=== PATIENT | female | born 1980 | race Caucasian/White ===

== ENCOUNTER → 2016-11-30 | Outpatient (CLI) | payer BC, OTHER ==
--- NOTE | 2016-11-30 14:49 | CT ---
EXAMINATION TYPE: CT brain wo/w con DATE OF EXAM: 11/30/2016 2:36 PM COMPARISON: NONE HISTORY: Lump at base of skull, upper posterior neck CT DLP: 2077mGycm CONTRAST: CT scan of the head is performed without and with IV Contrast, patient injected with 100 mL of Omnipa que 300. Unenhanced followed by contrast enhanced CT of the brain is submitted for evaluation. The ventricles are midline. There is no evidence for intracranial hemorrhage or extra-axial collection. No mass e ffects are identified. Visualized bony calvarium is intact. Contrast is administered and no enhanci ng lesions are detected. No pathologic enhancement is identified. Small Lipoma associated with consi derable. If symptoms persist consider MRI. IMPRESSION: No intracranial abnormalities appreciated.
--- NOTE | 2016-11-30 14:51 | CT ---
EXAMINATION TYPE: CT soft tissue neck w con DATE OF EXAM: 11/30/2016 2:35 PM COMPARISON: NONE HISTORY: Lt neck pain and swelling and posterior upper neck mass CT DLP: 500.2 mGycm CONTRAST: CT scan of the neck is performed with IV Contrast, patient injected with 100 mL of Omnipaque 300. Contrast enhanced CT of the neck was performed from the skull base through the lung apices. Marker is placed at the site of clinical concern posterior left neck. At the site of clinical concern there is lipomatous prominence which may reflect lipoma. No solid mass is seen. AIRWAY: The supraglottic, glottic, and subglottic portions of the airway appear patent and free of mass. SALIVARY GLANDS: The submandibular and parotid glands are free of mass or inflammatory process. THYROID GLAND: No nodules or masses seen. LYMPH NODES: No adenopathy seen greater than 1cm. LUNG APICES: No nodule or mass is seen. OTHER: Vascular structures are patent. No significant degenerative change of the cervical spine. N o abscess seen. Small polyp or mucous retention cyst right maxillary sinus. IMPRESSION: No solid mass at the site of clinical concern. Lipomatous prominence which may reflect lipoma.
== END | disposition home or self-care (01) ==
LOC: RADCTMAIN 13:12
PROVIDERS: ATTEND Nurse Practitioner Adult Health
DX: R22.1 Localized swelling, mass and lump, neck (principal)
CPT/HCPCS: 70491; 70470; Q9967

== ENCOUNTER → 2017-06-16 | Outpatient (CLI) | payer OTHER ==
--- NOTE | 2017-06-16 15:58 | US ---
EXAMINATION TYPE: US transvaginal DATE OF EXAM: 06/16/2017 COMPARISON: NONE CLINICAL HISTORY: N83.209 Ovarian cyst. Pelvic pain TECHNIQUE: Transvaginal (TV) Date of LMP: 05/20/17 EXAM MEASUREMENTS: Uterus: 8.1 x 4.5 x 5.4 cm Endometrial Stripe: 0.6 cm Right Ovary: 5.3 x 2.5 x 3.9 cm Left Ovary: 3.4 x 2.2 x 3.4 cm 1. Uterus: Anteverted Multiple Nabothian cysts 2. Endometrium: appears wnl 3. Right Ovary: cystic area = 3.6 x 2.9 x 3.5cm 4. Left Ovary: multiple follicles 5. Bilateral Adnexa: small amount of free fluid right adnexa adjacent to right ovary 6. Posterior cul-de-sac: small amount of free fluid IMPRESSION: 1. Right ovarian cyst. Follow-up exam following the next normal menstrual period or 6 weeks is recomm ended.
--- NOTE | 2017-06-16 16:10 | US ---
EXAMINATION TYPE: US mass soft tissue chest/back DATE OF EXAM: 06/16/2017 COMPARISON: NONE CLINICAL HISTORY: L98.9 Disorder of skin. Lump mid lower back for years, increasing in size Hypoechoic area within mid lower back at palpable = 3.5 x 1.5 x 3.0cm . Differential diagnosis could include a lipoma. This does not is low density is typically identified f or hematoma or abscess. Other etiologies including liposarcoma should be considered. Additional esthela p can be performed with contrast MRI. IMPRESSION: 1. Possible lipoma at the palpable abnormality mid to lower back. This has internal echoes and is sli ghtly more hypoechoic than the subcutaneous tissue. Consider additional workup with MRI with contrast .
== END | disposition home or self-care (01) ==
LOC: RADUSWWP 14:14
PROVIDERS: ATTEND Family Medicine
DX: N83.201 Unspecified ovarian cyst, right side (principal); R93.8 Abnormal findings on diagnostic imaging of other specified body structures; L98.9 Disorder of the skin and subcutaneous tissue, unspecified
CPT/HCPCS: 76830

== ENCOUNTER 2017-09-24 12:38 | Emergency (ER) | payer OTHER ==
[2017-09-24] MEDS ORDERED: RX INFO: IV CONTRAST WAS GIVEN 1 EACH MISC MISCELLANE PRN (13:30)
--- NOTE | 2017-09-24 13:40 | ED ---
SOB HPI - General Chief Complaint: Shortness of Breath Stated Complaint: SOB-Post Op 4 days Time Seen by Provider: 09/24/17 13:20 Source: patient, family Mode of arrival: wheelchair Limitations: no limitations - History of Present Illness Initial Comments: Patient presents with shortness of breath since she woke up this morning. Symptoms are mild, only with exertion. Denies palpitations, chest pain, pain with breathing. Patient had recent lumbar disc herniation surgery 4 days ago, ambulatory surgery at outside hospital. Patient denies being on any blood thinners. Patient states she has a history of superficial thrombophlebitis from a varicose vein, however no history DVT or PE. Patient denies history of CHF. States she is on spironolactone for polycystic ovarian syndrome. Patient does know her right leg feels swollen in the right upper thigh region. Denies skin color changes, rashes, lesions. Patient denies recent illness, fevers, chills, nausea, vomiting, urinary symptoms, changes in bowel. Patient denies urinary retention. Patient denies history of lung disease or heart disease. MD Complaint: shortness of breath - Related Data Home Medications Medication Instructions Recorded Confirmed ALPRAZolam 1 mg PO TID PRN 03/20/14 09/24/17 Spironolactone 100 mg PO BID 03/20/14 09/24/17 Promethazine [Phenergan] 25 mg PO TID PRN 05/20/15 09/24/17 Topiramate [Topamax] 100 mg PO BID 05/20/15 09/24/17 Baclofen [Lioresal] 10 mg PO QID 09/24/17 09/24/17 DULoxetine HCL [Cymbalta] 60 mg PO DAILY 09/24/17 09/24/17 Gabapentin [Neurontin] 100 mg PO TID 09/24/17 09/24/17 HYDROcodone/APAP 5-325MG [[place] 1 tab PO Q4HR PRN 09/24/17 09/24/17 5-325] Methocarbamol [Robaxin] 750 mg PO Q6H PRN 09/24/17 09/24/17 Sucralfate [Carafate] 1 gm PO QID PRN 09/24/17 09/24/17 traMADol HCL [Ultram] 50 mg PO Q6HR PRN 09/24/17 09/24/17 Allergies Allergy/AdvReac Type Severity Reaction Status Date / Time potassium clavulanate Allergy Rash/Hives Verified 09/24/17 14:29 [From Augmentin] codeine AdvReac Nausea & Verified 09/24/17 14:29 Vomiting morphine AdvReac Nausea & Verified 09/24/17 14:29 Vomiting Review of Systems ROS Statement: Those systems with pertinent positive or pertinent negative responses have been documented in the HPI. ROS Other: All systems not noted in ROS Statement are negative. Constitutional: Denies: fever, chills, weakness Eyes: Denies: vision change ENT: Denies: congestion Respiratory: Reports: dyspnea. Denies: cough, wheezes, hemoptysis, stridor Cardiovascular: Reports: dyspnea on exertion, edema. Denies: chest pain, palpitations, orthopnea, syncope Endocrine: Denies: fatigue Gastrointestinal: Denies: abdominal pain, nausea, vomiting, diarrhea, constipation Genitourinary: Denies: urgency, dysuria, frequency, hematuria Musculoskeletal: Denies: joint swelling, arthralgia, myalgia Skin: Denies: rash, lesions, change in color Neurological: Denies: headache, weakness, numbness, confusion Past Medical History Past Medical History: Blood Disorder, GERD/Reflux, Thyroid Disorder Additional Past Medical History / Comment(s): polycystic ovaries mthfr clotting factor disorder, kidney stones, superficial blood clot x1,migraines, thyroid nodules-dr. davalos,varicose veins, past hx. hypertension History of Any Multi-Drug Resistant Organisms: MRSA Date of last positivie culture/infection: 2010 MDRO Source:: abdomen Past Surgical History: Appendectomy, Back Surgery, Bariatric Surgery, Breast Surgery, Cholecystectomy Additional Past Surgical History / Comment(s): gastric sleeve, vein stripping x4 pascale legs, laparoscopy, D & C x 5, lt breast biopsy Past Anesthesia/Blood Transfusion Reactions: Motion Sickness Past Psychological History: ADD/ADHD, Anxiety Smoking Status: Former smoker Past Alcohol Use History: Rare Past Drug Use History: None Reported - Past Family History Father Family Medical History: Hyperlipidemia, Hypertension Additional Family Medical History / Comment(s): low sodium Mother Family Medical History: Cancer, Fibromyalgia Additional Family Medical History / Comment(s): thyroid ca, Sister(s) Family Medical History: Pulmonary Embolus General Exam - General Exam Comments Initial Comments: Sitting up in bed. No acute distress. Conversing normally. Calm, pleasant. Well appearing. Limitations: no limitations General appearance: alert, in no apparent distress Head exam: Present: atraumatic, normocephalic Eye exam: Present: normal appearance, PERRL, EOMI. Absent: scleral icterus, conjunctival injection ENT exam: Present: mucous membranes moist Neck exam: Present: normal inspection Respiratory exam: Present: normal lung sounds bilaterally. Absent: respiratory distress, wheezes, rales, rhonchi, stridor, accessory muscle use, decreased breath sounds, prolonged expiratory Cardiovascular Exam: Present: regular rate, normal rhythm GI/Abdominal exam: Present: soft. Absent: distended, tenderness, guarding, rebound Extremities exam: Present: full ROM, normal capillary refill, other (No edema of the right upper dye appreciated. Small cordlike structure medial distal right thigh, no overlying rashes or skin changes appreciated.). Absent: tenderness, pedal edema, joint swelling, calf tenderness Neurological exam: Present: alert, oriented X3 Psychiatric exam: Present: normal affect, normal mood Skin exam: Present: warm, dry, intact, normal color. Absent: rash, cyanosis, diaphoretic, erythema, pallor Course Vital Signs 09/24/17 09/24/17 09/24/17 12:39 12:57 13:40 Temperature 98.4 F Pulse Rate 94 86 Respiratory 17 18 18 Rate Blood Pressure 130/78 132/62 O2 Sat by Pulse 100 96 Oximetry 09/24/17 16:02 Temperature Pulse Rate 72 Respiratory 18 Rate Blood Pressure 116/65 O2 Sat by Pulse 96 Oximetry Medical Decision Making - Medical Decision Making Risk-benefit CT PE given complaints of leg swelling, recent surgery, discussed the patient and , they agree to CT PE. EKG normal sinus rhythm, heart rate 88, no ST or T-wave changes appreciated. Troponin negative test negative CT PE negative No Significant lab abnormalities 16:49 Spoke with [employer], states computer issue getting result to cross over in system, states Doppler ultrasound was negative Patient & updated with all results. Discussed warm compresses to her thigh. Follow primary care physician for reevaluation. Return to ER for new or worsening symptoms. Patient understands and agrees. Patient feels comfortable going home at this time. At this time I do not feel patient's has signs or symptoms of more significant morbidity or mortality risk requiring further evaluation or hospital admission. Feel patient is safe for discharge home and follow primary care physician. Discussed possible superficial thrombophlebitis of the thigh, discussed warm compresses, discuss NSAID therapy with spinal surgeon. - Lab Data Result diagrams: 09/24/17 13:11 09/24/17 13:11 Lab Results 09/24/17 09/24/17 09/24/17 Range/Units 13:11 13:11 13:11 WBC 8.4 (3.8-10.6) k/uL RBC 3.90 (3.80-5.40) m/uL Hgb 12.7 (11.4-16.0) gm/dL Hct 38.3 (34.0-46.0) % MCV 98.1 (80.0-100.0) fL MCH 32.6 (25.0-35.0) pg MCHC 33.3 (31.0-37.0) g/dL RDW 12.6 (11.5-15.5) % Plt Count 366 (150-450) k/uL Neutrophils % 70 % Lymphocytes % 22 % Monocytes % 4 % Eosinophils % 3 % Basophils % 0 % Neutrophils # 5.9 (1.3-7.7) k/uL Lymphocytes # 1.8 (1.0-4.8) k/uL Monocytes # 0.3 (0-1.0) k/uL Eosinophils # 0.2 (0-0.7) k/uL Basophils # 0.0 (0-0.2) k/uL PT 9.3 (9.0-12.0) sec INR 0.9 (<1.2) APTT 25.2 (22.0-30.0) sec Sodium (137-145) mmol/L Potassium (3.5-5.1) mmol/L Chloride (98-107) mmol/L Carbon Dioxide (22-30) mmol/L Anion Gap mmol/L BUN (7-17) mg/dL Creatinine (0.52-1.04) mg/dL Est GFR (MDRD) Af Amer (>60 ml/min/1.73 sqM) Est GFR (MDRD) Non-Af (>60 ml/min/1.73 sqM) Glucose (74-99) mg/dL Calcium (8.4-10.2) mg/dL Troponin I <0.012 (0.000-0.034) ng/mL NT-Pro-B Natriuret Pep pg/mL Urine Color Urine Appearance (Clear) Urine pH (5.0-8.0) Ur Specific Hardy (1.001-1.035) Urine Protein (Negative) Urine Glucose (UA) (Negative) Urine Ketones (Negative) Urine Blood (Negative) Urine Nitrite (Negative) Urine Bilirubin (Negative) Urine Urobilinogen (<2.0) mg/dL Ur Leukocyte Esterase (Negative) Urine RBC (0-5) /hpf Ur Squamous Epith Cells (0-4) /hpf Urine Bacteria (None) /hpf Urine HCG, Qual (Not Detectd) 09/24/17 09/24/17 09/24/17 Range/Units 13:11 13:11 13:11 WBC (3.8-10.6) k/uL RBC (3.80-5.40) m/uL Hgb (11.4-16.0) gm/dL Hct (34.0-46.0) % MCV (80.0-100.0) fL MCH (25.0-35.0) pg MCHC (31.0-37.0) g/dL RDW (11.5-15.5) % Plt Count (150-450) k/uL Neutrophils % % Lymphocytes % % Monocytes % % Eosinophils % % Basophils % % Neutrophils # (1.3-7.7) k/uL Lymphocytes # (1.0-4.8) k/uL Monocytes # (0-1.0) k/uL Eosinophils # (0-0.7) k/uL Basophils # (0-0.2) k/uL PT (9.0-12.0) sec INR (<1.2) APTT (22.0-30.0) sec Sodium 139 (137-145) mmol/L Potassium 3.9 (3.5-5.1) mmol/L Chloride 104 (98-107) mmol/L Carbon Dioxide 25 (22-30) mmol/L Anion Gap 10 mmol/L BUN 8 (7-17) mg/dL Creatinine 0.82 (0.52-1.04) mg/dL Est GFR (MDRD) Af Amer >60 (>60 ml/min/1.73 sqM) Est GFR (MDRD) Non-Af >60 (>60 ml/min/1.73 sqM) Glucose 122 H (74-99) mg/dL Calcium 8.9 (8.4-10.2) mg/dL Troponin I (0.000-0.034) ng/mL NT-Pro-B Natriuret Pep 30 pg/mL Urine Color Light Yellow Urine Appearance Clear (Clear) Urine pH 7.0 (5.0-8.0) Ur Specific Hardy 1.006 (1.001-1.035) Urine Protein Negative (Negative) Urine Glucose (UA) Negative (Negative) Urine Ketones Negative (Negative) Urine Blood Trace H (Negative) Urine Nitrite Negative (Negative) Urine Bilirubin Negative (Negative) Urine Urobilinogen <2.0 (<2.0) mg/dL Ur Leukocyte Esterase Negative (Negative) Urine RBC 1 (0-5) /hpf Ur Squamous Epith Cells 1 (0-4) /hpf Urine Bacteria Rare H (None) /hpf Urine HCG, Qual (Not Detectd) 09/24/17 Range/Units 13:11 WBC (3.8-10.6) k/uL RBC (3.80-5.40) m/uL Hgb (11.4-16.0) gm/dL Hct (34.0-46.0) % MCV (80.0-100.0) fL MCH (25.0-35.0) pg MCHC (31.0-37.0) g/dL RDW (11.5-15.5) % Plt Count (150-450) k/uL Neutrophils % % Lymphocytes % % Monocytes % % Eosinophils % % Basophils % % Neutrophils # (1.3-7.7) k/uL Lymphocytes # (1.0-4.8) k/uL Monocytes # (0-1.0) k/uL Eosinophils # (0-0.7) k/uL Basophils # (0-0.2) k/uL PT (9.0-12.0) sec INR (<1.2) APTT (22.0-30.0) sec Sodium (137-145) mmol/L Potassium (3.5-5.1) mmol/L Chloride (98-107) mmol/L Carbon Dioxide (22-30) mmol/L Anion Gap mmol/L BUN (7-17) mg/dL Creatinine (0.52-1.04) mg/dL Est GFR (MDRD) Af Amer (>60 ml/min/1.73 sqM) Est GFR (MDRD) Non-Af (>60 ml/min/1.73 sqM) Glucose (74-99) mg/dL Calcium (8.4-10.2) mg/dL Troponin I (0.000-0.034) ng/mL NT-Pro-B Natriuret Pep pg/mL Urine Color Urine Appearance (Clear) Urine pH (5.0-8.0) Ur Specific Hardy (1.001-1.035) Urine Protein (Negative) Urine Glucose (UA) (Negative) Urine Ketones (Negative) Urine Blood (Negative) Urine Nitrite (Negative) Urine Bilirubin (Negative) Urine Urobilinogen (<2.0) mg/dL Ur Leukocyte Esterase (Negative) Urine RBC (0-5) /hpf Ur Squamous Epith Cells (0-4) /hpf Urine Bacteria (None) /hpf Urine HCG, Qual Not Detected (Not Detectd) Disposition Clinical Impression: SOB (shortness of breath), Superficial thrombophlebitis Disposition: HOME SELF-CARE Condition: Good Instructions: Dyspnea (ED) Additional Instructions: Warm hot compresses to the right thigh. Discussed NSAID therapy with your spinal surgeon. Follow primary care physician one to 2 days. Return to ER if new or worsening symptoms. Referrals: Pawan Lyle MD [Primary Care Provider] - 1-2 days
[2017-09-24 13:58] LABS: Basophils % (A) 0 %; Eosinophils # (A) 0.2 k/uL (0-0.7); Eosinophils % (A) 3 %; HCT 38.3 % (34.0-46.0); HGB 12.7 gm/dL (11.4-16.0); Lymphocytes # (A) 1.8 k/uL (1.0-4.8); Lymphocytes % (A) 22 %; MCH 32.6 pg (25.0-35.0); MCHC 33.3 g/dL (31.0-37.0); MCV 98.1 fL (80.0-100.0); Mean Platelet Volume 6.7; Monocytes # (A) 0.3 k/uL (0-1.0); Monocytes % (A) 4 %; Neutrophils # (A) 5.9 k/uL (1.3-7.7); Neutrophils % (A) 70 %; Platelet Count 366 k/uL (150-450); RDW 12.6 % (11.5-15.5); WBC 8.4 k/uL (3.8-10.6)
[2017-09-24 13:59] LABS: Appearance,Urine Clear (Clear); Bacteria,Urine Rare /hpf; Bilirubin,Urine Negative (Negative); Blood,Urine Trace (Negative); Color,Urine Light Yellow; Glucose,Urine (UA) Negative (Negative); Ketones,Urine Negative (Negative); Leukocyte Esterase,Urine Negative (Negative); Nitrite,Urine Negative (Negative); Protein,Urine Negative (Negative); RBC,Urine 1 /hpf (0-5); Specific Gravity,Urine 1.006 (1.001-1.035); Squamous Epithelial Cell,Urine 1 /hpf (0-4); Urobilinogen,Urine <2.0 mg/dL (<2.0)
[2017-09-24] MEDS ORDERED: HYDROcodone/APAP 10-325MG 1 EACH TAB PO ONE ×2 (14:03→16:44)
[2017-09-24 14:06] LABS: INR 0.9 (<1.2); Partial Thromboplastin Time 25.2 sec (22.0-30.0); Prothrombin Time 9.3 sec (9.0-12.0)
[2017-09-24 14:09] LABS: Anion Gap 10 mmol/L; Blood Urea Nitrogen 8 mg/dL (7-17); Calcium 8.9 mg/dL (8.4-10.2); Carbon Dioxide 25 mmol/L (22-30); Chloride 104 mmol/L (98-107); Glucose 122 mg/dL (74-99); Potassium 3.9 mmol/L (3.5-5.1); Sodium 139 mmol/L (137-145)
--- NOTE | 2017-09-24 14:57 | CT ---
EXAMINATION TYPE: CT angio chest DATE OF EXAM: 09/24/2017 2:36 PM COMPARISON: NONE HISTORY: Shortness of breath, recent surgery-laminectomy CT DLP: 892.2 mGycm Automated exposure control for dose reduction was used. CONTRAST: CTA scan of the thorax is performed with IV Contrast, patient injected with 100 mL of Omnipaque 350, pulmonary embolism protocol. There are 3-D post processed images.. FINDINGS: The lungs are clear of consolidation. There is no evidence of a pulmonary mass. There is minimal grou ndglass interstitial density at the posterior lung bases. There is no pleural effusion. There is no mediastinal adenopathy. Thoracic aorta appears normal. There is no sign of aneurysm or di ssection. I see no filling defects in the pulmonary arteries. There are no hilar masses. There is no pericardial effusion. Heart size is fairly normal. I see no bony destructive process. There is spurri ng in the mid and lower thoracic spine. IMPRESSION: MINIMAL INTERSTITIAL DENSITY AT THE LUNG BASES. MILD SPONDYLOTIC CHANGES IN THE THORACIC SPINE. NO EVIDENCE OF PULMONARY EMBOLISM. BARIATRIC SURGERY NOTED ON THE STOMACH.
[2017-09-24] MEDS ORDERED: ONDANSETRON 4 MG/2 ML VIAL IVP STA (15:56)
[2017-09-24 16:54] VITALS: BP 108/55; PULSE 69; RESP 16; TEMP 98.8
--- NOTE | 2017-09-26 08:28 | US ---
EXAMINATION TYPE: US venous doppler duplex LE BI DATE OF EXAM: 09/24/2017 3:19 PM COMPARISON: NONE CLINICAL HISTORY: 37-year-old female swelling. SIDE PERFORMED: Bilateral TECHNIQUE: The lower extremity deep venous system is examined utilizing real time linear array sonog collette with graded compression, doppler sonography and color-flow sonography. FINDINGS: VESSELS IMAGED: External Iliac Vein (EIV) Common Femoral Vein Deep Femoral Vein Greater Saphenous Vein * Femoral Vein Popliteal Vein Small Saphenous Vein * Proximal Calf Veins (* superficial vessels) Right Leg: Negative for DVT Left Leg: Negative for DVT IMPRESSION: No evidence for DVT within the bilateral lower extremities imaged from the groin to the upper calves.
== END 2017-09-24 17:10 | disposition home or self-care (01) ==
LOC: EC 12:38
DX: R06.02 Shortness of breath (principal); I80.01 Phlebitis and thrombophlebitis of superficial vessels of right lower extremity; E28.2 Polycystic ovarian syndrome; I10 Essential (primary) hypertension; F90.9 Attention-deficit hyperactivity disorder, unspecified type; F41.9 Anxiety disorder, unspecified; Z98.84 Bariatric surgery status; Z86.14 Personal history of Methicillin resistant Staphylococcus aureus infection; Z79.899 Other long term (current) drug therapy; Z88.5 Allergy status to narcotic agent; Z88.8 Allergy status to other drugs, medicaments and biological substances
CPT/HCPCS: 36415; 93005; 83880; 80048; 84484; 85025; 85610; 85730; 81001; 81025; 93970; 71275; 99285; 96374; Q9967; J2405

== ENCOUNTER → 2018-03-01 | Outpatient (CLI) | payer OTHER ==
--- NOTE | 2018-03-01 15:50 | US ---
EXAMINATION TYPE: US transvaginal DATE OF EXAM: 03/01/2018 COMPARISON: CLINICAL HISTORY: N83.209 OVARIAN CYST. hx of right ovarian cysts TECHNIQUE: Transvaginal (TV). Date of LMP: 01/28/2018, G0 EXAM MEASUREMENTS: Uterus: 7.1 x 4.7 x 4.3 cm Endometrial Stripe: 0.5 cm Right Ovary: 4.0 x 2.6 x 2.7 cm Left Ovary: 4.3 x 3.2 x 3.0 cm 1. Uterus: Anteverted Heterogenous 2. Endometrium: wnl 3. Right Ovary: multiple follicles seen. Largest cystic appearing lesion - 2.6 x 1.9 x 2.0 cm 4. Left Ovary: multiple follicles seen 5. Bilateral Adnexa: Small amount of fluid seen adjacent to left ovary 6. Posterior cul-de-sac: no free fluid Cervix- Nabothian cysts IMPRESSION: 1. Multiple ovarian follicles. Functional right ovarian cyst.
== END | disposition home or self-care (01) ==
LOC: RADUSWWP 14:58
PROVIDERS: ATTEND Family Medicine
DX: N83.201 Unspecified ovarian cyst, right side (principal)
CPT/HCPCS: 76830

== ENCOUNTER → 2018-03-14 | Outpatient (CLI) | payer OTHER ==
--- NOTE | 2018-03-14 12:20 | US ---
EXAMINATION TYPE: US venous doppler duplex LE LT DATE OF EXAM: 03/14/2018 12:00 PM COMPARISON: 09/24/2017 CLINICAL HISTORY: 38 year-old female R60.0 Edema of Lower Extremity. History of vein stripping bilate rally SIDE PERFORMED: Left TECHNIQUE: The lower extremity deep venous system is examined utilizing real time linear array sonog collette with graded compression, doppler sonography and color-flow sonography. FINDINGS: VESSELS IMAGED: External Iliac Vein (EIV) Common Femoral Vein Deep Femoral Vein Greater Saphenous Vein * Femoral Vein Popliteal Vein Small Saphenous Vein * Proximal Calf Veins (* superficial vessels) Left Leg: Negative for DVT Preliminary results called to Dr Hernandez at time of exam IMPRESSION: No evidence for DVT within the left lower extremity imaged from the groin to the upper calf.
== END | disposition home or self-care (01) ==
LOC: RADUSWWP 11:26
PROVIDERS: ATTEND Family Medicine
DX: R60.0 Localized edema (principal)

== ENCOUNTER → 2018-03-21 | Outpatient (CLI) | payer OTHER ==
--- NOTE | 2018-03-26 12:14 | MM ---
Reason for exam: screening (asymptomatic). Last mammogram was performed 3 years and 11 months ago. History: Patient is nulliparous. Family history of premenopausal breast cancer in paternal grandmother at age 46. Excisional biopsy of the left breast, May 2012. Took progesterone for 3 years beginning at age 26. Physical Findings: A clinical breast exam by your physician is recommended on an annual basis and results should be correlated with mammographic findings. MG 3D Screening Mammo W/Cad Bilateral CC and MLO view(s) were taken. Prior study comparison: April 09, 2014, left breast MG work up mamm w CAD LT. April 02, 2014, bilateral MG screening mammo w CAD. The breast tissue is heterogeneously dense. This may lower the sensitivity of mammography. There is no discrete abnormality. No significant changes when compared with prior studies. ASSESSMENT: Negative, BI-RAD 1 RECOMMENDATION: Routine screening mammogram of both breasts in 1 year.
== END | disposition home or self-care (01) ==
LOC: RADMAMWWP 08:08
PROVIDERS: ATTEND Family Medicine
DX: Z12.31 Encounter for screening mammogram for malignant neoplasm of breast (principal)
CPT/HCPCS: 77063; 77067

== ENCOUNTER → 2018-07-10 | Outpatient (CLI) | payer OTHER ==
--- NOTE | 2018-07-10 15:55 | US ---
EXAMINATION TYPE: US venous doppler duplex LE RT DATE OF EXAM: 07/10/2018 2:33 PM COMPARISON: NONE CLINICAL HISTORY: R22.40 LOCALIZED SWELLING MASS AND LUMP. Redness right upper thigh SIDE PERFORMED: right TECHNIQUE: The lower extremity deep venous system is examined utilizing real time linear array sonog collette with graded compression, doppler sonography and color-flow sonography. VESSELS IMAGED: External Iliac Vein (EIV) Common Femoral Vein Deep Femoral Vein Greater Saphenous Vein * Femoral Vein Popliteal Vein Small Saphenous Vein * Proximal Calf Veins (* superficial vessels) There is normal flow, compressibility, vascular waveforms. Superficial vein shows abnormal luminal ec ho in the upper thigh. Right Leg: No evidence of DVT. Superficial thrombus right upper thigh within area of concern IMPRESSION: No evident deep venous arthrosis at or above the right knee. Superficial venous thrombosi s.
== END ==
LOC: RADUSWWP 14:10
PROVIDERS: ATTEND Family Medicine
DX: R22.40 Localized swelling, mass and lump, unspecified lower limb (principal); M79.604 Pain in right leg

== ENCOUNTER 2018-09-22 17:53 | Inpatient (IN) | payer OTHER ==
[2018-09-22] MEDS ORDERED: ONDANSETRON 4 MG/2 ML VIAL IVP STA (18:10)
[2018-09-22] MEDS ORDERED: SODIUM CHLORIDE 0.9% 1,000 ML IV STA ×2 (18:10)
[2018-09-22] MEDS ORDERED: MORPHINE SULFATE 4 MG/ML SYRINGE IV STA (18:10)
--- NOTE | 2018-09-22 18:14 | ED ---
Abdominal Pain HPI - General Chief Complaint: Abdominal Pain Stated Complaint: abdominal pain Time Seen by Provider: 09/22/18 18:03 Source: patient, family, RN notes reviewed, old records reviewed Mode of arrival: ambulatory Limitations: no limitations - History of Present Illness Initial Comments: Patient 38-year-old female presents emergency department today with onset of epigastric abdominal pain radiating up her left side of her shoulder and back. Patient states that she took multiple antacid medications to search for relief. She reports she feels nauseated. She denies any associated shortness of breath. Surgical history includes gastric sleeve and cholecystectomy. She reports she's had normal stools. She states that she's had no previous cardiac history. Patient reports symptoms are worse if she lays down. - Related Data Home Medications Medication Instructions Recorded Confirmed ALPRAZolam 1 mg PO TID PRN 03/20/14 09/24/17 Spironolactone 100 mg PO BID 03/20/14 09/24/17 Promethazine [Phenergan] 25 mg PO TID PRN 05/20/15 09/24/17 Topiramate [Topamax] 100 mg PO BID 05/20/15 09/24/17 Baclofen [Lioresal] 10 mg PO QID 09/24/17 09/24/17 DULoxetine HCL [Cymbalta] 60 mg PO DAILY 09/24/17 09/24/17 Gabapentin [Neurontin] 100 mg PO TID 09/24/17 09/24/17 HYDROcodone/APAP 5-325MG [Hope 1 tab PO Q4HR PRN 09/24/17 09/24/17 5-325] Methocarbamol [Robaxin] 750 mg PO Q6H PRN 09/24/17 09/24/17 Sucralfate [Carafate] 1 gm PO QID PRN 09/24/17 09/24/17 traMADol HCL [Ultram] 50 mg PO Q6HR PRN 09/24/17 09/24/17 Allergies Allergy/AdvReac Type Severity Reaction Status Date / Time potassium clavulanate Allergy Rash/Hives Verified 09/22/18 17:57 [From Augmentin] morphine AdvReac Nausea & Verified 09/22/18 17:57 Vomiting Review of Systems ROS Statement: Those systems with pertinent positive or pertinent negative responses have been documented in the HPI. ROS Other: All systems not noted in ROS Statement are negative. Past Medical History Past Medical History: Blood Disorder, GERD/Reflux, Thyroid Disorder Additional Past Medical History / Comment(s): polycystic ovaries mthfr clotting factor disorder, kidney stones, superficial blood clot x1,migraines, thyroid nodules-dr. davalos,varicose veins, past hx. hypertension History of Any Multi-Drug Resistant Organisms: MRSA Date of last positivie culture/infection: 2010 MDRO Source:: abdomen Past Surgical History: Appendectomy, Back Surgery, Bariatric Surgery, Breast Surgery, Cholecystectomy Additional Past Surgical History / Comment(s): gastric sleeve, vein stripping x4 pascale legs, laparoscopy, D & C x 5, lt breast biopsy Past Anesthesia/Blood Transfusion Reactions: Motion Sickness Past Psychological History: ADD/ADHD, Anxiety Smoking Status: Former smoker Past Alcohol Use History: Rare Past Drug Use History: None Reported - Past Family History Father Family Medical History: Hyperlipidemia, Hypertension Additional Family Medical History / Comment(s): low sodium Mother Family Medical History: Cancer, Fibromyalgia Additional Family Medical History / Comment(s): thyroid ca, Sister(s) Family Medical History: Pulmonary Embolus General Exam - General Exam Comments Initial Comments: 38-year-old female. Alert and oriented. Patient appears in moderate discomfort. Limitations: no limitations General appearance: alert, in no apparent distress Head exam: Present: atraumatic, normocephalic, normal inspection Eye exam: Present: normal appearance, PERRL, EOMI. Absent: scleral icterus, conjunctival injection, periorbital swelling ENT exam: Present: normal exam, mucous membranes moist Neck exam: Present: normal inspection. Absent: tenderness, meningismus, lymphadenopathy Respiratory exam: Present: normal lung sounds bilaterally. Absent: respiratory distress, wheezes, rales, rhonchi, stridor Cardiovascular Exam: Present: regular rate, normal rhythm, normal heart sounds. Absent: systolic murmur, diastolic murmur, rubs, gallop, clicks GI/Abdominal exam: Present: soft, tenderness (epigastric tenderness), normal bowel sounds. Absent: distended, guarding, rebound, rigid Extremities exam: Present: normal inspection, full ROM, normal capillary refill. Absent: tenderness, pedal edema, joint swelling, calf tenderness Back exam: Present: normal inspection Neurological exam: Present: alert, oriented X3, CN II-XII intact Psychiatric exam: Present: normal affect, normal mood Course Vital Signs 09/22/18 17:57 Temperature 98 F Pulse Rate 96 Respiratory 20 Rate Blood Pressure 138/92 O2 Sat by Pulse 99 Oximetry Medical Decision Making - Medical Decision Making 38-year-old female presents today with epigastric abdominal pain leading towards her shoulders. Patient symptoms are drowning today. Not associated with eating. Surgical history includes gastric sleeve close centimeter by Dr. minna Pace. Patient EKG was reviewed to be normal. Negative cardiac enzymes at this time. She continues later epigastric abdominal pain. She is given GI cocktail multiple pain medications with severe pain. Eventually computed tomography scan was completed. There is evidence of a dilated transverse colon up in the right upper quadrant and evidence of elevated diaphragm. Patient's shoulder pain is most likely related to the colon pressing onto the diaphragm with referred pain. Patient case with Dr. Mark moss. He also examined the Patient. The patient's continued pain with placement the Patient for evaluation with her surgeon. Patient agrees to admission. - Lab Data Result diagrams: 09/22/18 18:22 09/22/18 18:22 Lab Results 09/22/18 09/22/18 09/22/18 Range/Units 18:22 18:22 18:22 WBC 10.5 (3.8-10.6) k/uL RBC 4.37 (3.80-5.40) m/uL Hgb 14.6 (11.4-16.0) gm/dL Hct 43.2 (34.0-46.0) % MCV 98.8 (80.0-100.0) fL MCH 33.4 (25.0-35.0) pg MCHC 33.8 (31.0-37.0) g/dL RDW 13.0 (11.5-15.5) % Plt Count 353 (150-450) k/uL Neutrophils % 67 % Lymphocytes % 24 % Monocytes % 4 % Eosinophils % 3 % Basophils % 0 % Neutrophils # 7.0 (1.3-7.7) k/uL Lymphocytes # 2.5 (1.0-4.8) k/uL Monocytes # 0.4 (0-1.0) k/uL Eosinophils # 0.3 (0-0.7) k/uL Basophils # 0.0 (0-0.2) k/uL PT 9.5 (9.0-12.0) sec INR 0.9 (<1.2) APTT 28.6 (22.0-30.0) sec D-Dimer (<0.60) mg/L FEU Sodium 139 (137-145) mmol/L Potassium 3.8 (3.5-5.1) mmol/L Chloride 106 (98-107) mmol/L Carbon Dioxide 24 (22-30) mmol/L Anion Gap 9 mmol/L BUN 4 L (7-17) mg/dL Creatinine 0.85 (0.52-1.04) mg/dL Est GFR (CKD-EPI)AfAm >90 (>60 ml/min/1.73 sqM) Est GFR (CKD-EPI)NonAf 87 (>60 ml/min/1.73 sqM) Glucose 137 H (74-99) mg/dL Calcium 9.5 (8.4-10.2) mg/dL Total Bilirubin 0.4 (0.2-1.3) mg/dL AST 23 (14-36) U/L ALT 48 (9-52) U/L Alkaline Phosphatase 108 (38-126) U/L Troponin I (0.000-0.034) ng/mL Total Protein 7.7 (6.3-8.2) g/dL Albumin 4.1 (3.5-5.0) g/dL Amylase 43 (30-110) U/L Lipase 80 (23-300) U/L Urine Color Urine Appearance (Clear) Urine pH (5.0-8.0) Ur Specific [place] (1.001-1.035) Urine Protein (Negative) Urine Glucose (UA) (Negative) Urine Ketones (Negative) Urine Blood (Negative) Urine Nitrite (Negative) Urine Bilirubin (Negative) Urine Urobilinogen (<2.0) mg/dL Ur Leukocyte Esterase (Negative) Urine HCG, Qual (Not Detectd) 09/22/18 09/22/18 09/22/18 Range/Units 18:22 18:22 18:22 WBC (3.8-10.6) k/uL RBC (3.80-5.40) m/uL Hgb (11.4-16.0) gm/dL Hct (34.0-46.0) % MCV (80.0-100.0) fL MCH (25.0-35.0) pg MCHC (31.0-37.0) g/dL RDW (11.5-15.5) % Plt Count (150-450) k/uL Neutrophils % % Lymphocytes % % Monocytes % % Eosinophils % % Basophils % % Neutrophils # (1.3-7.7) k/uL Lymphocytes # (1.0-4.8) k/uL Monocytes # (0-1.0) k/uL Eosinophils # (0-0.7) k/uL Basophils # (0-0.2) k/uL PT (9.0-12.0) sec INR (<1.2) APTT (22.0-30.0) sec D-Dimer 0.42 (<0.60) mg/L FEU Sodium (137-145) mmol/L Potassium (3.5-5.1) mmol/L Chloride (98-107) mmol/L Carbon Dioxide (22-30) mmol/L Anion Gap mmol/L BUN (7-17) mg/dL Creatinine (0.52-1.04) mg/dL Est GFR (CKD-EPI)AfAm (>60 ml/min/1.73 sqM) Est GFR (CKD-EPI)NonAf (>60 ml/min/1.73 sqM) Glucose (74-99) mg/dL Calcium (8.4-10.2) mg/dL Total Bilirubin (0.2-1.3) mg/dL AST (14-36) U/L ALT (9-52) U/L Alkaline Phosphatase (38-126) U/L Troponin I <0.012 (0.000-0.034) ng/mL Total Protein (6.3-8.2) g/dL Albumin (3.5-5.0) g/dL Amylase (30-110) U/L Lipase (23-300) U/L Urine Color Colorless Urine Appearance Clear (Clear) Urine pH 6.0 (5.0-8.0) Ur Specific [place] 1.000 L (1.001-1.035) Urine Protein Negative (Negative) Urine Glucose (UA) Negative (Negative) Urine Ketones Negative (Negative) Urine Blood Negative (Negative) Urine Nitrite Negative (Negative) Urine Bilirubin Negative (Negative) Urine Urobilinogen <2.0 (<2.0) mg/dL Ur Leukocyte Esterase Negative (Negative) Urine HCG, Qual (Not Detectd) 09/22/18 Range/Units 18:22 WBC (3.8-10.6) k/uL RBC (3.80-5.40) m/uL Hgb (11.4-16.0) gm/dL Hct (34.0-46.0) % MCV (80.0-100.0) fL MCH (25.0-35.0) pg MCHC (31.0-37.0) g/dL RDW (11.5-15.5) % Plt Count (150-450) k/uL Neutrophils % % Lymphocytes % % Monocytes % % Eosinophils % % Basophils % % Neutrophils # (1.3-7.7) k/uL Lymphocytes # (1.0-4.8) k/uL Monocytes # (0-1.0) k/uL Eosinophils # (0-0.7) k/uL Basophils # (0-0.2) k/uL PT (9.0-12.0) sec INR (<1.2) APTT (22.0-30.0) sec D-Dimer (<0.60) mg/L FEU Sodium (137-145) mmol/L Potassium (3.5-5.1) mmol/L Chloride (98-107) mmol/L Carbon Dioxide (22-30) mmol/L Anion Gap mmol/L BUN (7-17) mg/dL Creatinine (0.52-1.04) mg/dL Est GFR (CKD-EPI)AfAm (>60 ml/min/1.73 sqM) Est GFR (CKD-EPI)NonAf (>60 ml/min/1.73 sqM) Glucose (74-99) mg/dL Calcium (8.4-10.2) mg/dL Total Bilirubin (0.2-1.3) mg/dL AST (14-36) U/L ALT (9-52) U/L Alkaline Phosphatase (38-126) U/L Troponin I (0.000-0.034) ng/mL Total Protein (6.3-8.2) g/dL Albumin (3.5-5.0) g/dL Amylase (30-110) U/L Lipase (23-300) U/L Urine Color Urine Appearance (Clear) Urine pH (5.0-8.0) Ur Specific [place] (1.001-1.035) Urine Protein (Negative) Urine Glucose (UA) (Negative) Urine Ketones (Negative) Urine Blood (Negative) Urine Nitrite (Negative) Urine Bilirubin (Negative) Urine Urobilinogen (<2.0) mg/dL Ur Leukocyte Esterase (Negative) Urine HCG, Qual Not Detected (Not Detectd) 09/22/18 18:35 EKG shows normal sinus rhythm with normal EKG noted. Ventricular rate of 91 bpm. Pulse 170 ms. QRS duration is 114 ms. QT QTc is 372/457 ms. - Radiology Data Radiology results: report reviewed Bilateral large ovarian cysts. No evidence of renal stone or obstruction. No evidence of appendicitis per previous surgery noted. Distended traverse colon suggestive of ileus. Ovarian cysts her new compared old computed tomography scan. Disposition Clinical Impression: Epigastric abdominal pain, Ileus, History of sleeve gastrectomy Disposition: HOME SELF-CARE Condition: Good Is patient prescribed a controlled substance at d/c from ED?: No Referrals: Pawan Lyle MD [Primary Care Provider] - 1-2 days Time of Disposition: 22:31
[2018-09-22 18:44] LABS: Appearance,Urine Clear (Clear); Basophils % (A) 0 %; Bilirubin,Urine Negative (Negative); Blood,Urine Negative (Negative); Color,Urine Colorless; Eosinophils # (A) 0.3 k/uL (0-0.7); Eosinophils % (A) 3 %; Glucose,Urine (UA) Negative (Negative); HCT 43.2 % (34.0-46.0); HGB 14.6 gm/dL (11.4-16.0); Ketones,Urine Negative (Negative); Leukocyte Esterase,Urine Negative (Negative); Lymphocytes # (A) 2.5 k/uL (1.0-4.8); Lymphocytes % (A) 24 %; MCH 33.4 pg (25.0-35.0); MCHC 33.8 g/dL (31.0-37.0); MCV 98.8 fL (80.0-100.0); Mean Platelet Volume 6.6; Monocytes # (A) 0.4 k/uL (0-1.0); Monocytes % (A) 4 %; Neutrophils % (A) 67 %; Nitrite,Urine Negative (Negative); Platelet Count 353 k/uL (150-450); Protein,Urine Negative (Negative); RBC 4.37 m/uL (3.80-5.40); Urobilinogen,Urine <2.0 mg/dL (<2.0); WBC 10.5 k/uL (3.8-10.6)
[2018-09-22 18:55] LABS: ALT 48 U/L (9-52); AST 23 U/L (14-36); Albumin 4.1 g/dL (3.5-5.0); Alkaline Phosphatase 108 U/L (38-126); Amylase 43 U/L (30-110); Anion Gap 9 mmol/L; Blood Urea Nitrogen 4 mg/dL (7-17); Calcium 9.5 mg/dL (8.4-10.2); Carbon Dioxide 24 mmol/L (22-30); Chloride 106 mmol/L (98-107); Glucose 137 mg/dL (74-99); Lipase 80 U/L (23-300); Potassium 3.8 mmol/L (3.5-5.1); Sodium 139 mmol/L (137-145); Total Bilirubin 0.4 mg/dL (0.2-1.3); Total Protein 7.7 g/dL (6.3-8.2)
[2018-09-22 18:59] LABS: INR 0.9 (<1.2); Partial Thromboplastin Time 28.6 sec (22.0-30.0); Prothrombin Time 9.5 sec (9.0-12.0)
--- NOTE | 2018-09-22 19:26 | XR ---
EXAMINATION TYPE: XR chest 2V DATE OF EXAM: 09/22/2018 COMPARISON: 03/20/2014 HISTORY: Upper abdominal pain TECHNIQUE: Frontal and lateral views of the chest are obtained. FINDINGS: Heart and mediastinum are normal. Lungs are clear of infiltrate. There is no pleural effus ion. There is slight elevated right diaphragm. Bony thorax is intact. There is interposition of the h epatic flexure of the colon. IMPRESSION: No active cardiopulmonary disease. There is slight elevated right diaphragm that is a ch tristan compared to old exam.
--- NOTE | 2018-09-22 19:27 | XR ---
Abdomen single view. History abdominal pain. Comparison none. Technique 2 views upright. FINDINGS: Bowel gas pattern is normal. There is no sign of intestinal obstruction or pneumoperitoneum. Fecal pa ttern is normal. There is a gas-filled distended loop of large bowel in the right upper quadrant. The re are clips on the gastric curvature. There are clips from cholecystectomy. There are no pathologic calcifications over the kidneys. IMPRESSION: Nonacute abdomen. Previous surgery.
[2018-09-22] MEDS ORDERED: PANTOPRAZOLE 40 MG/10 ML VIAL IVP STA (19:48)
[2018-09-22] MEDS ORDERED: MAG HYDROX/AL HYDROX/SIMETH 30 ML, HYOSCYAMINE ELIXIR 10 ML, CIMETIDINE HCL 300 MG, LID... PO STA ×4 (19:48)
[2018-09-22] MEDS ORDERED: LORazepam 2 MG/ML INJ IV STA (20:36)
[2018-09-22] MEDS ORDERED: IOPAMIDOL-300 CONTRAST 30 ML VIAL (ORAL USE) PO PRN (20:38)
[2018-09-22] MEDS ORDERED: HYDROmorphone 1 MG/ML 1 ML SYRINGE IVP STA (20:39)
--- NOTE | 2018-09-22 21:34 | CT ---
EXAMINATION TYPE: CT abdomen pelvis w con DATE OF EXAM: 09/22/2018 COMPARISON: 06/06/2017 HISTORY: Bariatric protocol. Bilateral upper quadrant pain radiating to left shoulder. CT DLP: 2152.2 mGycm Automated exposure control for dose reduction was used. TECHNIQUE: Helical acquisition of images was performed from the lung bases through the pelvis. CONTRAST: Performed with Oral Contrast and with IV Contrast, patient injected with 100 mL of Isovue 300. FINDINGS: Lung bases are clear. There is no pleural effusion. There is no pericardial effusion. There is gas and fluid filled distended transverse colon. Liver shows no focal defect. The bile ducts are not dilated. There are clips from cholecystectomy. Spleen appears normal. There are surgical cli ps at the stomach. There is no evidence of pancreatic mass. There is no adrenal mass. Kidneys show satisfactory contrast opacification. There is no hydronephrosi s. There is 1 cm cortical cyst lower pole right kidney. There is no retroperitoneal adenopathy. Urete rs are not dilated. Bladder distends smoothly. There are bilateral ovarian cysts that measure up to 4 .5 cm. There are a few sigmoid diverticula. There is no evidence of diverticulitis. There is no evide nce of thickened appendix. There is no mesenteric edema. There is no sign of free air. I see no bony destructive process. There is no lumbar compression fracture. Uterus is anteverted. IMPRESSION: BILATERAL LARGE OVARIAN CYSTS. NO EVIDENCE OF RENAL STONE OR OBSTRUCTION. NO EVIDENCE OF APPENDICITIS . PREVIOUS SURGERY. DISTENDED TRANSVERSE COLON SUGGESTIVE OF MILD ILEUS. THE OVARIAN CYSTS ARE NEW CO MPARED TO OLD CT SCAN.
[2018-09-22] MEDS ORDERED: NALOXONE 0.4 MG/ML 1 ML VIAL IV PRN (22:33)
[2018-09-22] MEDS ORDERED: ONDANSETRON 4 MG/2 ML VIAL IVP PRN (22:33)
[2018-09-22 23:23] VITALS: BMI 43.7
[2018-09-22] MEDS: KETOROLAC 30 MG/ML 1 ML VIAL IVP PRN (23:44)
[2018-09-22] MEDS: SODIUM CHLORIDE 0.9% 1,000 ML IV SCH (23:48)
[2018-09-23] MEDS: HYDROmorphone 1 MG/ML 1 ML SYRINGE IVP PRN ×4 (03:15→12:40)
[2018-09-23] MEDS ORDERED: ONDANSETRON 4 MG/2 ML VIAL IVP PRN (08:22)
[2018-09-23] MEDS: KETOROLAC 30 MG/ML 1 ML VIAL IVP PRN ×2 (08:33→22:12)
[2018-09-23] MEDS: PANTOPRAZOLE 40 MG/10 ML VIAL IV SCH (08:37)
--- NOTE | 2018-09-23 08:52 | P.HPIM ---
History of Present Illness H&P Date: 09/23/18 Chief Complaint: Ileus, abdominal pain 38-year-old female with PMH of anxiety and depression, gastric sleeve 5 years ago, history of gallstone pancreatitis status post cholecystectomy presents the ED for abdominal pain. She reports that the pain started around 12 PM yesterday, initially under the left breast. Patient reports that she took Tums, omeprazole and Pepcid along with promethazine to try to relieve her symptoms. She reports that her symptoms got worse. She did not have any meals a day. Her pain was associated with nausea, diaphoresis and lightheadedness. Patient reported that the pain is aggravated with deep inspiration. Patient describes the pain as sharp and bandlike in nature. Pain radiates to the bilateral shoulders and back of the neck, worse on the left side. Of note, patient reports gastroenteritis last 7 days. She describes watery diarrhea, without blood for the last 7 days along with nausea and vomiting and fever and chills. Her last bowel movement was on Monday. Patient reports that she is not passing gas at this time. Pain waxes and wanes, 4-10 out of 10 in severity. Patient denies any headaches, lower [place] edema, cough, chest pain, shortness of breath, palpitations, changes in urination. Patient reports a decreased appetite. No dizziness, numbness, weakness, tingling. In the ED, CBC and correlation panel is negative. D-dimer was negative. CMP was unremarkable except for glucose 137. Initial troponin was less than 0.012. Amylase and lipase was within normal limits. Urinalysis was negative. Chest x-ray showed slightly elevated right diaphragm. Abdominal ultrasound was negative. CT of the abdomen pelvis showed bilateral large ovarian cyst, distended transverse colon suggestive of mild ileus. Patient is admitted for workup of abdominal pain, general surgery on consult. Review of Systems All systems: negative Past Medical History Past Medical History: Blood Disorder, GERD/Reflux, Thyroid Disorder Additional Past Medical History / Comment(s): polycystic ovaries mthfr clotting factor disorder, kidney stones, superficial blood clot x1,migraines, thyroid nodules- monitoring,varicose veins, past hx. hypertension History of Any Multi-Drug Resistant Organisms: MRSA Date of last positivie culture/infection: 2010 MDRO Source:: abdomen Past Surgical History: Appendectomy, Back Surgery, Bariatric Surgery, Breast Surgery, Cholecystectomy Additional Past Surgical History / Comment(s): gastric sleeve, vein stripping x4 pascale legs, laparoscopy, D & C x 5, lt breast biopsy Past Anesthesia/Blood Transfusion Reactions: Motion Sickness, Postoperative Nausea & Vomiting (PONV) Past Psychological History: Anxiety, Depression Smoking Status: Former smoker Past Alcohol Use History: Rare Additional Past Alcohol Use History / Comment(s): started smoking 1994 4 cig a day, quit 2018 Past Drug Use History: None Reported - Past Family History Father Family Medical History: Hyperlipidemia, Hypertension Additional Family Medical History / Comment(s): low sodium Mother Family Medical History: Cancer, Fibromyalgia Additional Family Medical History / Comment(s): thyroid ca, Sister(s) Family Medical History: Pulmonary Embolus Medications and Allergies Home Medications Medication Instructions Recorded Confirmed Type Spironolactone 100 mg PO BID 03/20/14 09/22/18 History Promethazine [Phenergan] 25 mg PO TID PRN 05/20/15 09/23/18 History Topiramate [Topamax] 100 mg PO BID 05/20/15 09/22/18 History Baclofen [Lioresal] 10 mg PO BID 09/24/17 09/22/18 History DULoxetine HCL [Cymbalta] 60 mg PO HS 09/24/17 09/22/18 History Gabapentin [Neurontin] 200 mg PO TID 09/24/17 09/22/18 History Methocarbamol [Robaxin] 750 mg PO BID PRN 09/24/17 09/22/18 History ALPRAZolam [Xanax] 0.25 mg PO BID PRN 09/22/18 09/23/18 History Amitriptyline HCl [Elavil] 100 mg PO HS 09/22/18 09/22/18 History FLUoxetine HCL [PROzac] 40 mg PO HS 09/22/18 09/22/18 History Allergies Allergy/AdvReac Type Severity Reaction Status Date / Time amoxicillin [From Augmentin] Allergy Rash/Hives Verified 09/22/18 22:41 clavulanic acid Allergy Rash/Hives Verified 09/22/18 22:41 [From Augmentin] potassium clavulanate Allergy Rash/Hives Verified 09/22/18 22:41 [From Augmentin] Latex, Natural Rubber AdvReac Rash/Hives Verified 09/23/18 00:21 morphine AdvReac Nausea & Verified 09/22/18 22:41 Vomiting Physical Exam Vitals: Vital Signs Temp Pulse Pulse Resp BP BP Pulse Ox 09/23/18 00:33 124/92 09/22/18 23:10 97.9 F 87 18 153/99 96 09/22/18 22:57 98 16 146/95 97 09/22/18 17:57 98 F 96 20 138/92 99 Intake and Output 09/22/18 09/23/18 09/23/18 22:59 06:59 14:59 Other: Voiding Method Toilet # Voids 1 Weight 128.82 kg 130.4 kg General: [non toxic], [no distress], [appears at stated age] Derm: [warm], [dry] Head: [atraumatic], [normocephalic], [symmetric] Eyes: [EOMI], [no lid lag], [anicteric sclera] Mouth: [no lip lesion], [mucus membranes moist] Cardiovascular: [S1S2 reg], [no murmur], [positive DP pulse bilateral] Lungs: [CTA bilateral], [no rhonchi, no rales] , [no accessory muscle use] Abdominal: [soft], [negative Main's], [tenderness palpation of the epigastric and left upper quadrant without rebound], [no appreciable organomegaly], [obese abdomen] Ext: [no gross muscle atrophy], [no edema], [no contractures] Neuro: [ CN II-XI grossly intact], [no focal neuro deficits] Psych: [Alert], [oriented], [appropriate affect] Results CBC & Chem 7: 09/22/18 18:22 09/22/18 18:22 Labs: Abnormal Lab Results - Last 24 Hours (Table) 09/22/18 09/22/18 Range/Units 18:22 18:22 BUN 4 L (7-17) mg/dL Glucose 137 H (74-99) mg/dL Ur Specific [place] 1.000 L (1.001-1.035) Thrombosis Risk Factor Assmnt - Choose All That Apply Each Factor Represents 1 point: Medical pt on bed rest, Obesity (BMI >25), Varicose veins Thrombosis Risk Factor Assessment Total Risk Factor Score: 3 Thrombosis Risk Factor Assessment Level: Moderate Risk Assessment and Plan Assessment: Assessment and Plan 1. Abdominal pain likely ileus, possibly secondary to gastroenteritis or amitriptyline or Cymbalta 2. Anxiety and depression 3. History of migraines 4. DVT and GI prophylaxis 1. Abdominal pain is likely secondary to ileus, possibly from gastroenteritis or medication induced from amitriptyline or Cymbalta. Her chest and back pain is likely referred from the diaphragm. Troponin is less than 0.012, EKG showing normal sinus rhythm. Chest x-ray and abdominal x-rays unremarkable. CT of the abdomen pelvis confirms possible ileus in the transverse colon. Hold amitriptyline and Cymbalta. Pain management with Dilaudid 1 mg IV every 3 hours as needed for severe pain, ketorolac 30 mg IV every 6 hours as needed. Zofran 4 mg IV every 6 hours as needed for nausea or vomiting. Protonix 40 g IV daily. Nothing by mouth for now, ice chips. We'll follow general surgery and gastroenterology recommendations. 2. Continue Xanax and fluoxetine 40 mg by mouth at bedtime. Hold Cymbalta. 3. Continue Topiramate 100 mg by mouth twice a day. Hold amitriptyline. 4. SCD boots only. Protonix IV. Patient admitted for ileus. Gen. surgery and gastroenterology consult. She is pending clinical improvement.
[2018-09-23] MEDS: GABAPENTIN 100 MG CAP PO SCH ×3 (09:34→22:59)
[2018-09-23] MEDS: TOPIRAMATE 100 MG TAB PO SCH ×2 (09:34→22:59)
[2018-09-23] MEDS: SPIRONOLACTONE 25 MG TAB PO SCH ×2 (09:34→22:57)
[2018-09-23] MEDS: ALPRAZolam 0.25 MG TAB PO PRN (11:04)
--- NOTE | 2018-09-23 12:49 | P.GSCN ---
History of Present Illness Consult date: 09/23/18 History of present illness: CHIEF COMPLAINT: Abdominal pain HISTORY OF PRESENT ILLNESS: The patient is a 38-year-old female with past history of sleeve gastrectomy 6 years ago. She reports last year having severe back pain with limitations of walking. She had recent back surgery. As a result, she has regained almost all of her weight since her bariatric procedure. She reports having vein stripping done , 3 days ago. Yesterday she developed acute onset epigastric to left upper quadrant abdominal pain. She denies passage of flatus. She reports the pain is moderate to severe. Since admission, pain has not been well controlled with IV pain medications. She reports pain is sharp which radiates to her left shoulder and mid back. Chemistries and CBC has been within normal limits. She denies any previous episodes like this. Last bowel movement was 6 days ago. She reports abdominal gas bloat. PAST MEDICAL HISTORY: See list. PAST SURGICAL HISTORY: See list. MEDICATIONS: See list. ALLERGIES: See list. SOCIAL HISTORY: No illicit drug use FAMILY HISTORY: No reports of Crohn's disease or inflammatory bowel disease REVIEW OF ORGAN SYSTEMS: CONSTITUTIONAL: No fevers or chills HEENT: No troubles with vision or hearing. No reports of dysphagia. ENDOCRINE: Has thyroid disorders. No diabetes. CARDIOVASCULAR: No heart attack. No chest pain. RESPIRATORY: No shortness of breath or pneumonia. GASTROINTESTINAL: No reports of recent blood in stools. NEURO: No reports of stroke or seizure disorders. PSYCH: Has depression. No suicidal ideation HEMATOLOGIC: Has history of abnormal clotting disorder LYMPHATIC: The patient denies any lumps and bumps around the neck. GENITOURINARY: Denies any blood in urine or increased urinary frequency. Has polycystic ovarian syndrome MUSCULOSKELETAL: Has back pain, stiffness or joint arthritis. SKIN: No skin cancer or rash. PHYSICAL EXAM: VITAL SIGNS: Reviewed GENERAL: Well-developed in no acute distress. HEENT: No sclera icterus. Extraocular movements grossly intact. Moist buccal mucosa. Head is atraumatic, normocephalic. Hears conversational speech. No nasal drainage. NECK: Supple without lymphadenopathy. CHEST: Non-labored respirations and equal bilateral excursions. CARDIOVASCULAR: Regular rate with regular rhythm. Palpable 2+ radial pulses. ABDOMEN: Moderate tenderness along the epigastrium and left upper quadrant. Distended. MUSCULOSKELETAL: No clubbing, cyanosis or edema. NEUROLOGIC: No focal or lateralizing signs. Cranial nerves II through XII grossly intact. PSYCH: Appropriate affect. Alert and oriented to person, place and time. SKIN: Well perfused. Good skin turgor. LABS: Reviewed STUDIES: Reviewed ASSESSMENT: 1. Abnormal computed tomography scan 2. Acute onset abdominal pain epigastric left upper quadrant PLAN: 1. Stat acute abdominal series. 2. Torsion of the transverse colon cannot be excluded and may need emergent diagnostic laparoscopy. 3. Continue nothing by mouth status 4. DVT prophylaxis 5. Antibiotic prophylaxis 6. Repeat chemistries 7. Repeat CBC Thank you for this kind consultation. Past Medical History Past Medical History: Blood Disorder, GERD/Reflux, Thyroid Disorder Additional Past Medical History / Comment(s): polycystic ovaries mthfr clotting factor disorder, kidney stones, superficial blood clot x1,migraines, thyroid nodules- monitoring,varicose veins, past hx. hypertension History of Any Multi-Drug Resistant Organisms: MRSA Year Discovered:: 2010 MDRO Source:: abdomen Past Surgical History: Appendectomy, Back Surgery, Bariatric Surgery, Breast Surgery, Cholecystectomy Additional Past Surgical History / Comment(s): gastric sleeve, vein stripping x4 pascale legs, laparoscopy, D & C x 5, lt breast biopsy Past Anesthesia/Blood Transfusion Reactions: Motion Sickness, Postoperative Nausea & Vomiting (PONV) Past Psychological History: Anxiety, Depression Smoking Status: Former smoker Past Alcohol Use History: Rare Additional Past Alcohol Use History / Comment(s): started smoking 1994 4 cig a day, quit 2018 Past Drug Use History: None Reported - Past Family History Father Family Medical History: Hyperlipidemia, Hypertension Additional Family Medical History / Comment(s): low sodium Mother Family Medical History: Cancer, Fibromyalgia Additional Family Medical History / Comment(s): thyroid ca, Sister(s) Family Medical History: Pulmonary Embolus Medications and Allergies Home Medications Medication Instructions Recorded Confirmed Type Spironolactone 100 mg PO BID 03/20/14 09/22/18 History Promethazine [Phenergan] 25 mg PO TID PRN 05/20/15 09/23/18 History Topiramate [Topamax] 100 mg PO BID 05/20/15 09/22/18 History Baclofen [Lioresal] 10 mg PO BID 09/24/17 09/22/18 History DULoxetine HCL [Cymbalta] 60 mg PO HS 09/24/17 09/22/18 History Gabapentin [Neurontin] 200 mg PO TID 09/24/17 09/22/18 History Methocarbamol [Robaxin] 750 mg PO BID PRN 09/24/17 09/22/18 History ALPRAZolam [Xanax] 0.25 mg PO BID PRN 09/22/18 09/23/18 History Amitriptyline HCl [Elavil] 100 mg PO HS 09/22/18 09/22/18 History FLUoxetine HCL [PROzac] 40 mg PO HS 09/22/18 09/22/18 History Allergies Allergy/AdvReac Type Severity Reaction Status Date / Time amoxicillin [From Augmentin] Allergy Rash/Hives Verified 09/22/18 22:41 clavulanic acid Allergy Rash/Hives Verified 09/22/18 22:41 [From Augmentin] potassium clavulanate Allergy Rash/Hives Verified 09/22/18 22:41 [From Augmentin] Latex, Natural Rubber AdvReac Rash/Hives Verified 09/23/18 00:21 morphine AdvReac Nausea & Verified 09/22/18 22:41 Vomiting Surgical - Exam Vital Signs Temp Pulse Resp BP Pulse Ox 98 F 96 20 138/92 99 09/22/18 17:57 09/22/18 17:57 09/22/18 17:57 09/22/18 17:57 09/22/18 17:57 Results - Labs 09/22/18 18:22 09/22/18 18:22 Abnormal Lab Results - Last 24 Hours (Table) 09/22/18 09/22/18 Range/Units 18:22 18:22 BUN 4 L (7-17) mg/dL Glucose 137 H (74-99) mg/dL Ur Specific [place] 1.000 L (1.001-1.035) Diabetes panel 09/22/18 Range/Units 18:22 Sodium 139 (137-145) mmol/L Potassium 3.8 (3.5-5.1) mmol/L Chloride 106 (98-107) mmol/L Carbon Dioxide 24 (22-30) mmol/L BUN 4 L (7-17) mg/dL Creatinine 0.85 (0.52-1.04) mg/dL Glucose 137 H (74-99) mg/dL Calcium 9.5 (8.4-10.2) mg/dL AST 23 (14-36) U/L ALT 48 (9-52) U/L Alkaline Phosphatase 108 (38-126) U/L Total Protein 7.7 (6.3-8.2) g/dL Albumin 4.1 (3.5-5.0) g/dL Calcium panel 09/22/18 Range/Units 18:22 Calcium 9.5 (8.4-10.2) mg/dL Albumin 4.1 (3.5-5.0) g/dL Pituitary panel 09/22/18 Range/Units 18:22 Sodium 139 (137-145) mmol/L Potassium 3.8 (3.5-5.1) mmol/L Chloride 106 (98-107) mmol/L Carbon Dioxide 24 (22-30) mmol/L BUN 4 L (7-17) mg/dL Creatinine 0.85 (0.52-1.04) mg/dL Glucose 137 H (74-99) mg/dL Calcium 9.5 (8.4-10.2) mg/dL Adrenal panel 09/22/18 Range/Units 18:22 Sodium 139 (137-145) mmol/L Potassium 3.8 (3.5-5.1) mmol/L Chloride 106 (98-107) mmol/L Carbon Dioxide 24 (22-30) mmol/L BUN 4 L (7-17) mg/dL Creatinine 0.85 (0.52-1.04) mg/dL Glucose 137 H (74-99) mg/dL Calcium 9.5 (8.4-10.2) mg/dL Total Bilirubin 0.4 (0.2-1.3) mg/dL AST 23 (14-36) U/L ALT 48 (9-52) U/L Alkaline Phosphatase 108 (38-126) U/L Total Protein 7.7 (6.3-8.2) g/dL Albumin 4.1 (3.5-5.0) g/dL - Imaging CT scan - abdomen: report reviewed, image reviewed CT scan - pelvis: report reviewed, image reviewed (Abnormal distention of the mid to distal transverse colon with transition point at mid transverse colon. Studies were reviewed by me) Assessment and Plan (1) Morbid obesity with BMI of 40.0-44.9, adult Current Visit: Yes Status: Acute Code(s): E66.01 - MORBID (SEVERE) OBESITY DUE TO EXCESS CALORIES; Z68.41 - BODY MASS INDEX (BMI) 40.0-44.9, ADULT SNOMED Code(s): 205670775 (2) Torsion of colon Current Visit: Yes Status: Acute Code(s): K56.2 - VOLVULUS SNOMED Code(s) : 34781294 (3) Epigastric abdominal pain Current Visit: Yes Status: Acute Code(s): R10.13 - EPIGASTRIC PAIN SNOMED Code(s): 38653958 (4) History of sleeve gastrectomy Current Visit: Yes Status: Chronic Code(s): Z98.89 - OTHER SPECIFIED POSTPROCEDURAL STATES * DO NOT USE * SNOMED Code(s): 061683203 (5) History of coagulopathy Current Visit: No Status: Chronic Code(s): Z86.2 - PRSNL HISTORY OF [facility] Code(s): 270605953
--- NOTE | 2018-09-23 14:04 | XR ---
EXAMINATION TYPE: XR abdomen acute w cxr DATE OF EXAM: 09/23/2018 COMPARISON: NONE HISTORY: 38-year-old female follow-up bowel obstruction TECHNIQUE: Supine, upright, and left side down lateral decubitus views of the abdomen are obtained. FINDINGS: Frontal view of the chest shows low lung volumes and crowded vascular markings. The lower lungs are u nderpenetrated and not well assessed. Heart normal size. Prominent air distended colon located below the right hemidiaphragm. Air-fluid levels are present. So me scattered colonic gas is present. Cholecystectomy clips. Prominent urine and contrast distention o f the bladder. There is no evidence for pneumoperitoneum. IMPRESSION: Multiple air-fluid levels. There seems to be some increased colonic air. However, prominent air diste nded colon remains below the right hemidiaphragm. Review of the patient's 09/22/2018 CT suggests that this represents a dilated cecum. Cecal volvulus versus cecal bascule are considered. Close follow-up recommended, possibly with CT with oral contrast. Consider surgical evaluation as well.
[2018-09-23 14:14] LABS: Basophils % (A) 0 %; Eosinophils # (A) 0.2 k/uL (0-0.7); Eosinophils % (A) 2 %; HGB 12.4 gm/dL (11.4-16.0); Lymphocytes # (A) 1.4 k/uL (1.0-4.8); Lymphocytes % (A) 15 %; MCH 32.9 pg (25.0-35.0); MCHC 32.6 g/dL (31.0-37.0); MCV 100.8 fL (80.0-100.0); Mean Platelet Volume 6.5; Monocytes # (A) 0.4 k/uL (0-1.0); Monocytes % (A) 4 %; Neutrophils # (A) 7.2 k/uL (1.3-7.7); Neutrophils % (A) 77 %; Platelet Count 313 k/uL (150-450); RBC 3.77 m/uL (3.80-5.40); RDW 12.9 % (11.5-15.5); WBC 9.3 k/uL (3.8-10.6)
[2018-09-23 14:26] LABS: Anion Gap 6 mmol/L; Blood Urea Nitrogen 7 mg/dL (7-17); Calcium 8.7 mg/dL (8.4-10.2); Carbon Dioxide 24 mmol/L (22-30); Chloride 109 mmol/L (98-107); Glucose 105 mg/dL (74-99); Potassium 4.4 mmol/L (3.5-5.1); Sodium 139 mmol/L (137-145)
[2018-09-23] MEDS ORDERED: SODIUM CHLORIDE 0.9% 1,000 ML IV ONE ×3 (14:35→19:13)
[2018-09-23] MEDS ORDERED: SCOPOLAMINE 1.5MG/72HR PATCH TRANSDERM ONE (14:55)
[2018-09-23] MEDS ORDERED: ONDANSETRON 4 MG/2 ML VIAL IVP ONE (14:56)
--- NOTE | 2018-09-23 15:17 | P.HPADDEND ---
H&P Addendum H&P Addendum Date: 09/23/18 Abdominal x-rays personally reviewed with findings consistent with high risk for colonic volvulus. Will proceed with diagnostic laparoscopy with lysis of adhesions. Patient agreeable with shared decision-making on CARE PLAN
[2018-09-23] MEDS ORDERED: BUPIVACAIN-EPI 0.5%-1:200,000 30 ML VIAL SQ ONE (16:09)
[2018-09-23] MEDS ORDERED: SODIUM CHLORIDE 0.9% 50 ML with ceFAZolin 3,000 MG IV ONE ×2 (16:12)
[2018-09-23] MEDS ORDERED: LACTATED RINGERS 1,000 ML IV ONE (17:02)
[2018-09-23] MEDS ORDERED: NALOXONE 0.4 MG/ML 1 ML VIAL IV ONE ×2 (17:38→17:43)
[2018-09-23] MEDS ORDERED: NALOXONE 0.4 MG/ML 1 ML VIAL IV PRN (17:44)
--- NOTE | 2018-09-23 17:44 | P.OP ---
Date of Procedure: 09/23/18 Description of Procedure: SURGEON: CAROL COLEMAN MD MOLDING FITTER: None. PREOPERATIVE DIAGNOSES: 1. Intestinal volvulus 2. Left upper quadrant abdominal pain. 3. Epigastric abdominal pain 4. History of sleeve gastrectomy 5. Morbid obesity due to excess calories, BMI 43.7 6. Depressive disorder 7. Chronic lower back pain 8. Polycystic ovarian syndrome 9. Anxiety disorder 10. Hypertensive heart disease 11. History of thyroid nodules 12. Clotting factor disorder POSTOPERATIVE DIAGNOSES: 1. Cecal volvulus with mid-transverse colon volvulus 2. Left upper quadrant abdominal pain. 3. Epigastric abdominal pain 4. History of sleeve gastrectomy 5. Morbid obesity due to excess calories, BMI 43.7 6. Depressive disorder 7. Chronic lower back pain 8. Polycystic ovarian syndrome 9. Anxiety disorder 10. Hypertensive heart disease 11. History of thyroid nodules 12. Clotting factor disorder 13. Internal hernia from abnormal mesenteric defect of the falciform ligament 14. Hepatomegaly PROCEDURES PERFORMED: 1. Laparoscopic reduction of cecal and mid-transverse colonic volvulus with lysis of adhesion ANESTHESIA: General with 30 mL 0.25% Marcaine with epinephrine. ESTIMATED BLOOD LOSS: 10 mL. SPECIMENS REMOVED: None. COMPLICATIONS: None. OPERATIVE FINDINGS: 1. Decompressed mid transverse colon from active colonic volvulus involving abnormal mesenteric window of falciform ligament 2. Cecal bascule/cecal volvulus reduced with progression of colonic air through rest of colon as well as sigmoid colon 3. Highly redundant hepatic flexure 4. No evidence of bowel ischemia or infarction 5. Internal hernia from abnormal mesenteric defect of the falciform ligament INDICATIONS: The patient is a 38-year-old female who reports less than a 24- hour history of acute onset epigastric to left upper quadrant abdominal pain. She reported immediate abdominal distention including inability to pass flatus with moderate to severe abdominal pain. Initial diagnostic studies including CT reported an ileus however independent inspection inspection a colonic volvulus was found along the mid transverse colon. Repeat abdominal films also confirmed potential cecal bascule versus cecal volvulus. Emergent surgical intervention was described based on these findings. Patient did not want a colonic resection. Benefits and risks were described at length. Informed consent was obtained. DESCRIPTION OF PROCEDURE: In the preoperative area, the location of her abdominal pain was noted. Patient was brought to the operating room, laid in supine position. After general induction, the abdomen was prepped and draped in standard sterile fashion. Prior to incision, a timeout protocol was confirmed with surgical team regarding patient's name including procedure to be performed. Preoperative medications including antibiotics were given. Additionally, bilateral SCDs including heparin 5000 units was administered. A 5 mm laparoscopic trocar entry performed of the left upper quadrant after anesthetizing the skin with local anesthetic. Another three 5-mm trocar were placed along the left lower lateral abdominal wall and more ports were placed above and below the umbilicus under direct localization. She was placed in Trendelenburg position with the right side. Diagnostic laparoscopy demonstrated an active volvulus involving the mid transverse colon sweeping anterior to the falciform ligament into an abnormal open mesenteric window superiorly incarcerating the bowel as in a closed loop obstruction. The mid transverse and distal colon were decompressed consistent with large bowel obstruction from this abnormal defect. The transverse colon was reduced and was drawn from the abnormal mesenteric window of the falciform ligament. The bowel was completely viable and without ischemia. The falciform ligament was divided to prevent future recurrence of an internal hernia. Next, attention was brought to the cecum which was found in a bascule flipped into the right upper quadrant and compressed by the transverse colon as the cecum migrated posterior to the transverse colon. Moderate colonic distention involving the hepatic flexure was confirmed however the colonic gas had now progressed through the rest of the colon to the sigmoid colon confirming reduction of the large bowel obstruction. The small bowel was unremarkable. Hepatomegaly was confirmed. No gross small bowel dilatation was encountered. Final inspection of the abdomen demonstrated adequate hemostasis including no enterotomies. All instruments and pneumoperitoneum were evacuated from the abdominal cavity. A total of 30 mL 0.25% Marcaine with epinephrine was infiltrated in all wounds for postop analgesia. Liquid glue was applied to the skin after reapproximating the incisions with 4-0 Monocryl as described. At the end of the procedure, needle, sponge, and instrument count was verified correct by surgical forceps fabricator. The patient had tolerated the procedure well, was taken to the postanesthesia care unit in stable condition. Intraoperative abdominal films were described and discussed with the patient's family who were overall pleased with the level of care. Deferred treatment of partial colectomy described to prevent recurrence of cecal volvulus.
[2018-09-23 18:28] VITALS: RESP 16
[2018-09-23] MEDS ORDERED: FLUoxetine HCL 20 MG CAP PO SCH (21:00)
[2018-09-23] MEDS: SODIUM CHLORIDE 0.9% 1,000 ML IV SCH (23:02)
[2018-09-24] MEDS: KETOROLAC 30 MG/ML 1 ML VIAL IVP PRN ×2 (03:12→09:22)
[2018-09-24 07:26] LABS: Basophils % (A) 0 %; Eosinophils % (A) 0 %; HCT 37.9 % (34.0-46.0); HGB 12.2 gm/dL (11.4-16.0); Lymphocytes % (A) 10 %; MCHC 32.3 g/dL (31.0-37.0); MCV 102.2 fL (80.0-100.0); Macrocytosis Slight; Mean Platelet Volume 6.3; Monocytes # (A) 0.3 k/uL (0-1.0); Monocytes % (A) 3 %; Neutrophils # (A) 8.8 k/uL (1.3-7.7); Neutrophils % (A) 86 %; Platelet Count 314 k/uL (150-450); RDW 12.8 % (11.5-15.5); WBC 10.3 k/uL (3.8-10.6)
[2018-09-24 07:37] LABS: Anion Gap 5 mmol/L; Blood Urea Nitrogen 7 mg/dL (7-17); Calcium 8.5 mg/dL (8.4-10.2); Carbon Dioxide 22 mmol/L (22-30); Chloride 111 mmol/L (98-107); Glucose 97 mg/dL (74-99); Magnesium 2.1 mg/dL (1.6-2.3); Potassium 4.5 mmol/L (3.5-5.1); Sodium 138 mmol/L (137-145)
[2018-09-24] MEDS ORDERED: ENOXAPARIN 40 MG/0.4 ML SYRINGE SQ SCH (09:00)
[2018-09-24] MEDS: PANTOPRAZOLE 40 MG/10 ML VIAL IV SCH (09:22)
[2018-09-24] MEDS: SPIRONOLACTONE 25 MG TAB PO SCH (09:23)
--- NOTE | 2018-09-24 09:23 | P.PN ---
Subjective Progress Note Date: 09/24/18 Principal diagnosis: colonic volvulus patient seen and examined. No acute events overnight. Patient reports that her abdominal pain is resolved fully. No nausea or vomiting. Passing gas. Underwent colonic decompression and lysis of adhesions laparoscopically yesterday under Dr. Ventura. Requesting slowly to come out. Objective - Vital Signs Vital signs: Vital Signs Temp 97.8 F 09/24/18 08:02 Pulse 80 09/24/18 08:02 Resp 16 09/24/18 08:02 BP 126/76 09/24/18 08:02 Pulse Ox 99 09/24/18 08:02 Intake & Output 09/23/18 09/24/18 09/24/18 18:59 06:59 18:59 Intake Total 1200 2225 Output Total 1060 975 Balance 140 1250 Intake: IV 1200 925 Intake, IV Titration 1000 Amount Sodium Chloride 0.9% 1, 1000 000 ml @ 0 mls/hr IV .eegoes ONE Rx#:[id number] Oral 0 300 Output: Urine 1050 975 Estimated Blood Loss 10 Other: Voiding Method Toilet Indwelling Catheter - Exam General: [non toxic], [no distress], [appears at stated age] Derm: [warm], [dry] Head: [atraumatic], [normocephalic], [symmetric] Eyes: [EOMI], [no lid lag], [anicteric sclera] Mouth: [no lip lesion], [mucus membranes moist] Cardiovascular: [S1S2 reg], [no murmur], [positive DP pulse bilateral] Lungs: [CTA bilateral], [no rhonchi, no rales] , [no accessory muscle use] Abdominal: [soft], [negative Main's], [no tenderness to palpation, laparoscopic scars well-healing no erythema], [no appreciable organomegaly], [ obese abdomen] Ext: [no gross muscle atrophy], [no edema], [no contractures] Neuro: [no focal neuro deficits] Psych: [Alert], [oriented], [appropriate affect] - Labs CBC & Chem 7: 09/24/18 06:56 09/24/18 06:56 Labs: Abnormal Lab Results - Last 24 Hours (Table) 09/23/18 09/23/18 09/24/18 Range/Units 13:59 13:59 06:56 RBC 3.77 L 3.70 L (3.80-5.40) m/uL MCV 100.8 H 102.2 H (80.0-100.0) fL Neutrophils # 8.8 H (1.3-7.7) k/uL Chloride 109 H (98-107) mmol/L Glucose 105 H (74-99) mg/dL 09/24/18 Range/Units 06:56 RBC (3.80-5.40) m/uL MCV (80.0-100.0) fL Neutrophils # (1.3-7.7) k/uL Chloride 111 H (98-107) mmol/L Glucose (74-99) mg/dL Assessment and Plan Assessment: Assessment and Plan 1. Colonic volvulus, possibly secondary to gastroenteritis or amitriptyline or Cymbalta 2. Anxiety and depression 3. History of migraines 4. DVT and GI prophylaxis 1. Abdominal pain is likely secondary to colonic volvulus, possibly from gastroenteritis or medication induced from amitriptyline or Cymbalta. Her chest and back pain is likely referred from the diaphragm. Troponin is less than 0.012, EKG showing normal sinus rhythm. Chest x-ray and abdominal x-rays unremarkable. CT of the abdomen pelvis confirms possible ileus in the transverse colon. Hold amitriptyline and Cymbalta.general surgery consulted, recommends laparoscopic evaluation for possible volvulus. laparoscopic evaluation confirmed active volvulus involving the mid transverse colon sweeping anterior to the falciform ligament into mesenteric window incarcerating the bowel, reduced. Pain management with Dilaudid 1 mg IV every 3 hours as needed for severe pain, ketorolac 30 mg IV every 6 hours as needed. Zofran 4 mg IV every 6 hours as needed for nausea or vomiting. Protonix 40 g IV daily. Clear liquid diet and advance. We'll follow general surgery recommendations. 2. Continue Xanax and fluoxetine 40 mg by mouth at bedtime. Hold Cymbalta. 3. Continue Topiramate 100 mg by mouth twice a day. Hold amitriptyline. 4. SCD boots only. Protonix IV. Patient admitted for colonic volvulus. Underwent laparoscopic decompression and lysis of adhesions yesterday. She is pending clinical improvement. We'll follow surgical recommendations.
[2018-09-24] MEDS: ALPRAZolam 0.25 MG TAB PO PRN (09:24)
[2018-09-24] MEDS: GABAPENTIN 100 MG CAP PO SCH (09:24)
[2018-09-24] MEDS: TOPIRAMATE 100 MG TAB PO SCH (09:24)
--- NOTE | 2018-09-24 10:04 | P.PN ---
Progress Note - Text Progress Note Date: 09/24/18 GI consult cancelled by attending Dr. Lam.
--- NOTE | 2018-09-24 11:07 | P.PN ---
Subjective Progress Note Date: 09/24/18 CHIEF COMPLAINT: Abdominal pain HISTORY OF PRESENT ILLNESS: Patient seen and examined at the bedside. Patient states her pain is tolerable. She is receiving Toradol for pain. She is passing flatus. Denies bowel movement. Tolerating her liquid diet. Davis catheter was removed this morning. Patient is due to void. PHYSICAL EXAM: VITAL SIGNS: Currently stable. GENERAL: Well-developed in no acute distress. HEENT: No sclera icterus. Extraocular movements grossly intact. Moist buccal mucosa. Head is atraumatic, normocephalic. Hears conversational speech. No nasal drainage. NECK: Supple without lymphadenopathy. CHEST: Non-labored respirations and equal bilateral excursions. CARDIOVASCULAR: Regular rate with regular rhythm. Palpable 2+ radial pulses. ABDOMEN: Obese. Soft. Nondistended. Nontender. Surgical incisions clean and dry without drainage. MUSCULOSKELETAL: No clubbing, cyanosis or edema. NEUROLOGIC: No focal or lateralizing signs. Cranial nerves II through XII grossly intact. PSYCH: Appropriate affect. Alert and oriented to person, place and time. SKIN: Well perfused. Good skin turgor. ASSESSMENT: 1. Cecal volvulus with mid-transverse colon volvulus 2. Left upper quadrant abdominal pain. 3. Epigastric abdominal pain 4. History of sleeve gastrectomy 5. Morbid obesity due to excess calories, BMI 43.7 6. Depressive disorder 7. Chronic lower back pain 8. Polycystic ovarian syndrome 9. Anxiety disorder 10. Hypertensive heart disease 11. History of thyroid nodules 12. Clotting factor disorder 13. Internal hernia from abnormal mesenteric defect of the falciform ligament 14. Hepatomegaly PLAN: 1. Advance diet to full liquid 2. Increase activity 3. Pain control 4. Patient due to void. Davis removed this morning 5. Anticipate discharge home this afternoon/evening Nurse practitioner note has been reviewed by physician. Signing provider agrees with the documented findings, assessment, and plan of care. Objective - Vital Signs Vital signs: Vital Signs Temp 97.8 F 09/24/18 08:02 Pulse 80 09/24/18 08:02 Resp 16 09/24/18 08:02 BP 126/76 09/24/18 08:02 Pulse Ox 99 09/24/18 08:02 Intake & Output 09/23/18 09/24/18 09/24/18 18:59 06:59 18:59 Intake Total 1200 2225 Output Total 1060 975 935 Balance 140 1250 -935 Intake: IV 1200 925 Intake, IV Titration 1000 Amount Sodium Chloride 0.9% 1, 1000 000 ml @ 0 mls/hr IV .spigit ONE Rx#:[id number] Oral 0 300 Output: Urine 1050 975 935 Estimated Blood Loss 10 Other: Voiding Method Toilet Indwelling Catheter # Voids 1 - Labs CBC & Chem 7: 09/24/18 06:56 09/24/18 06:56 Labs: Abnormal Lab Results - Last 24 Hours (Table) 09/23/18 09/23/18 09/24/18 Range/Units 13:59 13:59 06:56 RBC 3.77 L 3.70 L (3.80-5.40) m/uL MCV 100.8 H 102.2 H (80.0-100.0) fL Neutrophils # 8.8 H (1.3-7.7) k/uL Chloride 109 H (98-107) mmol/L Glucose 105 H (74-99) mg/dL 09/24/18 Range/Units 06:56 RBC (3.80-5.40) m/uL MCV (80.0-100.0) fL Neutrophils # (1.3-7.7) k/uL Chloride 111 H (98-107) mmol/L Glucose (74-99) mg/dL Assessment and Plan (1) Ileus Current Visit: Yes Status: Acute Code(s): K56.7 - ILEUS, UNSPECIFIED SNOMED Code(s): 710620081 (2) Morbid obesity with BMI of 40.0-44.9, adult Current Visit: Yes Status: Acute Code(s): E66.01 - MORBID (SEVERE) OBESITY DUE TO EXCESS CALORIES; Z68.41 - BODY MASS INDEX (BMI) 40.0-44.9, ADULT SNOMED Code(s): 274744759 (3) Torsion of colon Current Visit: Yes Status: Acute Code(s): K56.2 - VOLVULUS SNOMED Code(s) : 69700783 (4) History of sleeve gastrectomy Current Visit: Yes Status: Chronic Code(s): Z98.89 - OTHER SPECIFIED POSTPROCEDURAL STATES * DO NOT USE * SNOMED Code(s): 039356266
[2018-09-24 12:42] VITALS: BP 133/81; PULSE 77; TEMP 98
--- NOTE | 2018-09-25 11:53 | P.DS ---
Providers Date of admission: 09/22/18 22:31 Expected date of discharge: 09/24/18 Attending physician: Javi Brown MD Consults: 09/22/18 22:33 Consult Physician Stat Consulting Provider: Georgie Ventura Consult Reason/Comments: ileus, epigastric pain Do you want consulting provider notified?: Yes Primary care physician: Pawan Lyle - Discharge Diagnosis(es) (1) Ileus Status: Acute (2) Morbid obesity with BMI of 40.0-44.9, adult Status: Acute (3) Torsion of colon Status: Acute (4) History of sleeve gastrectomy Status: Chronic Hospital Course: 38-year-old female who presented to the emergency room with a chief complaint of abdominal pain. abdominal x-rays with findings consistent with high risk for colonic volvulus. Patient underwent laparoscopic reduction of cecal and mid transverse colonic volvulus with lysis of adhesions. Patient did well postoperatively without any immediate complications. Her pain is tolerable. Tolerating PO intake without nausea or vomiting. She is passing flatus and had a bowel movement. She is stable for discharge home today. Please see EMR for further hospital course details. DISCHARGE DIAGNOSIS: 1. Cecal volvulus with mid-transverse colon volvulus 2. Left upper quadrant abdominal pain. 3. Epigastric abdominal pain 4. History of sleeve gastrectomy 5. Morbid obesity due to excess calories, BMI 43.7 6. Depressive disorder 7. Chronic lower back pain 8. Polycystic ovarian syndrome 9. Anxiety disorder 10. Hypertensive heart disease 11. History of thyroid nodules 12. Clotting factor disorder 13. Internal hernia from abnormal mesenteric defect of the falciform ligament 14. Hepatomegaly Nurse practitioner note has been reviewed by physician. Signing provider agrees with the documented findings, assessment, and plan of care. Patient Condition at Discharge: Good Plan - Discharge Summary Discharge Rx Participant: Yes New Discharge Prescriptions: New Acetaminophen Tab [Tylenol Tab] 650 mg PO Q6H #30 tablet Ibuprofen [Motrin] 600 mg PO Q6HR PRN #30 tab PRN Reason: Pain No Action Spironolactone 100 mg PO BID Topiramate [Topamax] 100 mg PO BID Promethazine [Phenergan] 25 mg PO TID PRN PRN Reason: Nausea Methocarbamol [Robaxin] 750 mg PO BID PRN PRN Reason: Mild Spasms Gabapentin [Neurontin] 200 mg PO TID DULoxetine HCL [Cymbalta] 60 mg PO HS Baclofen [Lioresal] 10 mg PO BID Amitriptyline HCl [Elavil] 100 mg PO HS FLUoxetine HCL [PROzac] 40 mg PO HS ALPRAZolam [Xanax] 0.25 mg PO BID PRN PRN Reason: Anxiety Discharge Medication List Spironolactone 100 mg PO BID 03/20/14 [History] Promethazine [Phenergan] 25 mg PO TID PRN 05/20/15 [History] Topiramate [Topamax] 100 mg PO BID 05/20/15 [History] Baclofen [Lioresal] 10 mg PO BID 09/24/17 [History] DULoxetine HCL [Cymbalta] 60 mg PO HS 09/24/17 [History] Gabapentin [Neurontin] 200 mg PO TID 09/24/17 [History] Methocarbamol [Robaxin] 750 mg PO BID PRN 09/24/17 [History] ALPRAZolam [Xanax] 0.25 mg PO BID PRN 09/22/18 [History] Amitriptyline HCl [Elavil] 100 mg PO HS 09/22/18 [History] FLUoxetine HCL [PROzac] 40 mg PO HS 09/22/18 [History] Acetaminophen Tab [Tylenol Tab] 650 mg PO Q6H #30 tablet 09/24/18 [Rx] Ibuprofen [Motrin] 600 mg PO Q6HR PRN #30 tab 09/24/18 [Rx] Follow up Appointment(s)/Referral(s): Pawan Lyle MD [Primary Care Provider] - 09/28/18 11:00 am Georgie Ventura MD [STAFF PHYSICIAN] - 10/09/18 9:40 am Activity/Diet/Wound Care/Special Instructions: You may alternative Tylenol or Motrin for pain Continue diet as tolerated. fluids are always encouraged. No lifting over 10 pounds You may shower. No soaking or tub baths hot tubs. Very light activity until you are reevaluated at your follow up appointment with your surgeon. Call physician with any questions comments concerns worsening returning symptoms, pain not controlled by medications prescribed, oozing or pus coming from incision sites, fever 101.1 or higher, not tolerating diet not tolerating fluids. Discharge Disposition: HOME SELF-CARE
== END 2018-09-24 14:25 | disposition home or self-care (01) | DRG 330 ==
LOC: EC 17:53 → 6PED 22:31
PROVIDERS: ADMIT Internal Medicine; ATTEND Internal Medicine
PROC: 0DSL4ZZ Reposition Transverse Colon, Percutaneous Endoscopic Approach (ICD-10-PCS; 2018-09-23)
PROC: 0MN Bursae and Ligaments, Release (ICD-10-PCS; 2018-09-23)
PROC: 0DSH4ZZ Reposition Cecum, Percutaneous Endoscopic Approach (ICD-10-PCS; principal; 2018-09-23 14:30)
DX: K56.2 Volvulus (principal); E72.12 Methylenetetrahydrofolate reductase deficiency; K59.39 Other megacolon; Z68.41 Body mass index [BMI] 40.0-44.9, adult; K56.7 Ileus, unspecified; E66.01 Morbid (severe) obesity due to excess calories; R16.0 Hepatomegaly, not elsewhere classified; I11.9 Hypertensive heart disease without heart failure; K46.9 Unspecified abdominal hernia without obstruction or gangrene; G89.29 Other chronic pain; M54.5 Low back pain; F32.9 Major depressive disorder, single episode, unspecified; K21.9 Gastro-esophageal reflux disease without esophagitis; E28.2 Polycystic ovarian syndrome; G43.909 Migraine, unspecified, not intractable, without status migrainosus; I83.90 Asymptomatic varicose veins of unspecified lower extremity; F90.9 Attention-deficit hyperactivity disorder, unspecified type; F41.9 Anxiety disorder, unspecified; Z79.899 Other long term (current) drug therapy; Z88.1 Allergy status to other antibiotic agents; Z98.84 Bariatric surgery status; Z86.14 Personal history of Methicillin resistant Staphylococcus aureus infection; Z90.49 Acquired absence of other specified parts of digestive tract; Z87.891 Personal history of nicotine dependence; Z87.442 Personal history of urinary calculi; Z88.5 Allergy status to narcotic agent; Z83.49 Family history of other endocrine, nutritional and metabolic diseases; Z82.49 Family history of ischemic heart disease and other diseases of the circulatory system; Z80.8 Family history of malignant neoplasm of other organs or systems; Z82.69 Family history of other diseases of the musculoskeletal system and connective tissue
CPT/HCPCS: 36415; 71046; 74018; 74022; 74177; 80048; 80053; 81003; 81025; 82150; 83690; 83735; 84484; 85025; 85379; 85610; 85730; 93005; 96361; 96374; 96375; 99285

== ENCOUNTER 2018-10-01 15:27 | Emergency (ER) | payer OTHER ==
[2018-10-01 15:39] VITALS: TEMP 97.9
[2018-10-01] MEDS ORDERED: SODIUM CHLORIDE 0.9% 1,000 ML IV ONE (16:43)
[2018-10-01] MEDS ORDERED: SODIUM CHLORIDE 0.9% 1,000 ML IV SCH (16:45)
--- NOTE | 2018-10-01 16:51 | ED ---
General Adult HPI - General Chief complaint: Abdominal Pain Stated complaint: post bowel surgery, unable to have a bowel movemen Source: patient, family, RN notes reviewed, old records reviewed Mode of arrival: ambulatory Limitations: no limitations - History of Present Illness Initial comments: Chief complaint and history of present illness a 38-year-old female here with a partner having had a bowel movement for approximately 7 days. Hypoxia 5 days ago the patient was in the emergency room had emergent surgery for a volvulus. She managed to eat one day later. She is passing gas both above and below. Decreased appetite. Complains of a band type discomfort across the upper abdomen. Nausea vomiting. Denies fever. Patient reports that since yesterday she took 5 laxatives orally as well as prune juice without any effect. - Related Data Home Medications Medication Instructions Recorded Confirmed Spironolactone 100 mg PO BID 03/20/14 10/01/18 Promethazine [Phenergan] 25 mg PO TID PRN 05/20/15 10/01/18 Topiramate [Topamax] 100 mg PO BID 05/20/15 10/01/18 Baclofen [Lioresal] 10 mg PO BID 09/24/17 10/01/18 DULoxetine HCL [Cymbalta] 60 mg PO HS 09/24/17 10/01/18 Gabapentin [Neurontin] 200 mg PO TID 09/24/17 10/01/18 Methocarbamol [Robaxin] 750 mg PO BID PRN 09/24/17 10/01/18 ALPRAZolam [Xanax] 0.25 mg PO BID PRN 09/22/18 10/01/18 Amitriptyline HCl [Elavil] 100 mg PO HS 09/22/18 10/01/18 FLUoxetine HCL [PROzac] 40 mg PO HS 09/22/18 10/01/18 Famotidine [Pepcid] 40 mg PO HS 10/01/18 10/01/18 Omeprazole 40 mg PO DAILY 10/01/18 10/01/18 Previous Rx's Medication Instructions Recorded Ibuprofen [Motrin] 600 mg PO Q6HR PRN #30 tab 09/24/18 Allergies Allergy/AdvReac Type Severity Reaction Status Date / Time amoxicillin [From Augmentin] Allergy Rash/Hives Verified 10/01/18 17:22 clavulanic acid Allergy Rash/Hives Verified 10/01/18 17:22 [From Augmentin] potassium clavulanate Allergy Rash/Hives Verified 10/01/18 17:22 [From Augmentin] Latex, Natural Rubber AdvReac Rash/Hives Verified 10/01/18 17:22 morphine AdvReac Nausea & Verified 10/01/18 17:22 Vomiting Review of Systems ROS Statement: Those systems with pertinent positive or pertinent negative responses have been documented in the HPI. Review of systems. No headache or visual acuity changes denies any chest pain or shortness of breath. Complains of discomfort in the upper abdomen that is persistent like a band around her upper abdomen. Pressure, not pain. Patient denies any dizziness no neuro deficits. All systems are reviewed. Old chart was reviewed. Past medical problems significant for MTHFR, GERD, thyroid nodule is being watched. Polycystic ovaries. Her surgeries include appendectomy, back surgery, bariatric surgery with the sleeve. Breast surgery, cholecystectomy and vein stripping. Patient's family history mother had thyroid cancer. Patient has ALLERGIES to Augmentin, latex natural rubber and morphine. Patient quit smoking 2 years ago denies alcohol use. ROS Other: All systems not noted in ROS Statement are negative. Past Medical History Past Medical History: Blood Disorder, GERD/Reflux, Thyroid Disorder Additional Past Medical History / Comment(s): polycystic ovaries mthfr clotting factor disorder, kidney stones, superficial blood clot x1,migraines, thyroid nodules-dr. davalos,varicose veins, past hx. hypertension History of Any Multi-Drug Resistant Organisms: MRSA Date of last positivie culture/infection: 2010 MDRO Source:: abdomen Past Surgical History: Appendectomy, Back Surgery, Bariatric Surgery, Breast Surgery, Cholecystectomy Additional Past Surgical History / Comment(s): gastric sleeve, vein stripping x4 pascale legs, laparoscopy, D & C x 5, lt breast biopsy Past Anesthesia/Blood Transfusion Reactions: Motion Sickness, Postoperative Nausea & Vomiting (PONV) Past Psychological History: Anxiety, Depression Smoking Status: Former smoker Past Alcohol Use History: Rare Past Drug Use History: None Reported - Past Family History Father Family Medical History: Hyperlipidemia, Hypertension Additional Family Medical History / Comment(s): low sodium Mother Family Medical History: Cancer, Fibromyalgia Additional Family Medical History / Comment(s): thyroid ca, Sister(s) Family Medical History: Pulmonary Embolus General Exam - General Exam Comments Initial Comments: General: The patient is awake and alert, here with a chief complaint of no bowel movement for 7 days. This problem started 2 days prior to her having surgery for volvulus and has continued since having had the surgery approximately 5 days ago. , and does not appear acutely ill. Vital signs shows temperature 97.9 pulse 95 respiratory rate 18 pulse ox 90% room air blood pressure 129/84 Eye: Pupils are equal, round and reactive to light, extra-ocular movements are intact ; there is normal conjunctiva bilaterally. No signs of icterus. Ears, nose, mouth and throat: There are moist mucous membranes and no oral lesions. Neck: The neck is supple, there is no tenderness. Cardiovascular: There is a regular rate and rhythm. No murmur, rub or gallop is appreciated. Respiratory: Lungs are clear to auscultation, respirations are non-labored, breath sounds are equal. No wheezes, stridor, rales, or rhonchi. Gastrointestinal: Patient states she feels bloated. No bowel movement for 7 days. As a pressure like a bandlike sensation of the upper abdomen no back pain. Hypoactive bowel sounds decreased appetite. States she is passing gas, both flatus and burping. Nausea and vomiting. Back: There is no tenderness to palpation in the midline. There is no obvious deformity. No rashes noted. Musculoskeletal: Normal ROM, no tenderness, There is no pedal edema. There is no calf tenderness or swelling. Sensation intact. Pulses equal bilaterally 2+. Neurological: No neuro deficits complained of. Skin: Skin is warm and dry and no rashes or lesions are noted. Psychiatric: Cooperative,. Limitations: no limitations Course Vital Signs 10/01/18 15:36 Temperature 97.9 F Pulse Rate 95 Respiratory 18 Rate Blood Pressure 129/84 O2 Sat by Pulse 98 Oximetry Medical Decision Making - Medical Decision Making Medical decision making; is a 38-year-old female here to complaints of no bowel movement for 4 days. She's tried 5 laxatives orally plus prune juice without affect. She is passing wind and burping. Sensation with discomfort in the upper abdomen. Previous surgeries include stomach banding. Approximate 5 days ago the patient eye surgery for volvulus. Patient reports the bowel movements. 2 days prior to volvulus. She did eat a meal several times since the surgery. Complains of nausea and vomiting. Patient's white count 12 hemoglobin 14 hematocrit of 43, urine clean no signs of infection. Potassium 4.4, BUN 8 creatinine 0.92 with a GFR 79. Glucose 99. Liver enzymes normal. X-rays were performed of the abdomen and the radiologist's impression is mild constipation. No free air. Fecal material increased compared to old exam of 5 days ago. Previous surgery. Dr. Hooker The case discussed with Dr. Pace, the patient's surgeon. Labs, x-ray and general physical examination discussed. The patient is not complaining of any significant pain. Bowel sounds. Normal this time. Still passing gas. The plans for the patient to take milk of magnesia and increase fluids. Patient is agreeable to this and will call follow-up with her general surgeon if she has any difficulties of the next day. - Lab Data Result diagrams: 10/01/18 17:15 10/01/18 17:15 Lab Results 10/01/18 10/01/18 10/01/18 Range/Units 17:15 17:15 17:15 WBC 12.0 H (3.8-10.6) k/uL RBC 4.34 (3.80-5.40) m/uL Hgb 14.6 (11.4-16.0) gm/dL Hct 43.0 (34.0-46.0) % MCV 99.0 (80.0-100.0) fL MCH 33.6 (25.0-35.0) pg MCHC 33.9 (31.0-37.0) g/dL RDW 12.8 (11.5-15.5) % Plt Count 343 (150-450) k/uL Neutrophils % 68 % Lymphocytes % 22 % Monocytes % 5 % Eosinophils % 2 % Basophils % 0 % Neutrophils # 8.2 H (1.3-7.7) k/uL Lymphocytes # 2.7 (1.0-4.8) k/uL Monocytes # 0.6 (0-1.0) k/uL Eosinophils # 0.3 (0-0.7) k/uL Basophils # 0.1 (0-0.2) k/uL Sodium 135 L (137-145) mmol/L Potassium 4.4 (3.5-5.1) mmol/L Chloride 103 (98-107) mmol/L Carbon Dioxide 23 (22-30) mmol/L Anion Gap 9 mmol/L BUN 8 (7-17) mg/dL Creatinine 0.92 (0.52-1.04) mg/dL Est GFR (CKD-EPI)AfAm >90 (>60 ml/min/1.73 sqM) Est GFR (CKD-EPI)NonAf 79 (>60 ml/min/1.73 sqM) Glucose 99 (74-99) mg/dL Plasma Lactic Acid Elio 1.0 (0.7-2.0) mmol/L Calcium 9.0 (8.4-10.2) mg/dL Total Bilirubin 0.6 (0.2-1.3) mg/dL AST 22 (14-36) U/L ALT 35 (9-52) U/L Alkaline Phosphatase 90 (38-126) U/L Total Protein 7.4 (6.3-8.2) g/dL Albumin 3.7 (3.5-5.0) g/dL Amylase 61 (30-110) U/L Lipase 119 (23-300) U/L Urine Color Urine Appearance (Clear) Urine pH (5.0-8.0) Ur Specific [place] (1.001-1.035) Urine Protein (Negative) Urine Glucose (UA) (Negative) Urine Ketones (Negative) Urine Blood (Negative) Urine Nitrite (Negative) Urine Bilirubin (Negative) Urine Urobilinogen (<2.0) mg/dL Ur Leukocyte Esterase (Negative) 10/01/18 Range/Units 17:15 WBC (3.8-10.6) k/uL RBC (3.80-5.40) m/uL Hgb (11.4-16.0) gm/dL Hct (34.0-46.0) % MCV (80.0-100.0) fL MCH (25.0-35.0) pg MCHC (31.0-37.0) g/dL RDW (11.5-15.5) % Plt Count (150-450) k/uL Neutrophils % % Lymphocytes % % Monocytes % % Eosinophils % % Basophils % % Neutrophils # (1.3-7.7) k/uL Lymphocytes # (1.0-4.8) k/uL Monocytes # (0-1.0) k/uL Eosinophils # (0-0.7) k/uL Basophils # (0-0.2) k/uL Sodium (137-145) mmol/L Potassium (3.5-5.1) mmol/L Chloride (98-107) mmol/L Carbon Dioxide (22-30) mmol/L Anion Gap mmol/L BUN (7-17) mg/dL Creatinine (0.52-1.04) mg/dL Est GFR (CKD-EPI)AfAm (>60 ml/min/1.73 sqM) Est GFR (CKD-EPI)NonAf (>60 ml/min/1.73 sqM) Glucose (74-99) mg/dL Plasma Lactic Acid Elio (0.7-2.0) mmol/L Calcium (8.4-10.2) mg/dL Total Bilirubin (0.2-1.3) mg/dL AST (14-36) U/L ALT (9-52) U/L Alkaline Phosphatase (38-126) U/L Total Protein (6.3-8.2) g/dL Albumin (3.5-5.0) g/dL Amylase (30-110) U/L Lipase (23-300) U/L Urine Color Light Yellow Urine Appearance Clear (Clear) Urine pH 6.5 (5.0-8.0) Ur Specific [place] 1.005 (1.001-1.035) Urine Protein Negative (Negative) Urine Glucose (UA) Negative (Negative) Urine Ketones Negative (Negative) Urine Blood Negative (Negative) Urine Nitrite Negative (Negative) Urine Bilirubin Negative (Negative) Urine Urobilinogen <2.0 (<2.0) mg/dL Ur Leukocyte Esterase Negative (Negative) Disposition Clinical Impression: Constipation by delayed colonic transit Disposition: HOME SELF-CARE Condition: Fair Instructions (If sedation given, give patient instructions): Constipation (ED) Additional Instructions: Increase fluids, use milk of magnesia. Call follow up with the general surgeon or return emergency room as needed Is patient prescribed a controlled substance at d/c from ED?: No Referrals: Pawan Lyle MD [Primary Care Provider] - 1-2 days Time of Disposition: 18:35
[2018-10-01 17:36] LABS: Appearance,Urine Clear (Clear); Basophils # (A) 0.1 k/uL (0-0.2); Basophils % (A) 0 %; Bilirubin,Urine Negative (Negative); Blood,Urine Negative (Negative); Color,Urine Light Yellow; Eosinophils # (A) 0.3 k/uL (0-0.7); Eosinophils % (A) 2 %; Glucose,Urine (UA) Negative (Negative); HGB 14.6 gm/dL (11.4-16.0); Ketones,Urine Negative (Negative); Leukocyte Esterase,Urine Negative (Negative); Lymphocytes # (A) 2.7 k/uL (1.0-4.8); Lymphocytes % (A) 22 %; MCH 33.6 pg (25.0-35.0); MCHC 33.9 g/dL (31.0-37.0); Mean Platelet Volume 6.5; Monocytes # (A) 0.6 k/uL (0-1.0); Monocytes % (A) 5 %; Neutrophils # (A) 8.2 k/uL (1.3-7.7); Neutrophils % (A) 68 %; Nitrite,Urine Negative (Negative); PH, Urine 6.5 (5.0-8.0); Platelet Count 343 k/uL (150-450); Protein,Urine Negative (Negative); RBC 4.34 m/uL (3.80-5.40); RDW 12.8 % (11.5-15.5); Specific Gravity,Urine 1.005 (1.001-1.035); Urobilinogen,Urine <2.0 mg/dL (<2.0)
--- NOTE | 2018-10-01 17:39 | XR ---
Abdomen 2 views. History constipation. No bowel movement for 7 days. Comparison 09/23/2018. FINDINGS: Supine and upright views were obtained. There is no sign of intestinal obstruction. There are clips f rom cholecystectomy. There are surgical clips in the left abdomen. There is some retained fecal mater ial throughout the colon. Lung bases are clear. There are no pathologic calcifications over the kidne ys. IMPRESSION: Mild constipation. No free air. Fecal material increased compared to old exam. Previous surgery.
[2018-10-01 17:59] LABS: ALT 35 U/L (9-52); AST 22 U/L (14-36); Albumin 3.7 g/dL (3.5-5.0); Alkaline Phosphatase 90 U/L (38-126); Amylase 61 U/L (30-110); Anion Gap 9 mmol/L; Blood Urea Nitrogen 8 mg/dL (7-17); Carbon Dioxide 23 mmol/L (22-30); Chloride 103 mmol/L (98-107); Glucose 99 mg/dL (74-99); Lipase 119 U/L (23-300); Potassium 4.4 mmol/L (3.5-5.1); Sodium 135 mmol/L (137-145); Total Bilirubin 0.6 mg/dL (0.2-1.3); Total Protein 7.4 g/dL (6.3-8.2)
[2018-10-01] MEDS ORDERED: ONDANSETRON 4 MG/2 ML VIAL IVP STA (18:00)
[2018-10-01] MEDS ORDERED: HYDROmorphone 1 MG/ML 1 ML SYRINGE IVP STA ×2 (18:00→18:31)
[2018-10-01] MEDS ORDERED: HYDROmorphone 0.5 MG/0.5 ML SYRINGE IVP STA (18:01)
[2018-10-01] MEDS ORDERED: MAGNESIUM HYDROXIDE 2,400 MG/10 ML CUP PO PRN (18:34)
[2018-10-01 18:54] VITALS: BP 129/87; PULSE 89; RESP 16
== END 2018-10-01 18:55 | disposition home or self-care (01) ==
LOC: EC 15:27
DX: K59.01 Slow transit constipation (principal); R11.2 Nausea with vomiting, unspecified; K21.9 Gastro-esophageal reflux disease without esophagitis; I10 Essential (primary) hypertension; F41.9 Anxiety disorder, unspecified; F32.9 Major depressive disorder, single episode, unspecified; Z87.442 Personal history of urinary calculi; Z86.14 Personal history of Methicillin resistant Staphylococcus aureus infection; Z87.891 Personal history of nicotine dependence; Z87.42 Personal history of other diseases of the female genital tract; Z90.49 Acquired absence of other specified parts of digestive tract; Z98.84 Bariatric surgery status; Z98.890 Other specified postprocedural states; Z79.899 Other long term (current) drug therapy; Z88.0 Allergy status to penicillin; Z88.5 Allergy status to narcotic agent; Z88.8 Allergy status to other drugs, medicaments and biological substances; Z91.040 Latex allergy status
CPT/HCPCS: 36415; 80053; 82150; 83605; 83690; 85025; 81003; 74019; 99284; 96374; 96375; 96376; 96361; J2405; J1170 ×2

== ENCOUNTER 2018-11-09 18:13 | Emergency (ER) | payer OTHER ==
[2018-11-09] MEDS ORDERED: SODIUM CHLORIDE 0.9% 1,000 ML IV STA (18:42)
[2018-11-09] MEDS ORDERED: ONDANSETRON 4 MG/2 ML VIAL IVP STA (18:42)
[2018-11-09] MEDS ORDERED: KETOROLAC 30 MG/ML 1 ML VIAL IVP STA (18:42)
--- NOTE | 2018-11-09 18:42 | ED ---
Abdominal Pain HPI - General Chief Complaint: Abdominal Pain Stated Complaint: Abd pain Time Seen by Provider: 11/09/18 18:34 Source: patient, RN notes reviewed, old records reviewed Mode of arrival: ambulatory Limitations: no limitations - History of Present Illness Initial Comments: This is a 38-year-old female the ER for evaluation of abdominal pain. History of abdominal pain history of volvulus with pending surgery. Positive nausea and vomiting. I for quadrant abdominal pain. She has had multiple abdominal surgeries with Dr. Pace for gastric sleeve to calling etc. No fevers. Symptoms started prior to arrival MD Complaint: abdominal pain -: hour(s), days(s) Location: RUQ Radiation: none Migration to: no migration Severity: moderate Severity scale (1-10): 6 Quality: cramping, fullness, sharp Consistency: constant Improves With: nothing Worsens With: nothing Associated Symptoms: nausea - Related Data Home Medications Medication Instructions Recorded Confirmed Spironolactone 100 mg PO BID 03/20/14 11/09/18 Promethazine [Phenergan] 25 mg PO TID PRN 05/20/15 11/09/18 Topiramate [Topamax] 100 mg PO BID 05/20/15 11/09/18 DULoxetine HCL [Cymbalta] 60 mg PO HS 09/24/17 11/09/18 Gabapentin [Neurontin] 200 mg PO TID 09/24/17 11/09/18 ALPRAZolam [Xanax] 0.25 mg PO BID PRN 09/22/18 11/09/18 Amitriptyline HCl [Elavil] 100 mg PO HS 09/22/18 11/09/18 FLUoxetine HCL [PROzac] 40 mg PO HS 09/22/18 11/09/18 Famotidine [Pepcid] 40 mg PO HS 10/01/18 11/09/18 Omeprazole 40 mg PO DAILY 10/01/18 11/09/18 Allergies Allergy/AdvReac Type Severity Reaction Status Date / Time amoxicillin [From Augmentin] Allergy Rash/Hives Verified 11/09/18 18:31 clavulanic acid Allergy Rash/Hives Verified 11/09/18 18:31 [From Augmentin] potassium clavulanate Allergy Rash/Hives Verified 11/09/18 18:31 [From Augmentin] Latex, Natural Rubber AdvReac Rash/Hives Verified 11/09/18 18:31 morphine AdvReac Nausea & Verified 11/09/18 18:31 Vomiting Review of Systems ROS Statement: Those systems with pertinent positive or pertinent negative responses have been documented in the HPI. ROS Other: All systems not noted in ROS Statement are negative. Past Medical History Past Medical History: Blood Disorder, GERD/Reflux, Thyroid Disorder Additional Past Medical History / Comment(s): polycystic ovaries mthfr clotting factor disorder, kidney stones, superficial blood clot x1,migraines, thyroid nodules-dr. davalos,varicose veins, past hx. hypertension History of Any Multi-Drug Resistant Organisms: MRSA Date of last positivie culture/infection: 2010 MDRO Source:: abdomen Past Surgical History: Appendectomy, Back Surgery, Bariatric Surgery, Breast Surgery, Cholecystectomy Additional Past Surgical History / Comment(s): gastric sleeve, vein stripping x4 pascale legs, laparoscopy, D & C x 5, lt breast biopsy Past Anesthesia/Blood Transfusion Reactions: Motion Sickness, Postoperative Nausea & Vomiting (PONV) Past Psychological History: Anxiety, Depression Smoking Status: Former smoker Past Alcohol Use History: Rare Past Drug Use History: None Reported - Past Family History Father Family Medical History: Hyperlipidemia, Hypertension Additional Family Medical History / Comment(s): low sodium Mother Family Medical History: Cancer, Fibromyalgia Additional Family Medical History / Comment(s): thyroid ca, Sister(s) Family Medical History: Pulmonary Embolus General Exam Limitations: no limitations General appearance: alert, in no apparent distress, obese Head exam: Present: atraumatic, normocephalic, normal inspection Eye exam: Present: normal appearance, PERRL, EOMI. Absent: scleral icterus, conjunctival injection, periorbital swelling ENT exam: Present: normal exam, mucous membranes moist Neck exam: Present: normal inspection. Absent: tenderness, meningismus, lymphadenopathy Respiratory exam: Present: normal lung sounds bilaterally. Absent: respiratory distress, wheezes, rales, rhonchi, stridor Cardiovascular Exam: Present: regular rate, normal rhythm, normal heart sounds. Absent: systolic murmur, diastolic murmur, rubs, gallop, clicks GI/Abdominal exam: Present: soft, normal bowel sounds. Absent: distended, tenderness, guarding, rebound, rigid Extremities exam: Present: normal inspection, full ROM, normal capillary refill. Absent: tenderness, pedal edema, joint swelling, calf tenderness Back exam: Present: normal inspection Neurological exam: Present: alert, oriented X3, CN II-XII intact Psychiatric exam: Present: normal affect, normal mood Skin exam: Present: warm, dry, intact, normal color. Absent: rash Course Vital Signs 11/09/18 11/09/18 11/09/18 18:15 19:45 21:30 Temperature 98 F Pulse Rate 89 79 77 Respiratory 20 20 20 Rate Blood Pressure 152/108 126/87 114/73 O2 Sat by Pulse 99 97 95 Oximetry 11/09/18 22:15 Temperature Pulse Rate 78 Respiratory 18 Rate Blood Pressure 102/75 O2 Sat by Pulse 95 Oximetry - Reevaluation(s) Reevaluation #1: 11/09/18 22:26 medical record is reviewed Reevaluation #2: 11/09/18 22:26 patient with improved pain, ok for DC Medical Decision Making - Medical Decision Making 38 female to the ED for abd pain, h/o similar. Pain is controlled, labs normal and CT normal, OK for DC - Lab Data Result diagrams: 11/09/18 19:39 11/09/18 19:39 Lab Results 11/09/18 11/09/18 11/09/18 Range/Units 19:39 19:39 19:39 WBC 11.5 H (3.8-10.6) k/uL RBC 3.98 (3.80-5.40) m/uL Hgb 13.0 (11.4-16.0) gm/dL Hct 37.3 (34.0-46.0) % MCV 93.6 D (80.0-100.0) fL MCH 32.6 (25.0-35.0) pg MCHC 34.8 (31.0-37.0) g/dL RDW 14.3 (11.5-15.5) % Plt Count 375 (150-450) k/uL Neutrophils % 70 % Lymphocytes % 21 % Monocytes % 5 % Eosinophils % 3 % Basophils % 0 % Neutrophils # 8.0 H (1.3-7.7) k/uL Lymphocytes # 2.4 (1.0-4.8) k/uL Monocytes # 0.5 (0-1.0) k/uL Eosinophils # 0.3 (0-0.7) k/uL Basophils # 0.0 (0-0.2) k/uL Sodium 136 L (137-145) mmol/L Potassium 3.5 (3.5-5.1) mmol/L Chloride 102 (98-107) mmol/L Carbon Dioxide 22 (22-30) mmol/L Anion Gap 12 mmol/L BUN 14 (7-17) mg/dL Creatinine 0.79 (0.52-1.04) mg/dL Est GFR (CKD-EPI)AfAm >90 (>60 ml/min/1.73 sqM) Est GFR (CKD-EPI)NonAf >90 (>60 ml/min/1.73 sqM) Glucose 98 (74-99) mg/dL Calcium 9.5 (8.4-10.2) mg/dL Total Bilirubin 0.5 (0.2-1.3) mg/dL AST 19 (14-36) U/L ALT 25 (9-52) U/L Alkaline Phosphatase 98 (38-126) U/L Troponin I <0.012 (0.000-0.034) ng/mL Total Protein 7.1 (6.3-8.2) g/dL Albumin 3.7 (3.5-5.0) g/dL Amylase 45 (30-110) U/L Lipase 83 (23-300) U/L Urine Color Urine Appearance (Clear) Urine pH (5.0-8.0) Ur Specific [place] (1.001-1.035) Urine Protein (Negative) Urine Glucose (UA) (Negative) Urine Ketones (Negative) Urine Blood (Negative) Urine Nitrite (Negative) Urine Bilirubin (Negative) Urine Urobilinogen (<2.0) mg/dL Ur Leukocyte Esterase (Negative) 11/09/18 Range/Units 19:39 WBC (3.8-10.6) k/uL RBC (3.80-5.40) m/uL Hgb (11.4-16.0) gm/dL Hct (34.0-46.0) % MCV (80.0-100.0) fL MCH (25.0-35.0) pg MCHC (31.0-37.0) g/dL RDW (11.5-15.5) % Plt Count (150-450) k/uL Neutrophils % % Lymphocytes % % Monocytes % % Eosinophils % % Basophils % % Neutrophils # (1.3-7.7) k/uL Lymphocytes # (1.0-4.8) k/uL Monocytes # (0-1.0) k/uL Eosinophils # (0-0.7) k/uL Basophils # (0-0.2) k/uL Sodium (137-145) mmol/L Potassium (3.5-5.1) mmol/L Chloride (98-107) mmol/L Carbon Dioxide (22-30) mmol/L Anion Gap mmol/L BUN (7-17) mg/dL Creatinine (0.52-1.04) mg/dL Est GFR (CKD-EPI)AfAm (>60 ml/min/1.73 sqM) Est GFR (CKD-EPI)NonAf (>60 ml/min/1.73 sqM) Glucose (74-99) mg/dL Calcium (8.4-10.2) mg/dL Total Bilirubin (0.2-1.3) mg/dL AST (14-36) U/L ALT (9-52) U/L Alkaline Phosphatase (38-126) U/L Troponin I (0.000-0.034) ng/mL Total Protein (6.3-8.2) g/dL Albumin (3.5-5.0) g/dL Amylase (30-110) U/L Lipase (23-300) U/L Urine Color Colorless Urine Appearance Clear (Clear) Urine pH 5.5 (5.0-8.0) Ur Specific [place] 1.002 (1.001-1.035) Urine Protein Negative (Negative) Urine Glucose (UA) Negative (Negative) Urine Ketones Negative (Negative) Urine Blood Negative (Negative) Urine Nitrite Negative (Negative) Urine Bilirubin Negative (Negative) Urine Urobilinogen <2.0 (<2.0) mg/dL Ur Leukocyte Esterase Negative (Negative) - Radiology Data Radiology results: report reviewed (CT abd pelvis negative for acute disaese), image reviewed Disposition Clinical Impression: Abdominal pain Disposition: HOME SELF-CARE Condition: Good Instructions (If sedation given, give patient instructions): Abdominal Pain (ED) Is patient prescribed a controlled substance at d/c from ED?: No Referrals: Pawan Lyle MD [Primary Care Provider] - 1-2 days
[2018-11-09] MEDS ORDERED: IOPAMIDOL-300 CONTRAST 30 ML VIAL (ORAL USE) PO PRN (18:43)
[2018-11-09] MEDS ORDERED: HYDROmorphone 0.5 MG/0.5 ML SYRINGE IVP STA ×2 (18:44→22:25)
[2018-11-09 19:51] LABS: Basophils % (A) 0 %; Eosinophils # (A) 0.3 k/uL (0-0.7); Eosinophils % (A) 3 %; HCT 37.3 % (34.0-46.0); Lymphocytes # (A) 2.4 k/uL (1.0-4.8); Lymphocytes % (A) 21 %; MCH 32.6 pg (25.0-35.0); MCHC 34.8 g/dL (31.0-37.0); Mean Platelet Volume 6.9; Monocytes # (A) 0.5 k/uL (0-1.0); Monocytes % (A) 5 %; Neutrophils % (A) 70 %; Platelet Count 375 k/uL (150-450); RBC 3.98 m/uL (3.80-5.40); RDW 14.3 % (11.5-15.5); WBC 11.5 k/uL (3.8-10.6)
[2018-11-09 19:53] LABS: Appearance,Urine Clear (Clear); Bilirubin,Urine Negative (Negative); Blood,Urine Negative (Negative); Color,Urine Colorless; Glucose,Urine (UA) Negative (Negative); Ketones,Urine Negative (Negative); Leukocyte Esterase,Urine Negative (Negative); Nitrite,Urine Negative (Negative); PH, Urine 5.5 (5.0-8.0); Protein,Urine Negative (Negative); Specific Gravity,Urine 1.002 (1.001-1.035); Urobilinogen,Urine <2.0 mg/dL (<2.0)
[2018-11-09 20:00] LABS: ALT 25 U/L (9-52); AST 19 U/L (14-36); Albumin 3.7 g/dL (3.5-5.0); Alkaline Phosphatase 98 U/L (38-126); Amylase 45 U/L (30-110); Anion Gap 12 mmol/L; Blood Urea Nitrogen 14 mg/dL (7-17); Calcium 9.5 mg/dL (8.4-10.2); Carbon Dioxide 22 mmol/L (22-30); Chloride 102 mmol/L (98-107); Glucose 98 mg/dL (74-99); Lipase 83 U/L (23-300); Potassium 3.5 mmol/L (3.5-5.1); Sodium 136 mmol/L (137-145); Total Bilirubin 0.5 mg/dL (0.2-1.3); Total Protein 7.1 g/dL (6.3-8.2)
[2018-11-09 20:08] LABS: MCV 93.6 fL (80.0-100.0)
--- NOTE | 2018-11-09 21:54 | CT ---
EXAMINATION TYPE: CT abdomen pelvis w con DATE OF EXAM: 11/09/2018 COMPARISON: 09/22/2018 CT HISTORY: abdominal pain, hx of bariatric sx CT DLP: 2260.9 mGycm. Automated exposure control for dose reduction was used. TECHNIQUE: Helical acquisition of images was performed from the lung bases through the pelvis. CONTRAST: Performed with Oral Contrast and with IV Contrast, patient injected with 100 mL of Isovue 3 00. FINDINGS: LUNG BASES: No significant abnormality is appreciated. LIVER/GB: No significant abnormality is appreciated. PANCREAS: No significant abnormality is seen. SPLEEN: No significant abnormality is seen. ADRENALS: No significant abnormality is seen. KIDNEYS: No significant abnormality is seen. PERITONEAL CAVITY: Negative for pneumoperitoneum or peritoneal fluid. However, in the right upper quadrant, the cecum and terminal ileum are located anterior to the liver and immediately posterior to the anterior diaphragm. EXTRAPERITONEAL ADENOPATHY: None visualized REPRODUCTIVE ORGANS: Previously noted prominent bilateral large ovarian, likely cystic masses are red emonstrated, and similar to the prior study. Would suggest nonurgent follow-up pelvic Doppler ultraso und in 2 weeks. URINARY BLADDER: No significant abnormality is seen. PELVIC ADENOPATHY: None visualized. OSSEOUS STRUCTURES: No significant abnormality is seen. BOWEL: No acute process. However, in the right upper quadrant, the cecum and terminal ileum are located anterior to the liver and immediately posterior to the anterior diaphragm. Oral contrast delayed imaging could further seamus acterize these relationships. OTHER: No acute vascular findings. IMPRESSION: 1) NO DEFINITE ACUTE PROCESS. 2) Incidental: bilateral ovarian predominantly-cystic masses, for which nonurgent pelvic ultrasound characterization advised.
[2018-11-09 23:30] VITALS: RESP 16
[2018-11-10 00:10] VITALS: BP 133/85; PULSE 76; TEMP 98
== END 2018-11-10 00:05 | disposition home or self-care (01) ==
LOC: EC 18:13
DX: R10.11 Right upper quadrant pain (principal); R11.2 Nausea with vomiting, unspecified; K21.9 Gastro-esophageal reflux disease without esophagitis; I10 Essential (primary) hypertension; G43.909 Migraine, unspecified, not intractable, without status migrainosus; F41.9 Anxiety disorder, unspecified; F32.9 Major depressive disorder, single episode, unspecified; Z86.14 Personal history of Methicillin resistant Staphylococcus aureus infection; Z87.442 Personal history of urinary calculi; Z90.49 Acquired absence of other specified parts of digestive tract; Z98.84 Bariatric surgery status; Z87.891 Personal history of nicotine dependence; Z87.19 Personal history of other diseases of the digestive system; Z79.899 Other long term (current) drug therapy; Z88.0 Allergy status to penicillin; Z91.040 Latex allergy status; Z88.5 Allergy status to narcotic agent
CPT/HCPCS: 36415; 80053; 82150; 83690; 84484; 85025; 81003; 87086; 74177; 99285; 96374; 96375 ×2; 96376; 96361 ×4; J2405; J1885; J1170; Q9967

== ENCOUNTER 2018-11-23 10:35 | Inpatient (IN) | payer OTHER ==
--- NOTE | 2018-11-22 18:18 | P.PN ---
Progress Note - Text Progress Note Date: 11/22/18 Patient contacted. She reports no problems doing her bowel prep Suprep. Benefits and risks of surgery described including possibility of open technique right hemicolectomy secondary to volvulus
--- NOTE | 2018-11-23 07:50 | P.GSHP ---
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 Now she presents for right colon resection. PAST MEDICAL HISTORY: Please see list. PAST SURGICAL HISTORY: Please see list. MEDICATIONS: Please see list. ALLERGIES: Please see list. SOCIAL HISTORY: No illicit drug use FAMILY HISTORY: No reports of Crohn disease or ulcerative colitis. REVIEW OF ORGAN SYSTEMS: CONSTITUTIONAL: Denies any fever or chills. HEENT: Denies any trouble with vision or nosebleeds. No difficulty swallowing. LYMPHATIC: The patient denies any lumps and bumps around the neck. ENDOCRINE: Denies any thyroid disorders. Has blood sugar glucose intolerance. RESPIRATORY: Denies pneumonia. Denies any troubles with breathing or dyspnea on exertion. CARDIOVASCULAR: Denies any chest pain, palpitations, or recent heart attacks. GASTROINTESTINAL: Has constipation. History of large bowel obstruction. GENITOURINARY: Has occassional urinary frequency. No blood in urine. MUSCULOSKELETAL: Has back pain, stiffness, joint arthritis. NEUROLOGIC: Denies any numbness or tingling along the distal extremities. Has headaches. PSYCHIATRIC: Has depression. No suidical ideation. HEMATOLOGIC: Denies any abnormal bleeding or bruising. PHYSICAL EXAM: VITAL SIGNS: Stable GENERAL: Well-developed pleasant in no acute distress. HEENT: No scleral icterus. Extraocular movements grossly intact. Moist buccal mucosa. Hears conversational speech. NECK: Supple without lymphadenopathy. CHEST: Unlabored respirations. Equal bilateral excursions. CARDIOVASCULAR: Regular rate and rhythm. Distal 2+ pulses. ABDOMEN: Soft, nontender, nondistended. MUSCULOSKELETAL: No clubbing, cyanosis, or edema. NERUO: Regular 2-12 grossly intact. PSYCH: Alert and oriented to person place and time. ASSESSMENT: 1. History of previous large bowel obstruction. 2. Cecal volvulus. PLAN: 1. Benefits and risks of surgical intervention particular sigmoid volvulus reviewed in detail. Robotic-assisted approach was also described. 2. She has completed an enhanced colon recovery program. 3. DVT prophylaxis. 4. Antibiotic prophylaxis. Past Medical History Past Medical History: Blood Disorder, GERD/Reflux, Thyroid Disorder Additional Past Medical History / Comment(s): polycystic ovaries mthfr clotting factor disorder, kidney stones, superficial blood clot x1,migraines, thyroid nodules-dr. davalos,varicose veins, past hx. hypertension History of Any Multi-Drug Resistant Organisms: MRSA Date of last positivie culture/infection: 2010 MDRO Source:: abdomen Past Surgical History: Appendectomy, Back Surgery, Bariatric Surgery, Breast Surgery, Cholecystectomy Additional Past Surgical History / Comment(s): SX FOR CECAL TORSION DONE 0 09/2018, gastric sleeve, vein stripping x4 pascale legs, laparoscopy, D & C x 5, lt breast biopsy Past Anesthesia/Blood Transfusion Reactions: Motion Sickness, Postoperative Nausea & Vomiting (PONV) Smoking Status: Former smoker - Past Family History Father Family Medical History: Hyperlipidemia, Hypertension Additional Family Medical History / Comment(s): low sodium Mother Family Medical History: Cancer, Fibromyalgia Additional Family Medical History / Comment(s): thyroid ca, Sister(s) Family Medical History: Pulmonary Embolus Medications and Allergies Home Medications Medication Instructions Recorded Confirmed Type Spironolactone 100 mg PO BID 03/20/14 11/14/18 History Promethazine [Phenergan] 25 mg PO TID PRN 05/20/15 11/14/18 History Topiramate [Topamax] 100 mg PO BID 05/20/15 11/14/18 History DULoxetine HCL [Cymbalta] 60 mg PO HS 09/24/17 11/14/18 History Gabapentin [Neurontin] 200 mg PO TID 09/24/17 11/14/18 History Amitriptyline HCl [Elavil] 100 mg PO HS 09/22/18 11/14/18 History FLUoxetine HCL [PROzac] 40 mg PO HS 09/22/18 11/14/18 History Famotidine [Pepcid] 40 mg PO HS 10/01/18 11/14/18 History Omeprazole 40 mg PO DAILY 10/01/18 11/14/18 History ALPRAZolam [Xanax] 0.5 mg PO BID PRN 11/14/18 11/14/18 History Allergies Allergy/AdvReac Type Severity Reaction Status Date / Time amoxicillin [From Augmentin] Allergy Rash/Hives Verified 11/14/18 10:19 clavulanic acid Allergy Rash/Hives Verified 11/14/18 10:19 [From Augmentin] potassium clavulanate Allergy Rash/Hives Verified 11/14/18 10:19 [From Augmentin] Latex, Natural Rubber AdvReac Rash/Hives Verified 11/14/18 10:19 morphine AdvReac Nausea & Verified 11/14/18 10:19 Vomiting
[~2018-11-23 10:35] MED LIST: ACETAMINOPHEN TAB 500 MG TAB PO ONE; ALVIMOPAN 12 MG CAPSULE PO ONE; Antibiotics per Pharmacy 1 EACH MISC MISCELLANE PRN; DEXAMETHASONE SOD PHOSPHATE 10 MG/ML 1 ML VIAL IV ONE; HEPARIN SODIUM,PORCINE 5,000 UNIT/ML 1 ML VIAL SQ ONE; HYDROmorphone 0.5 MG/0.5 ML SYRINGE IVP PRN; MELOXICAM 7.5 MG TAB PO ONE; MORPHINE SULFATE 4 MG/ML SYRINGE IV PRN; ONDANSETRON 4 MG/2 ML VIAL IVP ONE; ONDANSETRON 4 MG/2 ML VIAL IVP PRN; ceFAZolin 3 GM in SODIUM CHLORIDE 0.9% 100 ML IVPB ONE; metroNIDAZOLE-NS PMX 500 MG in SALINE 1 100ML.BAG IVPB ONE
[2018-11-23] MEDS ORDERED: LIDOCAINE 1% 20 ML VIAL (10MG/ML) FOR IV START INTRADERMA ONE ×2 (12:30→12:37)
[2018-11-23] MEDS: LACTATED RINGERS 1,000 ML IV SCH (12:36)
[2018-11-23 12:45] LABS: Basophils % (A) 0 %; Eosinophils # (A) 0.1 k/uL (0-0.7); Eosinophils % (A) 1 %; HCT 41.5 % (34.0-46.0); HGB 13.8 gm/dL (11.4-16.0); Lymphocytes # (A) 2.1 k/uL (1.0-4.8); Lymphocytes % (A) 17 %; MCH 31.5 pg (25.0-35.0); MCHC 33.3 g/dL (31.0-37.0); MCV 94.7 fL (80.0-100.0); Mean Platelet Volume 7.1; Monocytes # (A) 0.5 k/uL (0-1.0); Monocytes % (A) 4 %; Neutrophils # (A) 9.2 k/uL (1.3-7.7); Neutrophils % (A) 76 %; Platelet Count 445 k/uL (150-450); RBC 4.38 m/uL (3.80-5.40); RDW 13.9 % (11.5-15.5); WBC 12.2 k/uL (3.8-10.6)
[2018-11-23 12:56] LABS: ALT 39 U/L (9-52); AST 22 U/L (14-36); Albumin 4.2 g/dL (3.5-5.0); Alkaline Phosphatase 99 U/L (38-126); Anion Gap 10 mmol/L; Blood Urea Nitrogen 10 mg/dL (7-17); Calcium 9.4 mg/dL (8.4-10.2); Carbon Dioxide 22 mmol/L (22-30); Chloride 107 mmol/L (98-107); Glucose 92 mg/dL (74-99); Potassium 3.8 mmol/L (3.5-5.1); Sodium 139 mmol/L (137-145); Total Bilirubin 0.4 mg/dL (0.2-1.3); Total Protein 7.7 g/dL (6.3-8.2)
[2018-11-23] MEDS ORDERED: MIDAZOLAM (PF) 2 MG/2 ML VIAL IV ONE (13:21)
[2018-11-23] MEDS ORDERED: fentaNYL (PF) 50 MCG/ML 2 ML AMP IV ONE (13:21)
--- NOTE | 2018-11-23 13:53 | P.ONQ ---
Anesthesiology Proc Note - PNB - Peripheral Nerve Block Performed Bilateral Transversus Abdominis Single Time Out Performed: Yes Procedure Start Time: 13:21 Indication: Acute Post-Operative Pain, Analgesia, Requested by physician Sedation Type: Sedate with meaningful contact maintained Preparation: Sterile Prep Position: Supine Catheter: None Needle Types: On-Q Needle Size: 100mm (4") Needle Gauge: 21 Technique: Ultrasound Injectate: Other (see comment) (ropivacaine 0.25% 30cc each side) Blood Aspirated: No Pain Paresthesia on Injection Noted: No Resistance on Injection: Normal Events: Uneventful and Well Tolerated
[2018-11-23] MEDS ORDERED: HYDROmorphone (PF) 1 MG/ML ONE (15:46)
[2018-11-23] MEDS ORDERED: SUCCINYLCHOLINE CHLORIDE 100 MG/5 ML SYR IV ONE (15:46)
[2018-11-23] MEDS ORDERED: PROPOFOL 10 MG/ML 20 ML VIAL IV ONE (15:46)
[2018-11-23] MEDS ORDERED: ROPIVACAINE 5 MG/ML 30 ML VIAL ONE (15:46)
[2018-11-23] MEDS ORDERED: KETOROLAC 30 MG/ML 1 ML VIAL ONE (15:46)
[2018-11-23] MEDS ORDERED: fentaNYL (PF) 50 MCG/ML 2 ML AMP ONE (15:46)
[2018-11-23] MEDS ORDERED: MIDAZOLAM 2 MG/2 ML VIAL ONE (15:46)
[2018-11-23] MEDS ORDERED: ROCURONIUM BROMIDE 10 MG/ML 10 ML VIAL IV ONE ×2 (15:46)
[2018-11-23] MEDS ORDERED: LIDOCAINE 1% INJ 10MG/ML (20 ML MDV) ONE (15:46)
[2018-11-23] MEDS ORDERED: GLYCOPYRROLATE 0.2 MG/ML 2 ML VIAL ONE (15:46)
[2018-11-23] MEDS ORDERED: NEOSTIGMINE 1 MG/ML 10 ML VIAL ONE (15:46)
[2018-11-23] MEDS ORDERED: BUPIVACAIN-EPI 0.5%-1:200,000 30 ML VIAL SQ ONE (16:29)
[2018-11-23] MEDS ORDERED: LACTATED RINGERS 1,000 ML IV ONE ×2 (17:14→20:20)
[2018-11-23] MEDS ORDERED: BENZOCAINE/MENTHOL LOZENG 1 EACH LOZENGE MUCOUS MEM PRN (20:42)
[2018-11-23] MEDS ORDERED: SODIUM CHLORIDE 0.9% 1,000 ML IV ONE (20:49)
--- NOTE | 2018-11-23 20:53 | P.OP ---
Date of Procedure: 11/23/18 Description of Procedure: SURGEON: CAROL VENTURA MD Preoperative Diagnosis: 1. Cecal volvulus with large bowel obstruction 2. Left upper quadrant abdominal pain. 3. Epigastric abdominal pain 4. History of sleeve gastrectomy 5. Morbid obesity due to excess calories, BMI 43.7 6. Depressive disorder 7. Chronic lower back pain 8. Polycystic ovarian syndrome 9. Anxiety disorder 10. Hypertensive heart disease 11. History of thyroid nodules 12. Clotting factor disorder 13. Hepatomegaly Postoperative Diagnosis: 1. Cecal volvulus with large bowel obstruction 2. Left upper quadrant abdominal pain. 3. Epigastric abdominal pain 4. History of sleeve gastrectomy 5. Morbid obesity due to excess calories, BMI 43.7 6. Depressive disorder 7. Chronic lower back pain 8. Polycystic ovarian syndrome 9. Anxiety disorder 10. Hypertensive heart disease 11. History of thyroid nodules 12. Clotting factor disorder 13. Hepatomegaly Procedure(s) Performed: 1. Robot-assisted daVinci Xi laparoscopic extended right hemicolectomy 2. Application of PREVENA wound vac 13-cm at left upper quadrant incision Anesthesia: GETA, local, epidural Surgeon: Carol Ventura Estimated Blood Loss (ml): 75 Pathology: other (Right colon) Condition: stable SPECIMENS REMOVED: terminal ileum and right colon en bloc. COMPLICATIONS: None. Disposition: floor Operative Findings: 1. Moderately redundant right colon over 4 times normal with length of 2.5-3 feet 2. Active cecal volvulus with intermittent large bowel obstruction identified 3. Highly redundant right colon including hepatic flexure identified 4. No ischemic changes of the colon 5. Mesenteric defect closed using 2-0 V LOC 6. Primary side to side anastomosis of ileum to transverse colon 7. Total of 6 staple load 60 mm, 5 blue staple loads and one white staple load 8. Console time 189 minutes INDICATIONS: The patient is a 38-year-old female who presents with intermittent large bowel obstruction secondary to cecal volvulus. Surgical intervention with colon resection was described in detail. Benefits and risks, including infection, open surgery possibility for additional surgery was discussed at length. Informed consent was obtained. All questions of the patient and family were answered. DESCRIPTION: Earlier the patient had undergone a bowel prep using the enhanced colon recovery program. An epidural was placed by anesthesia. The patient was transferred to the operating room and placed in supine position. After general anesthetic, a armando catheter was placed. The abdomen was then prepped and draped in standard sterile fashion as Ioban was placed along the abdomen to minimize any contamination of skin floor. After a timeout protocol was performed, attention was then brought to the left upper quadrant whereby a 0 degree 5 mm laparoscopic trocar entry was performed. The abdominal cavity was entered and insufflated to 15 mmHg pressure, which was tolerated well. Diagnostic laparoscopy demonstrated no injury to bowel, viscera or mesentery. The liver was remarkable for hepatomegaly. Next trochars were placed obliquely from the midline to the left upper quadrant. An robotic 8-mm trocar to the left of the midline of the lower abdomen just above the pubis. A 12 mm port was placed along the left of the umbilicus and another 12-mm port along the epigastrium. Ports were placed 8 cm apart from each other including 15-20 cm away from the target anatomy of the right pelvis. The 5-mm port was exchanged for a 8 mm robotic port. The patient was then placed in Trendelenburg position, at least 10, with the right side up 8. The robotic da Fermin XI system was primed and docked from the left side of the patient. Using atraumatic graspers and vessel sealer, the robotic system was docked and primed as described. Instruments were interchanged by the assistant boys track coach including scissors, needle public transit bus driver, robotic stapler and vessel sealer. Next, attention was brought to identify the cecum. A stay suture using 0 silk was placed along the anterior serosa of the along the terminal ileum. The terminal ileum and ascending colon mesentery was mobilized using a vessel sealer whereby the colon was marked and tagged. Moderately redundant right colon was identified. Active cecal volvulus with intermittent large bowel obstruction was found with dilated hepatic flexure and cecum. Highly redundant right colon including hepatic flexure was confirmed. No ischemic changes of the colon was found. Using robot stapler 60 mm white load, the distal ileum was divided 8 centimeters proximal to the ileocecal valve. The mesentery of the ascending colon was mobilized towards the midline using a vessel sealer. Secondary to the highly redundant hepatic flexure and ascending colon, the right colon was mobilized to the mid transverse colon and prepared for resection. The colon was divided using 60 mm blue loads. The rest of the colon mesentery was mobilized using vessel sealer including using blunt dissection. The ascending colon was mobilized from proximal to distal with the meeting point of the hepatic flexure The vascular pedicle of the ileocolic artery was controlled using vessel sealer. The mid transverse colon and distal ileum was brought in a side to side antiperistaltic anastomotic fashion after placing interrupted sutures along the proposed hubert-lumen using 3-0 silk. A colotomy and enterotomy was prepared along both limbs along the antimesenteric border. Next, 60 mm blue stapler loads were fired to create the hubert-lumen. The hubert-lumen was reapproximated using 3-0 silk followed by 45 mm blue load for closure of the enterostomy. The mesenteric defect was oversewn using 2-0 V LOC 9 inch to prevent internal hernia. All needles were removed from the abdominal cavity. The robot was undocked. I re-scrubbed into the case. Via the 12 mm port of the left upper quadrant, the right colon was removed after widening the skin incision to 3-cm. All sponges were removed from the abdominal cavity. As the specimen was extremely long and filled with gas, the specimen was drained externally out of the abdomen with some contamination along the skin incision. The fascial defect was oversewn using 0 Vicryl and Benjamin Paniagua. Next all pneumoperitoneum was evacuated from the abdominal cavity. The 8-mm trocar sites were reapproximated using 4-0 Monocryl in an interrupted subcuticular fashion. Local anesthetic was infiltrated to all wounds for postop analgesia. All incisions were also cleansed with diluted hydrogen peroxide. A PREVENA surgical wound vac was placed over the left upper quadrant incision of the colon extraction site. The specimen was measured externally and confirmed moderately redundant right colon over 4 times normal with length of 2.5-3 feet. Liquid was applied to the rest of the skin incisions. The patient had tolerated the procedure well. The patient was extubated successfully. Intraoperative photos were reviewed with the patient's family who were overall pleased with the level of care. The patient was transferred to the [facility] care [facility] in stable condition.
[2018-11-23] MEDS ORDERED: ONDANSETRON 4 MG/2 ML VIAL IVP ONE (21:06)
[2018-11-23] MEDS: HYDROmorphone 1 MG/ML 1 ML SYRINGE IVP ONE ×2 (21:18→21:36)
[2018-11-23] MEDS ORDERED: NALOXONE 0.4 MG/ML 1 ML VIAL IV PRN (22:39)
[2018-11-23] MEDS: SODIUM CHLORIDE 0.9% 1,000 ML IV SCH (23:07)
[2018-11-23] MEDS: ceFAZolin 3 GM in SODIUM CHLORIDE 0.9% 100 ML IVPB SCH (23:13)
[2018-11-23] MEDS: PANTOPRAZOLE 40 MG/10 ML VIAL IV SCH (23:13)
[2018-11-23] MEDS: 0.9% NACL WITH KCL 20 MEQ/L 1,000 ML IV SCH (23:13)
[2018-11-23] MEDS: HEPARIN SODIUM,PORCINE 5,000 UNIT/ML 1 ML VIAL SQ SCH (23:14)
[2018-11-23] MEDS: FAMOTIDINE 20 MG/2 ML VIAL IV SCH (23:14)
[2018-11-23] MEDS: KETOROLAC 30 MG/ML 1 ML VIAL IVP SCH (23:15)
[2018-11-23] MEDS: METOCLOPRAMIDE 5 MG/ML 2 ML VIAL IVP SCH (23:15)
[2018-11-23] MEDS: SIMETHICONE 40 MG/0.6 ML DROPS 2,000 MG/30 ML BOTTLE PO SCH (23:17)
[2018-11-23 23:36] VITALS: BMI 49.3
[2018-11-24] MEDS: metroNIDAZOLE-NS PMX 500 MG in SALINE 1 100ML.BAG IVPB SCH ×5 (00:28→23:08)
[2018-11-24] MEDS: HYDROmorphone 1 MG/ML 1 ML SYRINGE IVP PRN ×7 (03:19→23:08)
[2018-11-24] MEDS: KETOROLAC 30 MG/ML 1 ML VIAL IVP SCH (05:20)
[2018-11-24] MEDS: METOCLOPRAMIDE 5 MG/ML 2 ML VIAL IVP SCH ×4 (05:21→23:08)
[2018-11-24] MEDS: SIMETHICONE 40 MG/0.6 ML DROPS 2,000 MG/30 ML BOTTLE PO SCH ×4 (05:22→23:15)
[2018-11-24] MEDS: 0.9% NACL WITH KCL 20 MEQ/L 1,000 ML IV SCH ×5 (05:22→19:07)
[2018-11-24] MEDS: DEXTROSE 5%-LACTATED RINGERS 1,000 ML IV SCH ×2 (06:50→06:54)
[2018-11-24] MEDS: ALVIMOPAN 12 MG CAPSULE PO SCH ×2 (07:12→20:12)
[2018-11-24] MEDS: SPIRONOLACTONE 25 MG TAB PO SCH ×2 (07:12→20:12)
[2018-11-24] MEDS: GABAPENTIN 100 MG CAP PO SCH ×3 (07:12→20:12)
[2018-11-24] MEDS: SODIUM CHLORIDE 0.9% 1,000 ML IV SCH ×2 (07:12→19:07)
[2018-11-24] MEDS: ceFAZolin 3 GM in SODIUM CHLORIDE 0.9% 100 ML IVPB SCH ×3 (07:12→23:07)
[2018-11-24] MEDS: FAMOTIDINE 20 MG/2 ML VIAL IV SCH (07:13)
[2018-11-24] MEDS: PANTOPRAZOLE 40 MG/10 ML VIAL IV SCH (07:13)
[2018-11-24] MEDS: HEPARIN SODIUM,PORCINE 5,000 UNIT/ML 1 ML VIAL SQ SCH ×2 (07:13→20:11)
[2018-11-24] MEDS ORDERED: SODIUM CHLORIDE 0.9% 2,000 ML IV ONE (07:53)
[2018-11-24] MEDS ORDERED: PANTOPRAZOLE 40 MG TABLET PO SCH (09:00)
[2018-11-24 09:26] LABS: Basophils % (A) 0 %; Eosinophils % (A) 0 %; HCT 36.4 % (34.0-46.0); HGB 11.8 gm/dL (11.4-16.0); Hypochromasia Slight; Lymphocytes # (A) 1.7 k/uL (1.0-4.8); Lymphocytes % (A) 15 %; MCH 32.2 pg (25.0-35.0); MCHC 32.4 g/dL (31.0-37.0); MCV 99.5 fL (80.0-100.0); Mean Platelet Volume 6.9; Monocytes # (A) 0.6 k/uL (0-1.0); Monocytes % (A) 5 %; Neutrophils # (A) 9.1 k/uL (1.3-7.7); Neutrophils % (A) 78 %; Platelet Count 379 k/uL (150-450); RBC 3.66 m/uL (3.80-5.40); RDW 13.3 % (11.5-15.5); WBC 11.8 k/uL (3.8-10.6)
[2018-11-24 09:39] LABS: Anion Gap 8 mmol/L; Blood Urea Nitrogen 10 mg/dL (7-17); Calcium 8.4 mg/dL (8.4-10.2); Carbon Dioxide 23 mmol/L (22-30); Chloride 109 mmol/L (98-107); Glucose 92 mg/dL (74-99); Potassium 3.6 mmol/L (3.5-5.1); Sodium 140 mmol/L (137-145)
[2018-11-24] MEDS: KETOROLAC 30 MG/ML 1 ML VIAL IVP PRN ×2 (13:53→18:59)
--- NOTE | 2018-11-24 15:32 | P.PN ---
Subjective Progress Note Date: 11/24/18 CHIEF COMPLAINT: Cecal volvulus HISTORY OF PRESENT ILLNESS: The patient is a 38-year-old female postop day 1 status post right hemicolectomy for cecal volvulus, 11/23/2018. She is tolerating diet. No further reports of right upper quadrant or right-sided abdominal pain farm history of cecal volvulus. She only complains of incisional pain. No flatus. Separately, patient presented with pre-existing leukocytosis which she states was from sinusitis and did not disclose the surgical team prior to surgery. ROS: No reports of nausea and vomiting. No bowel movements. No fevers or chills. No new chest pain. No productive sputum PHYSICAL EXAM: VITAL SIGNS: Reviewed CONSTITUTIONAL: Well developed and in no acute distress. EYES: Conjuctivae without sclera icterus. Extraocular movements grossly intact. HEAD, EARS, NOSE, THROAT: Moist buccal mucosa. Head is atraumatic, normocephalic. Hears conversational speech. No nasal drainage. NECK: Supple. No thyroidomegaly. RESPIRATORY: Non-labored respirations and equal bilateral excursions. CARDIOVASCULAR: Palpable 2+ radial pulses. Regular rate. Regular rhythm. ABDOMEN: Incisions clean dry and intact. Soft. No peritonitis. Minimal tenderness left upper quadrant. PREVENA wound vac present left upper quadrant and without drainage. MUSCULOSKELETAL: No gross deformity of the lower extremities noted. No clubbing. No cyanosis. SKIN: Good skin turgor. Well perfused. NEUROLOGIC: Cranial nerves I through XII grossly intact. No focal or lateralizing signs. PSYCH: Appropriate affect. Alert and oriented to person, place and time. CLINCAL LABS: White blood cell count stable IMAGES: Intraoperative findings thoroughly reviewed including abnormal extra length of right colon 4x times normal ASSESSMENT: 1. Cecal volvulus 2. Status post right hemicolectomy 3. Pre-existing sinusitis with leukocytosis 4. Chronic pain 5. History of sleeve gastrectomy PLAN: 1. She has baseline chronic pain needs and reports that she tolerates Dilaudid. 2. Await bowel function 3. Continue wound VAC post discharge for removal in the office 4. Liquid diet, noncarbonated low sugar for history of sleeve gastrectomy 5. Continue antibiotics for pre-existing leukocytosis and sinusitis including contaminated case Objective - Vital Signs Vital signs: Vital Signs Temp 97.9 F 11/24/18 11:38 Pulse 79 11/24/18 11:38 Resp 16 11/24/18 11:38 BP 112/69 11/24/18 11:38 Pulse Ox 99 11/24/18 11:38 Intake & Output 11/23/18 11/24/18 11/24/18 18:59 06:59 18:59 Intake Total 1800 1000 Output Total 825 775 Balance 1800 175 -775 Intake: IV 1800 1000 Output: Urine 750 775 Uretheral (Davis) 300 Estimated Blood Loss 75 Other: Voiding Method Indwelling Catheter # Voids 1 - Labs CBC & Chem 7: 11/24/18 09:08 11/24/18 09:08 Labs: Abnormal Lab Results - Last 24 Hours (Table) 11/24/18 11/24/18 Range/Units 09:08 09:08 WBC 11.8 H (3.8-10.6) k/uL RBC 3.66 L (3.80-5.40) m/uL Neutrophils # 9.1 H (1.3-7.7) k/uL Chloride 109 H (98-107) mmol/L Assessment and Plan (1) Cecal volvulus Current Visit: Yes Status: Acute Code(s): K56.2 - VOLVULUS SNOMED Code(s): 669267039 (2) Hypertensive heart disease Current Visit: Yes Status: Acute Code(s): I11.9 - HYPERTENSIVE HEART DISEASE WITHOUT HEART FAILURE SNOMED Code(s): 72595121 (3) Chronic pain disorder Current Visit: Yes Status: Acute Code(s): G89.4 - CHRONIC PAIN SYNDROME SNOMED Code(s): 817134995 (4) Morbid obesity with BMI of 40.0-44.9, adult Current Visit: No Status: Acute Code(s): E66.01 - MORBID (SEVERE) OBESITY DUE TO EXCESS CALORIES; Z68.41 - BODY MASS INDEX (BMI) 40.0-44.9, ADULT SNOMED Code(s): 125922725 (5) History of coagulopathy Current Visit: No Status: Chronic Code(s): Z86.2 - PRSNL HISTORY OF DIS OF THE BLD/BLD-FORM ORG/IMMUN MECHNSM SNOMED Code(s): 751929167 (6) History of sleeve gastrectomy Current Visit: No Status: Chronic Code(s): Z98.89 - OTHER SPECIFIED POSTPROCEDURAL STATES * DO NOT USE * SNOMED Code(s): 299082496 (7) Polycystic disease, ovaries Current Visit: No Status: Chronic Code(s): E28.2 - POLYCYSTIC OVARIAN SYNDROME SNOMED Code(s): 865805085 (8) Sinusitis Current Visit: Yes Status: Acute Code(s): J32.9 - CHRONIC SINUSITIS, UNSPECIFIED SNOMED Code(s): 73820500 (9) Leukocytosis Current Visit: Yes Status: Acute Code(s): D72.829 - ELEVATED WHITE BLOOD CELL COUNT, UNSPECIFIED SNOMED Code(s): 667812798 (10) Anxiety and depression Current Visit: Yes Status: Acute Code(s): F41.9 - ANXIETY DISORDER, UNSPECIFIED; F32.9 - MAJOR DEPRESSIVE DISORDER, SINGLE EPISODE, UNSPECIFIED SNOMED Code(s): 85833457 (11) Gastroesophageal reflux Current Visit: Yes Status: Acute Code(s): K21.9 - GASTRO-ESOPHAGEAL REFLUX DISEASE WITHOUT ESOPHAGITIS SNOMED Code(s): 226824664
[2018-11-24] MEDS: diphenhydrAMINE 50 MG/ML 1 ML VIAL IVP PRN ×2 (16:47→23:08)
[2018-11-24] MEDS: ALPRAZolam 0.5 MG TAB PO PRN (16:57)
[2018-11-24 19:51] VITALS: RESP 18
[2018-11-24] MEDS ORDERED: FAMOTIDINE 20 MG TAB PO SCH (21:00)
[2018-11-24] MEDS ORDERED: AMITRIPTYLINE HCL 50 MG TAB PO SCH (21:00)
[2018-11-24] MEDS ORDERED: FLUoxetine HCL 20 MG CAP PO SCH (21:00)
[2018-11-25] MEDS: SODIUM CHLORIDE 0.9% 1,000 ML IV SCH (00:22)
[2018-11-25] MEDS: KETOROLAC 30 MG/ML 1 ML VIAL IVP PRN ×2 (01:26→09:00)
[2018-11-25] MEDS: HYDROmorphone 1 MG/ML 1 ML SYRINGE IVP PRN ×3 (02:54→09:17)
[2018-11-25] MEDS: 0.9% NACL WITH KCL 20 MEQ/L 1,000 ML IV SCH (03:51)
[2018-11-25] MEDS: metroNIDAZOLE-NS PMX 500 MG in SALINE 1 100ML.BAG IVPB SCH ×2 (06:01→11:26)
[2018-11-25] MEDS: SIMETHICONE 40 MG/0.6 ML DROPS 2,000 MG/30 ML BOTTLE PO SCH ×2 (06:01→11:26)
[2018-11-25] MEDS: METOCLOPRAMIDE 5 MG/ML 2 ML VIAL IVP SCH ×2 (06:01→11:25)
[2018-11-25 07:36] LABS: Basophils % (A) 0 %; Eosinophils # (A) 0.2 k/uL (0-0.7); Eosinophils % (A) 3 %; HCT 32.7 % (34.0-46.0); HGB 10.5 gm/dL (11.4-16.0); Hypochromasia Slight; Lymphocytes # (A) 1.6 k/uL (1.0-4.8); Lymphocytes % (A) 21 %; MCH 32.3 pg (25.0-35.0); MCHC 32.1 g/dL (31.0-37.0); MCV 100.6 fL (80.0-100.0); Macrocytosis Slight; Mean Platelet Volume 6.5; Monocytes # (A) 0.3 k/uL (0-1.0); Monocytes % (A) 4 %; Neutrophils # (A) 5.4 k/uL (1.3-7.7); Neutrophils % (A) 70 %; Platelet Count 307 k/uL (150-450); RBC 3.25 m/uL (3.80-5.40); RDW 13.4 % (11.5-15.5); WBC 7.7 k/uL (3.8-10.6)
[2018-11-25 07:45] LABS: Anion Gap 6 mmol/L; Blood Urea Nitrogen 7 mg/dL (7-17); Calcium 8.1 mg/dL (8.4-10.2); Carbon Dioxide 23 mmol/L (22-30); Chloride 108 mmol/L (98-107); Glucose 102 mg/dL (74-99); Potassium 3.7 mmol/L (3.5-5.1); Sodium 137 mmol/L (137-145)
[2018-11-25 07:48] VITALS: BP 103/65; PULSE 75; TEMP 97.8
[2018-11-25] MEDS ORDERED: HYDROcodone/APAP 5-325MG 1 EACH TAB PO PRN (08:53)
[2018-11-25] MEDS: ALPRAZolam 0.5 MG TAB PO PRN (09:00)
[2018-11-25] MEDS: ALVIMOPAN 12 MG CAPSULE PO SCH (09:03)
[2018-11-25] MEDS: ceFAZolin 3 GM in SODIUM CHLORIDE 0.9% 100 ML IVPB SCH (09:03)
[2018-11-25] MEDS: PANTOPRAZOLE 40 MG/10 ML VIAL IV SCH (09:04)
[2018-11-25] MEDS: GABAPENTIN 100 MG CAP PO SCH (09:04)
[2018-11-25] MEDS: HEPARIN SODIUM,PORCINE 5,000 UNIT/ML 1 ML VIAL SQ SCH (09:04)
[2018-11-25] MEDS: SPIRONOLACTONE 25 MG TAB PO SCH (09:17)
[2018-11-25] MEDS: diphenhydrAMINE 50 MG/ML 1 ML VIAL IVP PRN (11:25)
--- NOTE | 2018-11-25 13:03 | P.DS ---
Providers Date of admission: 11/23/18 11:18 Expected date of discharge: 11/25/18 Attending physician: Georgie Ventura Primary care physician: Pawan Lyle - Discharge Diagnosis(es) (1) Cecal volvulus Current Visit: Yes Status: Acute (2) Hypertensive heart disease Current Visit: Yes Status: Acute (3) Chronic pain disorder Current Visit: Yes Status: Acute (4) Morbid obesity with BMI of 40.0-44.9, adult Current Visit: No Status: Acute (5) History of coagulopathy Current Visit: No Status: Chronic (6) History of sleeve gastrectomy Current Visit: No Status: Chronic (7) Polycystic disease, ovaries Current Visit: No Status: Chronic (8) Sinusitis Current Visit: Yes Status: Acute (9) Leukocytosis Current Visit: Yes Status: Acute (10) Anxiety and depression Current Visit: Yes Status: Acute (11) Gastroesophageal reflux Current Visit: Yes Status: Acute Hospital Course: POSTOP DIAGNOSES: 1. Cecal volvulus 2. Pre-existing leukocytosis 3. Right-sided abdominal pain 4. History of sleeve gastrectomy 5. Morbid obesity due to excess calories, BMI 42.9 6. Depressive disorder 7. Chronic lower back pain 8. Polycystic ovarian syndrome 9. Anxiety disorder 10. Hypertensive heart disease 11. History of thyroid nodules 12. Clotting factor disorder 13. Hepatomegaly CHIEF COMPLAINT: Cecal volvulus HISTORY OF PRESENT ILLNESS: The patient is a 38-year-old female postop day 2 status post right hemicolectomy for cecal volvulus, 11/23/2018. She is tolera ting diet. Her pain has improved. She had a bowel movement including much passage of flatus. She reports swelling along the bilateral lower extremities from fluids. No reports or signs of bleeding. No further reports of sinusitis which was pre-existing to admission. ROS: No reports of nausea and vomiting. No fevers or chills. No new chest pain. No productive sputum PHYSICAL EXAM: VITAL SIGNS: Reviewed CONSTITUTIONAL: Well developed and in no acute distress. EYES: Conjuctivae without sclera icterus. Extraocular movements grossly intact. HEAD, EARS, NOSE, THROAT: Moist buccal mucosa. Head is atraumatic, normocephalic. Hears conversational speech. No nasal drainage. NECK: Supple. No thyroidomegaly. RESPIRATORY: Non-labored respirations and equal bilateral excursions. CARDIOVASCULAR: Palpable 2+ radial pulses. Regular rate. Regular rhythm. ABDOMEN: Incisions clean dry and intact. Soft. PREVENA wound vac present left upper quadrant and without drainage. No peritonitis. MUSCULOSKELETAL: No clubbing. No cyanosis. 1+ bilateral lower extremity edema. SKIN: Good skin turgor. Well perfused. NEUROLOGIC: Cranial nerves I through XII grossly intact. No focal or later alizing signs. PSYCH: Appropriate affect. Alert and oriented to person, place and time. CLINCAL LABS: White blood cell coun normal. Hemoglobin dropped dilutional. ASSESSMENT: 1. Cecal volvulus 2. Status post right hemicolectomy 3. Pre-existing sinusitis with leukocytosis PLAN: 1. Clinically, patient has done well since surgery may be discharged home. 2. Continue with wound VAC with discontinuance 7 days postop 3. Pain management described where she tolerates [place] was and ibuprofen 4. DVT prevention described including ambulation reviewed. 5. Dietary restrictions also advised including increased protein intake for optimal recovery Vital Signs Temp 97.8 F 11/25/18 07:02 Pulse 75 11/25/18 08:16 Resp 18 11/25/18 08:16 BP 103/65 11/25/18 07:02 Pulse Ox 95 11/25/18 07:02 Intake & Output 11/24/18 11/25/18 11/25/18 18:59 06:59 18:59 Intake Total 1100 500 800 Output Total 2225 1500 852 Balance -1125 -1000 -52 Intake: Oral 1100 500 800 Output: Urine 2225 1500 850 Uretheral (Davis) 300 Stool 2 Other: Voiding Method Indwelling Catheter Indwelling Catheter # Voids 1 1 Laboratory Last Values WBC 7.7 k/uL (3.8-10.6) 11/25/18 06:48 RBC 3.25 m/uL (3.80-5.40) L 11/25/18 06:48 Hgb 10.5 gm/dL (11.4-16.0) L 11/25/18 06:48 Hct 32.7 % (34.0-46.0) L 11/25/18 06:48 MCV 100.6 fL (80.0-100.0) H 11/25/18 06:48 MCH 32.3 pg (25.0-35.0) 11/25/18 06:48 MCHC 32.1 g/dL (31.0-37.0) 11/25/18 06:48 RDW 13.4 % (11.5-15.5) 11/25/18 06:48 Plt Count 307 k/uL (150-450) 11/25/18 06:48 Neutrophils % 70 % 11/25/18 06:48 Lymphocytes % 21 % 11/25/18 06:48 Monocytes % 4 % 11/25/18 06:48 Eosinophils % 3 % 11/25/18 06:48 Basophils % 0 % 11/25/18 06:48 Neutrophils # 5.4 k/uL (1.3-7.7) 11/25/18 06:48 Lymphocytes # 1.6 k/uL (1.0-4.8) 11/25/18 06:48 Monocytes # 0.3 k/uL (0-1.0) 11/25/18 06:48 Eosinophils # 0.2 k/uL (0-0.7) 11/25/18 06:48 Basophils # 0.0 k/uL (0-0.2) 11/25/18 06:48 Hypochromasia Slight 11/25/18 06:48 Macrocytosis Slight 11/25/18 06:48 Sodium 137 mmol/L (137-145) 11/25/18 06:48 Potassium 3.7 mmol/L (3.5-5.1) 11/25/18 06:48 Chloride 108 mmol/L (98-107) H 11/25/18 06:48 Carbon Dioxide 23 mmol/L (22-30) 11/25/18 06:48 Anion Gap 6 mmol/L 11/25/18 06:48 BUN 7 mg/dL (7-17) 11/25/18 06:48 Creatinine 0.75 mg/dL (0.52-1.04) 11/25/18 06:48 Est GFR (CKD-EPI)AfAm >90 (>60 ml/min/1.73 sqM) 11/25/18 06:48 Est GFR (CKD-EPI)NonAf >90 (>60 ml/min/1.73 sqM) 11/25/18 06:48 Glucose 102 mg/dL (74-99) H 11/25/18 06:48 Calcium 8.1 mg/dL (8.4-10.2) L 11/25/18 06:48 Magnesium 2.0 mg/dL (1.6-2.3) 11/24/18 09:08 Total Bilirubin 0.4 mg/dL (0.2-1.3) 11/23/18 12:25 AST 22 U/L (14-36) 11/23/18 12:25 ALT 39 U/L (9-52) 11/23/18 12:25 Alkaline Phosphatase 99 U/L (38-126) 11/23/18 12:25 Total Protein 7.7 g/dL (6.3-8.2) 11/23/18 12:25 Albumin 4.2 g/dL (3.5-5.0) 11/23/18 12:25 Blood Type A Positive 11/17/18 11:57 Blood Type Recheck No 11/17/18 11:57 Antibody Screen NEGATIVE 11/17/18 11:57 Spec Expiration Date 11/25/2018235611/17/18 11:57 Pertinent Studies: POSTOP DIAGNOSES: 1. Cecal volvulus 2. Pre-existing leukocytosis 3. Right-sided abdominal pain 4. History of sleeve gastrectomy 5. Morbid obesity due to excess calories, BMI 42.9 6. Depressive disorder 7. Chronic lower back pain 8. Polycystic ovarian syndrome 9. Anxiety disorder 10. Hypertensive heart disease 11. History of thyroid nodules 12. Clotting factor disorder 13. Hepatomegaly Procedures: Robotic right hemicolectomy, 11/23/2018 Patient Condition at Discharge: Stable Plan - Discharge Summary Discharge Rx Participant: Yes New Discharge Prescriptions: New Ibuprofen [Motrin] 600 mg PO Q8HR PRN #30 tab PRN Reason: Pain HYDROcodone/APAP 5-325MG [[place] 5-325] 1 tab PO Q6HR PRN 3 Days #10 tab PRN Reason: Pain Continue Spironolactone 100 mg PO BID Topiramate [Topamax] 100 mg PO BID Promethazine [Phenergan] 25 mg PO TID PRN PRN Reason: Nausea Gabapentin [Neurontin] 200 mg PO TID DULoxetine HCL [Cymbalta] 60 mg PO HS Amitriptyline HCl [Elavil] 100 mg PO HS FLUoxetine HCL [PROzac] 40 mg PO HS Famotidine [Pepcid] 40 mg PO HS Omeprazole 40 mg PO DAILY ALPRAZolam [Xanax] 0.5 mg PO BID PRN PRN Reason: Anxiety Discharge Medication List Spironolactone 100 mg PO BID 03/20/14 [History] Promethazine [Phenergan] 25 mg PO TID PRN 05/20/15 [History] Topiramate [Topamax] 100 mg PO BID 05/20/15 [History] DULoxetine HCL [Cymbalta] 60 mg PO HS 09/24/17 [History] Gabapentin [Neurontin] 200 mg PO TID 09/24/17 [History] Amitriptyline HCl [Elavil] 100 mg PO HS 09/22/18 [History] FLUoxetine HCL [PROzac] 40 mg PO HS 09/22/18 [History] Famotidine [Pepcid] 40 mg PO HS 10/01/18 [History] Omeprazole 40 mg PO DAILY 10/01/18 [History] ALPRAZolam [Xanax] 0.5 mg PO BID PRN 11/14/18 [History] HYDROcodone/APAP 5-325MG [[place] 5-325] 1 tab PO Q6HR PRN 3 Days #10 tab 11/25/18 [Rx] Ibuprofen [Motrin] 600 mg PO Q8HR PRN #30 tab 11/25/18 [Rx] Follow up Appointment(s)/Referral(s): Georgie Ventura MD [STAFF PHYSICIAN] - 11/26/18 Patient Instructions/Handouts: Low Fiber Diet (DC), High Protein Diet (DC), Hydrocodone/Acetaminophen (By mouth), Abdominal Binder (DC) Activity/Diet/Wound Care/Special Instructions: No lifting over 4 pounds in 4 weeks. May shower after removal of wound VAC. Do not take narcotics with Xanax. High protein diet for optimal recovery including protein shakes advised. Avoid steaks, pork, and salad first for at least 1 week for optimal recovery. Wear abdominal binder for comfort for 2 weeks. Discharge Disposition: HOME SELF-CARE
== END 2018-11-25 14:17 | disposition home or self-care (01) | DRG 330 ==
LOC: 2ORMAIN 11:18 → 3NMEDONC 21:40 → 4SSUR 11-24 14:50
PROVIDERS: ADMIT Surgery Plastic and Reconstructive Surgery; ATTEND Surgery Plastic and Reconstructive Surgery
PROC: 0DBF4ZZ Excision of Right Large Intestine, Percutaneous Endoscopic Approach (ICD-10-PCS; principal; 2018-11-23 12:30)
DX: K56.2 Volvulus (principal); Z68.41 Body mass index [BMI] 40.0-44.9, adult; D68.9 Coagulation defect, unspecified; E28.2 Polycystic ovarian syndrome; E66.01 Morbid (severe) obesity due to excess calories; F32.9 Major depressive disorder, single episode, unspecified; F41.9 Anxiety disorder, unspecified; G89.4 Chronic pain syndrome; I11.9 Hypertensive heart disease without heart failure; J32.9 Chronic sinusitis, unspecified; K21.9 Gastro-esophageal reflux disease without esophagitis; Z79.899 Other long term (current) drug therapy; Z80.8 Family history of malignant neoplasm of other organs or systems; Z82.49 Family history of ischemic heart disease and other diseases of the circulatory system; Z87.442 Personal history of urinary calculi; Z87.891 Personal history of nicotine dependence; Z98.84 Bariatric surgery status; Z90.49 Acquired absence of other specified parts of digestive tract; Z88.5 Allergy status to narcotic agent; Z88.8 Allergy status to other drugs, medicaments and biological substances; Z88.1 Allergy status to other antibiotic agents; Z91.040 Latex allergy status
CPT/HCPCS: 36415; 64488; 80048; 80053; 81025; 83735; 85025; 86850; 86900; 86901; 88307; 94762

== ENCOUNTER 2018-12-04 15:56 | Emergency (ER) | payer OTHER ==
--- NOTE | 2018-12-04 13:27 | XR ---
EXAMINATION TYPE: XR chest 2V DATE OF EXAM: 12/04/2018 COMPARISON: 09/23/2018, 09/22/2018 TECHNIQUE: PA and lateral views submitted. HISTORY: Dehydration FINDINGS: The lungs are clear and there is no pneumothorax, pleural effusion, or focal pneumonia. Hypertrophi c and degenerative changes of the spine. Linear changes at both lung bases. IMPRESSION: 1. Linear subsegmental changes at both lung bases for which atelectasis is favored over infiltrate co rrelate clinically for confirmation.
[2018-12-04] MEDS: SODIUM CHLORIDE 0.9% 1,000 ML IV SCH ×2 (14:05→15:07)
[2018-12-04 16:03] VITALS: TEMP 97.8
[2018-12-04] MEDS ORDERED: SODIUM CHLORIDE 0.9% 500 ML 500 ML IV ONE (16:23)
--- NOTE | 2018-12-04 16:26 | ED ---
General Adult HPI - General Chief complaint: Altered Mental Status Stated complaint: Altered mental status Source: patient Mode of arrival: wheelchair Limitations: altered mental status - History of Present Illness Initial comments: Dictation was produced using [employer] dictation software. please excuse any grammatical, word or spelling errors. Chief Complaint: 38-year-old female presents with chief complaint of altered mental status. History of Present Illness: A 38-year-old female presents today with altered mental status. Patient has recent history of abdominal surgery performed by Dr. Pace. Patient was seen in general surgeon's office at approximately 9:45 AM today. She was told to get an outpatient x-ray and intravenous fluids out patiently at [facility]. Patient has been fine until 20 minutes into getting intravenous fluids. She became acutely altered with her family friend nearby. She was saying bizarre things. She was saying "I need books to fix my headache." And" he needs dungarees because my feet are cold." Family friend confirms that this is not dragon that she typically uses. Patient otherwise has been answering questions appropriately. She also perseverates with this verbiage. Patient was not noted to have any motor or sensory deficits. She was sent to the emergency department for altered mental status. Patient states she has a mild throbbing headache. HPI is limited secondary to mental status. The ROS documented in this emergency department record has been reviewed and confirmed by me. Those systems with pertinent positive or negative responses have been documented in the HPI. All other systems are other negative and/or noncontributory. PHYSICAL EXAM: General Impression: Alert and oriented x3, not in acute distress HEENT: Normocephalic atraumatic, extra-ocular movements intact, pupils equal and reactive to light bilaterally, mucous membranes moist. Cardiovascular: Heart regular rate and rhythm, S1&S2 audible, no murmurs, rubs or gallops Chest: Lungs clear to auscultation bilaterally, no rhonchi, no wheeze, no rales Abdomen: Bowel sounds present, abdomen soft, non-tender, non-distended, no organomegaly Musculoskeletal: Pulses present and equal in all extremities, no peripheral edema Motor: no focal deficits noted Neurological: CN II-XII grossly intact, no focal motor or sensory deficits noted, mildly aphasic Skin: Intact with no visualized rashes Psych: Normal affect and mood ED course: 38-year-old female presents chief complaint of altered mental status. Vital signs upon arrival are within acceptable limits. Onset of symptoms are within 1 hour. Code stroke was page. Patient given initial NIH score 1. She did not have any motor or sensory deficits Chart review shows that patient had surgical intervention for cecal volvulus. Patient has multiple comorbidities including coagulopathy, polycystic disease, anxiety, depression. Medications were reviewed. Patient is on multiple psychiatric medications. She has no pain complaints at this time. Patient otherwise reports that she feels well. Continues to perseverate about "books for her headache and dungarees for her feet." Patient answers all other questions probably including the year, month, identifying objects. The patient case was discussed with Dr. Aparicio. Discussed with stroke doctor Dr. Gleason did not recommend TPA administration at this time. His only recommendation was for medical bed. Laboratory evaluation obtained. CBC, coag panel, metabolic panel is unremarkable, cardiac enzymes negative. Chest x-ray is nonacute. Patient reevaluated continuing to be confused however she is ambulatory at baseline. This point highly doubt CVA however given that patient has acute mental status changes it is part differential. Patient be transferred to [facility]. Discussed patient case with Dr. Ly who is willing to accept the transfer. EKG interpretation: Ventricular rate 87, normal sinus rhythm, CO interval 164, care is 12, QTc 464. No CO prolongation, no QTC prolongation, no ST or T-wave changes noted. Compared to EKG from 2018 with no changes. Overall, this EKG is unremarkable - Related Data Home Medications Medication Instructions Recorded Confirmed Spironolactone 100 mg PO BID 03/20/14 12/04/18 Promethazine [Phenergan] 25 mg PO TID PRN 05/20/15 12/04/18 Topiramate [Topamax] 100 mg PO BID 05/20/15 12/04/18 DULoxetine HCL [Cymbalta] 60 mg PO HS 09/24/17 12/04/18 Gabapentin [Neurontin] 200 mg PO TID 09/24/17 12/04/18 Amitriptyline HCl [Elavil] 100 mg PO HS 09/22/18 12/04/18 FLUoxetine HCL [PROzac] 40 mg PO HS 09/22/18 12/04/18 Famotidine [Pepcid] 40 mg PO HS 10/01/18 12/04/18 Omeprazole 40 mg PO DAILY 10/01/18 12/04/18 ALPRAZolam [Xanax] 0.5 mg PO BID PRN 11/14/18 12/04/18 Previous Rx's Medication Instructions Recorded HYDROcodone/APAP 5-325MG [[place] 1 tab PO Q6HR PRN 3 Days #10 tab 11/25/18 5-325] Ibuprofen [Motrin] 600 mg PO Q8HR PRN #30 tab 11/25/18 Allergies Allergy/AdvReac Type Severity Reaction Status Date / Time amoxicillin [From Augmentin] Allergy Rash/Hives Verified 12/04/18 16:45 clavulanic acid Allergy Rash/Hives Verified 12/04/18 16:45 [From Augmentin] morphine Allergy Unknown Verified 12/04/18 16:45 potassium clavulanate Allergy Rash/Hives Verified 12/04/18 16:45 [From Augmentin] Latex, Natural Rubber AdvReac Rash/Hives Verified 12/04/18 16:45 Review of Systems ROS Statement: Those systems with pertinent positive or pertinent negative responses have been documented in the HPI. ROS Other: All systems not noted in ROS Statement are negative. Past Medical History Past Medical History: Blood Disorder, GERD/Reflux, Thyroid Disorder Additional Past Medical History / Comment(s): polycystic ovaries mthfr clotting factor disorder, kidney stones, superficial blood clot x1,migraines, thyroid nodules- monitoring,varicose veins, past hx. hypertension History of Any Multi-Drug Resistant Organisms: MRSA Date of last positivie culture/infection: 2010 MDRO Source:: abdomen Past Surgical History: Appendectomy, Back Surgery, Bariatric Surgery, Breast Surgery, Cholecystectomy Additional Past Surgical History / Comment(s): gastric sleeve, vein stripping x4 pascale legs, laparoscopy, D & C x 5, lt breast biopsy Past Anesthesia/Blood Transfusion Reactions: Motion Sickness, Postoperative Nausea & Vomiting (PONV) Past Psychological History: Anxiety, Depression Smoking Status: Former smoker Past Alcohol Use History: Rare Past Drug Use History: None Reported - Past Family History Father Family Medical History: Hyperlipidemia, Hypertension Additional Family Medical History / Comment(s): low sodium Mother Family Medical History: Cancer, Fibromyalgia Additional Family Medical History / Comment(s): thyroid ca, Sister(s) Family Medical History: Pulmonary Embolus General Exam Limitations: altered mental status Course Vital Signs 12/04/18 12/04/18 12/04/18 13:59 15:59 16:15 Temperature 98.2 F 97.8 F Pulse Rate 92 81 76 Respiratory 16 18 16 Rate Blood Pressure 119/83 108/70 133/76 O2 Sat by Pulse 99 97 Oximetry 12/04/18 12/04/18 12/04/18 16:30 16:31 16:45 Temperature Pulse Rate 82 81 81 Respiratory 18 17 18 Rate Blood Pressure 127/70 122/72 129/87 O2 Sat by Pulse 98 99 98 Oximetry 12/04/18 12/04/18 12/04/18 17:00 17:30 18:00 Temperature Pulse Rate 82 77 78 Respiratory 18 18 18 Rate Blood Pressure 118/62 132/80 118/70 O2 Sat by Pulse 99 98 99 Oximetry Medical Decision Making - Lab Data Result diagrams: 12/04/18 16:20 12/04/18 16:20 Lab Results 12/04/18 12/04/18 12/04/18 Range/Units 16:20 16:20 16:20 WBC (3.8-10.6) k/uL RBC (3.80-5.40) m/uL Hgb (11.4-16.0) gm/dL Hct (34.0-46.0) % MCV (80.0-100.0) fL MCH (25.0-35.0) pg MCHC (31.0-37.0) g/dL RDW (11.5-15.5) % Plt Count (150-450) k/uL Neutrophils % % Lymphocytes % % Monocytes % % Eosinophils % % Basophils % % Neutrophils # (1.3-7.7) k/uL Lymphocytes # (1.0-4.8) k/uL Monocytes # (0-1.0) k/uL Eosinophils # (0-0.7) k/uL Basophils # (0-0.2) k/uL PT 10.3 (9.0-12.0) sec INR 1.0 (<1.2) APTT 22.3 (22.0-30.0) sec Sodium 138 (137-145) mmol/L Potassium 4.1 (3.5-5.1) mmol/L Chloride 109 H (98-107) mmol/L Carbon Dioxide 20 L (22-30) mmol/L Anion Gap 9 mmol/L BUN 9 (7-17) mg/dL Creatinine 0.71 (0.52-1.04) mg/dL Est GFR (CKD-EPI)AfAm >90 (>60 ml/min/1.73 sqM) Est GFR (CKD-EPI)NonAf >90 (>60 ml/min/1.73 sqM) Glucose 85 (74-99) mg/dL POC Glucose (mg/dL) (75-99) mg/dL POC Glu Mill Helper ID Calcium 8.4 (8.4-10.2) mg/dL Total Bilirubin 0.6 (0.2-1.3) mg/dL AST 53 H (14-36) U/L ALT 43 (9-52) U/L Alkaline Phosphatase 129 H (38-126) U/L Ammonia <9 (<30) umol/L Creatine Kinase 24 L (30-135) U/L Troponin I (0.000-0.034) ng/mL Total Protein 6.8 (6.3-8.2) g/dL Albumin 3.6 (3.5-5.0) g/dL 12/04/18 12/04/18 12/04/18 Range/Units 16:20 16:20 16:21 WBC 11.1 H (3.8-10.6) k/uL RBC 3.98 (3.80-5.40) m/uL Hgb 12.5 (11.4-16.0) gm/dL Hct 38.3 (34.0-46.0) % MCV 96.3 (80.0-100.0) fL MCH 31.3 (25.0-35.0) pg MCHC 32.5 (31.0-37.0) g/dL RDW 13.8 (11.5-15.5) % Plt Count 431 (150-450) k/uL Neutrophils % 70 % Lymphocytes % 19 % Monocytes % 5 % Eosinophils % 4 % Basophils % 0 % Neutrophils # 7.8 H (1.3-7.7) k/uL Lymphocytes # 2.1 (1.0-4.8) k/uL Monocytes # 0.5 (0-1.0) k/uL Eosinophils # 0.4 (0-0.7) k/uL Basophils # 0.0 (0-0.2) k/uL PT (9.0-12.0) sec INR (<1.2) APTT (22.0-30.0) sec Sodium (137-145) mmol/L Potassium (3.5-5.1) mmol/L Chloride (98-107) mmol/L Carbon Dioxide (22-30) mmol/L Anion Gap mmol/L BUN (7-17) mg/dL Creatinine (0.52-1.04) mg/dL Est GFR (CKD-EPI)AfAm (>60 ml/min/1.73 sqM) Est GFR (CKD-EPI)NonAf (>60 ml/min/1.73 sqM) Glucose (74-99) mg/dL POC Glucose (mg/dL) 81 (75-99) mg/dL POC Glu [place]per ID Monica Boucher Calcium (8.4-10.2) mg/dL Total Bilirubin (0.2-1.3) mg/dL AST (14-36) U/L ALT (9-52) U/L Alkaline Phosphatase (38-126) U/L Ammonia (<30) umol/L Creatine Kinase (30-135) U/L Troponin I <0.012 (0.000-0.034) ng/mL Total Protein (6.3-8.2) g/dL Albumin (3.5-5.0) g/dL Disposition Clinical Impression: Confusion Disposition: OTHER INSTITUTION NOT DEFINED Condition: Fair Referrals: None,Stated [REFERRING] - 1-2 days Time of Disposition: 19:16 - Out of Hospital Transfer - Req. Specs Out of Hospital Transfer - Requested Specifics: Other Emergency Center ([facility])
[2018-12-04 16:41] LABS: Glucose,Whole Blood 81 mg/dL (75-99)
--- NOTE | 2018-12-04 16:44 | CT ---
EXAMINATION: CT brain wo con DATE AND TIME: 12/04/2018 4:37 PM CLINICAL INDICATION: PHH; altered mental status TECHNIQUE: Standard departmental protocol.; 1176.4; COMPARISON: CT 11/30/2016 FINDINGS: The calvarium is intact. There is no intracranial hemorrhage. There is no intracranial mass or mass effect. No definite new intra-axial or extra-axial attenuation defect. The paranasal sinuses, middle ear cavities, and mastoid sinus air cells are clear. The orbits are unremarkable. IMPRESSION: NO ACUTE PROCESS.
[2018-12-04 16:57] LABS: ALT 43 U/L (9-52); AST 53 U/L (14-36); Albumin 3.6 g/dL (3.5-5.0); Alkaline Phosphatase 129 U/L (38-126); Anion Gap 9 mmol/L; Blood Urea Nitrogen 9 mg/dL (7-17); Calcium 8.4 mg/dL (8.4-10.2); Carbon Dioxide 20 mmol/L (22-30); Chloride 109 mmol/L (98-107); Creatine Kinase 24 U/L (30-135); Glucose 85 mg/dL (74-99); Potassium 4.1 mmol/L (3.5-5.1); Sodium 138 mmol/L (137-145); Total Bilirubin 0.6 mg/dL (0.2-1.3); Total Protein 6.8 g/dL (6.3-8.2)
[2018-12-04 17:07] LABS: Partial Thromboplastin Time 22.3 sec (22.0-30.0); Prothrombin Time 10.3 sec (9.0-12.0)
[2018-12-04 17:16] LABS: Basophils % (A) 0 %; Eosinophils # (A) 0.4 k/uL (0-0.7); Eosinophils % (A) 4 %; HCT 38.3 % (34.0-46.0); HGB 12.5 gm/dL (11.4-16.0); Lymphocytes # (A) 2.1 k/uL (1.0-4.8); Lymphocytes % (A) 19 %; MCH 31.3 pg (25.0-35.0); MCHC 32.5 g/dL (31.0-37.0); MCV 96.3 fL (80.0-100.0); Monocytes # (A) 0.5 k/uL (0-1.0); Monocytes % (A) 5 %; Neutrophils # (A) 7.8 k/uL (1.3-7.7); Neutrophils % (A) 70 %; Platelet Count 431 k/uL (150-450); RBC 3.98 m/uL (3.80-5.40); RDW 13.8 % (11.5-15.5); WBC 11.1 k/uL (3.8-10.6)
--- NOTE | 2018-12-04 17:25 | CT ---
EXAMINATION TYPE: CT angio head neck with contrast and with 3-D reconstruction renderings. DATE OF EXAM: 12/04/2018 HISTORY: Post OP Abdominal surgery x's 2 weeks. Complains of headache and confusion. COMPARISON: CT brain without contrast 4:31 PM 12/04/2018 CT DLP: 794.2 mGy. Automated Exposure Control for Dose Reduction was Utilized. TECHNIQUE: CTA scan of the neck is performed with IV Contrast, patient injected with 65 mL of Isovue 370, axial images are obtained, coronal and sagittal reformatted images are reviewed. Three-D recons tructed images are created on an independent workstation and reviewed. FINDINGS: The bilateral carotid arterial systems are widely patent without stenosis or dissection or aneurysm. The bilateral vertebral arterial systems are widely patent without stenosis or dissection or aneurysm . The venous structures are unremarkable. The soft tissues of the neck are negative for mass or adenopathy or focal acute process. Visualized skeletal structures are negative. The intracranial anterior and posterior circulation are widely patent without stenosis or dissection or aneurysm. The intra-axial and extra-axial compartments are negative. No mass or mass effect. No attenuation def ect. No incidental findings. IMPRESSION: No significant abnormality is seen.
--- NOTE | 2018-12-04 17:59 | XR ---
EXAMINATION: XR chest 1V DATE AND TIME: 12/04/2018 5:37 PM CLINICAL INDICATION: PHH; altered mental status TECHNIQUE: AP portable upright COMPARISON: 12/04/2018 at 1219 hours FINDINGS: The overlying soft tissues are prominent. Lungs are clear, as can be seen. The pleural spaces are negative. The cardiac silhouette is not enlarged. The remainder of the mediastinal silhouette is unremarkable. The skeletal structures and soft tissues are negative for acute findings. IMPRESSION: NO ACUTE PROCESS.
[2018-12-04] MEDS ORDERED: ASPIRIN 81 MG PO STA (18:04)
[2018-12-04] MEDS ORDERED: ACETAMINOPHEN TAB 500 MG TAB PO STA (18:08)
[2018-12-04] MEDS ORDERED: ONDANSETRON 4 MG/2 ML VIAL IVP STA (18:08)
[2018-12-04] MEDS ORDERED: diphenhydrAMINE 50 MG/ML 1 ML VIAL IVP STA (18:08)
[2018-12-04 19:25] VITALS: BP 134/98; PULSE 76; RESP 16
== END 2018-12-04 19:42 | disposition other institution (70) ==
LOC: EC 15:56
DX: R41.0 Disorientation, unspecified (principal); R51 Headache; K21.9 Gastro-esophageal reflux disease without esophagitis; I10 Essential (primary) hypertension; F41.9 Anxiety disorder, unspecified; F32.9 Major depressive disorder, single episode, unspecified; Z86.69 Personal history of other diseases of the nervous system and sense organs; Z86.14 Personal history of Methicillin resistant Staphylococcus aureus infection; Z87.891 Personal history of nicotine dependence; Z79.899 Other long term (current) drug therapy; Z88.0 Allergy status to penicillin; Z88.5 Allergy status to narcotic agent; Z91.040 Latex allergy status; Z53.8 Procedure and treatment not carried out for other reasons
CPT/HCPCS: 99285 ×2; 96374 ×2; 96375 ×2; 96361 ×4; 36415; 93005; 80053; 82140; 82550; 84484; 85025; 85610; 85730; 83090; 71045; 71046; 70496; 70450; 70498; J1200; J2405; Q9967; 96360

== ENCOUNTER 2018-12-07 09:55 | Emergency (ER) | payer OTHER ==
[2018-12-07 10:05] VITALS: RESP 18
[2018-12-07] MEDS ORDERED: SODIUM CHLORIDE 0.9% 2,000 ML IV STA (10:29)
[2018-12-07] MEDS ORDERED: ONDANSETRON 4 MG/2 ML VIAL IVP STA ×2 (10:29→13:22)
[2018-12-07] MEDS ORDERED: HYDROmorphone 0.5 MG/0.5 ML SYRINGE IVP STA ×2 (10:35→13:22)
[2018-12-07 11:05] LABS: Basophils % (A) 0 %; Eosinophils # (A) 0.4 k/uL (0-0.7); Eosinophils % (A) 4 %; Lymphocytes # (A) 1.8 k/uL (1.0-4.8); Lymphocytes % (A) 19 %; MCH 29.6 pg (25.0-35.0); MCHC 31.4 g/dL (31.0-37.0); MCV 94.3 fL (80.0-100.0); Mean Platelet Volume 6.9; Monocytes # (A) 0.4 k/uL (0-1.0); Monocytes % (A) 4 %; Neutrophils # (A) 6.7 k/uL (1.3-7.7); Neutrophils % (A) 70 %; Platelet Count 426 k/uL (150-450); RBC 4.04 m/uL (3.80-5.40); RDW 14.1 % (11.5-15.5); WBC 9.6 k/uL (3.8-10.6)
--- NOTE | 2018-12-07 11:17 | ED ---
Nausea/Vomiting/Diarrhea HPI - General Chief complaint: Nausea/Vomiting/Diarrhea Stated complaint: CDIFF FOLLOWING Sx Time Seen by Provider: 12/07/18 10:15 Source: patient, RN notes reviewed Mode of arrival: ambulatory Limitations: no limitations - History of Present Illness Initial comments: 38-year-old female presents emergency Department with chief complaint of nausea vomiting diarrhea. Patient states she has been sick over the last several weeks. Patient states all started after hemicolectomy secondary to redundant colon and volvulus. Patient states that the surgery was performed by Dr. Pace. Patient states that she was on the Ibex for possible pneumonia by her PCP in which she was placed on Levaquin. Patient states that she started getting sick from this in which she's had extreme diarrhea loose watery, green and foul-smelling. Patient was diagnosed with C. diff as taken 4 doses of Flagyl but states it's nausea vomiting is progressively getting worse. Patient denies any dysuria hematuria. Patient states she's never had any C. diff testing though based on symptoms she was diagnosed. - Related Data Home Medications Medication Instructions Recorded Confirmed Spironolactone 100 mg PO BID 03/20/14 12/07/18 Promethazine [Phenergan] 25 mg PO TID PRN 05/20/15 12/07/18 Topiramate [Topamax] 100 mg PO BID 05/20/15 12/07/18 DULoxetine HCL [Cymbalta] 60 mg PO HS 09/24/17 12/07/18 Gabapentin [Neurontin] 200 mg PO TID 09/24/17 12/07/18 Amitriptyline HCl [Elavil] 100 mg PO HS 09/22/18 12/07/18 FLUoxetine HCL [PROzac] 40 mg PO HS 09/22/18 12/07/18 ALPRAZolam [Xanax] 0.5 mg PO BID PRN 11/14/18 12/07/18 metroNIDAZOLE [Flagyl] 500 mg PO TID 12/07/18 12/07/18 Previous Rx's Medication Instructions Recorded Ibuprofen [Motrin] 600 mg PO Q8HR PRN #30 tab 11/25/18 Ondansetron Odt [Zofran Odt] 4 mg PO Q8HR PRN #14 tab 12/07/18 Allergies Allergy/AdvReac Type Severity Reaction Status Date / Time amoxicillin [From Augmentin] Allergy Rash/Hives Verified 12/07/18 10:39 clavulanic acid Allergy Rash/Hives Verified 12/07/18 10:39 [From Augmentin] morphine Allergy Unknown Verified 12/07/18 10:39 potassium clavulanate Allergy Rash/Hives Verified 12/07/18 10:39 [From Augmentin] Latex, Natural Rubber AdvReac Rash/Hives Verified 12/07/18 10:39 Review of Systems ROS Statement: Those systems with pertinent positive or pertinent negative responses have been documented in the HPI. ROS Other: All systems not noted in ROS Statement are negative. Past Medical History Past Medical History: Blood Disorder, GERD/Reflux, Thyroid Disorder Additional Past Medical History / Comment(s): polycystic ovaries mthfr clotting factor disorder, kidney stones, superficial blood clot x1,migraines, thyroid nodules-drGeorge monitoring,varicose veins, past hx. hypertension History of Any Multi-Drug Resistant Organisms: C-DIFF, MRSA Date of last positivie culture/infection: 2010 MDRO Source:: abdomen Past Surgical History: Appendectomy, Back Surgery, Bariatric Surgery, Breast Surgery, Cholecystectomy Additional Past Surgical History / Comment(s): gastric sleeve, vein stripping x4 pascale legs, laparoscopy, D & C x 5, lt breast biopsy Past Anesthesia/Blood Transfusion Reactions: Motion Sickness, Postoperative Nausea & Vomiting (PONV) Past Psychological History: Anxiety, Depression Smoking Status: Former smoker Past Alcohol Use History: Rare Past Drug Use History: None Reported - Past Family History Father Family Medical History: Hyperlipidemia, Hypertension Additional Family Medical History / Comment(s): low sodium Mother Family Medical History: Cancer, Fibromyalgia Additional Family Medical History / Comment(s): thyroid ca, Sister(s) Family Medical History: Pulmonary Embolus General Exam Limitations: no limitations General appearance: alert, in no apparent distress Head exam: Present: atraumatic, normocephalic, normal inspection Eye exam: Present: normal appearance, PERRL, EOMI. Absent: scleral icterus, conjunctival injection, periorbital swelling Neck exam: Present: normal inspection. Absent: tenderness, meningismus, lymphadenopathy Respiratory exam: Present: normal lung sounds bilaterally. Absent: respiratory distress, wheezes, rales, rhonchi, stridor Cardiovascular Exam: Present: regular rate, normal rhythm, normal heart sounds. Absent: systolic murmur, diastolic murmur, rubs, gallop, clicks GI/Abdominal exam: Present: soft, tenderness, normal bowel sounds. Absent: distended, guarding, rebound, rigid Neurological exam: Present: alert, oriented X3, CN II-XII intact Skin exam: Present: warm, dry, intact, normal color. Absent: rash Course Vital Signs 12/07/18 10:02 Temperature 99.2 F Pulse Rate 87 Respiratory 18 Rate Blood Pressure 117/76 O2 Sat by Pulse 98 Oximetry Medical Decision Making - Medical Decision Making 38-year-old female presents emergency department for abdominal pain, nausea vomiting diarrhea. Patient has been diagnosed with C. diff. Patient had a recent hemicolectomy. Patient had laboratory, KUB and was given antiemetics along with IV hydration. Patient feels improved at this time no prior episodes of diarrhea. Patient was evaluated by her surgeon in the emergency Department and was felt safe for discharge and she will continue check on the patient felt the weekend and follow-up next week. - Lab Data Result diagrams: 12/07/18 10:49 12/07/18 10:49 Lab Results 12/07/18 12/07/18 12/07/18 Range/Units 10:49 10:49 12:30 WBC 9.6 (3.8-10.6) k/uL RBC 4.04 (3.80-5.40) m/uL Hgb 12.0 (11.4-16.0) gm/dL Hct 38.0 (34.0-46.0) % MCV 94.3 (80.0-100.0) fL MCH 29.6 (25.0-35.0) pg MCHC 31.4 (31.0-37.0) g/dL RDW 14.1 (11.5-15.5) % Plt Count 426 (150-450) k/uL Neutrophils % 70 % Lymphocytes % 19 % Monocytes % 4 % Eosinophils % 4 % Basophils % 0 % Neutrophils # 6.7 (1.3-7.7) k/uL Lymphocytes # 1.8 (1.0-4.8) k/uL Monocytes # 0.4 (0-1.0) k/uL Eosinophils # 0.4 (0-0.7) k/uL Basophils # 0.0 (0-0.2) k/uL Sodium 139 (137-145) mmol/L Potassium 4.1 (3.5-5.1) mmol/L Chloride 109 H (98-107) mmol/L Carbon Dioxide 20 L (22-30) mmol/L Anion Gap 10 mmol/L BUN 10 (7-17) mg/dL Creatinine 0.89 (0.52-1.04) mg/dL Est GFR (CKD-EPI)AfAm >90 (>60 ml/min/1.73 sqM) Est GFR (CKD-EPI)NonAf 82 (>60 ml/min/1.73 sqM) Glucose 83 (74-99) mg/dL Calcium 9.1 (8.4-10.2) mg/dL Total Bilirubin 0.4 (0.2-1.3) mg/dL AST 26 (14-36) U/L ALT 34 (9-52) U/L Alkaline Phosphatase 87 (38-126) U/L Total Protein 7.1 (6.3-8.2) g/dL Albumin 3.8 (3.5-5.0) g/dL Lipase 102 (23-300) U/L Urine Color Yellow Urine Appearance Cloudy H (Clear) Urine pH 5.5 (5.0-8.0) Ur Specific [place] 1.009 (1.001-1.035) Urine Protein Negative (Negative) Urine Glucose (UA) Negative (Negative) Urine Ketones Negative (Negative) Urine Blood Negative (Negative) Urine Nitrite Negative (Negative) Urine Bilirubin Negative (Negative) Urine Urobilinogen <2.0 (<2.0) mg/dL Ur Leukocyte Esterase Trace H (Negative) Urine RBC 2 (0-5) /hpf Urine WBC 11 H (0-5) /hpf Ur Squamous Epith Cells 5 H (0-4) /hpf Amorphous Sediment Rare H (None) /hpf Urine Bacteria Few H (None) /hpf Urine Mucus Occasional H (None) /hpf Disposition Clinical Impression: Ileus, Diarrhea, Nausea & vomiting Disposition: HOME SELF-CARE Condition: Stable Instructions (If sedation given, give patient instructions): Acute Diarrhea (ED), Acute Nausea and Vomiting (ED) Additional Instructions: Please return to the Emergency Department if symptoms worsen or any other concerns. Prescriptions: Ondansetron Odt [Zofran Odt] 4 mg PO Q8HR PRN #14 tab PRN Reason: Nausea Is patient prescribed a controlled substance at d/c from ED?: No Referrals: Pawan Lyle MD [Primary Care Provider] - 1-2 days Time of Disposition: 13:56
[2018-12-07 11:18] LABS: ALT 34 U/L (9-52); AST 26 U/L (14-36); Albumin 3.8 g/dL (3.5-5.0); Alkaline Phosphatase 87 U/L (38-126); Anion Gap 10 mmol/L; Blood Urea Nitrogen 10 mg/dL (7-17); Calcium 9.1 mg/dL (8.4-10.2); Carbon Dioxide 20 mmol/L (22-30); Chloride 109 mmol/L (98-107); Glucose 83 mg/dL (74-99); Lipase 102 U/L (23-300); Sodium 139 mmol/L (137-145); Total Bilirubin 0.4 mg/dL (0.2-1.3); Total Protein 7.1 g/dL (6.3-8.2)
[2018-12-07 11:27] LABS: Potassium 4.1 mmol/L (3.5-5.1)
[2018-12-07 13:10] LABS: Amorphous Sediment,Urine Rare /hpf; Appearance,Urine Cloudy (Clear); Bacteria,Urine Few /hpf; Bilirubin,Urine Negative (Negative); Blood,Urine Negative (Negative); Color,Urine Yellow; Glucose,Urine (UA) Negative (Negative); Ketones,Urine Negative (Negative); Leukocyte Esterase,Urine Trace (Negative); Mucus,Urine Occasional /hpf; Nitrite,Urine Negative (Negative); PH, Urine 5.5 (5.0-8.0); Protein,Urine Negative (Negative); RBC,Urine 2 /hpf (0-5); Specific Gravity,Urine 1.009 (1.001-1.035); Squamous Epithelial Cell,Urine 5 /hpf (0-4); Urobilinogen,Urine <2.0 mg/dL (<2.0); WBC,Urine 11 /hpf (0-5)
--- NOTE | 2018-12-07 13:56 | XR ---
Abdomen Abdominal pain, nausea vomiting and diarrhea Frontal view the abdomen on 2 images, correlation prior exam 09/22/2018 Lung bases are clear. Surgical clips present in the upper and lower abdomen, left groin. No evident p neumoperitoneum or bowel obstruction. Bone mineralization is normal. There are air-fluid levels on th e upright exam. IMPRESSION: There may be underlying ileus or enteritis, correlate for possible bowel obstruction.
--- NOTE | 2018-12-07 13:57 | P.PN ---
Subjective Progress Note Date: 12/07/18 Patient seen and evaluated. Recent surgery with the last 2 weeks. She's had trouble with intractable nausea following being placed on Levaquin by her primary care provider for non-documented UTI. As a result, patient has developed new diarrhea. Clinical suspicion for C. diff colitis described and she had been placed on Flagyl yesterday. She reports nausea from taking Flagyl which is to be expected. Recommend antiemetics Zofran including continue Flagyl for C. diff colitis. Small about of blood found in stool consistent with hemorrhoids. IV fluid hydration of at least 2 L described for inadequate oral intake for nausea. Close follow-up in the office in the next 3-4 days. I personally reviewed her abdominal x-ray consistent with ileus. Above findings also described to patient and your provider. Objective - Vital Signs Vital signs: Vital Signs Temp 99.2 F 12/07/18 10:02 Pulse 87 12/07/18 10:02 Resp 18 12/07/18 10:02 BP 117/76 12/07/18 10:02 Pulse Ox 98 12/07/18 10:02 Intake & Output 12/06/18 12/07/18 12/07/18 18:59 06:59 18:59 Weight 123.241 kg - Labs CBC & Chem 7: 12/07/18 10:49 12/07/18 10:49 Labs: Abnormal Lab Results - Last 24 Hours (Table) 12/07/18 12/07/18 Range/Units 10:49 12:30 Chloride 109 H (98-107) mmol/L Carbon Dioxide 20 L (22-30) mmol/L Urine Appearance Cloudy H (Clear) Ur Leukocyte Esterase Trace H (Negative) Urine WBC 11 H (0-5) /hpf Ur Squamous Epith Cells 5 H (0-4) /hpf Amorphous Sediment Rare H (None) /hpf Urine Bacteria Few H (None) /hpf Urine Mucus Occasional H (None) /hpf
[2018-12-07 15:59] VITALS: BP 101/68; PULSE 67; TEMP 98.2
--- NOTE | 2018-12-08 11:33 | P.PN ---
Progress Note - Text Progress Note Date: 12/08/18 Personally contacted patient over the phone. She feels much better. Less nausea following IV hydration in the ER. She passing moderate flatus. No fevers or chills. BRAT diet advised with broth. Follow up phone call tomorrow reviewed. All questions addressed. 12/08/18 @ 8113
== END 2018-12-07 15:25 | disposition home or self-care (01) ==
LOC: EC 09:55
DX: K56.7 Ileus, unspecified (principal); A04.72 Enterocolitis due to Clostridium difficile, not specified as recurrent; I10 Essential (primary) hypertension; F32.9 Major depressive disorder, single episode, unspecified; F41.9 Anxiety disorder, unspecified; Z87.891 Personal history of nicotine dependence; Z88.0 Allergy status to penicillin; Z88.5 Allergy status to narcotic agent; Z91.040 Latex allergy status; Z79.899 Other long term (current) drug therapy; Z86.14 Personal history of Methicillin resistant Staphylococcus aureus infection; Z87.19 Personal history of other diseases of the digestive system; Z86.69 Personal history of other diseases of the nervous system and sense organs; Z90.49 Acquired absence of other specified parts of digestive tract; Z98.84 Bariatric surgery status
CPT/HCPCS: 36415; 80053; 83690; 85025; 81001; 74018; 99284; 96374; 96375; 96376 ×2; 96361 ×2; J2405; J1170

== ENCOUNTER 2018-12-17 11:15 | Observation (INO) | payer OTHER ==
[2018-12-17] MEDS ORDERED: ONDANSETRON 4 MG/2 ML VIAL IVP STA (12:01)
[2018-12-17] MEDS ORDERED: SODIUM CHLORIDE 0.9% 1,000 ML IV STA (12:01)
[2018-12-17 12:38] LABS: Basophils # (A) 0.1 k/uL (0-0.2); Basophils % (A) 1 %; Eosinophils # (A) 0.4 k/uL (0-0.7); Eosinophils % (A) 4 %; HCT 40.2 % (34.0-46.0); HGB 13.2 gm/dL (11.4-16.0); Lymphocytes % (A) 20 %; MCH 30.8 pg (25.0-35.0); MCHC 32.9 g/dL (31.0-37.0); MCV 93.9 fL (80.0-100.0); Mean Platelet Volume 6.6; Monocytes # (A) 0.5 k/uL (0-1.0); Monocytes % (A) 5 %; Neutrophils # (A) 6.9 k/uL (1.3-7.7); Neutrophils % (A) 69 %; Platelet Count 416 k/uL (150-450); RBC 4.28 m/uL (3.80-5.40); RDW 13.2 % (11.5-15.5)
[2018-12-17 12:44] LABS: ALT 23 U/L (9-52); AST 21 U/L (14-36); Albumin 4.1 g/dL (3.5-5.0); Alkaline Phosphatase 112 U/L (38-126); Anion Gap 12 mmol/L; Blood Urea Nitrogen 7 mg/dL (7-17); Calcium 9.5 mg/dL (8.4-10.2); Carbon Dioxide 22 mmol/L (22-30); Chloride 105 mmol/L (98-107); Creatine Kinase 23 U/L (30-135); Glucose 100 mg/dL (74-99); Phosphorus 3.4 mg/dL (2.5-4.5); Potassium 3.6 mmol/L (3.5-5.1); Sodium 139 mmol/L (137-145); Total Bilirubin 0.3 mg/dL (0.2-1.3); Total Protein 7.7 g/dL (6.3-8.2)
[2018-12-17 12:45] LABS: INR 0.9 (<1.2); Partial Thromboplastin Time 31.7 sec (22.0-30.0); Prothrombin Time 9.7 sec (9.0-12.0)
--- NOTE | 2018-12-17 12:47 | CT ---
EXAMINATION TYPE: CT brain wo con DATE OF EXAM: 12/17/2018 COMPARISON: 12/04/2018 HISTORY: 38-year-old female with pain, Headache with multiple syncopal episodes x's 2 days TECHNIQUE: Examination was done in axial plane without intravenous contrast. Coronal and sagittal r econstructions performed. CT DLP: 1142.4 mGycm Automated exposure control for dose reduction was used. FINDINGS: There is no evidence of acute intracranial hemorrhage, acute ischemic changes, mass, mass-effect, or extra-axial fluid collection. There is no effacement of cerebral sulci or basal subarachnoid cister ns. There is no hydrocephalus. There is no midline shift. Farah-white matter distinction is preserv ed. Very mild cerebral cortical volume loss towards the vertex. Stable polyp or mucosal retention cyst along the anterior wall of the right maxillary sinus. Mastoid air cells well pneumatized. Orbits and globes are intact. IMPRESSION: No acute intracranial abnormality seen.
--- NOTE | 2018-12-17 12:55 | ED ---
Syncope HPI - General Chief Complaint: Syncope Stated Complaint: headache, abdominal pain Time Seen by Provider: 12/17/18 12:01 Source: patient, RN notes reviewed, old records reviewed Mode of arrival: ambulatory Limitations: no limitations - History of Present Illness Initial Comments: This is a 38-year-old female the ER for evaluation of syncope near syncope. Patient is abdominal pain secondary to prior abdominal surgery, headache sheet land on migraine. No trauma no fevers no cough congestion or nausea vomiting or diarrhea no chest pain and. Abdominal pain is similar to prior abdominal pain, and then again headache is similar to prior migraines. She did take Imitrex with no help. MD Complaint: almost passed out -: hour(s) Prodromal Symptoms: headache Description of Event: post-event confusion -: second(s) Witnessed: yes - by bystander Injuries Sustained Associated with Event: None Current Symptoms: back to baseline History: previous syncopal episode Context: at rest Treatments Prior to Arrival: none - Related Data Home Medications Medication Instructions Recorded Confirmed Spironolactone 100 mg PO BID 03/20/14 12/17/18 Promethazine [Phenergan] 25 mg PO TID PRN 05/20/15 12/17/18 Topiramate [Topamax] 100 mg PO BID 05/20/15 12/17/18 Gabapentin [Neurontin] 200 mg PO TID 09/24/17 12/17/18 Amitriptyline HCl [Elavil] 100 mg PO HS 09/22/18 12/17/18 FLUoxetine HCL [PROzac] 40 mg PO HS 09/22/18 12/17/18 ALPRAZolam [Xanax] 0.5 mg PO BID PRN 11/14/18 12/17/18 SUMAtriptan SUCCINATE [Imitrex] 100 mg PO Q12H PRN 12/17/18 12/17/18 Previous Rx's Medication Instructions Recorded Ondansetron Odt [Zofran Odt] 4 mg PO Q8HR PRN #14 tab 12/07/18 Allergies Allergy/AdvReac Type Severity Reaction Status Date / Time amoxicillin [From Augmentin] Allergy Rash/Hives Verified 12/17/18 12:04 clavulanic acid Allergy Rash/Hives Verified 12/17/18 12:04 [From Augmentin] morphine Allergy Unknown Verified 12/17/18 12:04 potassium clavulanate Allergy Rash/Hives Verified 12/17/18 12:04 [From Augmentin] Latex, Natural Rubber AdvReac Rash/Hives Verified 12/17/18 12:04 Review of Systems ROS Statement: Those systems with pertinent positive or pertinent negative responses have been documented in the HPI. ROS Other: All systems not noted in ROS Statement are negative. Past Medical History Past Medical History: Blood Disorder, GERD/Reflux, Thyroid Disorder Additional Past Medical History / Comment(s): polycystic ovaries mthfr clotting factor disorder, kidney stones, superficial blood clot x1,migraines, thyroid nodules-drGeorge monitoring,varicose veins, past hx. hypertension History of Any Multi-Drug Resistant Organisms: C-DIFF, MRSA Date of last positivie culture/infection: 2010 MDRO Source:: abdomen Past Surgical History: Appendectomy, Back Surgery, Bariatric Surgery, Breast Surgery, Cholecystectomy Additional Past Surgical History / Comment(s): gastric sleeve, vein stripping x4 pascale legs, laparoscopy, D & C x 5, lt breast biopsy Past Anesthesia/Blood Transfusion Reactions: Motion Sickness, Postoperative Nausea & Vomiting (PONV) Past Psychological History: Anxiety, Depression Smoking Status: Former smoker Past Alcohol Use History: Rare Past Drug Use History: None Reported - Past Family History Father Family Medical History: Hyperlipidemia, Hypertension Additional Family Medical History / Comment(s): low sodium Mother Family Medical History: Cancer, Fibromyalgia Additional Family Medical History / Comment(s): thyroid ca, Sister(s) Family Medical History: Pulmonary Embolus General Exam Limitations: no limitations General appearance: alert, in no apparent distress Head exam: Present: atraumatic, normocephalic, normal inspection Eye exam: Present: normal appearance, PERRL, EOMI. Absent: scleral icterus, conjunctival injection, periorbital swelling ENT exam: Present: normal exam, mucous membranes moist Neck exam: Present: normal inspection. Absent: tenderness, meningismus, lymphadenopathy Respiratory exam: Present: normal lung sounds bilaterally. Absent: respiratory distress, wheezes, rales, rhonchi, stridor Cardiovascular Exam: Present: regular rate, normal rhythm, normal heart sounds. Absent: systolic murmur, diastolic murmur, rubs, gallop, clicks GI/Abdominal exam: Present: soft, normal bowel sounds. Absent: distended, tenderness, guarding, rebound, rigid Extremities exam: Present: normal inspection, full ROM, normal capillary refill. Absent: tenderness, pedal edema, joint swelling, calf tenderness Back exam: Present: normal inspection Neurological exam: Present: alert, oriented X3, CN II-XII intact Psychiatric exam: Present: normal affect, normal mood Skin exam: Present: warm, dry, intact, normal color. Absent: rash Course Vital Signs 12/17/18 12/17/18 12/17/18 11:42 12:13 12:20 Temperature 98.2 F Pulse Rate 92 81 85 Respiratory 20 12 21 Rate Blood Pressure 113/83 118/85 O2 Sat by Pulse 95 98 95 Oximetry 12/17/18 12/17/18 12/17/18 12:30 12:40 12:50 Temperature Pulse Rate 80 82 80 Respiratory 17 17 14 Rate Blood Pressure 118/85 118/85 118/85 O2 Sat by Pulse 96 Oximetry 12/17/18 12/17/18 12/17/18 13:00 13:10 13:20 Temperature Pulse Rate 82 80 78 Respiratory 31 H 19 18 Rate Blood Pressure 118/85 118/85 118/85 O2 Sat by Pulse 95 95 93 L Oximetry 12/17/18 12/17/18 12/17/18 13:30 13:40 13:41 Temperature Pulse Rate 86 80 80 Respiratory 20 18 16 Rate Blood Pressure 118/85 118/85 125/77 O2 Sat by Pulse 95 96 Oximetry 12/17/18 12/17/18 12/17/18 13:50 14:00 14:10 Temperature Pulse Rate Respiratory Rate Blood Pressure 125/77 125/77 125/77 O2 Sat by Pulse Oximetry 12/17/18 12/17/18 12/17/18 14:20 14:30 14:40 Temperature Pulse Rate Respiratory Rate Blood Pressure 125/77 125/77 125/77 O2 Sat by Pulse Oximetry 12/17/18 12/17/18 12/17/18 14:50 15:00 15:10 Temperature Pulse Rate Respiratory Rate Blood Pressure 125/77 125/77 125/77 O2 Sat by Pulse Oximetry 12/17/18 15:20 Temperature Pulse Rate 79 Respiratory 17 Rate Blood Pressure 100/53 O2 Sat by Pulse 95 Oximetry - Reevaluation(s) Reevaluation #1: 12/17/18 16:21 Record review Patient did have recent ER visit which resulted in transfer to [facility] where she did see neurology, symptoms are similar to then. Per neurologist at [facility] patient had no significant findings or symptoms. A she is also seen by stroke robot here in the ER on that visit Reevaluation #2: 12/17/18 16:22 Patient's she has had 2 syncopal episodes here in the ER Reevaluation #3: 12/17/18 16:22 No seizure-like activity noted throughout ER stay Medical Decision Making - Medical Decision Making 38-year-old female the ER with history of syncope and recurrent and chronic migraines, complex migraines and the resultant syncope per patient. Headache is improved currently. Patient be admitted for continued monitoring, rhythm monitoring of possible monitoring for possible causes of syncope - Lab Data Result diagrams: 12/17/18 12:21 12/17/18 12:21 Lab Results 12/17/18 12/17/18 12/17/18 Range/Units 12:21 12:21 12:21 WBC 10.0 (3.8-10.6) k/uL RBC 4.28 (3.80-5.40) m/uL Hgb 13.2 (11.4-16.0) gm/dL Hct 40.2 (34.0-46.0) % MCV 93.9 (80.0-100.0) fL MCH 30.8 (25.0-35.0) pg MCHC 32.9 (31.0-37.0) g/dL RDW 13.2 (11.5-15.5) % Plt Count 416 (150-450) k/uL Neutrophils % 69 % Lymphocytes % 20 % Monocytes % 5 % Eosinophils % 4 % Basophils % 1 % Neutrophils # 6.9 (1.3-7.7) k/uL Lymphocytes # 2.0 (1.0-4.8) k/uL Monocytes # 0.5 (0-1.0) k/uL Eosinophils # 0.4 (0-0.7) k/uL Basophils # 0.1 (0-0.2) k/uL PT 9.7 (9.0-12.0) sec INR 0.9 (<1.2) APTT 31.7 H (22.0-30.0) sec D-Dimer 2.22 H (<0.60) mg/L FEU Sodium 139 (137-145) mmol/L Potassium 3.6 (3.5-5.1) mmol/L Chloride 105 (98-107) mmol/L Carbon Dioxide 22 (22-30) mmol/L Anion Gap 12 mmol/L BUN 7 (7-17) mg/dL Creatinine 0.81 (0.52-1.04) mg/dL Est GFR (CKD-EPI)AfAm >90 (>60 ml/min/1.73 sqM) Est GFR (CKD-EPI)NonAf >90 (>60 ml/min/1.73 sqM) Glucose 100 H (74-99) mg/dL Calcium 9.5 (8.4-10.2) mg/dL Phosphorus 3.4 (2.5-4.5) mg/dL Magnesium 2.0 (1.6-2.3) mg/dL Total Bilirubin 0.3 (0.2-1.3) mg/dL AST 21 (14-36) U/L ALT 23 (9-52) U/L Alkaline Phosphatase 112 (38-126) U/L Creatine Kinase 23 L (30-135) U/L Troponin I (0.000-0.034) ng/mL Total Protein 7.7 (6.3-8.2) g/dL Albumin 4.1 (3.5-5.0) g/dL 12/17/18 Range/Units 12:21 WBC (3.8-10.6) k/uL RBC (3.80-5.40) m/uL Hgb (11.4-16.0) gm/dL Hct (34.0-46.0) % MCV (80.0-100.0) fL MCH (25.0-35.0) pg MCHC (31.0-37.0) g/dL RDW (11.5-15.5) % Plt Count (150-450) k/uL Neutrophils % % Lymphocytes % % Monocytes % % Eosinophils % % Basophils % % Neutrophils # (1.3-7.7) k/uL Lymphocytes # (1.0-4.8) k/uL Monocytes # (0-1.0) k/uL Eosinophils # (0-0.7) k/uL Basophils # (0-0.2) k/uL PT (9.0-12.0) sec INR (<1.2) APTT (22.0-30.0) sec D-Dimer (<0.60) mg/L FEU Sodium (137-145) mmol/L Potassium (3.5-5.1) mmol/L Chloride (98-107) mmol/L Carbon Dioxide (22-30) mmol/L Anion Gap mmol/L BUN (7-17) mg/dL Creatinine (0.52-1.04) mg/dL Est GFR (CKD-EPI)AfAm (>60 ml/min/1.73 sqM) Est GFR (CKD-EPI)NonAf (>60 ml/min/1.73 sqM) Glucose (74-99) mg/dL Calcium (8.4-10.2) mg/dL Phosphorus (2.5-4.5) mg/dL Magnesium (1.6-2.3) mg/dL Total Bilirubin (0.2-1.3) mg/dL AST (14-36) U/L ALT (9-52) U/L Alkaline Phosphatase (38-126) U/L Creatine Kinase (30-135) U/L Troponin I <0.012 (0.000-0.034) ng/mL Total Protein (6.3-8.2) g/dL Albumin (3.5-5.0) g/dL - EKG Data -: EKG Interpreted by Me (KG shows sinus rhythm rate of 83, IA 160, QRS 108, QTc 451) - Radiology Data Radiology results: report reviewed (ET brain CTA chest is negative for acute disease), image reviewed Disposition Clinical Impression: Vasovagal syncope, Nausea & vomiting, Migraine Disposition: ADMITTED IP TO THIS HOSP Condition: Good Is patient prescribed a controlled substance at d/c from ED?: No Referrals: Pawan Lyle MD [Primary Care Provider] - 1-2 days
[2018-12-17] MEDS ORDERED: HYDROmorphone 0.5 MG/0.5 ML SYRINGE IVP STA ×2 (13:07→16:51)
[2018-12-17 13:37] LABS: D-Dimer 2.22 mg/L FEU (<0.60)
[2018-12-17] MEDS ORDERED: diphenhydrAMINE 50 MG/ML 1 ML VIAL IVP STA (13:37)
[2018-12-17] MEDS ORDERED: KETOROLAC 30 MG/ML 1 ML VIAL IVP STA (13:37)
[2018-12-17] MEDS ORDERED: METOCLOPRAMIDE 5 MG/ML 2 ML VIAL IVP STA (13:37)
--- NOTE | 2018-12-17 14:12 | CT ---
EXAMINATION TYPE: CT angio chest DATE OF EXAM: 12/17/2018 COMPARISON: CT angiogram of the chest 09/24/2017 HISTORY: Pain, Abnormal D-Dimer CT DLP: 691 mGycm Automated exposure control for dose reduction was used. CONTRAST: CTA scan of the thorax is performed with IV Contrast, patient injected with 100 mL of Isovue 300, pul monary embolism protocol. MIP images are created and reviewed. 3D reconstructed images are created on an independent workstation and reviewed. FINDINGS: LUNGS: The lungs are grossly clear, there is no concerning parenchymal mass or nodule identified. T here is no pleural effusion or pneumothorax seen. The tracheobronchial tree is patent. AORTA: No additional significant abnormality is seen. MEDIASTINUM: There is somewhat limited enhancement of the pulmonary artery and its branches, there is no CT evidence for pulmonary embolism. There are no greater than 1 cm hilar or mediastinal lymph no [place]. No pericardial effusion is seen. OTHER: Patient is post cholecystectomy. Liver may be enlarged and shows low attenuation likely due t o hepatic steatosis Patient is post bariatric surgery. IMPRESSION: PULMONARY EMBOLISM IS NOT EVIDENT, ENHANCEMENT OF THE SEGMENTAL BRANCHES OF THE PULMONARY ARTERIES IS NOT IDEAL HOWEVER. Additional findings above.
[2018-12-17] MEDS ORDERED: NITROGLYCERIN SL TABS 0.4 MG TAB SUBLINGUAL PRN (17:58)
[2018-12-17] MEDS ORDERED: ALPRAZolam 0.5 MG TAB PO PRN (18:17)
[2018-12-17 18:50] VITALS: BMI 41.7
[2018-12-17] MEDS ORDERED: NALOXONE 0.4 MG/ML 1 ML VIAL IV PRN (19:07)
--- NOTE | 2018-12-17 19:49 | P.HPIM ---
History of Present Illness H&P Date: 12/17/18 Chief Complaint: syncopal episode 38 year old F with PMH of complex migraines, PCOS, MTHFR clotting disorder presents to the ED for headache and syncopal episode. Patient reports a headache that started yesterday. Headache is located in the frontal region which radiates to the occipital region bilaterally. Headache is associated with photophobia and sensitivity to loud noises. Headache is also associated with nausea but no vomiting. Per ED reports, witnessed 2-3 syncopal episodes while in the ED. Patient reports suffering complex migraines with syncopal episodes since her childhood. Of note, patient was evaluated in the ED at [facility] 2 weeks ago for a similar episode. She was sent to [facility] where she was evaluated by Neurology. Patient reports being diagnosed with acute confusion migraine but she left AMA from the hospital without undergoing recommended MRI brain or EEG. She did undergo Echocardiogram while she was there. Of note, patient has a history for R hemicolectomy for volvulus under Dr. Ventura. Patient reports taking Imitrex yesterday for the first time for her Migraine without results. She does not follow a regular Neurologist. Patient denies lower extremity edema, vomiting, fever, chills, chest pain, shortness of breath, palpitations, changes in urination or bowel habits. She denies dizziness, numbness/weakness/tingling. Brain CT was negative for acute process. Chest CTA ruled out PE. Review of Systems Pertinent positives and negatives as discussed in HPI, a complete review of systems was performed and all other systems are negative. Past Medical History Past Medical History: Blood Disorder, GERD/Reflux, Thyroid Disorder Additional Past Medical History / Comment(s): polycystic ovaries mthfr clotting factor disorder, kidney stones, superficial blood clot x1,migraines, thyroid nodules-dr. davalos,varicose veins, past hx. hypertension History of Any Multi-Drug Resistant Organisms: C-DIFF, MRSA Date of last positivie culture/infection: 2010 MDRO Source:: abdomen Past Surgical History: Appendectomy, Back Surgery, Bariatric Surgery, Bowel Resection, Breast Surgery, Cholecystectomy Additional Past Surgical History / Comment(s): gastric sleeve, vein stripping x4 pascale legs, laparoscopy, D & C x 5, lt breast biopsy, right hemicolectomy Past Anesthesia/Blood Transfusion Reactions: Motion Sickness, Postoperative Nausea & Vomiting (PONV) Past Psychological History: Anxiety, Depression Smoking Status: Former smoker Past Alcohol Use History: Rare Additional Past Alcohol Use History / Comment(s): started smoking 1994 4 cig a day, quit 2018 Past Drug Use History: None Reported - Past Family History Father Family Medical History: Hyperlipidemia, Hypertension Additional Family Medical History / Comment(s): low sodium Mother Family Medical History: Cancer, Fibromyalgia Additional Family Medical History / Comment(s): thyroid ca, Sister(s) Family Medical History: Pulmonary Embolus Medications and Allergies Home Medications Medication Instructions Recorded Confirmed Type Spironolactone 100 mg PO BID 03/20/14 12/17/18 History Promethazine [Phenergan] 25 mg PO TID PRN 05/20/15 12/17/18 History Topiramate [Topamax] 100 mg PO BID 05/20/15 12/17/18 History Gabapentin [Neurontin] 200 mg PO TID 09/24/17 12/17/18 History Amitriptyline HCl [Elavil] 100 mg PO HS 09/22/18 12/17/18 History FLUoxetine HCL [PROzac] 40 mg PO HS 09/22/18 12/17/18 History ALPRAZolam [Xanax] 0.5 mg PO BID PRN 11/14/18 12/17/18 History Ondansetron Odt [Zofran Odt] 4 mg PO Q8HR PRN #14 tab 12/07/18 12/17/18 Rx SUMAtriptan SUCCINATE [Imitrex] 100 mg PO Q12H PRN 12/17/18 12/17/18 History Allergies Allergy/AdvReac Type Severity Reaction Status Date / Time amoxicillin [From Augmentin] Allergy Rash/Hives Verified 12/17/18 12:04 clavulanic acid Allergy Rash/Hives Verified 12/17/18 12:04 [From Augmentin] morphine Allergy Unknown Verified 12/17/18 12:04 potassium clavulanate Allergy Rash/Hives Verified 12/17/18 12:04 [From Augmentin] Latex, Natural Rubber AdvReac Rash/Hives Verified 12/17/18 12:04 Physical Exam Vitals: Vital Signs Temp Pulse Pulse Resp BP BP Pulse Ox 12/17/18 18:49 97.6 F 75 16 122/78 96 12/17/18 18:20 76 12 115/67 93 L 12/17/18 18:10 76 13 119/76 12/17/18 18:00 80 18 110/60 12/17/18 17:50 73 18 110/60 96 12/17/18 17:40 75 14 117/73 96 12/17/18 17:30 75 18 120/74 96 12/17/18 17:20 80 16 120/74 93 L 12/17/18 17:10 79 18 101/72 93 L 12/17/18 17:00 80 18 120/81 93 L 12/17/18 16:50 80 17 120/81 95 12/17/18 16:40 81 16 109/72 93 L 12/17/18 16:30 79 11 L 114/80 92 L 12/17/18 16:20 114/80 12/17/18 16:10 80 19 95/72 92 L 12/17/18 16:00 80 13 122/77 95 12/17/18 15:50 78 17 122/77 95 12/17/18 15:40 81 15 121/72 95 12/17/18 15:30 77 20 100/53 94 L 12/17/18 15:20 79 17 100/53 95 12/17/18 15:10 125/77 12/17/18 15:00 125/77 12/17/18 14:50 125/77 12/17/18 14:40 125/77 12/17/18 14:30 125/77 12/17/18 14:20 125/77 12/17/18 14:10 125/77 12/17/18 14:00 125/77 12/17/18 13:50 125/77 12/17/18 13:41 80 16 125/77 96 12/17/18 13:40 80 18 118/85 95 12/17/18 13:30 86 20 118/85 12/17/18 13:20 78 18 118/85 93 L 12/17/18 13:10 80 19 118/85 95 12/17/18 13:00 82 31 H 118/85 95 12/17/18 12:50 80 14 118/85 96 12/17/18 12:40 82 17 118/85 12/17/18 12:30 80 17 118/85 12/17/18 12:20 85 21 118/85 95 12/17/18 12:13 81 12 98 12/17/18 11:42 98.2 F 92 20 113/83 95 Intake and Output 12/17/18 12/17/18 12/17/18 06:59 14:59 22:59 Other: Weight 124.556 kg General: [non toxic], [no distress], [appears at stated age] Derm: [warm], [dry] Head: [atraumatic], [normocephalic], [symmetric] Eyes: [EOMI], [no lid lag], [anicteric sclera] Mouth: [no lip lesion], [mucus membranes moist] Cardiovascular: [S1S2 reg], [no murmur], [positive posterior tibial pulse bilateral], Lungs: [CTA bilateral], [no rhonchi, no rales] , [no accessory muscle use] Abdominal: [soft], [ nontender to palpation], [no guarding], [no appreciable organomegaly] Ext: [no gross muscle atrophy], [no edema], [no contractures] Neuro: [ CN II-XI grossly intact], [no focal neuro deficits] Psych: [Alert], [oriented], [appropriate affect] Results CBC & Chem 7: 12/17/18 12:21 12/17/18 12:21 Labs: Abnormal Lab Results - Last 24 Hours (Table) 12/17/18 12/17/18 Range/Units 12:21 12:21 APTT 31.7 H (22.0-30.0) sec D-Dimer 2.22 H (<0.60) mg/L FEU Glucose 100 H (74-99) mg/dL Creatine Kinase 23 L (30-135) U/L Thrombosis Risk Factor Assmnt - Choose All That Apply Any of the Below Risk Factors Present?: Yes Each Factor Represents 1 point: Obesity (BMI >25) Other Risk Factors: No Other congenital or acquired thrombophilia - If yes, enter type in comment: No Thrombosis Risk Factor Assessment Total Risk Factor Score: 1 Thrombosis Risk Factor Assessment Level: Low Risk Assessment and Plan Assessment: Assessment and Plan Syncopal episode, complex migraine versus seizure disorder Elevated D-Dimer history of PCOS MTHFR factor disorder Troponin 0.012, EKG showing NSR. CT brain negative. CTA ruled out PE. Patient reports history of complex migraines with syncopal episodes. Previous admission, transferred for [facility], EEG or MRI not done, diagnosed with acute confusion migraine. Plan: Obtain records from [facility]. Orthostat vitals. Recent Echocardiogram from [facility], will obtain records. Telemetry monitoring. Will consider MRI and EEG depending on [facility] records. Fall and seizure precautions. D-dimer 2.22. CTA rules out PE. Plan: PE ruled out. Plan: Continue Aldactone. Plan: Heparin Subcutaneous.
[2018-12-17] MEDS: KETOROLAC 30 MG/ML 1 ML VIAL IVP PRN (20:26)
[2018-12-17] MEDS: diphenhydrAMINE 50 MG/ML 1 ML VIAL IVP PRN (20:27)
[2018-12-17] MEDS: HEPARIN SODIUM,PORCINE 5,000 UNIT/ML 1 ML VIAL SQ SCH (20:27)
[2018-12-17] MEDS: METOCLOPRAMIDE 5 MG/ML 2 ML VIAL IVP PRN (20:28)
[2018-12-17] MEDS: GABAPENTIN 100 MG CAP PO SCH (20:28)
[2018-12-17] MEDS: TOPIRAMATE 100 MG TAB PO SCH (20:29)
[2018-12-17] MEDS ORDERED: AMITRIPTYLINE HCL 50 MG TAB PO SCH (21:00)
[2018-12-17] MEDS ORDERED: SPIRONOLACTONE 25 MG TAB PO SCH (21:00)
[2018-12-17] MEDS ORDERED: FLUoxetine HCL 20 MG CAP PO SCH (21:00)
[2018-12-18 03:06] LABS: Cholesterol 262 mg/dL (<200); HDL Cholesterol 31 mg/dL (40-60); Triglycerides 443 mg/dL (<150)
[2018-12-18] MEDS: KETOROLAC 30 MG/ML 1 ML VIAL IVP PRN ×2 (03:20→09:22)
[2018-12-18] MEDS: METOCLOPRAMIDE 5 MG/ML 2 ML VIAL IVP PRN ×2 (09:23→16:06)
[2018-12-18] MEDS: GABAPENTIN 100 MG CAP PO SCH ×2 (09:23→16:05)
[2018-12-18] MEDS: TOPIRAMATE 100 MG TAB PO SCH (09:23)
[2018-12-18] MEDS: HEPARIN SODIUM,PORCINE 5,000 UNIT/ML 1 ML VIAL SQ SCH (09:23)
[2018-12-18] MEDS ORDERED: BUTALB/APAP/CAFF 50-325-40MG TAB PO PRN (10:59)
[2018-12-18] MEDS ORDERED: KETOROLAC 30 MG/ML 1 ML VIAL IVP PRN (10:59)
[2018-12-18] MEDS: diphenhydrAMINE 50 MG/ML 1 ML VIAL IVP PRN (16:06)
--- NOTE | 2018-12-18 16:06 | P.DS ---
Providers Date of admission: 12/17/18 17:58 Expected date of discharge: 12/18/18 Attending physician: Emma Lam MD Primary care physician: Pawan Melton [facility] Course: 38 year old F with PMH of complex migraines, PCOS, MTHFR clotting disorder presents to the ED for headache and syncopal episode. Patient reports a headache that started yesterday. Headache is located in the frontal region which radiates to the occipital region bilaterally. Headache is associated with photophobia and sensitivity to loud noises. Headache is also associated with nausea but no vomiting. Per ED reports, witnessed 2-3 syncopal episodes while in the ED. Patient reports suffering complex migraines with syncopal episodes since her childhood. Of note, patient was evaluated in the ED at [facility] 2 weeks ago for a similar episode. She was sent to [facility] where she was evaluated by Neurology. Patient reports being diagnosed with acute confusion migraine but she left AMA from the hospital without undergoing recommended MRI brain or EEG. She did undergo Echocardiogram while she was there. Of note, patient has a history for R hemicolectomy for volvulus under Dr. Ventura. Patient reports taking Imitrex yesterday for the first time for her Migraine without results. She does not follow a regular Neurologist. Patient denies lower extremity edema, vomiting, fever, chills, chest pain, shortness of breath, palpitations, changes in urination or bowel habits. She denies dizziness, numbness/weakness/tingling. Brain CT was negative for acute process. Chest CTA ruled out PE. With regard to her syncopal episode this is thought to be secondary to complex migraine seizure disorder. Troponin was 0.012 with EKG showing normal sinus rhythm. CT of the brain was negative. CTA of the chest ruled out PE despite a positive d-dimer. Records were obtained from [facility]. It was noted that patient had a normal echocardiogram and refused MRI brain and EEG, left AMA. She was placed on fall and seizure precautions. Otherwise, her home medications were resumed. Patient was seen and examined this morning. No acute events overnight. As per nursing reports, multiple syncopal episodes, patient seen drooling and confused by nurse. Telemetry has been within normal limits. Patient continues to report headache that starts bilaterally in the front and radiates to the occipital region. Described as pounding in nature. Worsened with loud sounds and bright lights. General: [non toxic], [no distress], [appears at stated age] Derm: [warm], [dry] Head: [atraumatic], [normocephalic], [symmetric] Eyes: [EOMI], [no lid lag], [anicteric sclera] Mouth: [no lip lesion], [mucus membranes moist] Cardiovascular: [S1S2 reg], [no murmur], [positive posterior tibial pulse bilateral], Lungs: [CTA bilateral], [no rhonchi, no rales] , [no accessory muscle use] Abdominal: [soft], [ nontender to palpation], [no guarding], [no appreciable organomegaly] Ext: [no gross muscle atrophy], [no edema], [no contractures] Neuro: [ CN II-XI grossly intact], [no focal neuro deficits] Psych: [Alert], [oriented], [appropriate affect] Assessment and Plan Syncopal episode, complex migraine versus seizure disorder Elevated D-Dimer history of PCOS MTHFR factor disorder Troponin 0.012 3, EKG showing NSR. CT brain negative. CTA ruled out PE. Patient reports history of complex migraines with syncopal episodes. Previous admission, transferred for [facility], EEG or MRI not done, diagnosed with acute confusion migraine. Plan: Echocardiogram within normal limits for [facility]. Telemetry monitoring. Patient agreeable to go to [facility] under Dr. Garcia for higher level of care and neurology evaluation. Fall and seizure precautions. D-dimer 2.22. CTA rules out PE. Plan: PE ruled out. Plan: Continue Aldactone. Plan: Heparin Subcutaneous. Patient will need neurological evaluation, MRI and EEG regarding multiple syncopal episodes, questionable seizures versus complex migraines. Patient is agreeable. Case has been discussed with Dr. Garcia who accepts the patient. Pertinent Studies: Brain CT, CTA chest Patient Condition at Discharge: Stable Plan - Discharge Summary Discharge Rx Participant: No New Discharge Prescriptions: Continue Spironolactone 100 mg PO BID Topiramate [Topamax] 100 mg PO BID Promethazine [Phenergan] 25 mg PO TID PRN PRN Reason: Nausea Gabapentin [Neurontin] 200 mg PO TID Amitriptyline HCl [Elavil] 100 mg PO HS FLUoxetine HCL [PROzac] 40 mg PO HS ALPRAZolam [Xanax] 0.5 mg PO BID PRN PRN Reason: Anxiety Ondansetron Odt [Zofran ODT] 4 mg PO Q8HR PRN #14 tab PRN Reason: Nausea SUMAtriptan SUCCINATE [Imitrex] 100 mg PO Q12H PRN PRN Reason: Migraine Headache Discharge Medication List Spironolactone 100 mg PO BID 03/20/14 [History] Promethazine [Phenergan] 25 mg PO TID PRN 05/20/15 [History] Topiramate [Topamax] 100 mg PO BID 05/20/15 [History] Gabapentin [Neurontin] 200 mg PO TID 09/24/17 [History] Amitriptyline HCl [Elavil] 100 mg PO HS 09/22/18 [History] FLUoxetine HCL [PROzac] 40 mg PO HS 09/22/18 [History] ALPRAZolam [Xanax] 0.5 mg PO BID PRN 11/14/18 [History] Ondansetron Odt [Zofran ODT] 4 mg PO Q8HR PRN #14 tab 12/07/18 [Rx] SUMAtriptan SUCCINATE [Imitrex] 100 mg PO Q12H PRN 12/17/18 [History] Follow up Appointment(s)/Referral(s): Pawan Lyle MD [Primary Care Provider] - 1-2 days Activity/Diet/Wound Care/Special Instructions: Diet: Regular Follow-up with PCP within 1-2 days of discharge. Please take all medications as advised. Please follow-up with a neurologist, this appointment will be given to you at [facility]. Do not drive an automobile until you have been cleared by neurology. Discharge Disposition: OTHER INSTITUTION NOT DEFINED
[2018-12-18 17:30] VITALS: BP 142/82; PULSE 85; RESP 15; TEMP 98.4
== END 2018-12-18 17:42 | disposition other institution (70) ==
LOC: EC 11:15 → 1SOBS 17:58
PROVIDERS: ADMIT Family Medicine; ATTEND Family Medicine
DX: R55 Syncope and collapse (principal); R79.89 Other specified abnormal findings of blood chemistry; G43.109 Migraine with aura, not intractable, without status migrainosus; E28.2 Polycystic ovarian syndrome; E72.12 Methylenetetrahydrofolate reductase deficiency; K21.9 Gastro-esophageal reflux disease without esophagitis; E04.2 Nontoxic multinodular goiter; I10 Essential (primary) hypertension; I83.90 Asymptomatic varicose veins of unspecified lower extremity; F41.9 Anxiety disorder, unspecified; F32.9 Major depressive disorder, single episode, unspecified; E66.9 Obesity, unspecified; Z68.41 Body mass index [BMI] 40.0-44.9, adult; Z79.899 Other long term (current) drug therapy; Z88.0 Allergy status to penicillin; Z88.5 Allergy status to narcotic agent; Z88.8 Allergy status to other drugs, medicaments and biological substances; Z91.040 Latex allergy status; Z87.442 Personal history of urinary calculi; Z86.14 Personal history of Methicillin resistant Staphylococcus aureus infection; Z90.49 Acquired absence of other specified parts of digestive tract; Z87.19 Personal history of other diseases of the digestive system; Z98.84 Bariatric surgery status; Z87.891 Personal history of nicotine dependence; Z80.8 Family history of malignant neoplasm of other organs or systems; Z82.69 Family history of other diseases of the musculoskeletal system and connective tissue; Z82.49 Family history of ischemic heart disease and other diseases of the circulatory system; Z83.49 Family history of other endocrine, nutritional and metabolic diseases
CPT/HCPCS: 36415; 70450; 71275; 80053; 80061; 82550; 83735; 84100; 84484; 85025; 85379; 85610; 85730; 93005; 96372; 96374; 96375; 96376; 99285

== ENCOUNTER → 2019-01-01 | Outpatient (CLI) | payer OTHER ==
[2019-01-01 13:04] LABS: HCT 38.4 % (34.0-46.0); HGB 12.5 gm/dL (11.4-16.0); MCH 30.9 pg (25.0-35.0); MCHC 32.6 g/dL (31.0-37.0); MCV 94.8 fL (80.0-100.0); Mean Platelet Volume 7.2; Platelet Count 347 k/uL (150-450); RBC 4.05 m/uL (3.80-5.40); RDW 15.2 % (11.5-15.5); WBC 10.1 k/uL (3.8-10.6)
[2019-01-01 18:33] LABS: Iron Saturation 16.04 (12.00-45.00)
[2019-01-01 18:42] LABS: Folate, Serum 3.4 ng/mL
[2019-01-01 18:59] LABS: Albumin 4.1 g/dL (3.80-4.90); Albumin/Globulin Ratio 1.52 (1.60-3.17); Anion Gap 8.5 mmol/L (4.00-12.00); Carbon Dioxide 22.5 mmol/L (21.6-31.8); Globulin 2.7 g/dL (1.6-3.3); LDL Cholesterol,Calculated 136.6 mg/dL (0.0-131.0); Magnesium 1.8 mg/dL (1.5-2.4); Phosphorus 3.6 mg/dL (2.4-5.1); Potassium 3.7 mmol/L (3.5-5.5); Total Bilirubin 0.2 mg/dL (0.3-1.2); Total Protein 6.8 g/dL (6.2-8.2); VLDL Calculation 68.4 mg/dL (5.00-40.00); Vitamin D 25 Hydroxy 11.6 ng/mL (30.0-100.0)
[2019-01-01 20:26] LABS: Hemoglobin A1C 5.5 % (4.0-6.0)
[2019-01-01 21:43] LABS: Parathyroid Hormone Intact 73.5 pg/mL (14.0-72.0)
[2019-01-02 11:56] LABS: Zinc, Serum 66 ug/dL (60-130)
[2019-01-03 11:42] LABS: Vit B1(Thiamine) 65 ug/L (38-122)
== END ==
LOC: LABWHC1 11:51
PROVIDERS: ATTEND Surgery Plastic and Reconstructive Surgery
DX: Z48.815 Encounter for surgical aftercare following surgery on the digestive system (principal); E66.01 Morbid (severe) obesity due to excess calories; E21.1 Secondary hyperparathyroidism, not elsewhere classified; D50.8 Other iron deficiency anemias; K90.89 Other intestinal malabsorption; E55.9 Vitamin D deficiency, unspecified; K74.1 Hepatic sclerosis; N19 Unspecified kidney failure; K50.90 Crohn's disease, unspecified, without complications; Z98.84 Bariatric surgery status
CPT/HCPCS: 36415; 80053; 80061; 82306; 82525; 82607; 82728; 82746; 83036; 83540; 83550; 83735; 83970; 84100; 84134; 84255; 84425; 84443; 84590; 84630; 85027

== ENCOUNTER → 2019-01-31 | Outpatient (CLI) | payer OTHER ==
[~2019-01-31] MED LIST changes: -ACETAMINOPHEN TAB 500 MG TAB PO ONE; -ALVIMOPAN 12 MG CAPSULE PO ONE; -Antibiotics per Pharmacy 1 EACH MISC MISCELLANE PRN; +CYANOCOBALAMIN 1,000 MCG/ML 1 ML VIAL IM ONE; -DEXAMETHASONE SOD PHOSPHATE 10 MG/ML 1 ML VIAL IV ONE; -HEPARIN SODIUM,PORCINE 5,000 UNIT/ML 1 ML VIAL SQ ONE; -HYDROmorphone 0.5 MG/0.5 ML SYRINGE IVP PRN; -MELOXICAM 7.5 MG TAB PO ONE; -MORPHINE SULFATE 4 MG/ML SYRINGE IV PRN; -ONDANSETRON 4 MG/2 ML VIAL IVP ONE; -ONDANSETRON 4 MG/2 ML VIAL IVP PRN; -ceFAZolin 3 GM in SODIUM CHLORIDE 0.9% 100 ML IVPB ONE; -metroNIDAZOLE-NS PMX 500 MG in SALINE 1 100ML.BAG IVPB ONE
[2019-01-31 13:49] VITALS: BP 127/78; PULSE 81; TEMP 98.2
== END ==
LOC: PROCWHC3 13:39
PROVIDERS: ATTEND Surgery Plastic and Reconstructive Surgery
DX: D51.9 Vitamin B12 deficiency anemia, unspecified (principal)
CPT/HCPCS: 96372; J3420

== ENCOUNTER → 2019-02-11 | Outpatient (CLI) | payer OTHER ==
[2019-02-11 12:49] VITALS: BP 128/88; PULSE 67; RESP 16
--- NOTE | 2019-02-12 12:41 | P.PAINCN ---
History of Present Illness - Reason for Consult Consult date: 02/11/19 - Chief Complaint Occipital neuralgia - History of Present Illness This is a 38-year-old patient referred by Dr. Chelo Calvillo for chronic pain in bilateral occipital region with radiation to posterior skull and bilateral trapezius muscle. Patient has a history of chronic migraines since age 4 for which she is taking Emgality IM and she follows with neurologist(Dr. Calvillo). She reports that her current pain is different from her typical migraines. Current pain began about 2 years ago, pain is located primarily in the occipital region right greater than left. Pain is worse with neck flexion, lack of head support and better with neck flexion, Motrin and Ultram when necessary. She has not had any injections to this area or tried physical therapy, although she has tried massage therapy with no benefit. Of note, she has also been diagnosed with a seizure disorder, which sounds like absence seizures with staring and postictal confusion. This began on 12/03/2018 for which she is following with a neurologist. She says these seizures occurred daily, and her neurologist has referred her to [facility]. She has yet to see a neurologist at [facility]. She also has a history of MTHFR deficiency and takes folic acid for this. Patient denies new-onset weakness, bowel/bladder incontinence, or any other signs or symptoms of cauda equina syndrome. There are no signs of acute intoxication, and no indications of medication diversion or overuse. In addition to above, 13-point review of systems is also negative for chest pain, shortness of breath, changes in vision, changes in hearing, new onset weakness, abdominal pain, diarrhea, extreme fatigue, malaise, fever, skin changes, homicidal or suicidal ideation, or bowel or bladder incontinence. 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 Occipital neuralgia 2. Cervical myofascial pain 3. Chronic migraines 4. Seizure disorder 5. MTHFR deficiency Plan: 1. Explanation: Opioid and psychological risk scores were reviewed. Diagnoses, prognoses, and multiple treatment options including but not limited to physical therapy, interventional therapies, adjuvant medical therapies, narcotic medication therapies, and surgery were discussed with the patient and all questions were answered to the patient's satisfaction. 2. Opioid agreement: n/a 3. Counseling: None 4. Procedures: We'll schedule bilateral occipital nerve blocks and trigger point injections to bilateral cervical paraspinals, trapezius, and rhomboids. We did discuss that she may require 2-3 procedures for this to be effective long-term. We also discussed that if she gets no relief from this procedure, we could proceed with cervical facetogenic workup as well as obtaining a cervical MRI. She is agreeable to this plan. 5. Consultations: None 6. Investigations: None 7. Medications: Managed by neurologist and PCP 8. Disposition: For procedure . Past Medical History Past Medical History: Blood Disorder, GERD/Reflux, Thyroid Disorder Additional Past Medical History / Comment(s): ,polycystic ovaries mthfr clotting factor disorder, kidney stones, superficial blood clot x1,migraines, thyroid nodules-drGeorge monitoring, varicose veins, past hx. hypertension History of Any Multi-Drug Resistant Organisms: C-DIFF, MRSA Year Discovered:: 2010 MDRO Source:: abdomen Past Surgical History: Appendectomy, Back Surgery, Bariatric Surgery, Bowel Resection, Breast Surgery, Cholecystectomy Additional Past Surgical History / Comment(s): gastric sleeve, vein stripping x4 pascale legs, laparoscopy, D & C x 5, lt breast biopsy, right hemicolectomy Past Anesthesia/Blood Transfusion Reactions: Motion Sickness, Postoperative Nausea & Vomiting (PONV) Past Psychological History: Anxiety, Depression Smoking Status: Former smoker Past Alcohol Use History: Rare Additional Past Alcohol Use History / Comment(s): started smoking 1994 4 cig a day, quit 2018 Past Drug Use History: None Reported - Past Family History Father Family Medical History: Hyperlipidemia, Hypertension Additional Family Medical History / Comment(s): low sodium Mother Family Medical History: Cancer, Fibromyalgia Additional Family Medical History / Comment(s): thyroid ca, Sister(s) Family Medical History: Pulmonary Embolus Medications and Allergies Home Medications Medication Instructions Recorded Confirmed Type Spironolactone 100 mg PO BID 03/20/14 02/11/19 History Promethazine [Phenergan] 25 mg PO TID PRN 05/20/15 02/11/19 History Topiramate [Topamax] 150 mg PO BID 05/20/15 02/11/19 History Amitriptyline HCl [Elavil] 100 mg PO HS 09/22/18 02/11/19 History FLUoxetine HCL [PROzac] 40 mg PO HS 09/22/18 02/11/19 History ALPRAZolam [Xanax] 0.5 mg PO BID PRN 11/14/18 02/11/19 History Ondansetron Odt [Zofran ODT] 4 mg PO Q8HR PRN #14 tab 12/07/18 02/11/19 Rx Galcanezumab-Gnlm [Emgality] 120 mg SQ Q30D 01/31/19 02/11/19 History Ergocalciferol [Vitamin D2] 50,000 unit PO TH 02/08/19 02/11/19 History Ibuprofen 600 mg PO Q4HR PRN 02/08/19 02/11/19 History traMADol HCL [Ultram] 100 mg PO Q6HR PRN 02/08/19 02/11/19 History Allergies Allergy/AdvReac Type Severity Reaction Status Date / Time amoxicillin [From Augmentin] Allergy Rash/Hives Verified 01/31/19 13:43 clavulanic acid Allergy Rash/Hives Verified 01/31/19 13:43 [From Augmentin] potassium clavulanate Allergy Rash/Hives Verified 01/31/19 13:43 [From Augmentin] Latex, Natural Rubber AdvReac Rash/Hives Verified 01/31/19 13:43 morphine AdvReac Nausea & Verified 02/08/19 10:45 Vomiting Physical Exam Vitals: Vital Signs Pulse Resp BP 02/11/19 12:35 67 16 128/88 PQRS Measure Charge Sheet Measure #130: Documentation of Current Meds in Medical Chart: Patient's medications documented in chart Measure #226: Tobacco Use: Screen & Cessation Intervention: Pt not a tobacco user Measure #111: Pneumonia Vaccination: Pneumococcal vaccine administered or previously received Measure #47: Advance Care Plan: Advance care planning discussed & documented, pt chose/unable to give Measure #412: Opioid Treatment Agreement: No documentation of signed opioid treatment agreement Measure #408: Opioid Therapy Follow-up Evaluation: Patient had NO f/u eval minimum every 3 months during opioid therapy Measure #317: Preventitive Care & Scrn High Bld Press & F/U: Normal blood pressure, f/u not required Measure #128: Body Mass Index (BMI) Screening & Follow-up: BMI documented ABOVE normal parameters - f/u documented Measure #131: Pain Assessment & Follow-up: Pain positive & plan documented, Follow-up scheduled Measure #431: Unhealthy Alcohol Use Preventative Care & Scrn: Patient not identified as an unhealthy alcohol user PQRS Narrative: Smoking Status Former smoker Blood Pressure 128/88 Pain Intensity [Occipital] 7 Scale Used Numeric (1 - 10) Hx Alcohol Use (MH) Yes: < 7 PER WEEK Home Medications: Ambulatory Orders Spironolactone 100 mg PO BID 03/20/14 Promethazine [Phenergan] 25 mg PO TID PRN 05/20/15 Topiramate [Topamax] 150 mg PO BID 05/20/15 Amitriptyline HCl [Elavil] 100 mg PO HS 09/22/18 FLUoxetine HCL [PROzac] 40 mg PO HS 09/22/18 ALPRAZolam [Xanax] 0.5 mg PO BID PRN 11/14/18 Ondansetron Odt [Zofran ODT] 4 mg PO Q8HR PRN #14 tab 12/07/18 Galcanezumab-Gnlm [Emgality] 120 mg SQ Q30D 01/31/19 Ergocalciferol [Vitamin D2] 50,000 unit PO TH 02/08/19 Ibuprofen 600 mg PO Q4HR PRN 02/08/19 traMADol HCL [Ultram] 100 mg PO Q6HR PRN 02/08/19
== END ==
LOC: PNWHC3 12:06
PROVIDERS: ATTEND Anesthesiology
DX: M54.81 Occipital neuralgia (principal); M79.18 Myalgia, other site; G43.909 Migraine, unspecified, not intractable, without status migrainosus; G40.909 Epilepsy, unspecified, not intractable, without status epilepticus; E72.12 Methylenetetrahydrofolate reductase deficiency; E78.5 Hyperlipidemia, unspecified; I10 Essential (primary) hypertension; Z79.899 Other long term (current) drug therapy; Z88.1 Allergy status to other antibiotic agents; Z88.8 Allergy status to other drugs, medicaments and biological substances; Z91.040 Latex allergy status; Z88.5 Allergy status to narcotic agent; Z87.891 Personal history of nicotine dependence
CPT/HCPCS: 99211

== ENCOUNTER 2019-02-19 06:55 | Day surgery (SDC) | payer OTHER ==
[2019-02-15 16:09] VITALS: BMI 41.5
[2019-02-19 07:21] VITALS: RESP 16; TEMP 98.1
[2019-02-19] MEDS ORDERED: LACTATED RINGERS 1,000 ML IV SCH (08:30)
--- NOTE | 2019-02-19 08:42 | P.PCN ---
Date of Procedure: 02/19/19 Procedure(s) Performed: Pre-operative diagnosis: Bilateral occipital neuralgia and cervical myofascial pain Post Operative Diagnosis same Procedure: Bilateral occipital nerve blocks and bilateral trigger point injections at cervical paraspinals, rhomboids, trapezius ANESTHESIA: none EBL: Minimal PROCEDURE INDICATION: The patient with neck pain and headache secondary to occipital neuralgia unresponsive to conservative treatments. PROCEDURE DESCRIPTION / TECHNIQUE: The patient was seen and identified in the preoperative area. Risks, benefits, complications, and alternatives were discussed with the patient, the patient agreed to proceed with the procedure and signed the consent. IV was not started. Vital signs remained stable throughout the procedure. Patient was taken to the OR and time out was completed. The patient was placed in the seated position facing the procedure table. The cervical area and bilateral occiptial area were prepped with alcohol swab. Vital signs were closely monitored during the procedure. The bilateral occiptal ridge was palpated and was then accessed with a 25 G needle. Then after negative aspiration, 2.5 ml of the block solution containing 5 ml of Buvicaine 0.5% mg was injected. Needle was withdrawn intact. Then, attention was turned to trigger point injections. A total of 10 mL of ropivacaine 0.5% was used. After palpation to identify trigger points, 1 mL of solution was injected into each trigger point for a total of 10 trigger points. Patient tolerated procedure well. No acute complications.
[2019-02-19 08:43] VITALS: BP 117/69; PULSE 73
== END 2019-02-19 08:54 | disposition home or self-care (01) ==
LOC: ORPAIN 06:55
PROVIDERS: ATTEND Anesthesiology
DX: I83.90 Asymptomatic varicose veins of unspecified lower extremity (principal); G89.29 Other chronic pain; M54.81 Occipital neuralgia; M79.18 Myalgia, other site; G43.909 Migraine, unspecified, not intractable, without status migrainosus; Z79.899 Other long term (current) drug therapy; G40.409 Other generalized epilepsy and epileptic syndromes, not intractable, without status epilepticus; E72.12 Methylenetetrahydrofolate reductase deficiency; K21.9 Gastro-esophageal reflux disease without esophagitis; E04.1 Nontoxic single thyroid nodule; Z87.442 Personal history of urinary calculi; E28.2 Polycystic ovarian syndrome; Z86.14 Personal history of Methicillin resistant Staphylococcus aureus infection; Z86.19 Personal history of other infectious and parasitic diseases; Z98.84 Bariatric surgery status; Z90.49 Acquired absence of other specified parts of digestive tract; Z87.891 Personal history of nicotine dependence; Z82.49 Family history of ischemic heart disease and other diseases of the circulatory system; Z83.438 Family history of other disorder of lipoprotein metabolism and other lipidemia; Z82.69 Family history of other diseases of the musculoskeletal system and connective tissue; Z80.8 Family history of malignant neoplasm of other organs or systems; Z79.1 Long term (current) use of non-steroidal anti-inflammatories (NSAID); Z79.891 Long term (current) use of opiate analgesic; Z88.5 Allergy status to narcotic agent; Z88.0 Allergy status to penicillin; Z91.040 Latex allergy status
CPT/HCPCS: 20553; 81025

== ENCOUNTER 2019-03-05 06:14 | Day surgery (SDC) | payer OTHER ==
[2019-02-28 15:15] VITALS: BMI 41.3
[~2019-03-05 06:14] MED LIST changes: -CYANOCOBALAMIN 1,000 MCG/ML 1 ML VIAL IM ONE; +LACTATED RINGERS 1,000 ML IV SCH
[2019-03-05 06:46] VITALS: RESP 16; TEMP 97
--- NOTE | 2019-03-05 07:49 | P.PCN ---
Surgeon: Fatou Bain Pathology: none sent Condition: stable Disposition: PACU Description of Procedure: Pre-operative diagnosis: Bilateral occipital neuralgia and cervical myofascial pain Post Operative Diagnosis same Procedure: Bilateral occipital nerve blocks and bilateral trigger point injections at cervical paraspinals, rhomboids, trapezius ANESTHESIA: IV moderate conscious sedation with Versed and fentanyl EBL: Minimal PROCEDURE INDICATION: The patient with neck pain and headache secondary to occipital neuralgia unresponsive to conservative treatments. PROCEDURE DESCRIPTION / TECHNIQUE: The patient was seen and identified in the preoperative area. Risks, benefits, complications, and alternatives were discussed with the patient, the patient agreed to proceed with the procedure and signed the consent. IV was not started. Vital signs remained stable throughout the procedure. Patient was taken to the OR and time out was completed. The patient was placed in the seated position facing the procedure table. The cervical area and pascale ateral occiptial area were prepped with alcohol swab. Vital signs were closely monitored during the procedure. The bilateral occiptal ridge was palpated and was then accessed with a 25 G needle. Then after negative aspiration, 2 ml of the block solution containing 5 ml of ropivacaine0.5% and 20 mg of kenalog mg was injected. Needle was withdrawn intact. Then, attention was turned to trigger point injections. A total of 10 mL of ropivacaine 0.5% and 20 mg of kenalog was used. After palpation to identify trigger points, 1 mL of solution was injected into each trigger point for a tota l of 10 trigger points. The trigger points included trapezius muscles bilaterally and cervical paravertebral musculature bilaterally. Patient tolerated procedure well. No acute complications.
[2019-03-05] MEDS ORDERED: IV FLUID CONTINUATION 1,000 ML IV ONE (07:50)
[2019-03-05 09:01] VITALS: BP 109/62; PULSE 79
== END 2019-03-05 08:35 | disposition home or self-care (01) ==
LOC: ORPAIN 06:14
PROVIDERS: ATTEND Anesthesiology
DX: M54.81 Occipital neuralgia (principal); G43.909 Migraine, unspecified, not intractable, without status migrainosus; G40.909 Epilepsy, unspecified, not intractable, without status epilepticus; M79.18 Myalgia, other site; E72.12 Methylenetetrahydrofolate reductase deficiency; K21.9 Gastro-esophageal reflux disease without esophagitis; E28.2 Polycystic ovarian syndrome; I10 Essential (primary) hypertension; Z86.14 Personal history of Methicillin resistant Staphylococcus aureus infection; Z86.19 Personal history of other infectious and parasitic diseases; Z98.84 Bariatric surgery status; F41.9 Anxiety disorder, unspecified; F32.9 Major depressive disorder, single episode, unspecified; Z87.891 Personal history of nicotine dependence; Z82.49 Family history of ischemic heart disease and other diseases of the circulatory system; Z79.899 Other long term (current) drug therapy; Z88.0 Allergy status to penicillin; Z88.5 Allergy status to narcotic agent; Z91.040 Latex allergy status
CPT/HCPCS: 81025; 20553; 64405; J2250; J3301; J3010; 99152

== ENCOUNTER → 2019-07-17 | Outpatient (CLI) | payer OTHER ==
--- NOTE | 2019-07-17 16:30 | US ---
EXAMINATION TYPE: US thyroid st tissue head/neck DATE OF EXAM: 07/17/2019 COMPARISON: US 04/02/2014 CLINICAL HISTORY: E04.1 SINGLE THYROID NODULE. GLAND SIZE: Right Lobe: 5.0 x 1.4 x 1.6 cm Overall Parenchyma: heterogenous Left Lobe: 4.8 x 1.2 x 2.0 cm Overall Parenchyma: heterogeneous Isthmus Thickness: 0.4 cm NODULES RIGHT: # of nodules measured on right: 1 1. 0.6 X 0.4 x 0.5 cm hypoechoic solid nodule at the mid pole with well-defined margins; . This no dule is wider than tall and shows intranodular vascularity. Prior size: 0.4 x 0.3 x 0.3 cm LEFT: # of nodules measured on left: 2 1. 0.5 X 0.3 x 0.5 cm hypoechoic solid nodule at the mid pole with well-defined margins; . This no dule is wider than tall and shows intranodular vascularity. Prior size: 0.4 x 0.2 x 0.4 cm 2. 0.5 X 0.3 x 0.4 cm hypoechoic solid nodule at the lower pole with well-defined margins; . This n odule is wider than tall and shows no intranodular vascularity. Prior size: No previous ISTHMUS: # of nodules measured in the isthmus: 0 Bilateral neck scanned, no evidence of lymphadenopathy. IMPRESSION: Stable nonspecific nodularity.
== END | disposition home or self-care (01) ==
LOC: RADUSWWP 15:56
PROVIDERS: ATTEND Family Medicine
DX: E04.1 Nontoxic single thyroid nodule (principal)
CPT/HCPCS: 76536

== ENCOUNTER → 2019-08-22 | Day surgery (SDC) | payer OTHER ==
[2019-08-21 08:14] VITALS: BMI 42.2
[~2019-08-22] MED LIST changes: +LIDOCAINE 1% INJ 10MG/ML (20 ML MDV) ONE; +MIDAZOLAM 2 MG/2 ML VIAL ONE; +PROPOFOL 10 MG/ML 20 ML VIAL IV ONE; +fentaNYL (PF) 50 MCG/ML 2 ML AMP ONE
--- NOTE | 2019-08-22 07:49 | P.GSHP ---
History of Present Illness H&P Date: 08/22/19 CHIEF COMPLAINT: GERD HISTORY OF PRESENT ILLNESS: The patient is a 39-year-old female who presents reports gastroesophageal reflux disease. Upper endoscopy was offered for further evaluation and management. PAST MEDICAL HISTORY: Please see list. PAST SURGICAL HISTORY: Please see list. MEDICATIONS: Please see list. ALLERGIES: Please see list. SOCIAL HISTORY: No illicit drug use FAMILY HISTORY: No reports of Crohn disease or ulcerative colitis. REVIEW OF ORGAN SYSTEMS: CONSTITUTIONAL: No reports of fevers or chills. GI: Denies any blood in stools or constipation. PHYSICAL EXAM: VITAL SIGNS: Stable GENERAL: Well-developed and pleasant in no acute distress. HEENT: No scleral icterus. Extraocular movements grossly intact. Moist buccal mucosa. NECK: Supple without lymphadenopathy. CHEST: Unlabored respirations. Equal bilateral excursions. CARDIOVASCULAR: Regular rate and rhythm. Distal 2+ pulses. ABDOMEN: Soft, nondistended. MUSCULOSKELETAL: No clubbing, cyanosis, or edema. ASSESSMENT: 1. Gastroesophageal reflux disease PLAN: 1. Recommend proceeding with an upper endoscopy Past Medical History Past Medical History: Blood Disorder, GERD/Reflux, Hypertension, Thyroid Disorder Additional Past Medical History / Comment(s): polycystic ovaries mthfr clotting factor disorder, kidney stones, superficial blood clot x1,migraines, thyroid nodules- monitoring, varicose veins, past hx. hypertension-no meds, abd. pain History of Any Multi-Drug Resistant Organisms: C-DIFF, MRSA Date of last positivie culture/infection: 2010 MDRO Source:: abdomen Past Surgical History: Appendectomy, Back Surgery, Bariatric Surgery, Bowel Resection, Breast Surgery, Cholecystectomy Additional Past Surgical History / Comment(s): gastric sleeve, vein stripping x4 pascale legs, laparoscopy, D & C x 5, lt breast biopsy, right hemicolectomy, EGD/COLONOSCOPY Past Anesthesia/Blood Transfusion Reactions: Motion Sickness, Postoperative Nausea & Vomiting (PONV) Smoking Status: Former smoker - Past Family History Father Family Medical History: Hyperlipidemia, Hypertension Additional Family Medical History / Comment(s): low sodium Mother Family Medical History: Cancer, Fibromyalgia Additional Family Medical History / Comment(s): thyroid ca, Sister(s) Family Medical History: Pulmonary Embolus Medications and Allergies Home Medications Medication Instructions Recorded Confirmed Type Spironolactone 100 mg PO BID 03/20/14 08/21/19 History Promethazine [Phenergan] 25 mg PO TID PRN 05/20/15 08/21/19 History Topiramate [Topamax] 200 mg PO DAILY 05/20/15 08/21/19 History Amitriptyline HCl [Elavil] 100 mg PO HS 09/22/18 08/21/19 History ALPRAZolam [Xanax] 0.5 mg PO BID PRN 11/14/18 08/21/19 History Ondansetron Odt [Zofran ODT] 4 mg PO Q8HR PRN #14 tab 12/07/18 08/21/19 Rx Ergocalciferol [Vitamin D2] 50,000 unit PO TH 02/08/19 08/21/19 History Ibuprofen 600 mg PO Q4HR PRN 02/08/19 08/21/19 History Allergies Allergy/AdvReac Type Severity Reaction Status Date / Time amoxicillin [From Augmentin] Allergy Rash/Hives Verified 08/21/19 08:08 clavulanic acid Allergy Rash/Hives Verified 08/21/19 08:08 [From Augmentin] potassium clavulanate Allergy Rash/Hives Verified 08/21/19 08:08 [From Augmentin] Latex, Natural Rubber AdvReac Rash/Hives Verified 08/21/19 08:08 morphine AdvReac Nausea & Verified 08/21/19 08:08 Vomiting
[2019-08-22 11:45] VITALS: RESP 16; TEMP 97.7
--- NOTE | 2019-08-22 12:38 | P.PCN ---
Date of Procedure: 08/22/19 Description of Procedure: PREOPERATIVE DIAGNOSIS: Status post sleeve gastrectomy. Gastroesophageal reflux disease. Epigastric abdominal pain. POSTOPERATIVE DIAGNOSIS: Status post sleeve gastrectomy. Gastroesophageal reflux disease. Epigastric abdominal pain. Erosive esophagitis, chronic. Chronic superficial gastritis. OPERATION: Esophagogastroduodenoscopy with cold forceps biopsies along the antrum. SURGEON: Georgie Ventura MD ANESTHESIA: MAC. INDICATIONS: The patient is a 39-year-old female who presents with a history of sleeve gastrectomy with abdominal pain. She is over 5 years out from her bariatric procedure. Benefits and risks of the procedure were described. Informed consent was obtained. DESCRIPTION: The patient was brought into the endoscopy suite and laid in the left lateral decubitus position. An Olympus gastroscope was passed along the posterior oropharynx down to the distal esophagus where the squamocolumnar junction was at 40 centimeters from the incisors remarkable for mild chronic erosive esophagitis, LA grade A without ulceration. The stomach was entered and diffuse gastritis. The sleeve reservoir was within normal limits. Chronic gastritis albeit mild was found along the antrum with cold biopsies obtained. The first through third portion of the duodenum was examined and unremarkable. The scope again had retroflexed along the antrum. The stomach was desufflated. The patient tolerated the procedure well. FINDINGS: No acute ulceration found along her sleeve. No corkscrewing sleeve gastrectomy. No recurrent hiatal hernia LA grade A erosive esophagitis. No active duodenitis. Chronic gastritis. RECOMMENDATIONS: Upper endoscopy as needed. Plan - Discharge Summary Discharge Rx Participant: No New Discharge Prescriptions: No Action Spironolactone 100 mg PO BID Topiramate [Topamax] 200 mg PO DAILY Promethazine [Phenergan] 25 mg PO TID PRN PRN Reason: Nausea Amitriptyline HCl [Elavil] 100 mg PO HS ALPRAZolam [Xanax] 0.5 mg PO BID PRN PRN Reason: Anxiety Ondansetron Odt [Zofran ODT] 4 mg PO Q8HR PRN #14 tab PRN Reason: Nausea Ergocalciferol [Vitamin D2] 50,000 unit PO TH Ibuprofen 600 mg PO Q4HR PRN PRN Reason: Pain Discharge Medication List Spironolactone 100 mg PO BID 03/20/14 [History] Promethazine [Phenergan] 25 mg PO TID PRN 05/20/15 [History] Topiramate [Topamax] 200 mg PO DAILY 05/20/15 [History] Amitriptyline HCl [Elavil] 100 mg PO HS 09/22/18 [History] ALPRAZolam [Xanax] 0.5 mg PO BID PRN 11/14/18 [History] Ondansetron Odt [Zofran ODT] 4 mg PO Q8HR PRN #14 tab 12/07/18 [Rx] Ergocalciferol [Vitamin D2] 50,000 unit PO TH 02/08/19 [History] Ibuprofen 600 mg PO Q4HR PRN 02/08/19 [History] Follow up Appointment(s)/Referral(s): Georgie Ventura MD [STAFF PHYSICIAN] - 08/27/19 Patient Instructions/Handouts: Gastroesophageal Reflux Disease (DC) Discharge Disposition: HOME SELF-CARE
[2019-08-22 13:00] VITALS: BP 121/82; PULSE 80
== END | disposition home or self-care (01) ==
LOC: ORWHC2ENDO 10:52
PROVIDERS: ATTEND Surgery Plastic and Reconstructive Surgery
DX: K21.0 Gastro-esophageal reflux disease with esophagitis (principal); K22.10 Ulcer of esophagus without bleeding; K29.50 Unspecified chronic gastritis without bleeding; E04.1 Nontoxic single thyroid nodule; E28.2 Polycystic ovarian syndrome; E72.12 Methylenetetrahydrofolate reductase deficiency; F39 Unspecified mood [affective] disorder; Z88.0 Allergy status to penicillin; Z88.5 Allergy status to narcotic agent; Z91.040 Latex allergy status; Z79.899 Other long term (current) drug therapy; Z79.1 Long term (current) use of non-steroidal anti-inflammatories (NSAID); Z86.2 Personal history of diseases of the blood and blood-forming organs and certain disorders involving the immune mechanism; Z87.442 Personal history of urinary calculi; Z86.718 Personal history of other venous thrombosis and embolism; I83.90 Asymptomatic varicose veins of unspecified lower extremity; Z86.79 Personal history of other diseases of the circulatory system; Z86.19 Personal history of other infectious and parasitic diseases; Z86.14 Personal history of Methicillin resistant Staphylococcus aureus infection; Z90.49 Acquired absence of other specified parts of digestive tract; Z98.890 Other specified postprocedural states; Z98.84 Bariatric surgery status; Z87.898 Personal history of other specified conditions; Z91.89 Other specified personal risk factors, not elsewhere classified; Z87.891 Personal history of nicotine dependence; Z83.438 Family history of other disorder of lipoprotein metabolism and other lipidemia; Z82.49 Family history of ischemic heart disease and other diseases of the circulatory system; Z80.8 Family history of malignant neoplasm of other organs or systems; Z83.49 Family history of other endocrine, nutritional and metabolic diseases; Z82.69 Family history of other diseases of the musculoskeletal system and connective tissue
CPT/HCPCS: 81025; 88305; 43239; J2250; J2001; J3010; J2704

== ENCOUNTER → 2019-09-27 | Outpatient (CLI) | payer OTHER ==
--- NOTE | 2019-09-27 16:00 | FL ---
EXAMINATION TYPE: FL barium swallow DATE OF EXAM: 09/27/2019 COMPARISON: None HISTORY: Gastroesophageal reflux, history gastric sleeve TECHNIQUE: A single contrast UGI study is performed. FINDINGS: Esophagus dilates to normal caliber has normal contour to the gastroesophageal junction. Gastroesopha geal junction opens to normal caliber. There is normal stripping of the esophageal bolus the horizont al drinking position. Overhead radiographs were obtained which are unremarkable. Fluoroscopy time: 44 seconds Images: 16 IMPRESSIONS: 1. Normal esophagus post gastric sleeve.
== END | disposition home or self-care (01) ==
LOC: RADUSWWP 09:42
PROVIDERS: ATTEND Surgery Plastic and Reconstructive Surgery
DX: K92.0 Hematemesis (principal); Z88.0 Allergy status to penicillin; Z88.5 Allergy status to narcotic agent
CPT/HCPCS: 74220

== ENCOUNTER 2019-12-19 18:05 | Emergency (ER) | payer OTHER ==
[2019-12-19 18:17] VITALS: BP 144/81; PULSE 79; RESP 18; TEMP 98.7
[2019-12-19] MEDS ORDERED: LIDOCAINE 1% INJ 10MG/ML (20 ML MDV) SQ ONE (18:33)
[2019-12-19] MEDS ORDERED: DIPH,PERTUS(ACELL)TETVAC-LF 0.5 ML VIAL IM ONE (18:41)
--- NOTE | 2019-12-19 18:41 | ED ---
Upper Extremity HPI - General Chief Complaint: Extremity Injury, Upper Stated Complaint: Finger lac Time Seen by Provider: 12/19/19 18:32 Source: patient Mode of arrival: ambulatory Limitations: no limitations - History of Present Illness Initial Comments: Patient is a 39-year-old female presenting to the emergency Department with complaints of a laceration to her right thumb. 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 Bleeding is controlled at this time. She denies being on blood thinners. Patient does not remember her last tetanus vaccine. She has no other complaints. - Related Data Home Medications Medication Instructions Recorded Confirmed Spironolactone 100 mg PO BID 03/20/14 08/22/19 Promethazine [Phenergan] 25 mg PO TID PRN 05/20/15 08/22/19 Topiramate [Topamax] 200 mg PO DAILY 05/20/15 08/22/19 Amitriptyline HCl [Elavil] 100 mg PO HS 09/22/18 08/22/19 ALPRAZolam [Xanax] 0.5 mg PO BID PRN 11/14/18 08/22/19 Ergocalciferol [Vitamin D2] 50,000 unit PO TH 02/08/19 08/22/19 Ibuprofen 600 mg PO Q4HR PRN 02/08/19 08/22/19 Previous Rx's Medication Instructions Recorded Ondansetron Odt [Zofran ODT] 4 mg PO Q8HR PRN #14 tab 12/07/18 Allergies Allergy/AdvReac Type Severity Reaction Status Date / Time amoxicillin [From Augmentin] Allergy Rash/Hives Verified 12/19/19 18:17 clavulanic acid Allergy Rash/Hives Verified 12/19/19 18:17 [From Augmentin] potassium clavulanate Allergy Rash/Hives Verified 12/19/19 18:17 [From Augmentin] Latex, Natural Rubber AdvReac Rash/Hives Verified 12/19/19 18:17 morphine AdvReac Nausea & Verified 12/19/19 18:17 Vomiting Review of Systems ROS Statement: Those systems with pertinent positive or pertinent negative responses have been documented in the HPI. ROS Other: All systems not noted in ROS Statement are negative. Past Medical History Past Medical History: Blood Disorder, GERD/Reflux, Hypertension, Thyroid Disorder Additional Past Medical History / Comment(s): polycystic ovaries mthfr clotting factor disorder, kidney stones, superficial blood clot x1,migraines, thyroid nodules- monitoring, varicose veins, no meds, abd. pain History of Any Multi-Drug Resistant Organisms: C-DIFF, MRSA Date of last positivie culture/infection: 2010 MDRO Source:: abdomen Past Surgical History: Appendectomy, Back Surgery, Bariatric Surgery, Bowel Resection, Breast Surgery, Cholecystectomy Additional Past Surgical History / Comment(s): gastric sleeve, vein stripping x4 pascale legs, laparoscopy, D & C x 5, lt breast biopsy, right hemicolectomy, EGD/COLONOSCOPY Past Anesthesia/Blood Transfusion Reactions: Motion Sickness, Postoperative Nausea & Vomiting (PONV) Past Psychological History: Anxiety, Depression Smoking Status: Former smoker Past Alcohol Use History: None Reported Past Drug Use History: None Reported - Past Family History Father Family Medical History: Hyperlipidemia, Hypertension Additional Family Medical History / Comment(s): low sodium Mother Family Medical History: Cancer, Fibromyalgia Additional Family Medical History / Comment(s): thyroid ca, Sister(s) Family Medical History: Pulmonary Embolus General Exam - General Exam Comments Initial Comments: GENERAL: Well-appearing, well-nourished and in no acute distress. HEAD: Atraumatic, normocephalic. EYES: Pupils equal round and reactive to light, extraocular movements intact, sclera anicteric, conjunctiva are normal. ENT: TMs normal, nares patent, oropharynx clear without exudates. Moist mucous membranes. NECK: Normal range of motion, supple without lymphadenopathy or JVD. LUNGS: Breath sounds clear to auscultation bilaterally and equal. No wheezes rales or rhonchi. HEART: Regular rate and rhythm without murmurs, rubs or gallops. ABDOMEN: Soft, nontender, normoactive bowel sounds. No guarding, no rebound. No masses appreciated. : Deferred EXTREMITIES: Patient has full range of motion of her right thumb and is neurovascular intact. No clubbing or cyanosis. NEUROLOGICAL: Normal speech, normal gait. PSYCH: Normal mood, normal affect. SKIN: Warm, Dry, normal turgor, no rashes. Patient has a 2 cm laceration to the palmar aspect of her right thumb just proximal to the IP joint. Bleeding is controlled at this time. Limitations: no limitations Course Vital Signs 12/19/19 18:14 Temperature 98.7 F Pulse Rate 79 Respiratory 18 Rate Blood Pressure 144/81 O2 Sat by Pulse 100 Oximetry Procedures - Laceration Laceration #1 Consent Obtained: verbal consent Indication: laceration Site: hand (Right thumb, palmar aspect) Size (cm): 2 Description: linear Depth: simple, single layer Anesthetic Used: lidocaine 1% Anesthesia Technique: local infiltration Amount (mls): 2 Pre-repair: irrigated extensively Type of Sutures: nylon Size of Sutures: 5-0 Number of Sutures: 4 Technique: simple, interrupted Patient Tolerated Procedure: well Medical Decision Making - Medical Decision Making Patient is a 39-year-old female with a 2 cm laceration to her right thumb, palmar aspect. Bleeding is controlled at this time. Patient's tetanus vaccine was updated today. Patient's wound was cleaned and closed with 4, 5-0 sutures. Patient tolerated procedure well. Topical antibiotic and a bandage was applied. Patient will have sutures removed in 7-10 days. She is stable for discharge and she is in agreement with this plan of care. Return parameters were d iscussed with the patient she verbalized understanding. Case discussed with Dr. Rm. Disposition Clinical Impression: Laceration of right thumb Disposition: HOME SELF-CARE Condition: Stable Instructions (If sedation given, give patient instructions): Care For Your Stitches (ED) Additional Instructions: Please return to the Emergency Department if symptoms worsen or any other concerns. Keep area clean and dry. Keep covered while working or cooking. Stitches need to be removed in 7-10 days. Is patient prescribed a controlled substance at d/c from ED?: No Referrals: Pawan Lyle MD [Primary Care Provider] - 1-2 days
== END 2019-12-19 19:46 | disposition home or self-care (01) ==
LOC: EC 18:05
DX: S61.011A Laceration without foreign body of right thumb without damage to nail, initial encounter (principal); F41.9 Anxiety disorder, unspecified; F32.9 Major depressive disorder, single episode, unspecified; G43.909 Migraine, unspecified, not intractable, without status migrainosus; I10 Essential (primary) hypertension; E28.2 Polycystic ovarian syndrome; Z88.0 Allergy status to penicillin; Z79.899 Other long term (current) drug therapy; Z23 Encounter for immunization; Z91.040 Latex allergy status; Z88.5 Allergy status to narcotic agent; Z88.1 Allergy status to other antibiotic agents; Z86.14 Personal history of Methicillin resistant Staphylococcus aureus infection; Z87.891 Personal history of nicotine dependence; W26.8XXA Contact with other sharp object(s), not elsewhere classified, initial encounter; Y93.89 Activity, other specified
CPT/HCPCS: 90715; 90471; 99283; 12001; J2001

== ENCOUNTER → 2019-12-23 | Outpatient (CLI) | payer OTHER ==
--- NOTE | 2019-12-23 16:24 | US ---
EXAMINATION TYPE: US transvaginal DATE OF EXAM: 12/23/2019 COMPARISON: Prior pelvic ultrasound March 01, 2018. CT abdomen and pelvis November 09, 2018 and older CTs back to 10/24/2012. CLINICAL HISTORY: N83.209 unspecified ovarian cyst. TECHNIQUE: Transvaginal (TV). EXAM MEASUREMENTS: Uterus: 8.1 x 4.1 x 5.5 cm Endometrial Stripe: Unable to visualize with certainty. Right Ovary: 5.7 x 3.8 x 5.4 cm Left Ovary: 5.4 x 2.8 x 2.9 cm 1. Uterus: Anteverted Nabothian cysts seen. 2. Endometrium: Not visualized with certainty 3. Right Ovary: Large septated cystic area 5.0 x 3.5 x 5.1 cm. 4. Left Ovary: Cystic area 2.2 x 2.4 x 2.9 cm 5. Bilateral Adnexa: wnl 6. Posterior cul-de-sac: wnl Nabothian cysts of varying size and shape seen in the cervix at beginning of study. Right ovary redem onstrated asymmetrically enlarged with multiple cysts of varying size and shape or single thin-walled cyst with thin septa. Finding more prominent from prior CT and ultrasound studies but there is no curtis spicious nodularity or septal thickening. Some thin-walled peripheral cysts in the left ovary less nu merous measuring up to 2.9 cm long axis are present on current study. IMPRESSION: Redemonstration of cystic change in both ovaries more prominent in the right ovary on cur rent study. No suspicious malignant characteristics or findings identified on images saved..
== END | disposition home or self-care (01) ==
LOC: RADUSWWP 15:30
PROVIDERS: ATTEND Nurse Practitioner Adult Health
DX: N83.202 Unspecified ovarian cyst, left side (principal); N83.201 Unspecified ovarian cyst, right side
CPT/HCPCS: 76830

== ENCOUNTER → 2020-01-09 | Outpatient (CLI) | payer OTHER | END | disposition home or self-care (01) | LOC: LABWHC1 11:39 | PROVIDERS: ATTEND Obstetrics & Gynecology | DX: N83.8 Other noninflammatory disorders of ovary, fallopian tube and broad ligament (principal) | CPT/HCPCS: 36415 ==

== ENCOUNTER → 2020-02-24 | Outpatient (CLI) | payer OTHER ==
[2020-02-24 11:25] LABS: Basophils # (A) 0.1 k/uL (0-0.2); Basophils % (A) 1 %; Eosinophils # (A) 0.2 k/uL (0-0.7); Eosinophils % (A) 2 %; Lymphocytes # (A) 2.1 k/uL (1.0-4.8); Lymphocytes % (A) 19 %; MCH 33.8 pg (25.0-35.0); MCHC 32.5 g/dL (31.0-37.0); MCV 103.8 fL (80.0-100.0); Macrocytosis Moderate; Mean Platelet Volume 6.9; Monocytes # (A) 0.5 k/uL (0-1.0); Monocytes % (A) 5 %; Neutrophils # (A) 7.7 k/uL (1.3-7.7); Neutrophils % (A) 72 %; Platelet Count 388 k/uL (150-450); RBC 4.43 m/uL (3.80-5.40); RDW 15.1 % (11.5-15.5); WBC 10.7 k/uL (3.8-10.6)
[2020-02-24 11:38] LABS: African American GFR (CKD) >90 (>60 ml/min/1.73 sqM); Anion Gap 9 mmol/L; Blood Urea Nitrogen 6 mg/dL (7-17); Calcium 9.2 mg/dL (8.4-10.2); Carbon Dioxide 23 mmol/L (22-30); Chloride 106 mmol/L (98-107); Glucose 113 mg/dL (74-99); Non-African American GFR(CKD) >90 (>60 ml/min/1.73 sqM); Potassium 3.7 mmol/L (3.5-5.1); Sodium 138 mmol/L (137-145)
== END | disposition home or self-care (01) ==
LOC: LABPAT 10:54
PROVIDERS: ATTEND Obstetrics & Gynecology
DX: Z01.818 Encounter for other preprocedural examination (principal)
CPT/HCPCS: 36415; 80048; 85025

== ENCOUNTER 2020-03-05 05:48 | Inpatient (IN) | payer BC, OTHER ==
[2020-02-28 11:24] VITALS: BMI 39.5
--- NOTE | 2020-03-03 12:02 | P.HPOB ---
History of Present Illness H&P Date: 03/03/20 Chief Complaint: Ovarian mass John is a 39-year-old female with an ovarian cyst as well as chronic pelvic pain. She has had dysmenorrhea for a number of months and has daily pain that is 4-5 out of 10 with an increased 8 out of 10 when she is on her menses. She is also noted on ultrasound to have an ovarian cyst on the right side which we plan to do a right salpingo-oophorectomy. She is currently scheduled for a total abdominal hysterectomy with right salpingo-oophorectomy and left salpingectomy. Possible THOMAS and BSO. Risks/benefits/alternatives to this procedure were reviewed with the patient in detail and did include but were not limited to bleeding and infection, damage to bladder, damage to bowel, vascular injuries, nerve injuries, ureteral injuries. She is scheduled for abdominal hysterectomy due to prior abdominal surgeries. Past Medical History Past Medical History: Blood Disorder, GERD/Reflux, Hypertension, Thyroid Disorder Additional Past Medical History / Comment(s): polycystic ovaries, mthfr clotting factor disorder, hx kidney stones, superficial blood clot x1, migraines, thyroid nodules, varicose veins, hx ileus, growth on rt ovary and heavy periods with pain, c-diff 2013 History of Any Multi-Drug Resistant Organisms: C-DIFF, MRSA Date of last positivie culture/infection: 2009 MDRO Source:: abdomen Past Surgical History: Appendectomy, Back Surgery, Bariatric Surgery, Bowel Resection, Breast Surgery, Cholecystectomy Additional Past Surgical History / Comment(s): gastric sleeve, vein stripping x4 pascale legs, laparoscopy, D & C x 5, lt breast biopsy, right hemicolectomy, EGD/COLONOSCOPY Past Anesthesia/Blood Transfusion Reactions: Motion Sickness, Postoperative Nausea & Vomiting (PONV) Additional Past Anesthesia/Blood Transfusion Reaction / Comment(s): migraines when waking up Smoking Status: Former smoker - Past Family History Father Family Medical History: Hyperlipidemia, Hypertension Additional Family Medical History / Comment(s): low sodium Mother Family Medical History: Cancer Additional Family Medical History / Comment(s): thyroid ca, Sister(s) Family Medical History: Deep Vein Thrombosis (DVT), Pulmonary Embolus Medications and Allergies Home Medications Medication Instructions Recorded Confirmed Type Spironolactone 100 mg PO BID 03/20/14 02/28/20 History Promethazine [Phenergan] 25 mg PO TID PRN 05/20/15 02/28/20 History Amitriptyline HCl [Elavil] 100 mg PO HS 09/22/18 02/28/20 History ALPRAZolam [Xanax] 0.5 mg PO DAILY PRN 11/14/18 02/28/20 History Ergocalciferol [Vitamin D2] 50,000 unit PO TH 02/08/19 02/28/20 History Ibuprofen 600 mg PO Q4HR PRN 02/08/19 02/28/20 History Cannabidiol (Cbd) [Epidiolex] 0 mg PO DAILY 02/28/20 02/28/20 History Gabapentin [Neurontin] 200 mg PO HS 02/28/20 02/28/20 History L.acidoph,Paracasei, B.lactis 1 each PO DAILY 02/28/20 02/28/20 History [Probiotic] Topiramate [Topamax] 100 mg PO BID 02/28/20 02/28/20 History Allergies Allergy/AdvReac Type Severity Reaction Status Date / Time amoxicillin [From Augmentin] Allergy Rash/Hives Verified 02/28/20 11:12 clavulanic acid Allergy Rash/Hives Verified 02/28/20 11:12 [From Augmentin] potassium clavulanate Allergy Rash/Hives Verified 02/28/20 11:12 [From Augmentin] Latex, Natural Rubber AdvReac Rash/Hives Verified 02/28/20 11:12 morphine AdvReac Nausea & Verified 02/28/20 11:12 Vomiting,abdominal pain Exam Osteopathic Statement: *. No significant issues noted on an osteopathic structural exam other than those noted in the History and Physical/Consult. - OBG Physical Exam Breast: both: normal (no masses) Abdomen: bowel sounds normal, no diffuse tenderness, no bruit present, no guarding noted, no hepatomegaly, no splenomegaly, no mass Vulva: both: normal Vagina: normal moisture, no discharge Cervix: no lesion, no discharge Uterus: normal size, normal contour Adnexa: both: normal Anus/Rectum: normal perianal skin, no rectal mass, no hemorrhoids, heme negative
[~2020-03-05 05:48] MED LIST changes: +DEXAMETHASONE SOD PHOSPHATE 10 MG/ML 1 ML VIAL IV ONE; -LACTATED RINGERS 1,000 ML IV SCH; +LIDOCAINE 1% (10MG/ML) FOR IV START INTRADERMA PRN; -LIDOCAINE 1% INJ 10MG/ML (20 ML MDV) ONE; +MIDAZOLAM 2 MG/2 ML VIAL IV PRN; -MIDAZOLAM 2 MG/2 ML VIAL ONE; +ONDANSETRON 4 MG/2 ML VIAL IVP ONE; -PROPOFOL 10 MG/ML 20 ML VIAL IV ONE; -fentaNYL (PF) 50 MCG/ML 2 ML AMP ONE
[2020-03-05] MEDS ORDERED: VANCOMYCIN 1,750 MG in SODIUM CHLORIDE 0.9% 500 ML 500 ML IVPB ONE (06:00)
[2020-03-05] MEDS ORDERED: ONDANSETRON 4 MG/2 ML VIAL ONE (06:39)
[2020-03-05] MEDS: LACTATED RINGERS 1,000 ML IV SCH (06:42)
[2020-03-05] MEDS ORDERED: SCOPOLAMINE 1.5MG/72HR PATCH TRANSDERM ONE (07:18)
[2020-03-05] MEDS ORDERED: diphenhydrAMINE 50 MG/ML 1 ML VIAL ONE (07:24)
[2020-03-05] MEDS ORDERED: LIDOCAINE 1% INJ 10MG/ML (20 ML MDV) ONE (07:28)
[2020-03-05] MEDS ORDERED: fentaNYL (PF) 50 MCG/ML 2 ML AMP ONE (07:28)
[2020-03-05] MEDS ORDERED: MORPHINE SULFATE (PF) 0.3 MG/0.3 ML SYR ONE (07:28)
[2020-03-05] MEDS ORDERED: ROCURONIUM BROMIDE 10 MG/ML 5 ML VIAL IV ONE (07:28)
[2020-03-05] MEDS ORDERED: GLYCOPYRROLATE 0.2 MG/ML 2 ML VIAL ONE (07:28)
[2020-03-05] MEDS ORDERED: PROPOFOL 10 MG/ML 20 ML VIAL IV ONE (07:28)
[2020-03-05] MEDS ORDERED: NEOSTIGMINE 1 MG/ML 10 ML VIAL ONE (07:28)
[2020-03-05] MEDS ORDERED: MIDAZOLAM 2 MG/2 ML VIAL ONE (07:28)
[2020-03-05] MEDS ORDERED: SUCCINYLCHOLINE CHLORIDE VIAL 200 MG/10 ML VIAL IV ONE (07:28)
[2020-03-05] MEDS ORDERED: diphenhydrAMINE 50 MG/ML 1 ML VIAL IVP ONE (07:29)
[2020-03-05] MEDS ORDERED: ONDANSETRON 4 MG/2 ML VIAL IVP PRN (08:47)
--- NOTE | 2020-03-05 08:55 | P.OP ---
Date of Procedure: 03/05/20 Preoperative Diagnosis: Right ovarian mass Postoperative Diagnosis: Same Procedure(s) Performed: Total abdominal hysterectomy with right salpingo-oophorectomy and left salpingectomy Anesthesia: ARPITA Surgeon: Merrill King Steam Heating Installer #1: Rebecca Sanders Estimated Blood Loss (ml): 100 IV fluids (ml): 700 Urine output (ml): 150 Pathology: other (Uterus, cervix, left fallopian tube, and right fallopian tube and ovary) Condition: stable Disposition: floor Operative Findings: Grossly enlarged multicystic right ovary left ovary multicystic but appeared otherwise benign Description of Procedure: Patient was taken to the operating suite where a general anesthetic was found be adequate. She was prepped and draped in normal sterile fashion and placed in dorsal supine position. Initially a Pfannenstiel skin incision was made and this incision was then carried through to underlying layer of the fascia was second knife. Fascia was then nicked in midline and this opening was extended laterally with Denis scissors. Superior and inferior aspect of this incision were then grasped tented up and bluntly and sharply dissected off the rectus muscles. Rectus muscles were then divided the midline and sharp dissection the peritoneum was done. This opening was then extended superiorly and inferiorly with good visualization of both bowel bladder. Once this was accomplished so pertain retractor was inserted patient's placement very steep Trendelenburg position. Bladder blade was then placed and the bowels packed out of the operative field. Once this was completed 2 long Princess's were placed over the adnexa bilaterally and uterus was elevated. Initially the right infundibular pelvic lid was identified grasped with Lino clamped cut and tied. Once to level of the uterus/Princess clamps, ovary was excised and sent to pathology for evaluation. Once this was completed left fallopian tube was removed in similar fashion and then the round ligament and utero-ovarian ligament on the left side her clamped with Blayne clamp cut and tied. Once this is completed bladder flap was identified and entered with Metzenbaum scissors and carried across face uterus Metzenbaum scissors and bluntly dissected out of the operative field. A Used To Clamp the Uterine Vascular Bilaterally. Tissues Clamped Cut and Tied. Moving Inferiorly down along the Lateral Borders the Uterus through the Cardinal and Uterosacral Ligaments Tissues Clamped Cut and Tied in Stepwise Fashion down to the Vagina. Once the Vagina Was Entered Scores Were Cut and Tied Following Removal of the Uterus. Stump Appeared Intact on the Cervix. Once This Was Completed with No Bleeding Noted from Any of the Pedicles 0 Vicryl Suture Was Used To Close the Vaginal Cuff in a Running Locking Fashion. C No Bleeding, Pelvis Was Thoroughly Irrigated and Once Hemostasis Was Montara to Be Obtained All Incidents Removed and Bowel Packing Was Removed. Peritoneal Layer Was Then Delineated with Hemostats and Closed with 0 Vicryl Suture. Fascial Layer Was Then Closed with 0 Vicryl Suture. One Layer of 3-0 Vicryl Was Placed in Deep Subcuticular Tissues to Reapproximate Skin and Close Space. Skin Was Then Closed with 4-0 Vicryl Subcuticular. Sponge, Lap, Needle Counts Were All Correct 2. Patient Was Then Taken to the Recovery Room in Stable and Satisfactory Condition.
[2020-03-05] MEDS: HYDROmorphone 0.5 MG/0.5 ML SYRINGE IVP PRN ×3 (09:32→19:22)
[2020-03-05] MEDS: KETOROLAC 30 MG/ML 1 ML VIAL IVP PRN ×3 (09:32→21:14)
[2020-03-05] MEDS: diphenhydrAMINE 50 MG/ML 1 ML VIAL IVP PRN ×3 (09:35→21:18)
[2020-03-05] MEDS ORDERED: NALBUPHINE 10 MG/ML (1 ML AMP) IV PRN ×2 (09:43→12:48)
[2020-03-05] MEDS ORDERED: NALOXONE 0.4 MG/ML 1 ML VIAL IV PRN ×2 (09:43→12:48)
[2020-03-05] MEDS: NALBUPHINE 10 MG/0.5 ML (10 mL MDV) IV PRN ×3 (14:16→22:04)
[2020-03-05] MEDS: SENNOSIDES-DOCUSATE SODIUM 1 EACH TAB PO SCH ×2 (14:23→21:15)
--- NOTE | 2020-03-05 17:05 | P.PN ---
Progress Note - Text Progress Note Date: 03/05/20 John is seen and evaluated this afternoon. Postop day 0. Overall she is doing very well. She is ambulating, voiding and tolerating a diet. She is very itchy from her Duramorph spinal but otherwise feels well. Her primary care provider once or concerns her also tomorrow. We have consult medicine for advice on starting Zaroxolyn whether she needs heparin or some other anticoagulant tonight. Otherwise she is stable and will continue current care.
[2020-03-05] MEDS: SPIRONOLACTONE 25 MG TAB PO SCH (21:15)
[2020-03-05] MEDS: GABAPENTIN 100 MG CAP PO SCH (21:15)
[2020-03-05] MEDS: TOPIRAMATE 100 MG TAB PO SCH (21:15)
[2020-03-05] MEDS: AMITRIPTYLINE HCL 50 MG TAB PO SCH (21:15)
[2020-03-05] MEDS: ALPRAZolam 0.5 MG TAB PO PRN (22:04)
--- NOTE | 2020-03-05 22:27 | P.CONS ---
History of Present Illness - Reason for Consult Consult date: 03/05/20 Medical management Requesting physician: Merrill King - Chief Complaint Heavy periods - History of Present Illness Consultation: This is a pleasant 39-year-old patient of Dr. Pawan Lyle. Chronic stable medical conditions include GERD, thyroid nodules, polycystic ovarian syndrome, thyroid nodules, MTHFR blood disorder. Patient began having heavy periods. Patient underwent today total abdominal hysterectomy and bilateral salpingo- oophorectomy. Some discomfort in the pelvic area. Patient has some generalized itching felt to be from a pain medications. No nausea or vomiting. On a full liquid diet. Sitting up in a chair. No chest pain and breathing is stable. Review of systems: GEN.: Itching EYES: None HEENT: None NECK: None RESPIRATORY: None CARDIOVASCULAR: None GASTROINTESTINAL: None GENITOURINARY: Pelvic discomfort] MUSCULOSKELETAL: None LYMPHATICS: None HEMATOLOGICAL: None PSYCHIATRY: None NEUROLOGICAL: None Past medical history to include: MD PÉREZ blood disorder, GERD, thyroid nodules, polycystic ovaries, kidney stones, superficial blood clots from [facility], migraines Social history: . Smoked about 4 suggests a day for closer 24 years stopping 2018. Alcohol occasionally. Physical examination: VITAL SIGNS: 97.9, 77, 18, 147-62, 97% on room air GENERAL: [BMI 40, sitting up in a chair, awake watching television. EYES: Pupils equal. Conjunctiva normal. HEENT: External appearance of nose and ears normal, oral cavity grossly normal. NECK: JVD not raised; masses not palpable. HEART: First and second heart sounds are normal; no edema. LUNGS: Respiratory rate normal; clear to auscultation. ABDOMEN: Soft, some suprapubic tenderness no guarding or rigidity, liver spleen not palpable, no masses palpable. PSYCH: Alert and oriented x3; mood and affect normal. NEUROLOGICAL: Cranial nerves grossly intact; no facial asymmetry, power and sensation grossly intact. LYMPHATICS: No lymph nodes palpable in the axilla and neck INVESTIGATIONS, reviewed in the clinical context: White count 10.7 hemoglobin 15 potassium 3.7 creatinine 0.75 Assessment: -Total abdominal hysterectomy with bilateral salpingo-oophorectomy -Morbid obesity BMI 40 -Thyroid nodules, the patient being euthyroid -M.THHFR blood disorder causing superficial phlebitis in the past -Anxiety not otherwise specified Plan: Patient with a full liquid diet. Pain control in place. Getting Benadryl for pruritus. Home medications resumed. Venodyne boots. Care was discussed with the patient. Questions were answered. Thank you Dr. Quiroga. Past Medical History Past Medical History: Blood Disorder, GERD/Reflux, Hypertension, Thyroid Disorder Additional Past Medical History / Comment(s): polycystic ovaries, mthfr clotting factor disorder, hx kidney stones, superficial blood clot x1, migraines, thyroid nodules, varicose veins, hx ileus, growth on rt ovary and heavy periods with pain, c-diff 2013 History of Any Multi-Drug Resistant Organisms: C-DIFF, MRSA Year Discovered:: 2009 MDRO Source:: abdomen Past Surgical History: Appendectomy, Back Surgery, Bariatric Surgery, Bowel Resection, Breast Surgery, Cholecystectomy Additional Past Surgical History / Comment(s): gastric sleeve, vein stripping x4 pascale legs, laparoscopy, D & C x 5, lt breast biopsy, right hemicolectomy, EGD/COLONOSCOPY Past Anesthesia/Blood Transfusion Reactions: Motion Sickness, Postoperative Nausea & Vomiting (PONV) Additional Past Anesthesia/Blood Transfusion Reaction / Comm: migraines when waking up Past Psychological History: Anxiety Smoking Status: Former smoker Past Alcohol Use History: Occasional Additional Past Alcohol Use History / Comment(s): started smoking 1994, 4 cig a day, quit 2018 Past Drug Use History: None Reported Additional Drug Use History / Comment(s): CBD oil/lotion - Past Family History Father Family Medical History: Hyperlipidemia, Hypertension Additional Family Medical History / Comment(s): low sodium Mother Family Medical History: Cancer Additional Family Medical History / Comment(s): thyroid ca, Sister(s) Family Medical History: Deep Vein Thrombosis (DVT), Pulmonary Embolus Medications and Allergies Home Medications Medication Instructions Recorded Confirmed Type Spironolactone 100 mg PO BID 03/20/14 02/28/20 History Promethazine [Phenergan] 25 mg PO TID PRN 05/20/15 03/05/20 History Amitriptyline HCl [Elavil] 100 mg PO HS 09/22/18 02/28/20 History ALPRAZolam [Xanax] 0.5 mg PO DAILY PRN 11/14/18 02/28/20 History Ergocalciferol [Vitamin D2] 50,000 unit PO TH 02/08/19 02/28/20 History Ibuprofen 600 mg PO Q4HR PRN 02/08/19 02/28/20 History Cannabidiol (Cbd) [Epidiolex] 0 mg PO DAILY 02/28/20 03/05/20 History Gabapentin [Neurontin] 200 mg PO HS 02/28/20 02/28/20 History L.acidoph,Paracasei, B.lactis 1 each PO DAILY 02/28/20 02/28/20 History [Probiotic] Topiramate [Topamax] 100 mg PO BID 02/28/20 02/28/20 History Allergies Allergy/AdvReac Type Severity Reaction Status Date / Time amoxicillin [From Augmentin] Allergy Rash/Hives Verified 02/28/20 11:12 clavulanic acid Allergy Rash/Hives Verified 02/28/20 11:12 [From Augmentin] potassium clavulanate Allergy Rash/Hives Verified 02/28/20 11:12 [From Augmentin] Latex, Natural Rubber AdvReac Rash/Hives Verified 02/28/20 11:12 morphine AdvReac Nausea & Verified 02/28/20 11:12 Vomiting,abdominal pain Physical Exam Vitals: Vital Signs Temp Pulse Resp BP Pulse Ox 03/05/20 21:24 84 18 99 03/05/20 20:00 97.9 F 77 18 147/62 97 03/05/20 18:00 18 97 03/05/20 16:00 18 03/05/20 15:00 98 F 84 18 141/83 98 03/05/20 14:39 97 03/05/20 14:00 93 18 128/81 94 L 03/05/20 13:00 95 18 149/80 96 03/05/20 12:30 18 03/05/20 12:00 85 18 117/61 99 03/05/20 11:45 80 18 108/67 98 03/05/20 11:30 85 18 116/84 96 03/05/20 11:02 81 18 117/73 90 L 03/05/20 10:46 80 18 110/75 91 L 03/05/20 10:38 98.8 F 77 18 100/67 96 03/05/20 10:00 73 16 131/68 92 L 03/05/20 09:45 76 16 142/63 97 03/05/20 09:30 75 16 148/82 100 03/05/20 09:15 82 16 142/67 92 L 03/05/20 09:03 97.0 F L 94 16 168/98 96 03/05/20 06:27 97.0 F L 82 18 131/81 98 Intake and Output 03/05/20 03/05/20 03/05/20 06:59 14:59 22:59 Intake Total 100 1290 2160 Output Total 250 2024 Balance 100 1040 135 Intake: IV 100 1050 Oral 240 2160 Output: Urine 150 2025 Uretheral (Davis) 1350 Estimated Blood Loss 100 Other: Voiding Method Indwelling Catheter Toilet # Voids 3 Weight 122.9 kg 122.9 kg
[2020-03-06] MEDS: HYDROmorphone 0.5 MG/0.5 ML SYRINGE IVP PRN ×2 (01:20→06:34)
[2020-03-06] MEDS: NALBUPHINE 10 MG/0.5 ML (10 mL MDV) IV PRN ×3 (03:34→08:48)
[2020-03-06] MEDS: KETOROLAC 30 MG/ML 1 ML VIAL IVP PRN ×2 (03:34→09:19)
[2020-03-06] MEDS: diphenhydrAMINE 50 MG/ML 1 ML VIAL IVP PRN (06:33)
[2020-03-06 06:42] LABS: Basophils % (A) 0 %; Eosinophils # (A) 0.1 k/uL (0-0.7); Eosinophils % (A) 1 %; HCT 42.5 % (34.0-46.0); HGB 13.7 gm/dL (11.4-16.0); Lymphocytes # (A) 1.9 k/uL (1.0-4.8); Lymphocytes % (A) 15 %; MCH 34.1 pg (25.0-35.0); MCHC 32.2 g/dL (31.0-37.0); Macrocytosis Moderate; Monocytes # (A) 0.7 k/uL (0-1.0); Monocytes % (A) 6 %; Neutrophils # (A) 9.8 k/uL (1.3-7.7); Neutrophils % (A) 77 %; Platelet Count 345 k/uL (150-450); RDW 14.3 % (11.5-15.5); WBC 12.7 k/uL (3.8-10.6)
[2020-03-06] MEDS: LACTATED RINGERS 1,000 ML IV SCH (06:42)
[2020-03-06] MEDS: SENNOSIDES-DOCUSATE SODIUM 1 EACH TAB PO SCH (08:46)
[2020-03-06] MEDS: SPIRONOLACTONE 25 MG TAB PO SCH ×2 (08:47→20:49)
[2020-03-06] MEDS: TOPIRAMATE 100 MG TAB PO SCH ×2 (08:48→20:49)
--- NOTE | 2020-03-06 09:11 | P.PN ---
Progress Note - Text Progress Note Date: 03/06/20 Postoperative day 1 status post total abdominal hysterectomy under general endo tracheal anesthesia, and intrathecal morphine given for postoperative analgesia, patient doing well, there is no anesthesia related complications, Patient had no headache, vital signs stable , patient complaining of itching, is most likely secondary to morphine patient already on Benadryl and nubain Assessment and plan= postop day 1 status post total abdominal hysterectomy, doing well there is no anesthesia related complication.
[2020-03-06] MEDS: HYDROcodone/APAP 7.5-325MG 1 EACH TAB PO PRN ×2 (12:22→19:53)
[2020-03-06] MEDS: diphenhydrAMINE 25 MG CAP PO PRN ×2 (13:29→22:54)
[2020-03-06] MEDS: SIMETHICONE 80 MG CHEWABLE PO PRN ×2 (15:29→19:53)
[2020-03-06] MEDS: IBUPROFEN 600 MG TAB PO PRN ×2 (18:36→22:54)
[2020-03-06] MEDS: GABAPENTIN 100 MG CAP PO SCH (20:48)
[2020-03-06] MEDS: AMITRIPTYLINE HCL 50 MG TAB PO SCH (20:49)
[2020-03-06] MEDS: ALPRAZolam 0.5 MG TAB PO PRN (21:33)
[2020-03-06 22:07] LABS: Appearance,Urine Clear (Clear); Bilirubin,Urine Negative (Negative); Blood,Urine Trace (Negative); Color,Urine Light Yellow; Glucose,Urine (UA) Negative (Negative); Ketones,Urine Negative (Negative); Leukocyte Esterase,Urine Negative (Negative); Mucus,Urine Rare /hpf; Nitrite,Urine Negative (Negative); PH, Urine 5.5 (5.0-8.0); Protein,Urine Negative (Negative); RBC,Urine <1 /hpf (0-5); Specific Gravity,Urine 1.006 (1.001-1.035); Squamous Epithelial Cell,Urine <1 /hpf (0-4); Urobilinogen,Urine <2.0 mg/dL (<2.0); WBC,Urine 1 /hpf (0-5)
[2020-03-07] MEDS: HYDROcodone/APAP 7.5-325MG 1 EACH TAB PO PRN ×4 (02:33→22:28)
[2020-03-07] MEDS: IBUPROFEN 600 MG TAB PO PRN ×4 (02:34→20:06)
[2020-03-07] MEDS: TOPIRAMATE 100 MG TAB PO SCH ×2 (08:04→20:07)
[2020-03-07] MEDS: SPIRONOLACTONE 25 MG TAB PO SCH ×2 (08:04→20:06)
--- NOTE | 2020-03-07 12:43 | P.PN ---
Progress Note - Text Progress Note Date: 03/07/20 John is seen and evaluated postop day 2. She is ambulating, she is voiding and she is had multiple loose stools. She does still complain some of gas pain but overall she appears stable. She also relates that she's having an increase in nausea and that after her shower this point she got hot and a little lightheaded. She seems fine now resting in bed she is comfortable I did speak with both she and her and the plan will be to continue current care for now and I will forward her prescription to her pharmacy said she can pick them up before tomorrow and hopefully we can discharge her home tomorrow with continued improvement. She is encouraged to continue to ambulate although she says she is a little reluctant to ambulate now moved down to the fifth floor as it is a much more full for florid she is concerned about the extra people that are around now. On physical exam vital signs are stable and afebrile. Heart regular, lungs clear, extremities without pain. Abdomen soft incision is clean dry and intact. As bowel sounds are noted. Assessment postop day 2. Plan continue current care.
[2020-03-07] MEDS ORDERED: ONDANSETRON 4 MG TAB PO PRN (12:57)
[2020-03-07] MEDS: SIMETHICONE 80 MG CHEWABLE PO PRN (13:31)
--- NOTE | 2020-03-07 18:38 | P.PN ---
Progress Note - Text Progress Note Date: 03/07/20 - Chief Complaint Pelvic surgery Consultation: This is a pleasant 39-year-old patient of Dr. Pawan Lyle. Chronic stable medical conditions include GERD, thyroid nodules, polycystic ovarian syndrome, thyroid nodules, MTHFR blood disorder. Patient began having heavy periods. Patient underwent today total abdominal hysterectomy and bilateral salpingo- oophorectomy. Today-patient about of vomiting yesterday. Some nausea. Slight lightheade dness. This morning took a shower. Some pain at the incision site. No drainage. Otherwise he is much better. Review of systems: Was done for constitutional, cardiovascular, GI, pulmonary. relevant finding as above Active Medications Hydrocodone Bitart/Acetaminophen ([place] 7.5-325) 1 each PO Q6H PRN PRN Reason: Pain Last Admin: 03/07/20 16:35 Dose: 1 each Documented by: Alprazolam (Xanax) 0.5 mg PO DAILY PRN PRN Reason: Anxiety Last Admin: 03/06/20 21:33 Dose: 0.5 mg Documented by: Amitriptyline HCl (Elavil) 100 mg PO [facility] Last Admin: 03/06/20 20:49 Dose: 100 mg Documented by: Diphenhydramine HCl (Benadryl) 25 mg PO BID PRN PRN Reason: Itching Last Admin: 03/06/20 22:54 Dose: 25 mg Documented by: Gabapentin (Neurontin) 200 mg PO [facility] Last Admin: 03/06/20 20:48 Dose: 200 mg Documented by: Hydromorphone HCl (Dilaudid) 0.5 mg IVP Q1H PRN PRN Reason: Breakthrough Pain Last Admin: 03/06/20 06:34 Dose: 0.5 mg Documented by: Ibuprofen (Motrin) 600 mg PO Q4HR PRN PRN Reason: Pain Last Admin: 03/07/20 13:14 Dose: 600 mg Documented by: Nalbuphine HCl (Nubain) 2.5 mg IV Q4HR PRN PRN Reason: Itching Last Admin: 03/06/20 08:48 Dose: 2.5 mg Documented by: Naloxone HCl (Narcan) 0.2 mg IV Q2M PRN PRN Reason: Opioid Reversal Naloxone HCl (Narcan) 0.2 mg IV Q2M PRN PRN Reason: Opioid Reversal Ondansetron HCl (Zofran) 4 mg IVP Q8HR PRN PRN Reason: Nausea And Vomiting Ondansetron HCl (Zofran) 4 mg PO Q8HR PRN PRN Reason: Nausea And Vomiting Last Admin: 03/07/20 13:13 Dose: 4 mg Documented by: Simethicone (Mylicon Chew) 80 mg PO ACHS PRN PRN Reason: Bloating Last Admin: 03/07/20 13:31 Dose: 80 mg Documented by: Spironolactone (Aldactone) 100 mg PO BID [facility] Last Admin: 03/07/20 08:04 Dose: 100 mg Documented by: Topiramate (Topamax) 100 mg PO BID [facility] Last Admin: 03/07/20 08:04 Dose: 100 mg Documented by: Physical examination: VITAL SIGNS: 98.4, 79, 19, 126/65, 96% room air GENERAL: Appears more comfortable EYES: Pupils equal. Conjunctiva normal. HEENT: External appearance of nose and ears normal, oral cavity grossly normal. NECK: JVD not raised; masses not palpable. HEART: First and second heart sounds are normal; no edema. LUNGS: Respiratory rate normal; clear to auscultation. ABDOMEN: Soft, some suprapubic tenderness no guarding or rigidity, liver spleen not palpable, no masses palpable. PSYCH: Alert and oriented x3; mood and affect normal. INVESTIGATIONS, reviewed in the clinical context: White count 10.7 hemoglobin 15 potassium 3.7 creatinine 0.75 Assessment: -Total abdominal hysterectomy with bilateral salpingo-oophorectomy -Morbid obesity BMI 40 -Thyroid nodules, the patient being euthyroid -M.THFR blood disorder causing superficial phlebitis in the past -Anxiety not otherwise specified -Nausea vomiting likely effect of pain medications. Plan: -Care was discussed with the patient. Told to keep on a soft bland diet. Activities encouraged. Clinically patient doing better. Thank you Dr. King.
--- NOTE | 2020-03-07 20:03 | P.PN ---
Progress Note - Text Progress Note Date: 03/06/20 - Chief Complaint Pelvic surgery Consultation: This is a pleasant 39-year-old patient of Dr. Pawan Lyle. Chronic stable medical conditions include GERD, thyroid nodules, polycystic ovarian syndrome, thyroid nodules, MTHFR blood disorder. Patient began having heavy periods. Patient underwent today total abdominal hysterectomy and bilateral salpingo- oophorectomy. Today-feeling a bit better. Taking a shower. Some oral intake. Pain better controlled. Slight nausea.. Review of systems: Was done for constitutional, cardiovascular, GI, pulmonary. relevant finding as above Current medications noted in today's electronic records Physical examination: VITAL SIGNS: 98.1, 79, 18, 131/82, 99% room air GENERAL: Sitting up, comfortable EYES: Pupils equal. Conjunctiva normal. HEENT: External appearance of nose and ears normal, oral cavity grossly normal. NECK: JVD not raised; masses not palpable. HEART: First and second heart sounds are normal; no edema. LUNGS: Respiratory rate normal; clear to auscultation. ABDOMEN: Soft, some suprapubic tenderness no guarding or rigidity, liver spleen not palpable, no masses palpable. PSYCH: Alert and oriented x3; mood and affect normal. INVESTIGATIONS, reviewed in the clinical context: White count 12.7 hemoglobin 13.7 Previous testing White count 10.7 hemoglobin 15 potassium 3.7 creatinine 0.75 Assessment: -Total abdominal hysterectomy with bilateral salpingo-oophorectomy -Morbid obesity BMI 40 -Thyroid nodules, the patient being euthyroid -M.THHFR blood disorder causing superficial phlebitis in the past -Anxiety not otherwise specified -Nausea-likely effect of pain medications. Plan: -Continue current medication to plan. Diet discussed with the patient. Does not need for anticoagulation. KATHY stockings. Patient is ambulatory. Discussed with patient. Discussed with Dr. Quiroga. Thank you Dr. King.
[2020-03-07] MEDS: AMITRIPTYLINE HCL 50 MG TAB PO SCH (20:06)
[2020-03-07] MEDS: GABAPENTIN 100 MG CAP PO SCH (20:06)
[2020-03-07] MEDS: ALPRAZolam 0.5 MG TAB PO PRN (21:20)
[2020-03-08] MEDS: IBUPROFEN 600 MG TAB PO PRN ×3 (02:45→12:23)
[2020-03-08] MEDS: HYDROcodone/APAP 7.5-325MG 1 EACH TAB PO PRN ×2 (04:37→10:41)
[2020-03-08] MEDS: TOPIRAMATE 100 MG TAB PO SCH (06:56)
[2020-03-08] MEDS: SPIRONOLACTONE 25 MG TAB PO SCH (06:56)
--- NOTE | 2020-03-08 10:50 | P.PN ---
Progress Note - Text Progress Note Date: 03/08/20 Was called to see cheating this morning due to right calf cramps. She relates that through the night she's had several charley horses/cramps in her right calf. There is no redness no swelling no heat Homans is negative there is no sign of DVT at this time. We will check her electrolytes beginning creatinine and then notify medicine for further exudations based on this. Consideration for Doppler of the right lower extremity certainly should still be made but at this time there is no evidence for DVT and it is not that the pain is persisting it is coming going like a charley horses/cramps
[2020-03-08 11:53] LABS: African American GFR (CKD) >90 (>60 ml/min/1.73 sqM); Anion Gap 7 mmol/L; Blood Urea Nitrogen 6 mg/dL (7-17); Carbon Dioxide 27 mmol/L (22-30); Chloride 102 mmol/L (98-107); Magnesium 1.8 mg/dL (1.6-2.3); Non-African American GFR(CKD) 83 (>60 ml/min/1.73 sqM); Phosphorus 3.7 mg/dL (2.5-4.5); Potassium 3.7 mmol/L (3.5-5.1); Sodium 136 mmol/L (137-145)
--- NOTE | 2020-03-08 13:23 | P.DS ---
Providers Date of admission: 03/05/20 05:48 Expected date of discharge: 03/08/20 Attending physician: Merrill King Consults: 03/05/20 16:20 Consult Physician Urgent Consulting Provider: Renaldo Muhammad Consult Reason/Comments: medical managemetn Do you want consulting provider notified?: Yes Primary care physician: [facility] Course: John is doing very well this afternoon. She is ambulating, voiding and tolerating her diet. She is passing flatus and the cramping her calf has essentially resolved this time. Labs were reviewed and all were normal. We'll plan discharged home today. Vital signs are stable and afebrile. Heart regular, lungs clear, extremities without pain. Abdomen is soft her incision is clean dry and intact. Prescriptions for Motrin and [place] for her to her pharmacy she'll follow up with me in 1 week for incision exam. She is aware should she have any tightening of her cast redness heat, heavy bleeding, severe pain, high-temperature she is notify our office or [facility] emergency room all of the questions are answered for her at this time and she will follow up with me in 1 week. Patient Condition at Discharge: Good Plan - Discharge Summary Discharge Rx Participant: Yes New Discharge Prescriptions: New Ibuprofen [Motrin] 600 mg PO Q6HR PRN #30 tab PRN Reason: Pain HYDROcodone/APAP 5-325MG [[place] 5-325] 1 tab PO Q4HR PRN #30 tab PRN Reason: Pain Ibuprofen [Motrin] 600 mg PO Q6HR PRN #30 tab PRN Reason: Pain Continue Spironolactone 100 mg PO BID Promethazine [Phenergan] 25 mg PO TID PRN PRN Reason: Nausea Amitriptyline HCl [Elavil] 100 mg PO HS ALPRAZolam [Xanax] 0.5 mg PO DAILY PRN PRN Reason: Anxiety Ergocalciferol [Vitamin D2 (DRISDOL)] 50,000 unit PO TH Ibuprofen 600 mg PO Q4HR PRN PRN Reason: Pain Gabapentin [Neurontin] 200 mg PO HS Topiramate [Topamax] 100 mg PO BID L.acidoph,Paracasei, B.lactis [Probiotic] 1 each PO DAILY No Action Cannabidiol (Cbd) [Epidiolex] 0 mg PO DAILY Discharge Medication List Spironolactone 100 mg PO BID 03/20/14 [History] Promethazine [Phenergan] 25 mg PO TID PRN 05/20/15 [History] Amitriptyline HCl [Elavil] 100 mg PO HS 09/22/18 [History] ALPRAZolam [Xanax] 0.5 mg PO DAILY PRN 11/14/18 [History] Ergocalciferol [Vitamin D2 (DRISDOL)] 50,000 unit PO TH 02/08/19 [History] Ibuprofen 600 mg PO Q4HR PRN 02/08/19 [History] Cannabidiol (Cbd) [Epidiolex] 0 mg PO DAILY 02/28/20 [History] Gabapentin [Neurontin] 200 mg PO HS 02/28/20 [History] L.acidoph,Paracasei, B.lactis [Probiotic] 1 each PO DAILY 02/28/20 [History] Topiramate [Topamax] 100 mg PO BID 02/28/20 [History] HYDROcodone/APAP 5-325MG [[place] 5-325] 1 tab PO Q4HR PRN #30 tab 03/07/20 [Rx] Ibuprofen [Motrin] 600 mg PO Q6HR PRN #30 tab 03/07/20 [Rx] Ibuprofen [Motrin] 600 mg PO Q6HR PRN #30 tab 03/07/20 [Rx] Follow up Appointment(s)/Referral(s): Merrill King DO [Doctor of Osteopathic Medicine] - 1 Week Activity/Diet/Wound Care/Special Instructions: home with KATHY stockings ambulate ad bakari - discussed with patient No heavy lifting, limit stairs and driving, and pelvic rest. If any high temperatures, heavy bleeding, or severe pain call my office. Discharge Disposition: HOME SELF-CARE
[2020-03-08 13:51] VITALS: BP 132/86; PULSE 80; RESP 17; TEMP 98.6
--- NOTE | 2020-03-08 22:36 | P.PN ---
Progress Note - Text Progress Note Date: 03/08/20 - Chief Complaint Pelvic surgery Consultation: This is a pleasant 39-year-old patient of Dr. Pawan Lyle. Chronic stable medical conditions include GERD, thyroid nodules, polycystic ovarian syndrome, thyroid nodules, MTHFR blood disorder. Patient began having heavy periods. Patient underwent today total abdominal hysterectomy and bilateral salpingo- oophorectomy. Today-feeling better. Had some leg cramps. Eating better. Nausea better. Pain better controlled. Ambulating. Review of systems: Was done for constitutional, cardiovascular, GI, pulmonary. relevant finding as above Current medications reviewed in today's electronic records Physical examination: VITAL SIGNS: 97.8, 76, 18, 114/74, 97% room air GENERAL: Sitting up, comfortable EYES: Pupils equal. Conjunctiva normal. HEENT: External appearance of nose and ears normal, oral cavity grossly normal. NECK: JVD not raised; masses not palpable. HEART: First and second heart sounds are normal; no edema. LUNGS: Respiratory rate normal; clear to auscultation. ABDOMEN: Soft, some suprapubic tenderness no guarding or rigidity, liver spleen not palpable, no masses palpable. PSYCH: Alert and oriented x3; mood and affect normal. INVESTIGATIONS, reviewed in the clinical context: Potassium 3.7 magnesium 1.8 Previous testing White count 10.7 hemoglobin 15 potassium 3.7 creatinine 0.75 Assessment: -Total abdominal hysterectomy with bilateral salpingo-oophorectomy -Morbid obesity BMI 40 -Thyroid nodules, the patient being euthyroid -M.THHFR blood disorder causing superficial phlebitis in the past -Anxiety not otherwise specified -Nausea vomiting likely effect of pain medications.-Improving Plan: -Care was discussed with the patient. Stable. Medically okay to DC.. Thank you Dr. King.
== END 2020-03-08 15:24 | disposition home or self-care (01) | DRG 742 ==
LOC: 2ORMAIN 05:48 → 6PED 09:48 → 5NMEDONC 03-06 23:39
PROVIDERS: ADMIT Obstetrics & Gynecology; ATTEND Obstetrics & Gynecology
PROC: 0UT90ZZ Resection of Uterus, Open Approach (ICD-10-PCS; principal; 2020-03-05 07:30)
PROC: 0UT70ZZ Resection of Bilateral Fallopian Tubes, Open Approach (ICD-10-PCS; principal; 2020-03-05 07:30)
PROC: 0UT20ZZ Resection of Bilateral Ovaries, Open Approach (ICD-10-PCS; principal; 2020-03-05 07:30)
DX: E28.2 Polycystic ovarian syndrome (principal); Z68.41 Body mass index [BMI] 40.0-44.9, adult; E72.12 Methylenetetrahydrofolate reductase deficiency; E66.01 Morbid (severe) obesity due to excess calories; E04.2 Nontoxic multinodular goiter; F41.9 Anxiety disorder, unspecified; G89.29 Other chronic pain; I10 Essential (primary) hypertension; K21.9 Gastro-esophageal reflux disease without esophagitis; L29.9 Pruritus, unspecified; T39.95XA Adverse effect of unspecified nonopioid analgesic, antipyretic and antirheumatic, initial encounter; N92.0 Excessive and frequent menstruation with regular cycle; Z79.899 Other long term (current) drug therapy; Z80.8 Family history of malignant neoplasm of other organs or systems; Z82.49 Family history of ischemic heart disease and other diseases of the circulatory system; Z86.72 Personal history of thrombophlebitis; Z87.442 Personal history of urinary calculi; Z87.891 Personal history of nicotine dependence; G43.909 Migraine, unspecified, not intractable, without status migrainosus; Z98.84 Bariatric surgery status; Z90.49 Acquired absence of other specified parts of digestive tract; Z88.5 Allergy status to narcotic agent; Z88.0 Allergy status to penicillin; Z91.040 Latex allergy status
CPT/HCPCS: 80051; 81001; 82565; 83735; 84100; 84520; 85025; 86850; 86900; 86901; 88307

== ENCOUNTER 2020-06-06 12:32 | Emergency (ER) | payer OTHER ==
[2020-06-06 12:37] VITALS: RESP 18; TEMP 98.4
[2020-06-06] MEDS ORDERED: diphenhydrAMINE 50 MG/ML 1 ML VIAL IVP STA (12:49)
[2020-06-06] MEDS ORDERED: HYDROmorphone 0.5 MG/0.5 ML SYRINGE IVP STA ×2 (12:49→13:45)
[2020-06-06] MEDS ORDERED: SODIUM CHLORIDE 0.9% 1,000 ML IV ONE (12:49)
[2020-06-06] MEDS ORDERED: METOCLOPRAMIDE 5 MG/ML 2 ML VIAL IVP STA (12:49)
--- NOTE | 2020-06-06 12:57 | ED ---
General Adult HPI - General Chief complaint: Eye Problems Stated complaint: head pain/vision problems Time Seen by Provider: 06/06/20 12:43 Source: patient, RN notes reviewed, old records reviewed Mode of arrival: ambulatory Limitations: no limitations - History of Present Illness Initial comments: 40-year-old female presenting for evaluation of headache. Patient has been worked up for temporal arteritis.she has previous history of occipital neuralgia and about one month ago had herpes zoster on the left side of her head. She has an appointment with rheumatology within the next one week for further evaluation. She had been started on 60 mg of prednisone daily for a left temporal headache and elevated ESR. She has not had a artery biopsy yet. She does report some mild blurry vision in her left eye as well.no fever. This headache is new over the past 5 days, not similar to her previous occipital neuralgia. No photophobia. No fever. - Related Data Home Medications Medication Instructions Recorded Confirmed Spironolactone 100 mg PO BID 03/20/14 06/06/20 Promethazine [Phenergan] 25 mg PO TID PRN 05/20/15 06/06/20 Amitriptyline HCl [Elavil] 100 mg PO HS 09/22/18 06/06/20 ALPRAZolam [Xanax] 0.5 mg PO DAILY PRN 11/14/18 06/06/20 Ergocalciferol [Vitamin D2 50,000 unit PO TH 02/08/19 06/06/20 (DRISDOL)] Gabapentin [Neurontin] 200 mg PO TID 02/28/20 06/06/20 Topiramate [Topamax] 100 mg PO BID 02/28/20 06/06/20 predniSONE [Deltasone] See Taper PO DAILY 06/06/20 06/06/20 valACYclovir HCL [Valtrex] 1,000 mg PO TID 06/06/20 06/06/20 Previous Rx's Medication Instructions Recorded Ibuprofen [Motrin] 600 mg PO Q6HR PRN #30 tab 03/07/20 Allergies Allergy/AdvReac Type Severity Reaction Status Date / Time amoxicillin [From Augmentin] Allergy Rash/Hives Verified 06/06/20 14:05 clavulanic acid Allergy Rash/Hives Verified 06/06/20 14:05 [From Augmentin] potassium clavulanate Allergy Rash/Hives Verified 06/06/20 14:05 [From Augmentin] Latex, Natural Rubber AdvReac Rash/Hives Verified 06/06/20 14:05 morphine AdvReac Nausea & Verified 06/06/20 14:05 Vomiting,abdominal pain Review of Systems ROS Statement: Those systems with pertinent positive or pertinent negative responses have been documented in the HPI. ROS Other: All systems not noted in ROS Statement are negative. Past Medical History Past Medical History: Blood Disorder, GERD/Reflux, Hypertension, Thyroid Disorder Additional Past Medical History / Comment(s): polycystic ovaries, mthfr clotting factor disorder, hx kidney stones, superficial blood clot x1, migraines, thyroid nodules, varicose veins, hx ileus, growth on rt ovary and heavy periods with pain, c-diff 2013 History of Any Multi-Drug Resistant Organisms: C-DIFF, MRSA Date of last positivie culture/infection: 2009 MDRO Source:: abdomen Past Surgical History: Appendectomy, Back Surgery, Bariatric Surgery, Bowel Resection, Breast Surgery, Cholecystectomy Additional Past Surgical History / Comment(s): gastric sleeve, vein stripping x4 pascale legs, laparoscopy, D & C x 5, lt breast biopsy, right hemicolectomy, EGD/COLONOSCOPY Past Anesthesia/Blood Transfusion Reactions: Motion Sickness, Postoperative Nausea & Vomiting (PONV) Additional Past Anesthesia/Blood Transfusion Reaction / Comment(s): migraines when waking up Past Psychological History: Anxiety Smoking Status: Former smoker Past Alcohol Use History: Occasional Past Drug Use History: None Reported - Past Family History Father Family Medical History: Hyperlipidemia, Hypertension Additional Family Medical History / Comment(s): low sodium Mother Family Medical History: Cancer Additional Family Medical History / Comment(s): thyroid ca, Sister(s) Family Medical History: Deep Vein Thrombosis (DVT), Pulmonary Embolus General Exam Limitations: no limitations General appearance: alert, in no apparent distress Head exam: Present: atraumatic, normocephalic, other (tenderness over the left yarsani) Eye exam: Present: normal appearance, PERRL, EOMI. Absent: periorbital swelling, periorbital tenderness ENT exam: Present: normal exam Neck exam: Present: normal inspection. Absent: tenderness, meningismus Respiratory exam: Present: normal lung sounds bilaterally. Absent: respiratory distress, wheezes Cardiovascular Exam: Present: regular rate, normal rhythm GI/Abdominal exam: Present: soft. Absent: distended, tenderness, guarding Extremities exam: Present: normal inspection, normal capillary refill. Absent: pedal edema Neurological exam: Present: alert, oriented X3. Absent: CN II-XII intact, motor sensory deficit Psychiatric exam: Present: normal affect, normal mood Skin exam: Present: warm, dry, intact. Absent: cyanosis, diaphoretic Course Vital Signs 06/06/20 06/06/20 12:34 14:23 Temperature 98.4 F Pulse Rate 79 74 Respiratory 18 18 Rate Blood Pressure 146/93 129/78 O2 Sat by Pulse 98 97 Oximetry - Reevaluation(s) Reevaluation #1: 06/06/20 15:07 patient feeling better, wants to go home and rest. Medical Decision Making - Medical Decision Making 40-year-old female with left-sided headache, she has tenderness to palpation over the left scalp. No trauma. No fever. She did report some blurriness in the left eye. This resolved without specific treatment. Head CT performed which is negative for intracranial hemorrhage. She has mild leukocytosis however she is currently on oral steroids. Patient states she did have outpatient workup for temporal arteritis and is scheduled to see rheumatology. ESR and sed rate are normal. She is feeling better and does have good outpatient follow-up. She's given strict return parameters and will be discharged home at this time. - Lab Data Result diagrams: 06/06/20 13:45 06/06/20 12:50 Lab Results 06/06/20 06/06/20 Range/Units 12:50 13:45 WBC 13.6 H (3.8-10.6) k/uL RBC 4.26 (3.80-5.40) m/uL Hgb 14.4 (11.4-16.0) gm/dL Hct 43.8 (34.0-46.0) % MCV 102.9 H (80.0-100.0) fL MCH 33.9 (25.0-35.0) pg MCHC 32.9 (31.0-37.0) g/dL RDW 13.6 (11.5-15.5) % Plt Count 369 (150-450) k/uL Neutrophils % 89 % Lymphocytes % 8 % Monocytes % 2 % Eosinophils % 0 % Basophils % 1 % Neutrophils # 12.1 H (1.3-7.7) k/uL Lymphocytes # 1.1 (1.0-4.8) k/uL Monocytes # 0.2 (0-1.0) k/uL Eosinophils # 0.0 (0-0.7) k/uL Basophils # 0.1 (0-0.2) k/uL Macrocytosis Slight ESR 17 (0-20) mm/hr Sodium 137 (137-145) mmol/L Potassium 4.2 (3.5-5.1) mmol/L Chloride 109 H (98-107) mmol/L Carbon Dioxide 18 L (22-30) mmol/L Anion Gap 10 mmol/L BUN 13 (7-17) mg/dL Creatinine 1.00 (0.52-1.04) mg/dL Est GFR (CKD-EPI)AfAm 81 (>60 ml/min/1.73 sqM) Est GFR (CKD-EPI)NonAf 71 (>60 ml/min/1.73 sqM) Glucose 127 H (74-99) mg/dL Calcium 9.3 (8.4-10.2) mg/dL Magnesium 2.2 (1.6-2.3) mg/dL C-Reactive Protein <5.0 (<10.0) mg/L Disposition Clinical Impression: Headache Disposition: HOME SELF-CARE Condition: Fair Instructions (If sedation given, give patient instructions): Acute Headache (ED) Additional Instructions: Please return with worsening or changing symptoms, please maintain her appointment with rheumatology. Is patient prescribed a controlled substance at d/c from ED?: No Referrals: Pawan Lyle MD [Primary Care Provider] - 1-2 days Time of Disposition: 15:08
[2020-06-06 13:28] LABS: African American GFR (CKD) 81 (>60 ml/min/1.73 sqM); Anion Gap 10 mmol/L; Blood Urea Nitrogen 13 mg/dL (7-17); C Reactive Protein <5.0 mg/L (<10.0); Calcium 9.3 mg/dL (8.4-10.2); Carbon Dioxide 18 mmol/L (22-30); Chloride 109 mmol/L (98-107); Glucose 127 mg/dL (74-99); Magnesium 2.2 mg/dL (1.6-2.3); Non-African American GFR(CKD) 71 (>60 ml/min/1.73 sqM); Potassium 4.2 mmol/L (3.5-5.1); Sodium 137 mmol/L (137-145)
[2020-06-06] MEDS ORDERED: KETOROLAC 15 MG/ML 1 ML VIAL IVP STA (13:45)
--- NOTE | 2020-06-06 13:52 | CT ---
EXAMINATION TYPE: CT brain wo con DATE OF EXAM: 06/06/2020 COMPARISON: CT brain December 17, 2018. HISTORY: Head pain, partial vision loss left eye. CT DLP: 1098.4 mGycm. Automated Exposure Control for Dose Reduction was Utilized. TECHNIQUE: CT scan of the head is performed without contrast. FINDINGS: There is no acute intracranial hemorrhage, mass effect, or midline shift identified. The ventricles and sulci are within normal limits in size. Farah-white matter differentiation is preserve d. The The globes are intact and the visualized sinuses are clear. IMPRESSION: No acute intracranial hemorrhage or midline shift is seen.
[2020-06-06 13:55] LABS: Basophils # (A) 0.1 k/uL (0-0.2); Basophils % (A) 1 %; Eosinophils % (A) 0 %; HCT 43.8 % (34.0-46.0); HGB 14.4 gm/dL (11.4-16.0); Lymphocytes # (A) 1.1 k/uL (1.0-4.8); Lymphocytes % (A) 8 %; MCH 33.9 pg (25.0-35.0); MCHC 32.9 g/dL (31.0-37.0); MCV 102.9 fL (80.0-100.0); Macrocytosis Slight; Mean Platelet Volume 6.7; Monocytes # (A) 0.2 k/uL (0-1.0); Monocytes % (A) 2 %; Neutrophils # (A) 12.1 k/uL (1.3-7.7); Neutrophils % (A) 89 %; Platelet Count 369 k/uL (150-450); RBC 4.26 m/uL (3.80-5.40); RDW 13.6 % (11.5-15.5); WBC 13.6 k/uL (3.8-10.6)
[2020-06-06 14:24] VITALS: BP 129/78; PULSE 74
[2020-06-06 14:58] LABS: Erythrocyte Sedimentation Rate 17 mm/hr (0-20)
== END 2020-06-06 15:12 | disposition home or self-care (01) ==
LOC: EC 12:32
DX: R51.9 Headache, unspecified (principal); I10 Essential (primary) hypertension; D72.829 Elevated white blood cell count, unspecified; M31.6 Other giant cell arteritis; F41.9 Anxiety disorder, unspecified; Z79.899 Other long term (current) drug therapy; Z79.51 Long term (current) use of inhaled steroids; Z88.0 Allergy status to penicillin; Z88.5 Allergy status to narcotic agent; Z91.040 Latex allergy status; Z88.1 Allergy status to other antibiotic agents; Z87.891 Personal history of nicotine dependence
CPT/HCPCS: 36415; 80048; 85652; 83735; 85025; 86140; 70450; 99285; 96365; 96375 ×4; 96376; 96361; J1200; J2765; J2930; J1885; J1170; 96374

== ENCOUNTER 2020-09-08 18:58 | Emergency (ER) | payer OTHER ==
[2020-09-08 19:04] VITALS: BP 192/104; PULSE 88; RESP 18; TEMP 98.8
[2020-09-08] MEDS ORDERED: ACET/COD 300 MG/30 MG STARTER PACK 6 TAB BTL PO STA (19:26)
[2020-09-08] MEDS ORDERED: HYDROmorphone 1 MG/ML 1 ML SYRINGE IM STA (19:26)
--- NOTE | 2020-09-08 19:27 | ED ---
General Adult HPI - General Chief complaint: Recheck/Abnormal Lab/Rx Stated complaint: facial pain Time Seen by Provider: 09/08/20 19:06 Source: patient, RN notes reviewed Mode of arrival: ambulatory Limitations: no limitations - History of Present Illness Initial comments: 40-year-old female presents emergency from with chief complaint of left-sided fa cial pain. Patient has postherpetic trTrigeminal neuralgiaa. Patient is on gabapentin and oxycarbazpime patient states that she sees neurologists are [place]. Patient states that she will contact him tomorrow. Patient states that she occasionally has breakthrough pain and needs something for pain. She has no headache no blurred vision no focal weakness states is her typical pain. This is not out of the usual for the patient. Patient denies fevers chills no trauma. No chest pain. - Related Data Home Medications Medication Instructions Recorded Confirmed Spironolactone 100 mg PO BID 03/20/14 06/06/20 Promethazine [Phenergan] 25 mg PO TID PRN 05/20/15 06/06/20 Amitriptyline HCl [Elavil] 100 mg PO HS 09/22/18 06/06/20 ALPRAZolam [Xanax] 0.5 mg PO DAILY PRN 11/14/18 06/06/20 Ergocalciferol [Vitamin D2 50,000 unit PO TH 02/08/19 06/06/20 (DRISDOL)] Gabapentin [Neurontin] 200 mg PO TID 02/28/20 06/06/20 Topiramate [Topamax] 100 mg PO BID 02/28/20 06/06/20 predniSONE [Deltasone] See Taper PO DAILY 06/06/20 06/06/20 valACYclovir HCL [Valtrex] 1,000 mg PO TID 06/06/20 06/06/20 Previous Rx's Medication Instructions Recorded Ibuprofen [Motrin] 600 mg PO Q6HR PRN #30 tab 03/07/20 HYDROcodone/APAP 5-325MG [[place] 1 tab PO Q6HR PRN #12 tab 06/06/20 5-325] Allergies Allergy/AdvReac Type Severity Reaction Status Date / Time amoxicillin [From Augmentin] Allergy Rash/Hives Verified 09/08/20 19:03 clavulanic acid Allergy Rash/Hives Verified 09/08/20 19:03 [From Augmentin] potassium clavulanate Allergy Rash/Hives Verified 09/08/20 19:03 [From Augmentin] Latex, Natural Rubber AdvReac Rash/Hives Verified 09/08/20 19:03 morphine AdvReac Nausea & Verified 09/08/20 19:03 Vomiting,abdominal pain Review of Systems ROS Statement: Those systems with pertinent positive or pertinent negative responses have been documented in the HPI. ROS Other: All systems not noted in ROS Statement are negative. Past Medical History Past Medical History: Blood Disorder, GERD/Reflux, Hypertension, Thyroid Disorder Additional Past Medical History / Comment(s): polycystic ovaries, mthfr clottin g factor disorder, hx kidney stones, superficial blood clot x1, migraines, thyroid nodules, varicose veins, hx ileus, growth on rt ovary and heavy periods with pain, c-diff 2013, trigemenil neuralgia History of Any Multi-Drug Resistant Organisms: C-DIFF, MRSA Date of last positivie culture/infection: 2009 MDRO Source:: abdomen Past Surgical History: Appendectomy, Back Surgery, Bariatric Surgery, Bowel Resection, Breast Surgery, Cholecystectomy Additional Past Surgical History / Comment(s): gastric sleeve, vein stripping x4 pascale legs, laparoscopy, D & C x 5, lt breast biopsy, right hemicolectomy, EGD/COLONOSCOPY Past Anesthesia/Blood Transfusion Reactions: Motion Sickness, Postoperative Nausea & Vomiting (PONV) Additional Past Anesthesia/Blood Transfusion Reaction / Comment(s): migraines when waking up Past Psychological History: Anxiety Smoking Status: Former smoker Past Alcohol Use History: Occasional Past Drug Use History: None Reported - Past Family History Father Family Medical History: Hyperlipidemia, Hypertension Additional Family Medical History / Comment(s): low sodium Mother Family Medical History: Cancer Additional Family Medical History / Comment(s): thyroid ca, Sister(s) Family Medical History: Deep Vein Thrombosis (DVT), Pulmonary Embolus General Exam Limitations: no limitations General appearance: alert, in no apparent distress Head exam: Present: atraumatic, normocephalic, normal inspection Eye exam: Present: normal appearance, PERRL, EOMI. Absent: scleral icterus, conjunctival injection, periorbital swelling ENT exam: Present: normal exam, normal oropharynx, mucous membranes moist Neck exam: Present: normal inspection, full ROM. Absent: tenderness, meningismus, lymphadenopathy Respiratory exam: Present: normal lung sounds bilaterally. Absent: respiratory distress, wheezes, rales, rhonchi, stridor Cardiovascular Exam: Present: regular rate, normal rhythm, normal heart sounds. Absent: systolic murmur, diastolic murmur, rubs, gallop, clicks Extremities exam: Present: normal inspection, full ROM, normal capillary refill. Absent: tenderness, pedal edema, joint swelling, calf tenderness Neurological exam: Present: alert, oriented X3, CN II-XII intact, reflexes normal. Absent: motor sensory deficit Skin exam: Present: warm, dry, intact, normal color. Absent: rash Course Vital Signs 09/08/20 19:00 Temperature 98.8 F Pulse Rate 88 Respiratory 18 Rate Blood Pressure 192/104 O2 Sat by Pulse 100 Oximetry Medical Decision Making - Medical Decision Making Patient has a history of trigeminal neuralgia her pain is gConsistent with her condition. Patient is having exacerbation of pain. Patient provided pain relief as patient requests patient is neurologically intact. Patient has no other sign symptoms no evidence of CVA. Patient we discharged in stable condition and she agrees to follow-up with her neurology for similar morning and return for any worsening change in symptoms. Disposition Clinical Impression: Trigeminal neuralgia of left side of face Disposition: HOME SELF-CARE Condition: Stable Instructions (If sedation given, give patient instructions): Trigeminal Neuralgia (ED) Additional Instructions: Please follow up with Your neurologist tomorrow.Please return to the Emergency Department if symptoms worsen or any other concerns. Is patient prescribed a controlled substance at d/c from ED?: No Referrals: Pawan Lyle MD [Primary Care Provider] - 1-2 days Time of Disposition: 19:27
== END 2020-09-08 20:08 | disposition home or self-care (01) ==
LOC: EC 18:58
DX: G50.0 Trigeminal neuralgia (principal); I10 Essential (primary) hypertension; F41.9 Anxiety disorder, unspecified; Z79.899 Other long term (current) drug therapy; Z88.0 Allergy status to penicillin; Z88.1 Allergy status to other antibiotic agents; Z88.8 Allergy status to other drugs, medicaments and biological substances; Z91.040 Latex allergy status; Z91.048 Other nonmedicinal substance allergy status; Z88.5 Allergy status to narcotic agent; Z87.891 Personal history of nicotine dependence; Z98.84 Bariatric surgery status
CPT/HCPCS: 99283; 96372; J1170

== ENCOUNTER 2020-10-26 03:37 | Emergency (ER) | payer OTHER ==
--- NOTE | 2020-10-26 04:46 | ED ---
Extremity Problem HPI - General Chief complaint: Extremity Problem,Nontraumatic Stated complaint: Dental pain Time Seen by Provider: 10/26/20 03:39 Source: patient, family, RN notes reviewed, old records reviewed Mode of arrival: ambulatory Limitations: no limitations - History of Present Illness Initial comments: This is a 40-year-old female DF for evaluation she presents today for evaluation of left upper extremity edema and swelling. Patient has history of neck surgery brain surgery. Complex recent history of dental infection on antibiotics. Sophia cerrato has had multiple IVs in that left upper extremity secondary to recent hospital admission but at this point is been discharged for 3 weeks. She has had both the right and left upper extremity (the past she had ultrasounds of both which were negative for blood clots which was concern for at the time. She denies any shortness of breath does admit to anxiety MD Complaint: extremity pain, extremity swelling, other (Left upper extremity pain swelling and tingling) Location: left, upper extremity -: Yes myalgia Radiation: proximal Severity scale (1-10): 6 Quality: aching Consistency: constant Improves with: nothing Worsens with: nothing Associated Symptoms: denies other symptoms - Related Data Home Medications Medication Instructions Recorded Confirmed Spironolactone 100 mg PO BID 03/20/14 06/06/20 Promethazine [Phenergan] 25 mg PO TID PRN 05/20/15 06/06/20 Amitriptyline HCl [Elavil] 100 mg PO HS 09/22/18 06/06/20 ALPRAZolam [Xanax] 0.5 mg PO DAILY PRN 11/14/18 06/06/20 Ergocalciferol [Vitamin D2 50,000 unit PO TH 02/08/19 06/06/20 (DRISDOL)] Gabapentin [Neurontin] 200 mg PO TID 02/28/20 06/06/20 Topiramate [Topamax] 100 mg PO BID 02/28/20 06/06/20 predniSONE [Deltasone] See Taper PO DAILY 06/06/20 06/06/20 valACYclovir HCL [Valtrex] 1,000 mg PO TID 06/06/20 06/06/20 Previous Rx's Medication Instructions Recorded Ibuprofen [Motrin] 600 mg PO Q6HR PRN #30 tab 03/07/20 HYDROcodone/APAP 5-325MG [[place] 1 tab PO Q6HR PRN #12 tab 06/06/20 5-325] Allergies Allergy/AdvReac Type Severity Reaction Status Date / Time amoxicillin [From Augmentin] Allergy Rash/Hives Verified 10/26/20 03:44 clavulanic acid Allergy Rash/Hives Verified 10/26/20 03:44 [From Augmentin] potassium clavulanate Allergy Rash/Hives Verified 10/26/20 03:44 [From Augmentin] Latex, Natural Rubber AdvReac Rash/Hives Verified 10/26/20 03:44 morphine AdvReac Nausea & Verified 10/26/20 03:44 Vomiting,abdominal pain Review of Systems ROS Statement: Those systems with pertinent positive or pertinent negative responses have been documented in the HPI. ROS Other: All systems not noted in ROS Statement are negative. Past Medical History Past Medical History: Blood Disorder, GERD/Reflux, Hypertension, Thyroid Disorder Additional Past Medical History / Comment(s): polycystic ovaries, mthfr clotting factor disorder, hx kidney stones, superficial blood clot x1, migraines, thyroid nodules, varicose veins, hx ileus, growth on rt ovary and heavy periods with pain, c-diff 2013, trigemenil neuralgia, microvascular decompression, History of Any Multi-Drug Resistant Organisms: C-DIFF, MRSA Date of last positivie culture/infection: 2009 MDRO Source:: abdomen Past Surgical History: Appendectomy, Back Surgery, Bariatric Surgery, Bowel Resection, Breast Surgery, Cholecystectomy Additional Past Surgical History / Comment(s): gastric sleeve, vein stripping x4 pascale legs, laparoscopy, D & C x 5, lt breast biopsy, right hemicolectomy, EGD/ COLONOSCOPY, craineotomy Past Anesthesia/Blood Transfusion Reactions: Motion Sickness, Postoperative Nausea & Vomiting (PONV) Additional Past Anesthesia/Blood Transfusion Reaction / Comment(s): migraines when waking up Past Psychological History: Anxiety Smoking Status: Former smoker Past Alcohol Use History: Rare Past Drug Use History: None Reported - Past Family History Father Family Medical History: Hyperlipidemia, Hypertension Additional Family Medical History / Comment(s): low sodium Mother Family Medical History: Cancer Additional Family Medical History / Comment(s): thyroid ca, Sister(s) Family Medical History: Deep Vein Thrombosis (DVT), Pulmonary Embolus General Exam Limitations: no limitations General appearance: alert, in no apparent distress Head exam: Present: atraumatic, normocephalic, normal inspection Eye exam: Present: normal appearance, PERRL, EOMI. Absent: scleral icterus, conjunctival injection, periorbital swelling ENT exam: Present: normal exam, mucous membranes moist Neck exam: Present: normal inspection. Absent: tenderness, meningismus, lymphadenopathy Respiratory exam: Present: normal lung sounds bilaterally. Absent: respiratory distress, wheezes, rales, rhonchi, stridor Cardiovascular Exam: Present: regular rate, normal rhythm, normal heart sounds. Absent: systolic murmur, diastolic murmur, rubs, gallop, clicks GI/Abdominal exam: Present: soft, normal bowel sounds. Absent: distended, tend erness, guarding, rebound, rigid Extremities exam: Present: normal inspection, full ROM, normal capillary refill, other (Left upper extremity swelling, swelling the forearm down into the hand, patient does have good radial ulnar pulses). Absent: tenderness, pedal edema, joint swelling, calf tenderness Back exam: Present: normal inspection Neurological exam: Present: alert, oriented X3, CN II-XII intact Psychiatric exam: Present: normal affect, normal mood Skin exam: Present: warm, dry, intact, normal color. Absent: rash Course Vital Signs 10/26/20 03:44 Temperature 98.1 F Pulse Rate 81 Respiratory 16 Rate Blood Pressure 141/87 O2 Sat by Pulse 99 Oximetry - Reevaluation(s) Reevaluation #1: 10/26/20 06:16 Medical records reviewed Reevaluation #2: 10/26/20 06:16 Patient informed of negative ultrasound for DVT left upper extremity Medical Decision Making - Lab Data Result diagrams: 10/26/20 06:02 10/26/20 06:02 Lab Results 10/26/20 10/26/20 10/26/20 Range/Units 06:02 06:02 06:02 WBC 10.1 (3.8-10.6) k/uL RBC 4.09 (3.80-5.40) m/uL Hgb 13.3 (11.4-16.0) gm/dL Hct 39.4 (34.0-46.0) % MCV 96.2 (80.0-100.0) fL MCH 32.4 (25.0-35.0) pg MCHC 33.7 (31.0-37.0) g/dL RDW 14.3 (11.5-15.5) % Plt Count 428 (150-450) k/uL MPV 6.4 Neutrophils % 76 % Lymphocytes % 16 % Monocytes % 5 % Eosinophils % 3 % Basophils % 0 % Neutrophils # 7.6 (1.3-7.7) k/uL Lymphocytes # 1.6 (1.0-4.8) k/uL Monocytes # 0.5 (0-1.0) k/uL Eosinophils # 0.3 (0-0.7) k/uL Basophils # 0.0 (0-0.2) k/uL D-Dimer 0.53 (<0.60) mg/L FEU Sodium 134 L (137-145) mmol/L Potassium 3.8 (3.5-5.1) mmol/L Chloride 101 (98-107) mmol/L Carbon Dioxide 23 (22-30) mmol/L Anion Gap 10 mmol/L BUN 6 L (7-17) mg/dL Creatinine 0.74 (0.52-1.04) mg/dL Est GFR (CKD-EPI)AfAm >90 (>60 ml/min/1.73 sqM) Est GFR (CKD-EPI)NonAf >90 (>60 ml/min/1.73 sqM) Glucose 103 H (74-99) mg/dL Calcium 9.3 (8.4-10.2) mg/dL Phosphorus 3.9 (2.5-4.5) mg/dL Magnesium 2.0 (1.6-2.3) mg/dL Total Bilirubin 0.4 (0.2-1.3) mg/dL AST 21 (14-36) U/L ALT 19 (4-34) U/L Alkaline Phosphatase 83 (38-126) U/L Creatine Kinase 31 (30-135) U/L NT-Pro-B Natriuret Pep pg/mL Total Protein 7.3 (6.3-8.2) g/dL Albumin 4.1 (3.5-5.0) g/dL 10/26/20 Range/Units 06:02 WBC (3.8-10.6) k/uL RBC (3.80-5.40) m/uL Hgb (11.4-16.0) gm/dL Hct (34.0-46.0) % MCV (80.0-100.0) fL MCH (25.0-35.0) pg MCHC (31.0-37.0) g/dL RDW (11.5-15.5) % Plt Count (150-450) k/uL MPV Neutrophils % % Lymphocytes % % Monocytes % % Eosinophils % % Basophils % % Neutrophils # (1.3-7.7) k/uL Lymphocytes # (1.0-4.8) k/uL Monocytes # (0-1.0) k/uL Eosinophils # (0-0.7) k/uL Basophils # (0-0.2) k/uL D-Dimer (<0.60) mg/L FEU Sodium (137-145) mmol/L Potassium (3.5-5.1) mmol/L Chloride (98-107) mmol/L Carbon Dioxide (22-30) mmol/L Anion Gap mmol/L BUN (7-17) mg/dL Creatinine (0.52-1.04) mg/dL Est GFR (CKD-EPI)AfAm (>60 ml/min/1.73 sqM) Est GFR (CKD-EPI)NonAf (>60 ml/min/1.73 sqM) Glucose (74-99) mg/dL Calcium (8.4-10.2) mg/dL Phosphorus (2.5-4.5) mg/dL Magnesium (1.6-2.3) mg/dL Total Bilirubin (0.2-1.3) mg/dL AST (14-36) U/L ALT (4-34) U/L Alkaline Phosphatase (38-126) U/L Creatine Kinase (30-135) U/L NT-Pro-B Natriuret Pep 49 pg/mL Total Protein (6.3-8.2) g/dL Albumin (3.5-5.0) g/dL - EKG Data -: EKG Interpreted by Me (EKG is sinus rhythm 75, TN 170 QRS 92 QTC 426) - Radiology Data Radiology results: report reviewed (ultrasound left upper extremity negative for DVT), image reviewed Disposition Clinical Impression: Edema of left upper extremity Disposition: HOME SELF-CARE Condition: Good Instructions (If sedation given, give patient instructions): Edema (ED) Is patient prescribed a controlled substance at d/c from ED?: No Referrals: Pawan Lyle MD [Primary Care Provider] - 1-2 days
[2020-10-26] MEDS ORDERED: HYDROcodone/APAP 5-325MG 1 EACH TAB PO STA (04:59)
[2020-10-26] MEDS ORDERED: SODIUM CHLORIDE 0.9% 1,000 ML IV STA (05:39)
--- NOTE | 2020-10-26 06:07 | US ---
EXAM: US Duplex Left Upper Extremity Veins CLINICAL HISTORY: ITS.REASON US Reason: pain TECHNIQUE: Real-time duplex ultrasound scan of the left upper extremity veins integrating B-mode two-dimensional vascular structure, Doppler spectral analysis, color flow Doppler imaging and compression. COMPARISON: No relevant prior studies available. FINDINGS: Deep veins: Unremarkable. No DVT in the internal jugular, subclavian, axillary, or brachial veins. The veins demonstrate normal color flow, are normally compressible, with normal phasic flow and/or augmentation response. Superficial veins: Unremarkable. No thrombus in the visualized basilic and cephalic veins. Soft tissues: No acute findings. IMPRESSION: Normal left upper extremity duplex venous ultrasound.
[2020-10-26 06:19] LABS: Basophils % (A) 0 %; Eosinophils # (A) 0.3 k/uL (0-0.7); Eosinophils % (A) 3 %; HCT 39.4 % (34.0-46.0); HGB 13.3 gm/dL (11.4-16.0); Lymphocytes # (A) 1.6 k/uL (1.0-4.8); Lymphocytes % (A) 16 %; MCH 32.4 pg (25.0-35.0); MCHC 33.7 g/dL (31.0-37.0); MCV 96.2 fL (80.0-100.0); Mean Platelet Volume 6.4; Monocytes # (A) 0.5 k/uL (0-1.0); Monocytes % (A) 5 %; Neutrophils # (A) 7.6 k/uL (1.3-7.7); Neutrophils % (A) 76 %; Platelet Count 428 k/uL (150-450); RBC 4.09 m/uL (3.80-5.40); RDW 14.3 % (11.5-15.5); WBC 10.1 k/uL (3.8-10.6)
[2020-10-26 06:43] LABS: ALT 19 U/L (4-34); AST 21 U/L (14-36); African American GFR (CKD) >90 (>60 ml/min/1.73 sqM); Albumin 4.1 g/dL (3.5-5.0); Alkaline Phosphatase 83 U/L (38-126); Anion Gap 10 mmol/L; Blood Urea Nitrogen 6 mg/dL (7-17); Calcium 9.3 mg/dL (8.4-10.2); Carbon Dioxide 23 mmol/L (22-30); Chloride 101 mmol/L (98-107); Creatine Kinase 31 U/L (30-135); Glucose 103 mg/dL (74-99); Non-African American GFR(CKD) >90 (>60 ml/min/1.73 sqM); Phosphorus 3.9 mg/dL (2.5-4.5); Potassium 3.8 mmol/L (3.5-5.1); Sodium 134 mmol/L (137-145); Total Bilirubin 0.4 mg/dL (0.2-1.3); Total Protein 7.3 g/dL (6.3-8.2)
--- NOTE | 2020-10-26 07:14 | CT ---
EXAMINATION TYPE: CT angio chest DATE OF EXAM: 10/26/2020 COMPARISON: 12/17/2018 HISTORY: Left arm and hand swelling CT DLP: 847.2 mGycm CONTRAST: CT chest with contrast and 3D reconstruction with MIP imaging is performed with IV Contrast, patient injected with 100 mL of Isovue 370. Contrast-enhanced CT of the chest was performed through the course of the pulmonary arteries with shefali g and mediastinal window settings submitted. 3D reconstruction with MIP imaging was also performed. PULMONARY ARTERIES: The pulmonary arteries and their major tributaries are patent. I do not see karolyn dence for sizable filling defect to suggest pulmonary embolic process. LUNGS: The lungs are clear and free of infiltrate. No evidence for atelectasis. No pulmonary nodule or mass is detected. No pleural effusion. MEDIASTINUM: Thoracic aorta is of normal caliber,however, evaluation is limited given timing of the contrast bolus. If there is concern for thoracic aortic pathology consider CHRISTIANO. Correlate clinicall y . The heart is not enlarged. No evidence for mediastinal mass. No mediastinal lymph nodes greater than 1cm. HILAR STRUCTURES: No evidence for mass. No hilar lymph nodes greater than 1 cm. UPPER ABDOMEN: No significant abnormality is seen. IMPRESSION: 1. No evidence for Pulmonary embolism at this time.
[2020-10-26 07:30] VITALS: BP 124/76; PULSE 73; RESP 18; TEMP 98.3
== END 2020-10-26 07:25 | disposition home or self-care (01) ==
LOC: EC 03:37
DX: R60.0 Localized edema (principal); F41.9 Anxiety disorder, unspecified; K21.9 Gastro-esophageal reflux disease without esophagitis; I10 Essential (primary) hypertension; Z79.899 Other long term (current) drug therapy; Z86.69 Personal history of other diseases of the nervous system and sense organs; Z86.14 Personal history of Methicillin resistant Staphylococcus aureus infection; Z87.891 Personal history of nicotine dependence; Z90.49 Acquired absence of other specified parts of digestive tract; Z88.0 Allergy status to penicillin; Z88.1 Allergy status to other antibiotic agents; Z88.5 Allergy status to narcotic agent; Z91.040 Latex allergy status
CPT/HCPCS: 36415; 93005; 85379; 83880; 80053; 82550; 83735; 84100; 85025; 93971; 71275; 99284; 96360; Q9967; 96374

== ENCOUNTER → 2020-12-07 | Outpatient (CLI) | payer OTHER ==
--- NOTE | 2020-12-07 18:02 | CT ---
EXAMINATION TYPE: CT brain wo con DATE OF EXAM: 12/07/2020 COMPARISON: 06/06/2020. HISTORY: Syncope. Recent surgery for microvascular decompression done on 10/02/20. CT DLP: 1174 mGycm. Automated Exposure Control for Dose Reduction was Utilized. TECHNIQUE: CT scan of the head is performed without contrast. FINDINGS: There is no acute intracranial hemorrhage, mass effect, or midline shift identified. The ventricles and sulci are within normal limits in size. The globes are intact and the visualized sin uses are clear. Left occipital craniotomy seen. No acute osseous abnormality. IMPRESSION: No acute intracranial hemorrhage, mass effect, or midline shift is seen.
== END | disposition home or self-care (01) ==
LOC: RADCTMAIN 16:37
PROVIDERS: ATTEND Nurse Practitioner Adult Health
DX: R55 Syncope and collapse (principal)
CPT/HCPCS: 36415; 70450

== ENCOUNTER → 2020-12-09 | Outpatient (CLI) | payer OTHER ==
--- NOTE | 2020-12-09 17:39 | CT ---
EXAM: CT Abdomen and Pelvis Without Intravenous Contrast CLINICAL HISTORY: Abdominal pain TECHNIQUE: Axial computed tomography images of the abdomen and pelvis without intravenous contrast. Sagittal and coronal reformatted images were created and reviewed. CTDI is 11.06 mGy and DLP is 1303.90 mGy-cm. This CT exam was performed using one or more of the following dose reduction techniques: automated exposure control, adjustment of the mA and/or kV according to patient size, and/or use of iterative reconstruction technique. COMPARISON: CT abdomen pelvis dated 11/09/18 FINDINGS: Lung bases: Unremarkable. No consolidation. No effusions. ABDOMEN: Liver: Unremarkable. Gallbladder and bile ducts: Status post cholecystectomy. No ductal dilation. Pancreas: Unremarkable. No ductal dilation. Spleen: Unremarkable. No splenomegaly. Adrenals: Unremarkable. No mass. Kidneys and ureters: Unremarkable. No obstructing stones. No hydronephrosis. Stomach and bowel: Post surgical changes in the stomach, possibly gastric surgery. Status post partial right colectomy and ileocolic anastomosis. Sigmoid colonic diverticulosis without evidence of acute inflammation. No obstruction. PELVIS: Appendix: See above. Bladder: Unremarkable. No stones. Reproductive: Status post hysterectomy and right oophorectomy. No significant change in the hypodense cystic lesions in the left ovary, largest measuring 3.8 x 3.1 x 2.4 cm. ABDOMEN and PELVIS: Intraperitoneal space: Unremarkable. No free air. No significant fluid collection. Bones/joints: No acute fracture. No dislocation. Soft tissues: Unremarkable. Vasculature: Unremarkable. No abdominal aortic aneurysm. Lymph nodes: Unremarkable. No enlarged lymph nodes. IMPRESSION: 1. No acute findings. 2. Sigmoid colonic diverticulosis without evidence of acute inflammation. 3. Status post hysterectomy and right oophorectomy. No significant change in the hypodense cystic lesions in the left ovary, largest measuring 3.8 x 3.1 x 2.4 cm. 4. Postsurgical changes including partial right colectomy with ileocolic anastomosis, cholecystectomy, gastric sleeve surgery.
== END | disposition home or self-care (01) ==
LOC: RADCTMAIN 16:11
PROVIDERS: ATTEND Nurse Practitioner Adult Health
DX: K57.30 Diverticulosis of large intestine without perforation or abscess without bleeding (principal); N83.202 Unspecified ovarian cyst, left side; Z90.49 Acquired absence of other specified parts of digestive tract; Z90.710 Acquired absence of both cervix and uterus; Z90.721 Acquired absence of ovaries, unilateral
CPT/HCPCS: 74176

== ENCOUNTER → 2021-01-19 | Outpatient (CLI) | payer OTHER ==
--- NOTE | 2021-01-21 08:29 | MM ---
Reason for exam: screening (asymptomatic). Last mammogram was performed 2 years and 10 months ago. History: Patient is nulliparous. Family history of premenopausal breast cancer in paternal grandmother at age 46. Excisional biopsy of the left breast, May 2012. Took progesterone for 3 years beginning at age 26. Physical Findings: A clinical breast exam by your physician is recommended on an annual basis and results should be correlated with mammographic findings. MG Screening Mammo w CAD Bilateral CC and MLO view(s) were taken. Prior study comparison: March 21, 2018, bilateral MG 3d screening mammo w/cad. April 09, 2014, left breast MG work up mamm w CAD LT. There are scattered fibroglandular densities. Finding: There are typically benign dystrophic calcifications in the left breast. There is no discrete abnormality. ASSESSMENT: Benign, BI-RAD 2 RECOMMENDATION: Routine screening mammogram of both breasts in 1 year.
== END | disposition home or self-care (01) ==
LOC: RADMAMWWP 14:01
PROVIDERS: ATTEND Family Medicine
DX: Z12.31 Encounter for screening mammogram for malignant neoplasm of breast (principal); Z80.3 Family history of malignant neoplasm of breast
CPT/HCPCS: 77067

== ENCOUNTER → 2021-03-31 | Outpatient (CLI) | payer OTHER ==
--- NOTE | 2021-03-31 16:11 | XR ---
Skull. HISTORY: M 89.9 2 views of the skull, correlation CT brain 12/07/2020 Metallic mesh is seen over the posterior occipital region. No other radiopaque foreign body. Bone min eralization is maintained. IMPRESSION: Postop changes. Metallic flap noted over the posterior left cranium.
== END | disposition home or self-care (01) ==
LOC: RADXRMAIN 13:08
PROVIDERS: ATTEND Psychiatry & Neurology Neurology
DX: M89.9 Disorder of bone, unspecified (principal); Z96.7 Presence of other bone and tendon implants
CPT/HCPCS: 70250

== ENCOUNTER 2021-04-14 18:49 | Emergency (ER) | payer OTHER ==
[2021-04-14 19:11] VITALS: RESP 18
[2021-04-14] MEDS ORDERED: PHENYTOIN SODIUM IVPB STA (19:25)
[2021-04-14] MEDS ORDERED: SODIUM CHLORIDE 0.9% IVPB STA (19:25)
[2021-04-14] MEDS ORDERED: DIAZEPAM 5 MG/ML 2 ML INJ IVP STA (19:26)
[2021-04-14] MEDS ORDERED: KETOROLAC 15 MG/ML 1 ML VIAL IVP STA (19:26)
--- NOTE | 2021-04-14 19:51 | ED ---
General Adult HPI - General Chief complaint: Recheck/Abnormal Lab/Rx Stated complaint: InQuicker/Trigeminal Neuralgia Pain Time Seen by Provider: 04/14/21 19:19 Source: patient, RN notes reviewed Mode of arrival: ambulatory Limitations: no limitations - History of Present Illness Initial comments: Is a 41-year-old female presents emergency Department with chief complaint of pain with her trigeminal neuralgia. She states she just his been ongoing for over a year she has seen neurology and neurosurgery pain specialist. Patient states that she's had recent injections she's having acute exacerbation of pain patient states it's on a right and left in which she has been told is very rare she has no significant headache no trauma. Patient denies any fevers or chills no other complaints. - Related Data Home Medications Medication Instructions Recorded Confirmed Spironolactone 100 mg PO BID 03/20/14 06/06/20 Promethazine [Phenergan] 25 mg PO TID PRN 05/20/15 06/06/20 Amitriptyline HCl [Elavil] 100 mg PO HS 09/22/18 06/06/20 ALPRAZolam [Xanax] 0.5 mg PO DAILY PRN 11/14/18 06/06/20 Ergocalciferol [Vitamin D2 50,000 unit PO TH 02/08/19 06/06/20 (DRISDOL)] Gabapentin [Neurontin] 200 mg PO TID 02/28/20 06/06/20 Topiramate [Topamax] 100 mg PO BID 02/28/20 06/06/20 predniSONE [Deltasone] See Taper PO DAILY 06/06/20 06/06/20 valACYclovir HCL [Valtrex] 1,000 mg PO TID 06/06/20 06/06/20 Previous Rx's Medication Instructions Recorded Ibuprofen [Motrin] 600 mg PO Q6HR PRN #30 tab 03/07/20 HYDROcodone/APAP 5-325MG [[place] 1 tab PO Q6HR PRN #12 tab 06/06/20 5-325] Allergies Allergy/AdvReac Type Severity Reaction Status Date / Time amoxicillin [From Augmentin] Allergy Rash/Hives Verified 04/14/21 19:09 clavulanic acid Allergy Rash/Hives Verified 04/14/21 19:09 [From Augmentin] potassium clavulanate Allergy Rash/Hives Verified 04/14/21 19:09 [From Augmentin] Latex, Natural Rubber AdvReac Rash/Hives Verified 04/14/21 19:09 morphine AdvReac Nausea & Verified 04/14/21 19:09 Vomiting,abdominal pain Review of Systems ROS Statement: Those systems with pertinent positive or pertinent negative responses have been documented in the HPI. ROS Other: All systems not noted in ROS Statement are negative. Past Medical History Past Medical History: Blood Disorder, GERD/Reflux, Hypertension, Thyroid Disorder Additional Past Medical History / Comment(s): polycystic ovaries, mthfr clotting factor disorder, hx kidney stones, superficial blood clot x1, migraines, thyroid nodules, varicose veins, hx ileus, growth on rt ovary and heavy periods with pain, c-diff 2013, trigemenil neuralgia, microvascular decompression, History of Any Multi-Drug Resistant Organisms: C-DIFF, MRSA Date of last positivie culture/infection: 2009 MDRO Source:: abdomen Past Surgical History: Appendectomy, Back Surgery, Bariatric Surgery, Bowel Resection, Breast Surgery, Cholecystectomy Additional Past Surgical History / Comment(s): gastric sleeve, vein stripping x4 pascale legs, laparoscopy, D & C x 5, lt breast biopsy, right hemicolectomy, EGD/COLONOSCOPY, craineotomy Past Anesthesia/Blood Transfusion Reactions: Motion Sickness, Postoperative Nausea & Vomiting (PONV) Additional Past Anesthesia/Blood Transfusion Reaction / Comment(s): migraines when waking up Past Psychological History: Anxiety Smoking Status: Former smoker Past Alcohol Use History: Rare Past Drug Use History: None Reported - Past Family History Father Family Medical History: Hyperlipidemia, Hypertension Additional Family Medical History / Comment(s): low sodium Mother Family Medical History: Cancer Additional Family Medical History / Comment(s): thyroid ca, Sister(s) Family Medical History: Deep Vein Thrombosis (DVT), Pulmonary Embolus General Exam Limitations: no limitations General appearance: alert, in no apparent distress Head exam: Present: atraumatic, normocephalic, normal inspection Eye exam: Present: normal appearance, PERRL, EOMI. Absent: scleral icterus, conjunctival injection, periorbital swelling ENT exam: Present: normal exam, normal oropharynx, mucous membranes moist Neck exam: Present: normal inspection, full ROM. Absent: tenderness, meningismus, lymphadenopathy Respiratory exam: Present: normal lung sounds bilaterally. Absent: respiratory distress, wheezes, rales, rhonchi, stridor Cardiovascular Exam: Present: regular rate, normal rhythm, normal heart sounds. Absent: systolic murmur, diastolic murmur, rubs, gallop, clicks Neurological exam: Present: alert, oriented X3, CN II-XII intact, reflexes normal. Absent: motor sensory deficit Skin exam: Present: warm, dry, intact, normal color. Absent: rash Course Vital Signs 04/14/21 19:09 Temperature 98.7 F Pulse Rate 70 Respiratory 18 Rate Blood Pressure 114/71 O2 Sat by Pulse 97 Oximetry Medical Decision Making - Medical Decision Making 41-year-old presented for acute pain from trigeminal neuralgia. Patient's pain is improved at this point she is neurologically intact we discharged stable condition she has a follow-up with her neurosurgeon and neurologist return parameters were discussed. Disposition Clinical Impression: Trigeminal neuralgia pain Disposition: HOME SELF-CARE Condition: Stable Instructions (If sedation given, give patient instructions): Trigeminal Neuralgia (ED) Additional Instructions: Please return to the Emergency Department if symptoms worsen or any other concerns. Is patient prescribed a controlled substance at d/c from ED?: No Referrals: Pwaan Lyle MD [Primary Care Provider] - 1-2 days Time of Disposition: 21:17
[2021-04-14] MEDS ORDERED: methylPREDNISolone SOD SUCCI 125 MG/2 ML VIAL IV STA (20:11)
[2021-04-14] MEDS ORDERED: METOCLOPRAMIDE 5 MG/ML 2 ML VIAL IVP STA (20:11)
[2021-04-14] MEDS ORDERED: HYDROmorphone 0.5 MG/0.5 ML SYRINGE IVP STA ×2 (20:11→21:16)
[2021-04-14] MEDS ORDERED: diphenhydrAMINE 50 MG/ML 1 ML VIAL IVP STA (20:11)
[2021-04-14 21:43] VITALS: BP 142/79; PULSE 77; TEMP 98.4
== END 2021-04-14 21:52 | disposition home or self-care (01) ==
LOC: EC 18:49
DX: G50.0 Trigeminal neuralgia (principal); I10 Essential (primary) hypertension; G43.909 Migraine, unspecified, not intractable, without status migrainosus; Z88.0 Allergy status to penicillin; Z79.899 Other long term (current) drug therapy; Z88.1 Allergy status to other antibiotic agents; Z88.5 Allergy status to narcotic agent; Z91.040 Latex allergy status; Z87.891 Personal history of nicotine dependence
CPT/HCPCS: 99283; 96365; 96375; 96376; J1200; J1165; J2765; J2930; J3360; J1885; J1170

== ENCOUNTER → 2021-07-06 | Outpatient (CLI) | payer OTHER ==
[~2021-07-06] MED LIST changes: +CASIRIVIMAB/IMDEVIMAB (EUA) 1,200 MG in SODIUM CHLORIDE 0.9% 100 ML IVPB ONE; -DEXAMETHASONE SOD PHOSPHATE 10 MG/ML 1 ML VIAL IV ONE; -LIDOCAINE 1% (10MG/ML) FOR IV START INTRADERMA PRN; -MIDAZOLAM 2 MG/2 ML VIAL IV PRN; -ONDANSETRON 4 MG/2 ML VIAL IVP ONE; +SODIUM CHLORIDE 0.9% 50 ML IVPB ONE; +SODIUM CHLORIDE 0.9% 500 ML 500 ML in EMPTY BAG 1 BAG IV PRN; +diphenhydrAMINE 50 MG/ML 1 ML VIAL IVP ONE
[2021-07-06 15:39] VITALS: BP 119/74; PULSE 61; RESP 16; TEMP 96.6
== END | disposition home or self-care (01) ==
LOC: PROCWHC3 12:53
PROVIDERS: ATTEND Nurse Practitioner Adult Health
DX: U07.1 COVID-19 (principal)
CPT/HCPCS: 96360; 96375; 99212; J1200; Q0243; M0243

== ENCOUNTER 2021-10-06 10:22 | Day surgery (SDC) | payer OTHER ==
[2021-10-04 11:08] VITALS: BMI 40.6
--- NOTE | 2021-10-06 08:12 | P.GSHP ---
History of Present Illness H&P Date: 10/06/21 CHIEF COMPLAINT: GERD and colon screen HISTORY OF PRESENT ILLNESS: The patient is a 41-year-old female who presents with gastroesophageal reflux disease and need for colon screen. Upper and lower endoscopy were offered for further evaluation and management. PAST MEDICAL HISTORY: Please see list. PAST SURGICAL HISTORY: Please see list. MEDICATIONS: Please see list. ALLERGIES: Please see list. SOCIAL HISTORY: No illicit drug use FAMILY HISTORY: No reports of Crohn disease or ulcerative colitis. REVIEW OF ORGAN SYSTEMS: CONSTITUTIONAL: No reports of fevers or chills. GI: Denies any blood in stools or constipation. PHYSICAL EXAM: VITAL SIGNS: Stable GENERAL: Well-developed pleasant in no acute distress. HEENT: No scleral icterus. Extraocular movements grossly intact. Moist buccal mucosa. NECK: Supple without lymphadenopathy. CHEST: Unlabored respirations. Equal bilateral excursions. CARDIOVASCULAR: Regular rate and rhythm. Distal 2+ pulses. ABDOMEN: Soft, nondistended. MUSCULOSKELETAL: No clubbing, cyanosis, or edema. ASSESSMENT: 1. Gastroesophageal reflux disease 2. Colon screen. PLAN: 1. Recommend proceeding with an upper and lower endoscopy Past Medical History Past Medical History: Blood Disorder, GERD/Reflux, Hypertension, Thyroid Disorder Additional Past Medical History / Comment(s): polycystic ovaries, mthfr clotting factor disorder, hx kidney stones, superficial blood clot x1, migraines, thyroid nodules, varicose veins, hx ileus, growth on rt ovary and heavy periods with pain, c-diff 2013, trigeminal neuralgia, microvascular decompression, abd pain and chronic diarrhea and bleeding History of Any Multi-Drug Resistant Organisms: C-DIFF, MRSA Date of last positivie culture/infection: 2009 MDRO Source:: abdomen Past Surgical History: Appendectomy, Back Surgery, Bariatric Surgery, Bowel Resection, Breast Surgery, Cholecystectomy, Hysterectomy Additional Past Surgical History / Comment(s): gastric sleeve, vein stripping x4 pascale legs, laparoscopy, D & C x 5, lt breast biopsy, right hemicolectomy, EGD/COLONOSCOPY, cranieotomy Past Anesthesia/Blood Transfusion Reactions: Motion Sickness, Postoperative Nausea & Vomiting (PONV) Additional Past Anesthesia/Blood Transfusion Reaction / Comment(s): migraines when waking up Smoking Status: Former smoker - Past Family History Mother Family Medical History: Cancer Additional Family Medical History / Comment(s): thyroid ca, Sister(s) Family Medical History: Deep Vein Thrombosis (DVT), Pulmonary Embolus Medications and Allergies Home Medications Medication Instructions Recorded Confirmed Type Spironolactone 100 mg PO BID 03/20/14 07/06/21 History Amitriptyline HCl [Elavil] 100 mg PO HS 09/22/18 07/06/21 History Ergocalciferol [Vitamin D2 50,000 unit PO TH 02/08/19 07/06/21 History (DRISDOL)] Topiramate [Topamax] 100 mg PO BID 02/28/20 07/06/21 History Ibuprofen [Motrin] 600 mg PO Q6HR PRN #30 tab 03/07/20 07/06/21 Rx OXcarbazepine 1 tab PO BID 07/06/21 07/06/21 History Vilazodone HCl [Viibryd] 1 tab PO DAILY 07/06/21 07/06/21 History Allergies Allergy/AdvReac Type Severity Reaction Status Date / Time amoxicillin [From Augmentin] Allergy Rash/Hives Verified 10/04/21 10:57 clavulanic acid Allergy Rash/Hives Verified 10/04/21 10:57 [From Augmentin] potassium clavulanate Allergy Rash/Hives Verified 10/04/21 10:57 [From Augmentin] pregabalin [From Lyrica] Allergy Swelling Verified 10/04/21 10:57 Latex, Natural Rubber AdvReac Rash/Hives Verified 10/04/21 10:57 morphine AdvReac Nausea & Verified 10/04/21 10:57 Vomiting,abdominal pain
[~2021-10-06 10:22] MED LIST changes: -CASIRIVIMAB/IMDEVIMAB (EUA) 1,200 MG in SODIUM CHLORIDE 0.9% 100 ML IVPB ONE; +LACTATED RINGERS 1,000 ML IV SCH; -SODIUM CHLORIDE 0.9% 50 ML IVPB ONE; -SODIUM CHLORIDE 0.9% 500 ML 500 ML in EMPTY BAG 1 BAG IV PRN; -diphenhydrAMINE 50 MG/ML 1 ML VIAL IVP ONE
[2021-10-06 10:46] VITALS: RESP 18; TEMP 97.5
[2021-10-06] MEDS ORDERED: GLYCOPYRROLATE 0.2 MG/ML 2 ML VIAL ONE (11:27)
[2021-10-06] MEDS ORDERED: KETAMINE 10 MG/ML 20 ML VIAL ONE (11:27)
[2021-10-06] MEDS ORDERED: LIDOCAINE 1% INJ 10MG/ML (20 ML MDV) ONE (11:27)
[2021-10-06] MEDS ORDERED: PROPOFOL 10 MG/ML 20 ML VIAL IV ONE (11:27)
[2021-10-06] MEDS ORDERED: ONDANSETRON 4 MG/2 ML VIAL ONE (11:27)
--- NOTE | 2021-10-06 12:15 | P.PCN ---
Date of Procedure: 10/06/21 Description of Procedure: PREOPERATIVE DIAGNOSIS: Colitis diarrhea Change in bowel habits POSTOPERATIVE DIAGNOSIS: Severe sigmoid diverticulosis with stricture OPERATION: Colonoscopy to the splenic flexure SURGEON: Georgie Ventura MD. ANESTHESIA: MAC. INDICATIONS: The patient is a 41-year-old female who presents with change in bowel habits, diarrhea and colitis. Benefits and risks were described and informed consent was obtained. DESCRIPTION OF PROCEDURE: The patient had undergone Sutab prep. The patient had been brought into the operating room and laid in the left lateral decubitus position. After adequate intravenous sedation, the rectum was examined with 2% lidocaine jelly. External hemorrhoids were encountered. The rectal tone was within normal limits. No lesions were palpated in the rectal vault. An Olympus colonoscope was advanced to a tortuous sigmoid colon with stricture at the splenic flexure. The prep was excellent. Scattered diverticulosis was encountered. The scope was changed from adult to pediatric colonoscope with similar prohibited advancement beyond the splenic flexure. Retroflexion of the scope demonstrated grade 3 internal hemorrhoids without active bleeding or inflammation. The colon was desufflated. Withdrawal time was over 6 minutes. FINDINGS: Aronchick preparation quality scale 1 (1-5) Internal hemorrhoids, grade 3 External prolapsed hemorrhoids, grade 4 No arteriovenous malformations. No adenomatous polyps. Sigmoid colon diverticulosis with stricture at splenic flexure, 60 cm from anal verge RECOMMENDATIONS: 1. Recommend barium enema Plan - Discharge Summary Discharge Rx Participant: No New Discharge Prescriptions: New Simethicone [Gas-X] 125 mg PO AC-TID PRN #20 capsule PRN Reason: Pain Omeprazole [PriLOSEC] 40 mg PO DAILY #14 cap Continue Spironolactone 100 mg PO BID Amitriptyline HCl [Elavil] 100 mg PO HS Ergocalciferol [Vitamin D2 (DRISDOL)] 50,000 unit PO TH Topiramate [Topamax] 100 mg PO BID OXcarbazepine 1 tab PO BID amLODIPine [Norvasc] 10 mg PO DAILY Vilazodone HCl [Viibryd] 1 tab PO DAILY Propranolol [Inderal] 20 mg PO BID Discontinued Ibuprofen [Motrin] 600 mg PO Q6HR PRN #30 tab PRN Reason: Pain Discharge Medication List Spironolactone 100 mg PO BID 03/20/14 [History] Amitriptyline HCl [Elavil] 100 mg PO HS 09/22/18 [History] Ergocalciferol [Vitamin D2 (DRISDOL)] 50,000 unit PO TH 02/08/19 [History] Topiramate [Topamax] 100 mg PO BID 02/28/20 [History] OXcarbazepine 1 tab PO BID 07/06/21 [History] Vilazodone HCl [Viibryd] 1 tab PO DAILY 07/06/21 [History] Omeprazole [PriLOSEC] 40 mg PO DAILY #14 cap 10/06/21 [Rx] Propranolol [Inderal] 20 mg PO BID 10/06/21 [History] Simethicone [Gas-X] 125 mg PO AC-TID PRN #20 capsule 10/06/21 [Rx] amLODIPine [Norvasc] 10 mg PO DAILY 10/06/21 [History] Follow up Appointment(s)/Referral(s): Georgie Ventura MD [STAFF PHYSICIAN] - 10/26/21 Patient Instructions/Handouts: *[facility] - (Anesthesia) Endoscopy Discharge Instructions, Colonoscopy (DC) Discharge Disposition: HOME SELF-CARE
--- NOTE | 2021-10-06 12:19 | P.PCN ---
Date of Procedure: 10/06/21 Description of Procedure: PREOPERATIVE DIAGNOSIS: Dysphagia. Gastroesophageal reflux disease. s/p sleeve gastrectomy. Morbid obesity due to excess calories, BMI 39.9 POSTOPERATIVE DIAGNOSIS: Dysphagia. Gastroesophageal reflux disease. s/p vertical sleeve gastrectomy. Upper esophageal stenosis Morbid obesity due to excess calories, BMI 39.9 Diaphragmatic hiatal hernia OPERATION: Esophagogastroduodenoscopy with rigid dilation, 54-Anguillan Esophagogastroduodenoscopy with cold biopsy forceps SURGEON: Georgie Ventura MD ANESTHESIA: MAC. INDICATIONS: The patient is a 41-year-old female who presents with a history of dysphagia, sleeve gastrectomy including gastroesophageal reflux disease. Benefits and risks of the procedure were described. Informed consent was obtained. DESCRIPTION: The patient was brought into the endoscopy suite and laid in the left lateral decubitus position. After a timeout was confirmed, the procedure was initiated. An Olympus gastroscope was passed along the posterior oropharynx down to the distal esophagus. Upper esophageal stenosis is identified. Diaphragmatic hi atal hernia was identified. The gastric pouch was entered. No gastric strictures were identified along her sleeve. The antrum was remarkable for gastritis. The scope was removed as a guidewire was placed. A guidewire followed by a 54-Anguillan rigid dilator was placed. Dilators were removed with guidewire. The upper scope was reinserted with cold forceps biopsies obtained along the antrum. The mucosa was intact. No full-thickness injury was encountered. The GI tract was desufflated. The patient tolerated the procedure well. FINDINGS: Upper esophageal stenosis dilated 54-Anguillan [place] grade A erosive esophagitis. Diaphragmatic hiatal hernia, 2 cm Rigid dilation 54-Anguillan achieved Gastritis without bleeding RECOMMENDATIONS: Upper endoscopy as needed Omeprazole 40 mg daily
[2021-10-06 12:53] VITALS: BP 109/72; PULSE 75
[2021-10-06] MEDS ORDERED: SIMETHICONE 40 MG/0.6 ML DROPS 2,000 MG/30 ML BOTTLE PO SCH ×2 (13:17→13:30)
--- NOTE | 2021-10-06 13:22 | P.PN ---
Progress Note - Text Progress Note Date: 10/06/21 After colonoscopy, patient reported moderate severe left upper quadrant abdominal pain. The patient had difficult colonoscopy with termination at the splenic flexure. Recommend stat CT of the abdomen pelvis without oral or IV contrast to exclude splenic injury and for acute abdomen.
--- NOTE | 2021-10-06 15:10 | CT ---
EXAMINATION TYPE: CT abdomen pelvis wo con DATE OF EXAM: 10/06/2021 COMPARISON: CT dated 12/09/2020 HISTORY: abdominal pain post colonoscopy CT DLP: 1239 mGycm Automated exposure control for dose reduction was used. TECHNIQUE: Helical acquisition of images was performed from the lung bases through the pelvis. FINDINGS: Status post partial right colonic resection and ileocolic anastomosis seen in the right side of the a bdomen, apparently unremarkable. Scattered uncomplicated colonic diverticulosis. No evidence of colon ic obstruction or pneumatosis with no free air in the abdomen. Previous gastric surgery. Unremarkable duodenum and small bowel with no evidence of bowel obstruction. No definite hepatic focal lesion by this nonenhanced CT scan. Stable fat between the right hemidiaphr agm and the liver. Previous cholecystectomy. Unremarkable unenhanced CT appearance of the spleen, reaves creas, adrenals and left kidney. Suspected simple cyst at the lower pole of the right kidney, stable. Unremarkable urinary bladder. Previous hysterectomy. Pelvic adhesions involving the left ovary/adnexa, the urinary bladder, the vaginal vault and the sigm oid colon. Left ovarian/adnexal cyst measuring up to 4.1 cm, stable. Recommend correlation with elect perez pelvic ultrasound results. No suspicious lymphadenopathy or sizable ascites. Unremarkable lung ba ses. No aggressive bone lesion. IMPRESSION: No definite acute abnormality seen in the abdomen or the pelvis by this nonenhanced CT scan. Postsurg ical changes and other incidental findings as described above.
--- NOTE | 2021-10-06 15:31 | P.PN ---
Progress Note - Text Progress Note Date: 10/06/21 CT of the abdomen and pelvis reviewed without splenic injury. No free air. No perforated viscus. Patient stable for discharge.
== END 2021-10-06 14:18 | disposition home or self-care (01) ==
LOC: ORWHC2ENDO 10:22
PROVIDERS: ATTEND Surgery Plastic and Reconstructive Surgery
DX: K52.9 Noninfective gastroenteritis and colitis, unspecified (principal); K29.70 Gastritis, unspecified, without bleeding
CPT/HCPCS: 45378; 43239; 43249; 74176; J2405; J2001; J2704; 88305; 88342

== ENCOUNTER → 2021-11-26 | Outpatient (CLI) | payer OTHER ==
[2021-11-26 14:07] LABS: Basophils # (A) 0.05 X 10*3/uL (0.00-0.10); Basophils % (A) 0.4 %; Eosinophils # (A) 0.14 X 10*3/uL (0.04-0.35); Eosinophils % (A) 1.2 %; HCT 48.1 % (37.2-46.3); HGB 15.6 g/dL (12.0-15.0); Immature Grans, Automated 0.3 %; Lymphocytes % (A) 16.5 %; MCH 31.3 pg (27.0-32.0); MCHC 32.4 g/dL (32.0-37.0); MCV 96.6 fL (80.0-97.0); Mean Platelet Volume 9.7 fL (9.5-12.2); Monocytes # (A) 0.46 X 10*3/uL (0.20-1.00); NRBC Per 100 WBC 0 /100 WBCS (0.0-0.0); Neutrophils # (A) 8.97 X 10*3/uL (1.80-7.70); Neutrophils % (A) 77.6 %; Platelet Count 441 X 10*3/uL (140-440); RBC 4.98 X 10*6/uL (4.10-5.20); RDW 12.3 % (11.5-14.5); WBC 11.55 X 10*3/uL (4.50-10.00)
[2021-11-26 14:27] LABS: African American GFR (CKD) 91.4 (60.0-200.0); Albumin 4.8 g/dL (3.8-4.9); Albumin/Globulin Ratio 1.33 (1.60-3.17); Anion Gap 13.4 mmol/L (10.00-18.00); BUN/Creat Ratio 10.78 Ratio (12.00-20.00); Blood Urea Nitrogen 9.7 mg/dL (9.0-27.0); Calcium 10.1 mg/dL (8.7-10.3); Carbon Dioxide 23.6 mmol/L (20.0-27.5); Globulin 3.6 g/dL (1.6-3.3); Non-African American GFR(CKD) 78.9 (60.0-200.0); Total Bilirubin 0.5 mg/dL (0.30-1.20); Total Protein 8.4 g/dL (6.2-8.2)
[2021-11-26 14:47] LABS: INR 0.94 (0.90-1.11); Prothrombin Time 10.6 sec (9.9-11.9)
== END | disposition home or self-care (01) ==
LOC: LABPAT 08:48
PROVIDERS: ATTEND Surgery Plastic and Reconstructive Surgery
DX: Z01.818 Encounter for other preprocedural examination (principal)
CPT/HCPCS: 36415; 80053; 85025; 85610

== ENCOUNTER 2021-12-03 11:28 | Inpatient (IN) | payer OTHER ==
[2021-12-01 10:44] VITALS: BMI 39.1
--- NOTE | 2021-12-03 07:00 | P.GSHP ---
History of Present Illness H&P Date: 12/03/21 CHIEF COMPLAINT: History of sigmoid diverticulitis HISTORY OF PRESENT ILLNESS: The patient is a 41-year-old female with long- standing history of sigmoid diverticulitis. She had prior colonoscopy which excluded underlying neoplasm. Now she presents for sigmoid colon resection. PAST MEDICAL HISTORY: Please see list. PAST SURGICAL HISTORY: Please see list. MEDICATIONS: Please see list. ALLERGIES: Please see list. SOCIAL HISTORY: No illicit drug use FAMILY HISTORY: No reports of Crohn disease or ulcerative colitis. REVIEW OF ORGAN SYSTEMS: CONSTITUTIONAL: Denies any fever or chills. HEENT: Denies any trouble with vision or nosebleeds. No difficulty swallowing. LYMPHATIC: The patient denies any lumps and bumps around the neck. ENDOCRINE: Denies any thyroid disorders. Has blood sugar glucose intolerance. RESPIRATORY: Denies pneumonia. Denies any troubles with breathing or dyspnea on exertion. CARDIOVASCULAR: Denies any chest pain, palpitations, or recent heart attacks. GASTROINTESTINAL: Has chronic diverticulitis. GENITOURINARY: Has increased urinary frequency. MUSCULOSKELETAL: Has back pain, stiffness, joint arthritis. NEUROLOGIC: Denies any numbness or tingling along the distal extremities. Has headaches. PSYCHIATRIC: Denies depression or suidical ideation. HEMATOLOGIC: Denies any abnormal bleeding or bruising. PHYSICAL EXAM: VITAL SIGNS: Stable GENERAL: Well-developed pleasant in no acute distress. HEENT: No scleral icterus. Extraocular movements grossly intact. Moist buccal mucosa. NECK: Supple without lymphadenopathy. CHEST: Unlabored respirations. Equal bilateral excursions. CARDIOVASCULAR: Regular rate and rhythm. Distal 2+ pulses. ABDOMEN: Soft, nontender, nondistended. MUSCULOSKELETAL: No clubbing, cyanosis, or edema. NERUO: Cranial nerves 2-12 grossly intact. PSYCH: Alert and oriented to person place and time. ASSESSMENT: 1. History of perforated diverticulitis 2. Morbid obesity, BMI 35.2 PLAN: 1. Benefits and risks of surgical robotic sigmoid resection was reviewed in detail. Robotic-assisted approach was also described. 2. Enhanced colon recovery program. 3. DVT prophylaxis. 4. Antibiotic prophylaxis. 5. Inpatient hospitalization greater than 2 nights. 6. She is elevated risk with prior colectomy and morbid obesity. Past Medical History Past Medical History: Blood Disorder, GERD/Reflux, Hypertension, Thyroid Disorder Additional Past Medical History / Comment(s): polycystic ovaries, MTHFR clotting factor disorder, hx kidney stones, superficial blood clot x1, migraines, thyroid nodules, hx ileus, c-diff 2013, trigeminal neuralgia - had microvascular decompression brain, abd pain and chronic diarrhea w/ occ bleed - diverticulitis History of Any Multi-Drug Resistant Organisms: C-DIFF, MRSA Date of last positivie culture/infection: 2009 MDRO Source:: abdomen Past Surgical History: Appendectomy, Back Surgery, Bariatric Surgery, Bowel Resection, Breast Surgery, Cholecystectomy, Hysterectomy Additional Past Surgical History / Comment(s): Oophorectomy, gastric sleeve, vein stripping x4 pascale legs, laparoscopy, D & C x 5, lt breast biopsy, right hemicolectomy, EGD/COLONOSCOPY, craniotomy, colonoscopy/EGD Past Anesthesia/Blood Transfusion Reactions: Motion Sickness, Postoperative Nausea & Vomiting (PONV) Additional Past Anesthesia/Blood Transfusion Reaction / Comment(s): migraines when waking up Smoking Status: Former smoker - Past Family History Mother Family Medical History: Cancer Additional Family Medical History / Comment(s): thyroid ca, Sister(s) Family Medical History: Blood Disorder, Deep Vein Thrombosis (DVT), Pulmonary Embolus Medications and Allergies Home Medications Medication Instructions Recorded Confirmed Type Spironolactone 100 mg PO BID 03/20/14 12/01/21 History Ergocalciferol [Vitamin D2 50,000 unit PO TH 02/08/19 12/01/21 History (DRISDOL)] OXcarbazepine 600 mg PO BID 07/06/21 12/01/21 History Vilazodone HCl [Viibryd] 40 mg PO HS 07/06/21 12/01/21 History Omeprazole [PriLOSEC] 40 mg PO DAILY #14 cap 10/06/21 12/01/21 Rx Propranolol [Inderal] 20 mg PO BID 10/06/21 12/01/21 History amLODIPine [Norvasc] 10 mg PO HS 10/06/21 12/01/21 History Acetaminophen [Tylenol Extra 500 mg PO DIRECTED PRN 12/01/21 12/01/21 History Strength] Horizant 600 mg PO DAILY@1730 12/01/21 History Nortriptyline HCl [Pamelor] 100 mg PO HS 12/01/21 12/01/21 History busPIRone HCL 15 mg PO BID 12/01/21 12/01/21 History tiZANidine [Zanaflex] 4 mg PO Q12HR PRN 12/01/21 12/01/21 History Allergies Allergy/AdvReac Type Severity Reaction Status Date / Time amoxicillin [From Augmentin] Allergy Rash/Hives Verified 12/01/21 10:10 clavulanic acid Allergy Rash/Hives Verified 12/01/21 10:10 [From Augmentin] potassium clavulanate Allergy Rash/Hives Verified 12/01/21 10:10 [From Augmentin] pregabalin [From Lyrica] Allergy Swelling Verified 12/01/21 10:10 Latex, Natural Rubber AdvReac Rash/Hives Verified 12/01/21 10:10 morphine AdvReac Nausea & Verified 12/01/21 10:10 Vomiting,abdominal pain
[~2021-12-03 11:28] MED LIST changes: +ACETAMINOPHEN TAB 500 MG TAB PO PRN; +ALVIMOPAN 12 MG CAPSULE PO PRN; +Antibiotics per Pharmacy 1 EACH MISC MISCELLANE PRN; +DEXAMETHASONE SOD PHOSPHATE 4 MG/ML 1 ML VIAL IV ONE; +HEPARIN SODIUM,PORCINE/PF 5,000 UNIT/0.5 ML SYRINGE SQ PRN; +MIDAZOLAM 2 MG/2 ML VIAL IV PRN; +ONDANSETRON 4 MG/2 ML VIAL IVP ONE; +SCOPOLAMINE 1 MG/72 HR PATCH TRANSDERM ONE; +ceFAZolin 3 GM in SODIUM CHLORIDE 0.9% 100 ML IVPB PRN; +fentaNYL (PF) 50 MCG/ML 2 ML AMP IV PRN; +metroNIDAZOLE-NS PMX 500 MG in SALINE 1 100ML.BAG IVPB PRN
[2021-12-03 12:04] VITALS: RESP 16; TEMP 98.4
[2021-12-03 12:44] LABS: African American GFR (CKD) >90 (>60 ml/min/1.73 sqM); Albumin 4.7 g/dL (3.5-5.0); Anion Gap 12 mmol/L; Blood Urea Nitrogen 3 mg/dL (7-17); Calcium 9.3 mg/dL (8.4-10.2); Carbon Dioxide 24 mmol/L (22-30); Chloride 101 mmol/L (98-107); Glucose 82 mg/dL (74-99); Non-African American GFR(CKD) >90 (>60 ml/min/1.73 sqM); Sodium 137 mmol/L (137-145); Total Bilirubin 0.8 mg/dL (0.2-1.3); Total Protein 8.7 g/dL (6.3-8.2)
[2021-12-03 12:45] LABS: ALT 24 U/L (4-34); AST 35 U/L (14-36); Alkaline Phosphatase 76 U/L (38-126); Basophils # (A) 0.1 k/uL (0-0.2); Basophils % (A) 1 %; Eosinophils # (A) 0.2 k/uL (0-0.7); Eosinophils % (A) 1 %; HGB 15.5 gm/dL (11.4-16.0); Lymphocytes # (A) 2.5 k/uL (1.0-4.8); Lymphocytes % (A) 16 %; MCHC 32.4 g/dL (31.0-37.0); MCV 95.8 fL (80.0-100.0); Mean Platelet Volume 7.3; Monocytes % (A) 6 %; Neutrophils # (A) 11.3 k/uL (1.3-7.7); Neutrophils % (A) 74 %; Platelet Count 429 k/uL (150-450); RBC 5.01 m/uL (3.80-5.40); RDW 12.1 % (11.5-15.5); WBC 15.3 k/uL (3.8-10.6)
[2021-12-03 12:56] LABS: Potassium 4.2 mmol/L (3.5-5.1)
[2021-12-03] MEDS ORDERED: MIDAZOLAM 2 MG/2 ML VIAL IVP ONE ×2 (13:00→13:02)
[2021-12-03] MEDS ORDERED: SODIUM CHLORIDE 0.9% 1,000 ML IV ONE (13:19)
[2021-12-03 13:22] LABS: Poikilocytosis (M) Present
[2021-12-03 13:26] VITALS: BP 133/75
--- NOTE | 2021-12-03 13:27 | P.PN ---
Subjective Progress Note Date: 12/03/21 Patient had elevated WBC with CBC repeated. Patient has higher WBC from 11,000 and 15,000. Patient reports completing all of her bowel prep. 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 She also reports dysuria. She denies sinus infection. Due to high-risk nature of her procedure including risk for pneumonia, urinary tract infection, complications including colostomy creation, case is cancelled for today. Risks for complications outweighs benefits. We'll obtain a urinalysis with culture, nasal swab for COVID, chest x-ray for pneumonia, with close follow-up as outpatient. Objective - Vital Signs Vital signs: Vital Signs Temp 98.4 F 12/03/21 12:02 Pulse 81 12/03/21 12:02 Resp 16 12/03/21 12:02 BP 150/82 12/03/21 12:02 Pulse Ox 96 12/03/21 12:02 Intake & Output 12/02/21 12/03/21 12/03/21 18:59 06:59 18:59 Weight 117.9 kg - Labs CBC & Chem 7: 12/03/21 12:18 12/03/21 12:18 Labs: Abnormal Lab Results - Last 24 Hours (Table) 12/03/21 12/03/21 Range/Units 12:18 12:18 WBC 15.3 H (3.8-10.6) k/uL Hct 48.0 H (34.0-46.0) % Neutrophils # 11.3 H (1.3-7.7) k/uL BUN 3 L (7-17) mg/dL Total Protein 8.7 H (6.3-8.2) g/dL
--- NOTE | 2021-12-03 13:46 | XR ---
EXAMINATION TYPE: XR chest 1V portable DATE OF EXAM: 12/03/2021 COMPARISON: NONE HISTORY: Chest pain TECHNIQUE: Single frontal view of the chest is obtained. FINDINGS: There is no focal air space opacity, pleural effusion, or pneumothorax seen. The cardiac silhouette size is within normal limits. There are overlying leads. Thoracic spondylosis is present. The osseous structures are intact. IMPRESSION: No acute process.
--- NOTE | 2021-12-03 13:52 | P.ANPRN ---
Procedure Note - Anesthesia - Nerve Block Performed Bilateral Erector Spinae Single Time Out Performed: Yes Date of Procedure: 12/03/21 Procedure Start Time: 12:59 Procedure Stop Time: 13:11 Location of Patient: PreOp Indication: Acute Post-Operative Pain, Requested by Surgeon Sedation Type: Sedate with meaningful contact maintained Preparation: Sterile Prep, Sterile Dressing Position: Prone Catheter: None Needle Types: Facet Needle Gauge: 20 Ultrasound used to visualize needle placement: Yes Ultrasound used to observe medication spread: Yes Injectate: Other (see comment) (Ropivacaine 0.25% 30 ml + decadron 4 mg per side) Blood Aspirated: No Pain Paresthesia on Injection Noted: No Resistance on Injection: Normal Image Stored and Saved: Yes Events: Uneventful and Well Tolerated
[2021-12-03 14:34] VITALS: PULSE 73
[2021-12-03 15:37] LABS: Appearance,Urine Clear (Clear); Bilirubin,Urine Negative (Negative); Blood,Urine Negative (Negative); Color,Urine Light Yellow; Glucose,Urine (UA) Negative (Negative); Ketones,Urine 1+ (Negative); Leukocyte Esterase,Urine Negative (Negative); Nitrite,Urine Negative (Negative); Protein,Urine Negative (Negative); Specific Gravity,Urine 1.005 (1.001-1.035); Urobilinogen,Urine <2.0 mg/dL (<2.0)
--- NOTE | 2021-12-03 20:12 | P.DS ---
Providers Date of admission: 12/03/21 11:28 Expected date of discharge: 12/03/21 Attending physician: Georgie Ventura Primary care physician: Pawan Lyle - Discharge Diagnosis(es) (1) Diverticulitis Current Visit: Yes Status: Acute (2) Leukocytosis Current Visit: No Status: Acute Hospital Course: CHIEF COMPLAINT: History of sigmoid diverticulitis COURSE: The patient is a 41-year-old female initially admitted to undergo sigmoid colectomy for sigmoid diverticulitis. She presented with elevated white blood cell count initially over 11,000 as outpatient and presents today with over 15,000 WBC count upon repeat. Patient reports having pre-existing history of chronic kidney tract infections. As a result of complexity of surgery including presenting increased leukocytosis, surgery canceled. Additional studies including chest x-ray, urinalysis with urine culture, nasal swabs for COVID was obtained. Surgery was canceled with patient being discharged from preop. PLAN: 1. Follow up as outpatient with follow-up leukocytosis workup Patient Condition at Discharge: Fair Plan - Discharge Summary Discharge Rx Participant: Yes New Discharge Prescriptions: Continue Spironolactone 100 mg PO BID Ergocalciferol [Vitamin D2 (DRISDOL)] 50,000 unit PO TH OXcarbazepine 600 mg PO BID amLODIPine [Norvasc] 10 mg PO HS Acetaminophen [Tylenol Extra Strength] 500 mg PO DIRECTED PRN PRN Reason: Pain tiZANidine [Zanaflex] 4 mg PO Q12HR PRN PRN Reason: muscle spasms busPIRone HCL 15 mg PO BID Horizant 600 mg PO DAILY@1730 Vilazodone HCl [Viibryd] 40 mg PO HS Propranolol [Inderal] 20 mg PO BID Omeprazole [PriLOSEC] 40 mg PO DAILY #14 cap Nortriptyline HCl [Pamelor] 100 mg PO HS Discharge Medication List Spironolactone 100 mg PO BID 03/20/14 [History] Ergocalciferol [Vitamin D2 (DRISDOL)] 50,000 unit PO TH 02/08/19 [History] OXcarbazepine 600 mg PO BID 07/06/21 [History] Vilazodone HCl [Viibryd] 40 mg PO HS 07/06/21 [History] Omeprazole [PriLOSEC] 40 mg PO DAILY #14 cap 10/06/21 [Rx] Propranolol [Inderal] 20 mg PO BID 10/06/21 [History] amLODIPine [Norvasc] 10 mg PO HS 10/06/21 [History] Acetaminophen [Tylenol Extra Strength] 500 mg PO DIRECTED PRN 12/01/21 [History] Horizant 600 mg PO DAILY@1730 12/01/21 [History] Nortriptyline HCl [Pamelor] 100 mg PO HS 12/01/21 [History] busPIRone HCL 15 mg PO BID 12/01/21 [History] tiZANidine [Zanaflex] 4 mg PO Q12HR PRN 12/01/21 [History] Follow up Appointment(s)/Referral(s): Georgie Ventura MD [STAFF PHYSICIAN] - 12/07/21 (With repeat labs) Ambulatory/Diagnostic Orders: Complete Blood Count w/diff [LAB.AMB] Location: None Selected Patient Instructions/Handouts: *Surgery [facility] - Anesthesia Discharge Instructions Discharge Disposition: HOME SELF-CARE
== END 2021-12-03 16:20 | disposition home or self-care (01) | DRG 392 ==
LOC: 2ORMAIN 11:28
PROVIDERS: ADMIT Surgery Plastic and Reconstructive Surgery; ATTEND Surgery Plastic and Reconstructive Surgery
DX: K57.32 Diverticulitis of large intestine without perforation or abscess without bleeding (principal); E72.12 Methylenetetrahydrofolate reductase deficiency; Z53.9 Procedure and treatment not carried out, unspecified reason; E66.01 Morbid (severe) obesity due to excess calories; Z20.822 Contact with and (suspected) exposure to COVID-19; Z68.35 Body mass index [BMI] 35.0-35.9, adult; G43.909 Migraine, unspecified, not intractable, without status migrainosus; K21.9 Gastro-esophageal reflux disease without esophagitis; I10 Essential (primary) hypertension; E04.2 Nontoxic multinodular goiter; E28.2 Polycystic ovarian syndrome; G50.0 Trigeminal neuralgia; R30.0 Dysuria; Z79.899 Other long term (current) drug therapy; Z87.891 Personal history of nicotine dependence; Z98.84 Bariatric surgery status; Z86.718 Personal history of other venous thrombosis and embolism; Z87.442 Personal history of urinary calculi; Z90.710 Acquired absence of both cervix and uterus; Z90.49 Acquired absence of other specified parts of digestive tract; Z87.19 Personal history of other diseases of the digestive system; Z87.42 Personal history of other diseases of the female genital tract; Z86.14 Personal history of Methicillin resistant Staphylococcus aureus infection; Z86.19 Personal history of other infectious and parasitic diseases; Z87.440 Personal history of urinary (tract) infections; Z86.79 Personal history of other diseases of the circulatory system; Z87.2 Personal history of diseases of the skin and subcutaneous tissue; Z98.890 Other specified postprocedural states; Z88.5 Allergy status to narcotic agent; Z88.0 Allergy status to penicillin; Z88.8 Allergy status to other drugs, medicaments and biological substances; Z91.040 Latex allergy status; Z80.8 Family history of malignant neoplasm of other organs or systems; Z83.2 Family history of diseases of the blood and blood-forming organs and certain disorders involving the immune mechanism
CPT/HCPCS: 71045; 80053; 81003; 85025; 86850; 86900; 86901; 87086; 87635

== ENCOUNTER → 2021-12-06 | Outpatient (CLI) | payer OTHER ==
[2021-12-06 14:26] LABS: Basophils # (A) 0.06 X 10*3/uL (0.00-0.10); Basophils % (A) 0.4 %; Eosinophils # (A) 0.12 X 10*3/uL (0.04-0.35); Eosinophils % (A) 0.9 %; HCT 45.4 % (37.2-46.3); HGB 14.9 g/dL (12.0-15.0); Immature Grans, Automated 0.3 %; Lymphocytes # (A) 2.76 X 10*3/uL (0.90-5.00); Lymphocytes % (A) 20.1 %; MCH 31.3 pg (27.0-32.0); MCHC 32.8 g/dL (32.0-37.0); MCV 95.4 fL (80.0-97.0); Mean Platelet Volume 10.1 fL (9.5-12.2); Monocytes # (A) 0.96 X 10*3/uL (0.20-1.00); NRBC Per 100 WBC 0 /100 WBCS (0.0-0.0); Neutrophils # (A) 9.79 X 10*3/uL (1.80-7.70); Neutrophils % (A) 71.3 %; Platelet Count 390 X 10*3/uL (140-440); RBC 4.76 X 10*6/uL (4.10-5.20); RDW 12.2 % (11.5-14.5); WBC 13.73 X 10*3/uL (4.50-10.00)
== END | disposition home or self-care (01) ==
LOC: LABWHC1 10:09
PROVIDERS: ATTEND Surgery Plastic and Reconstructive Surgery
DX: N39.0 Urinary tract infection, site not specified (principal)
CPT/HCPCS: 36415; 85025

== ENCOUNTER → 2021-12-20 | Outpatient (CLI) | payer OTHER ==
[2021-12-20 14:34] LABS: Basophils # (A) 0.06 X 10*3/uL (0.00-0.10); Basophils % (A) 0.5 %; Eosinophils # (A) 0.22 X 10*3/uL (0.04-0.35); Eosinophils % (A) 1.8 %; HCT 46.1 % (37.2-46.3); HGB 15.2 g/dL (12.0-15.0); Immature Grans, Automated 0.5 %; Lymphocytes % (A) 16.6 %; MCH 31.4 pg (27.0-32.0); MCV 95.2 fL (80.0-97.0); Mean Platelet Volume 9.4 fL (9.5-12.2); Monocytes # (A) 0.56 X 10*3/uL (0.20-1.00); Monocytes % (A) 4.6 %; NRBC Per 100 WBC 0 /100 WBCS (0.0-0.0); Neutrophils # (A) 9.18 X 10*3/uL (1.80-7.70); Platelet Count 454 X 10*3/uL (140-440); RBC 4.84 X 10*6/uL (4.10-5.20); RDW 12.1 % (11.5-14.5); Reticulocyte % 2.72 % (0.10-1.80); WBC 12.08 X 10*3/uL (4.50-10.00)
[2021-12-20 15:09] LABS: Erythrocyte Sedimentation Rate 54 mm/Hr (0-20)
[2021-12-20 15:22] LABS: % Iron Saturation 20.5 (12.00-45.00); African American GFR (CKD) 105.4 (60.0-200.0); Albumin 4.3 g/dL (3.8-4.9); Albumin/Globulin Ratio 1.43 (1.60-3.17); Anion Gap 13.6 mmol/L (10.00-18.00); C Reactive Protein 1.8 mg/dL (0.00-0.80); Calcium 9.7 mg/dL (8.7-10.3); Carbon Dioxide 22.4 mmol/L (20.0-27.5); Non-African American GFR(CKD) 90.9 (60.0-200.0); Total Bilirubin 0.4 mg/dL (0.30-1.20); Total Protein 7.3 g/dL (6.2-8.2)
[2021-12-20 16:11] LABS: Follicle Stimulating Hormone 5.4 mIU/mL; Luteinizing Hormone 5.7 mIU/mL; T4, Free (Free Thyroxine) 0.89 ng/dL (0.800-1.800)
[2021-12-20 21:26] LABS: Thyroid Peroxidase Antibodies <9.0 U/mL (0.0-33.0)
[2021-12-21 13:34] LABS: APTT 41 Sec(s) (<43); Dilute Russell Viper Venom 43 Sec(s) (<44)
[2021-12-21 15:42] LABS: Protein, Total 7.5 g/dL (6.2-8.2)
== END | disposition home or self-care (01) ==
LOC: LABWHC1 10:44
PROVIDERS: ATTEND Nurse Practitioner Adult Health
DX: R79.89 Other specified abnormal findings of blood chemistry (principal); N95.1 Menopausal and female climacteric states; I10 Essential (primary) hypertension; E04.1 Nontoxic single thyroid nodule; R50.9 Fever, unspecified
CPT/HCPCS: 36415; 80053; 82607; 82746; 83001; 83002; 83540; 83550; 83615; 84165; 84432; 84439; 84443; 85025; 85045; 85379; 85613; 85652; 85730; 86038; 86140; 86376

== ENCOUNTER → 2022-02-11 | Outpatient (CLI) | payer OTHER ==
[2022-02-11 17:46] LABS: HCT 46.6 % (37.2-46.3); HGB 15.2 g/dL (12.0-15.0); MCH 31.7 pg (27.0-32.0); MCHC 32.6 g/dL (32.0-37.0); MCV 97.1 fL (80.0-97.0); Mean Platelet Volume 9.3 fL (9.5-12.2); NRBC Per 100 WBC 0 /100 WBCS (0.0-0.0); Platelet Count 522 X 10*3/uL (140-440); RDW 13.2 % (11.5-14.5); WBC 13.71 X 10*3/uL (4.50-10.00)
[2022-02-11 18:03] LABS: African American GFR (CKD) 91.4 (60.0-200.0); Albumin 4.4 g/dL (3.8-4.9); Albumin/Globulin Ratio 1.22 (1.60-3.17); Anion Gap 11.2 mmol/L (10.00-18.00); Blood Urea Nitrogen 6.3 mg/dL (9.0-27.0); Calcium 9.9 mg/dL (8.7-10.3); Carbon Dioxide 26.8 mmol/L (20.0-27.5); Globulin 3.6 g/dL (1.6-3.3); Non-African American GFR(CKD) 78.9 (60.0-200.0); Potassium 4.6 mmol/L (3.5-5.5); Total Bilirubin 0.3 mg/dL (0.30-1.20)
== END | disposition home or self-care (01) ==
LOC: LABWHC1 10:53
PROVIDERS: ATTEND Surgery Plastic and Reconstructive Surgery
DX: Z01.812 Encounter for preprocedural laboratory examination (principal)
CPT/HCPCS: 36415; 80053; 85027

== ENCOUNTER 2022-02-17 09:27 | Inpatient (IN) | payer OTHER ==
--- NOTE | 2022-02-17 08:13 | P.GSHP ---
History of Present Illness H&P Date: 02/17/22 CHIEF COMPLAINT: History of sigmoid diverticulitis HISTORY OF PRESENT ILLNESS: The patient is a 41-year-old female with sigmoid diverticulitis including recurrent abdominal pain for over 6 months. Now she presents for sigmoid colon resection. PAST MEDICAL HISTORY: Please see list. PAST SURGICAL HISTORY: Please see list. MEDICATIONS: Please see list. ALLERGIES: Please see list. SOCIAL HISTORY: No illicit drug use FAMILY HISTORY: No reports of Crohn disease or ulcerative colitis. REVIEW OF ORGAN SYSTEMS: CONSTITUTIONAL: Denies any fever or chills. HEENT: Denies any trouble with vision or nosebleeds. No difficulty swallowing. LYMPHATIC: The patient denies any lumps and bumps around the neck. ENDOCRINE: Denies any thyroid disorders. Has blood sugar glucose intolerance. RESPIRATORY: Denies pneumonia. Denies any troubles with breathing or dyspnea on exertion. CARDIOVASCULAR: Denies any chest pain, palpitations, or recent heart attacks. GASTROINTESTINAL: Has chronic diverticulitis. GENITOURINARY: Has increased urinary frequency. MUSCULOSKELETAL: Has back pain, stiffness, joint arthritis. NEUROLOGIC: Denies any numbness or tingling along the distal extremities. No seizure disorders or headaches. PSYCHIATRIC: Denies depression or suidical ideation. HEMATOLOGIC: Denies any abnormal bleeding or bruising. PHYSICAL EXAM: VITAL SIGNS: Stable GENERAL: Well-developed pleasant in no acute distress. HEENT: No scleral icterus. Extraocular movements grossly intact. Moist buccal mucosa. NECK: Supple without lymphadenopathy. CHEST: Unlabored respirations. Equal bilateral excursions. CARDIOVASCULAR: Regular rate and rhythm. Distal 2+ pulses. ABDOMEN: Soft, nontender, nondistended. MUSCULOSKELETAL: No clubbing, cyanosis, or edema. NERUO: Cranial nerves 2-12 grossly intact. PSYCH: Alert and oriented to person place and time. ASSESSMENT: 1. Sigmoid diverticulitis 2. Morbid obesity, BMI 38.2 PLAN: 1. Benefits and risks of surgical robotic sigmoid resection was reviewed in detail. Robotic-assisted approach was also described. 2. Enhanced colon recovery program. 3. DVT prophylaxis. 4. Antibiotic prophylaxis. 5. Inpatient hospitalization greater than 2 nights. Past Medical History Past Medical History: Blood Disorder, GERD/Reflux, Hypertension, Thyroid Disorder Additional Past Medical History / Comment(s): WAS SCHEDULED FOR COLON RESECTION ON 12/03/21, BUT WAS IN PRE-OP AND WBC HAD RISEN FROM 9[address]11 TO [address] AND SO OR WAS CANCELLED. Polycystic ovaries, mthfr clotting factor disorder, hx kidney stones, superficial blood clot x1, migraines, thyroid nodules, varicose veins, hx ileus, growth on rt ovary and heavy periods with pain, c-diff 2013, trigeminal neuralgia, microvascular decompression. History of Any Multi-Drug Resistant Organisms: C-DIFF, MRSA Date of last positivie culture/infection: 2009 MDRO Source:: abdomen Past Surgical History: Appendectomy, Back Surgery, Bariatric Surgery, Bowel Resection, Breast Surgery, Cholecystectomy, Hysterectomy Additional Past Surgical History / Comment(s): Gastric sleeve, vein stripping x4 pascale legs, laparoscopy, D & C x 5, lt breast biopsy, right hemicolectomy, EGD/COLONOSCOPY, craniotomy Past Anesthesia/Blood Transfusion Reactions: Motion Sickness, Postoperative Nausea & Vomiting (PONV) Additional Past Anesthesia/Blood Transfusion Reaction / Comment(s): migraines when waking up Past Psychological History: Anxiety Smoking Status: Former smoker Past Alcohol Use History: Rare Additional Past Alcohol Use History / Comment(s): started smoking 1994, 4 cig a day, quit 2018 Past Drug Use History: None Reported Additional Drug Use History / Comment(s): CBD oil/lotion - Past Family History Mother Family Medical History: Cancer Additional Family Medical History / Comment(s): thyroid ca, Sister(s) Family Medical History: Blood Disorder, Deep Vein Thrombosis (DVT), Pulmonary Embolus Medications and Allergies Home Medications Medication Instructions Recorded Confirmed Type Spironolactone 100 mg PO BID 03/20/14 02/11/22 History Ergocalciferol [Vitamin D2 50,000 unit PO TH 02/08/19 02/11/22 History (DRISDOL)] OXcarbazepine 600 mg PO BID 07/06/21 02/11/22 History Vilazodone HCl [Viibryd] 40 mg PO HS 07/06/21 02/11/22 History Propranolol [Inderal] 20 mg PO BID 10/06/21 02/11/22 History amLODIPine [Norvasc] 10 mg PO HS 10/06/21 02/11/22 History Acetaminophen [Tylenol Extra 500 mg PO DIRECTED PRN 12/01/21 02/11/22 History Strength] Horizant 600 mg PO DAILY@1730 12/01/21 02/11/22 History Nortriptyline HCl [Pamelor] 100 mg PO HS 12/01/21 02/11/22 History busPIRone HCL 15 mg PO BID 12/01/21 02/11/22 History tiZANidine [Zanaflex] 4 mg PO Q12HR PRN 12/01/21 02/11/22 History Allergies Allergy/AdvReac Type Severity Reaction Status Date / Time amoxicillin [From Augmentin] Allergy Rash/Hives Verified 12/03/21 11:51 clavulanic acid Allergy Rash/Hives Verified 12/03/21 11:51 [From Augmentin] potassium clavulanate Allergy Rash/Hives Verified 12/03/21 11:51 [From Augmentin] pregabalin [From Lyrica] Allergy Swelling Verified 12/03/21 11:51 Latex, Natural Rubber AdvReac Rash/Hives Verified 12/03/21 11:51 morphine AdvReac Nausea & Verified 12/03/21 11:51 Vomiting,abdominal pain
[~2022-02-17 09:27] MED LIST changes: +HYDROmorphone 0.5 MG/0.5 ML SYRINGE IVP PRN; -LACTATED RINGERS 1,000 ML IV SCH; +LIDOCAINE 1% (10MG/ML) FOR IV START INTRADERMA PRN; -SCOPOLAMINE 1 MG/72 HR PATCH TRANSDERM ONE; -ceFAZolin 3 GM in SODIUM CHLORIDE 0.9% 100 ML IVPB PRN; -fentaNYL (PF) 50 MCG/ML 2 ML AMP IV PRN
[2022-02-17] MEDS: LACTATED RINGERS 1,000 ML IV SCH (10:15)
[2022-02-17 10:25] LABS: Basophils % (A) 0 %; Eosinophils # (A) 0.1 k/uL (0-0.7); Eosinophils % (A) 0 %; HCT 45.1 % (34.0-46.0); HGB 15.6 gm/dL (11.4-16.0); Lymphocytes # (A) 1.6 k/uL (1.0-4.8); Lymphocytes % (A) 10 %; MCH 33.4 pg (25.0-35.0); MCHC 34.7 g/dL (31.0-37.0); MCV 96.2 fL (80.0-100.0); Mean Platelet Volume 7.2; Monocytes # (A) 0.8 k/uL (0-1.0); Monocytes % (A) 5 %; Neutrophils # (A) 13.7 k/uL (1.3-7.7); Neutrophils % (A) 83 %; Platelet Count 461 k/uL (150-450); RBC 4.68 m/uL (3.80-5.40); RDW 13.6 % (11.5-15.5); WBC 16.5 k/uL (3.8-10.6)
[2022-02-17 10:37] LABS: ALT 16 U/L (4-34); AST 19 U/L (14-36); African American GFR (CKD) >90 (>60 ml/min/1.73 sqM); Albumin 4.3 g/dL (3.5-5.0); Alkaline Phosphatase 94 U/L (38-126); Anion Gap 9 mmol/L; Blood Urea Nitrogen 4 mg/dL (7-17); Calcium 8.8 mg/dL (8.4-10.2); Carbon Dioxide 24 mmol/L (22-30); Chloride 102 mmol/L (98-107); Glucose 112 mg/dL (74-99); Non-African American GFR(CKD) >90 (>60 ml/min/1.73 sqM); Potassium 3.4 mmol/L (3.5-5.1); Sodium 135 mmol/L (137-145); Total Bilirubin 0.3 mg/dL (0.2-1.3); Total Protein 7.4 g/dL (6.3-8.2)
[2022-02-17] MEDS ORDERED: MIDAZOLAM 2 MG/2 ML VIAL IVP ONE ×2 (10:45→10:47)
[2022-02-17] MEDS ORDERED: fentaNYL (PF) 50 MCG/ML 2 ML AMP IVP ONE (10:46)
[2022-02-17] MEDS ORDERED: SCOPOLAMINE 1 MG/72 HR PATCH TRANSDERM ONE (11:53)
[2022-02-17] MEDS ORDERED: ROPIVACAINE 5 MG/ML 30 ML VIAL ONE (12:28)
[2022-02-17] MEDS ORDERED: NEOSTIGMINE 1 MG/ML 10 ML VIAL ONE (12:28)
[2022-02-17] MEDS ORDERED: GLYCOPYRROLATE 0.2 MG/ML 2 ML VIAL ONE (12:28)
[2022-02-17] MEDS ORDERED: PROPOFOL 10 MG/ML 20 ML VIAL IV ONE (12:28)
[2022-02-17] MEDS ORDERED: LIDOCAINE 2% INJ 20 MG/ML (2 ML VIAL) ONE (12:28)
[2022-02-17] MEDS ORDERED: DEXAMETHASONE SOD PHOSPHATE 4 MG/ML 1 ML VIAL ONE (12:28)
[2022-02-17] MEDS ORDERED: ROCURONIUM 10 MG/ML (5 ML VIAL) IV ONE (12:28)
[2022-02-17] MEDS ORDERED: HYDROmorphone (PF) 1 MG/ML ONE (12:28)
[2022-02-17] MEDS ORDERED: SODIUM CHLORIDE 0.9% (PF) 10 ML VIAL ONE (12:28)
[2022-02-17] MEDS ORDERED: MIDAZOLAM 2 MG/2 ML VIAL ONE (12:28)
[2022-02-17] MEDS ORDERED: fentaNYL (PF) 50 MCG/ML 2 ML AMP ONE (12:28)
[2022-02-17] MEDS ORDERED: SUCCINYLCHOLINE CHLORIDE VIAL 200 MG/10 ML VIAL IV ONE (12:28)
[2022-02-17] MEDS ORDERED: LACTATED RINGERS 1,000 ML IV ONE ×2 (12:51→14:56)
[2022-02-17] MEDS ORDERED: BUPIVACAIN-EPI 0.25%-1:200,000 30 ML VIAL SQ ONE (13:19)
[2022-02-17] MEDS ORDERED: NALOXONE 0.4 MG/ML 1 ML VIAL IV PRN (15:52)
[2022-02-17] MEDS ORDERED: SCOPOLAMINE 1 MG/72 HR PATCH TRANSDERM SCH (16:00)
--- NOTE | 2022-02-17 16:06 | P.OP ---
Date of Procedure: 02/17/22 Description of Procedure: SURGEON: CAROL COLEMAN MD PREOPERATIVE DIAGNOSES: 1. Sigmoid diverticulitis 2. Hypertensive heart disease 3. History of sleeve gastrectomy 4. History of right colectomy 5. Morbid obesity due to excess calories, BMI 38.4 6. Pre-existing persistent leukocytosis 7. Gastroesophageal reflux disease 8. Clotting disorder 9. Polycystic ovarian syndrome 10. Chronic migraines 11. Hypothyroidism 12. Postoperative nausea and vomiting POSTOPERATIVE DIAGNOSES: 1. Sigmoid diverticulitis with sigmoid volvulus 2. Hypertensive heart disease 3. History of sleeve gastrectomy 4. History of right colectomy 5. Morbid obesity due to excess calories, BMI 38.4 6. Pre-existing persistent leukocytosis 7. Gastroesophageal reflux disease 8. Clotting disorder 9. Polycystic ovarian syndrome 10. Chronic migraines 11. Hypothyroidism 12. Postoperative nausea and vomiting OPERATION: 1. Robotic-assisted daVinci Xi sigmoid colectomy with low anterior resection using 29 mm Ethicon powered stapler 2. Intraoperative colonoscopy used for sigmoidoscopy Anesthesia: GETA, local, regional Estimated Blood Loss (ml): 20 Pathology: 1. Sigmoid colon 2. EEA donuts 3. Proximal colotomy Condition: stable Disposition: floor COMPLICATIONS: None. Operative Findings: 1. Redundant sigmoid colon and active sigmoid volvulus without bowel ischemia 2. Anastomosis with EEA stapler 29 mm 3. No tension or torsion along the anastomosis 4. Doughnuts thick and both sides and viable 5. Moderately redundant sigmoid colon without tension at anastomosis 6. Negative leak test with viable anastomosis. INDICATIONS: The patient is a 41-year-old female who presents with change in bowel habits, sigmoid diverticulosis with tortuous colon. She had prior to the colonoscopy however unsuccessful with computed tomography scan performed. She has pre-existing persistent leukocytosis which was addressed by hematology. Benefits and risks of surgical intervention was described in detail including infection, injury to the ureter, colostomy creation, possibility for additional surgery was discussed at length. Informed consent was obtained. All questions of the patient and family were answered. DESCRIPTION: Earlier the patient had undergone a bowel prep using the enhanced colon recovery program. The patient was transferred to the operating room and placed supine. After general induction, the abdomen was prepped and draped in standard sterile fashion. Ioban was placed along the abdomen to minimize any contamination of skin floor. A Davis catheter was placed. After a timeout protocol was performed, attention was then brought to the left upper quadrant whereby a 0 degree 5 mm laparoscopic trocar entry was performed. The abdominal cavity was entered and insufflated to 15 mmHg pressure, which was tolerated well. Diagnostic laparoscopy confirmed moderately redundant sigmoid colon and active sigmoid volvulus. The small bowel was unremarkable. Next a robotic 12-mm trocar was placed along the right lateral abdominal wall 20 cm superior from the pelvis. Two 8 mm ports were placed along the upper abdomen. Ports were placed 10 cm apart from each other including 20 cm away from the target anatomy of the left pelvis. The 12-mm port was exchanged for an 8 mm robotic port at the left upper quadrant. The robot was docked along the left lateral abdomen. The patient was positioned in steep Trendelenburg position at 21-degrees. Using atraumatic graspers and vessel sealer, the robotic system was docked and primed as described. Instruments were interchanged by the lpn or medical assistant including hook cautery, needle airport driver, robotic stapler and vessel sealer. The robot stapler was prepared along the right lateral abdominal wall. The stapler 12-mm port was arranged along the right lateral abdominal wall. Next, attention was brought to identify the sigmoid colon. A stay suture using 3- 0 silk was placed along the anterior serosa of the redundant sigmoid colon. The sigmoid mesentery was mobilized using a vessel sealer whereby the descending colon was marked and tagged. Using multiple fires of the robot stapler 60 mm green load, the proximal sigmoid colon was divided. The mesentery of the sigmoid colon was mobilized towards the pelvic brim and sacral promontory using a vessel sealer. The sigmoid volvulus was reduced with viable colon. Next, the sigmoid colon was divided using the robotic stapler 60 mm black staple loads. The rest of the sigmoid colon mesentery was mobilized using vessel sealer. Additionally, the sigmoid colon was mobilized onto the colon to minimize injury to the ureters. I went to the foot of the bed to confirm sizers and placement of 29-mm Ethicon powered stapler. I re-scrubbed into the case. The robotic arms were temporarily undocked. A 29-mm anvil was placed with a 3-0 silk sutured at the tip of the anvil acute care physical therapist. Then the anvil was placed via the left upper quadrant 12 mm port. All robotic arms were re-docked. I went back to the console. The staple line was opened using cautery. The anvil was entered into the proximal descending colon. The colotomy was closed using 60 mm green load. Next, the sharp tip of the anvil acute care physical therapist was brought through the staple line. The anvil acute care physical therapist was removed from the abdomen using empty clip appliers. I went to the foot of the bed to place the powered Ethicon 29 mm stapler via the rectum. The anvil and stapler were mated for 1 minute. The doughnuts were intact on both sides and thick. An intraoperative leak test was performed as I inserted the colonoscope to the anastomosis. Endoscopic images were obtained. Irrigation was placed in the pelvis and no air leaks were identified. Irrigation fluid was aspirated from the pelvis until dry. I went back to the console. All sponges and needles were removed from the abdominal cavity. The robot was undocked. I re-scrubbed into the case. Via the left upper quadrant port, the sigmoid colon was removed using 15 mm Endo Catch bag. All sponges were removed from the abdominal cavity. The left upper quadrant incision was widened to 3-cm. No contamination had occurred throughout the case. The fascial defect was oversewn using 0 Vicryl and a Benjamin Paniagua. Next all pneumoperitoneum was evacuated from the abdominal cavity. The 8-mm trocar sites were reapproximated using 4-0 Monocryl in an interrupted subcuticular fashion. Local anesthetic was infiltrated to all wounds for postop analgesia. All incisions were also cleansed with diluted hydrogen peroxide. An Evodental advance surgical dressing was placed over the colon extraction site. Liquid glue was applied to the rest of the skin incisions. The patient had tolerated the procedure well. The patient was extubated successfully. The patient was transferred to the postanesthesia care unit in stable condition. Intraoperative findings were described in detail to the patient's family. Console time: 77 minutes
[2022-02-17] MEDS: ONDANSETRON 4 MG/2 ML VIAL IVP SCH (17:22)
[2022-02-17] MEDS: SIMETHICONE 40 MG/0.6 ML DROPS 2,000 MG/30 ML BOTTLE PO SCH ×2 (17:22→20:48)
[2022-02-17] MEDS: ACETAMINOPHEN IV (For NPO) 1,000 MG in EMPTY BAG 1 BAG IVPB SCH (17:23)
[2022-02-17] MEDS: GABAPENTIN 300 MG CAP PO SCH (17:23)
[2022-02-17] MEDS: fentaNYL PCA 500 MCG/50 ML BAG IV PRN ×2 (17:42→23:56)
[2022-02-17] MEDS ORDERED: KETOROLAC 15 MG/ML 1 ML VIAL IVP SCH (18:00)
[2022-02-17] MEDS: metroNIDAZOLE-NS PMX 500 MG in SALINE 1 100ML.BAG IVPB SCH (18:10)
[2022-02-17] MEDS ORDERED: SODIUM CHLORIDE 0.9% 2,000 ML IV ONE (19:00)
[2022-02-17] MEDS: HEPARIN SODIUM,PORCINE/PF 5,000 UNIT/0.5 ML SYRINGE SQ SCH (20:46)
[2022-02-17] MEDS: busPIRone HCl 5 MG TAB PO SCH (20:46)
[2022-02-17] MEDS: amLODIPine 10 MG TAB PO SCH (20:46)
[2022-02-17] MEDS: SPIRONOLACTONE 25 MG TAB PO SCH (20:47)
[2022-02-17] MEDS: NORTRIPTYLINE 25 MG CAP PO SCH (20:47)
[2022-02-17] MEDS: PROPRANOLOL 20 MG TAB PO SCH (20:48)
[2022-02-17] MEDS: OXcarbazepine 300 MG TAB PO SCH (20:48)
[2022-02-17] MEDS: Vilazodone Hcl [Viibryd] PO SCH (20:50)
[2022-02-17] MEDS: ceFAZolin 3 GM in SODIUM CHLORIDE 0.9% 100 ML IVPB SCH (21:24)
[2022-02-17] MEDS: HYDROmorphone 1 MG/ML 1 ML SYRINGE IVP PRN (21:53)
[2022-02-17] MEDS: D5-0.45% NACL WITH KCL 20MEQ/L 1,000 ML IV SCH (23:58)
[2022-02-18] MEDS: D5-0.45% NACL WITH KCL 20MEQ/L 1,000 ML IV SCH ×4 (00:06→19:22)
[2022-02-18] MEDS: ACETAMINOPHEN IV (For NPO) 1,000 MG in EMPTY BAG 1 BAG IVPB SCH ×3 (00:29→11:59)
[2022-02-18] MEDS: metroNIDAZOLE-NS PMX 500 MG in SALINE 1 100ML.BAG IVPB SCH ×4 (00:31→22:17)
[2022-02-18] MEDS: ONDANSETRON 4 MG/2 ML VIAL IVP SCH ×4 (00:31→17:27)
[2022-02-18] MEDS: ceFAZolin 3 GM in SODIUM CHLORIDE 0.9% 100 ML IVPB SCH ×3 (04:11→23:23)
[2022-02-18 06:43] LABS: Basophils % (A) 0 %; Eosinophils # (A) 0.1 k/uL (0-0.7); Eosinophils % (A) 1 %; HCT 43.7 % (34.0-46.0); HGB 14.6 gm/dL (11.4-16.0); Lymphocytes # (A) 1.7 k/uL (1.0-4.8); Lymphocytes % (A) 11 %; MCH 33.6 pg (25.0-35.0); MCHC 33.5 g/dL (31.0-37.0); MCV 100.3 fL (80.0-100.0); Macrocytosis Slight; Mean Platelet Volume 7.6; Monocytes # (A) 0.4 k/uL (0-1.0); Monocytes % (A) 3 %; Neutrophils # (A) 13.2 k/uL (1.3-7.7); Neutrophils % (A) 85 %; Platelet Count 401 k/uL (150-450); RBC 4.35 m/uL (3.80-5.40); RDW 13.9 % (11.5-15.5); WBC 15.5 k/uL (3.8-10.6)
[2022-02-18] MEDS: fentaNYL PCA 500 MCG/50 ML BAG IV PRN ×3 (06:55→20:05)
[2022-02-18] MEDS: GABAPENTIN 300 MG CAP PO SCH ×4 (07:23→22:27)
[2022-02-18] MEDS: ALVIMOPAN 12 MG CAPSULE PO SCH ×2 (07:23→22:27)
[2022-02-18] MEDS: HEPARIN SODIUM,PORCINE/PF 5,000 UNIT/0.5 ML SYRINGE SQ SCH ×2 (07:23→22:29)
[2022-02-18] MEDS: busPIRone HCl 5 MG TAB PO SCH ×2 (07:24→22:28)
[2022-02-18] MEDS: SPIRONOLACTONE 25 MG TAB PO SCH ×2 (07:24→22:24)
[2022-02-18] MEDS: PROPRANOLOL 20 MG TAB PO SCH ×2 (07:24→22:30)
[2022-02-18] MEDS: SIMETHICONE 40 MG/0.6 ML DROPS 2,000 MG/30 ML BOTTLE PO SCH ×4 (07:25→22:30)
[2022-02-18] MEDS: OXcarbazepine 300 MG TAB PO SCH ×2 (07:25→22:29)
[2022-02-18 09:42] LABS: African American GFR (CKD) >90 (>60 ml/min/1.73 sqM); Anion Gap 7 mmol/L; Blood Urea Nitrogen 2 mg/dL (7-17); Calcium 8.5 mg/dL (8.4-10.2); Carbon Dioxide 23 mmol/L (22-30); Chloride 105 mmol/L (98-107); Glucose 93 mg/dL (74-99); Non-African American GFR(CKD) >90 (>60 ml/min/1.73 sqM); Potassium 3.8 mmol/L (3.5-5.1); Sodium 135 mmol/L (137-145)
[2022-02-18] MEDS: LACTATED RINGERS 1,000 ML IV SCH (09:56)
--- NOTE | 2022-02-18 12:48 | P.ANPRN ---
Procedure Note - Anesthesia - Nerve Block Performed Bilateral Erector Spinae Single Time Out Performed: Yes (1045) Date of Procedure: 02/18/22 Procedure Start Time: 10:46 Procedure Stop Time: 10:52 Location of Patient: PreOp Indication: Acute Post-Operative Pain, Requested by Surgeon Specifically requested for management of pain by DrGeorge: Georgie Ventura Sedation Type: Sedate with meaningful contact maintained Preparation: Sterile Prep Position: Sitting Catheter: None Needle Types: Pajunk Needle Gauge: 21 Ultrasound used to visualize needle placement: Yes Ultrasound used to observe medication spread: Yes Injectate: 0.5% Ropivacaine (see comment for volume) (15cc + 10cc nacl pf each side) Blood Aspirated: No Pain Paresthesia on Injection Noted: No Resistance on Injection: Normal Image Stored and Saved: Yes Events: Uneventful and Well Tolerated (dictated for dr garsia as he was unable to get to a computer at time of dication)
--- NOTE | 2022-02-18 15:20 | P.PN ---
Subjective Progress Note Date: 02/18/22 CHIEF COMPLAINT: Sigmoid diverticulitis with sigmoid volvulus HISTORY OF PRESENT ILLNESS: Patient is postop day #1 status post Robotic- assisted daVinci Xi sigmoid colectomy with low anterior resection. Patient does complain of abdominal pain. She reported her pain about 8 out of 10 this morning. She has been using the [employer] 2ND SHIFT pump. She denies any nausea or vomiting. She did have a bloody bowel movement this afternoon. Afebrile. WBC 16.5 down to 15.5 hemoglobin 14.6 platelets are 401 sodium 135 potassium has improved from 3.4-3.8 creatinine 0.61 PHYSICAL EXAM: VITAL SIGNS: Reviewed. GENERAL: Well-developed in no acute distress. HEENT: No sclera icterus. Extraocular movements grossly intact. Moist buccal mucosa. Head is atraumatic, normocephalic. ABDOMEN: Soft. Nondistended. Incision sites clean dry and intact. Abdominal binder in place. NEUROLOGIC: Alert and oriented. Cranial nerves II through XII grossly intact. ASSESSMENT: 1. Sigmoid diverticulitis with sigmoid volvulus 2. Hypertensive heart disease 3. History of sleeve gastrectomy 4. History of right colectomy 5. Morbid obesity due to excess calories, BMI 38.4 6. Pre-existing persistent leukocytosis 7. Gastroesophageal reflux disease 8. Clotting disorder 9. Polycystic ovarian syndrome 10. Chronic migraines 11. Hypothyroidism 12. Postoperative nausea and vomiting PLAN: -Advance diet to low fiber for dinner -Neurontin increased from twice a day to 3 times a day to help with pain -Continue current pain management -Continue ice as needed -Continue Mylicon gas drops -Encouraged patient to ambulate -Encouraged patient to use incentive spirometer -DVT prophylaxis subcu heparin Physician Keg Header note has been reviewed by physician. Signing provider agrees with the documented findings, assessment, and plan of care. CHIEF COMPLAINT: Diverticulitis HISTORY OF PRESENT ILLNESS: The patient is a 41-year-old female status post low anterior resection for diverticulosis and sigmoid volvulus. She reports moderate incisional pain. No nausea. She is tolerating diet. She is passing flatus. She is ambulating. ROS: No reports of nausea and vomiting. She had bowel movements. No fevers or chills. No new chest pain. No productive sputum PHYSICAL EXAM: VITAL SIGNS: Reviewed CONSTITUTIONAL: Well developed and in no acute distress. EYES: Conjuctivae without sclera icterus. Extraocular movements grossly intact. HEAD, EARS, NOSE, THROAT: Moist buccal mucosa. Head is atraumatic, normocep halic. Hears conversational speech. No nasal drainage. RESPIRATORY: Non-labored respirations and equal bilateral excursions. CARDIOVASCULAR: Palpable 2+ radial pulses. ABDOMEN: Dressing intact. MUSCULOSKELETAL: No gross deformity of the lower extremities noted. No clubbing. No cyanosis. SKIN: Good skin turgor. Well perfused. NEUROLOGIC: Cranial nerves II through XII grossly intact. No focal or lateralizing signs. PSYCH: Appropriate affect. Alert and oriented to person, place and time. CLINICAL LABS: Reviewed. WBC trending down ASSESSMENT: 1. Pre-existing leukocytosis 2. Diverticulitis 3. Sigmoid volvulus PLAN: 1. Adjustment of pain medications, non-narcotic management 2. Continue IV antibiotics 3. Full liquid diet advanced. Objective - Vital Signs Vital signs: Vital Signs Temp 97.4 F L 02/18/22 08:00 Pulse 67 02/18/22 13:42 Resp 14 02/18/22 02:00 BP 115/67 02/18/22 13:42 Pulse Ox 100 02/18/22 13:42 FiO2 Intake & Output 02/17/22 02/18/22 02/18/22 18:59 06:59 18:59 Intake Total 2550 1500 Output Total 495 3700 Balance 2055 -2200 Weight 117.8 kg Intake: IV 2550 Oral 1500 Output: Urine 475 3700 Estimated Blood Loss 20 Other: Voiding Method Indwelling Catheter # Voids 1 - Labs CBC & Chem 7: 02/19/22 11:38 02/19/22 11:38 Labs: Abnormal Lab Results - Last 24 Hours (Table) 02/18/22 02/18/22 Range/Units 06:00 09:14 WBC 15.5 H (3.8-10.6) k/uL MCV 100.3 H (80.0-100.0) fL Neutrophils # 13.2 H (1.3-7.7) k/uL Sodium 135 L (137-145) mmol/L BUN 2 L (7-17) mg/dL
[2022-02-18] MEDS: Vilazodone Hcl [Viibryd] PO SCH (22:25)
[2022-02-18] MEDS: NORTRIPTYLINE 25 MG CAP PO SCH (22:27)
[2022-02-18] MEDS: amLODIPine 10 MG TAB PO SCH (22:28)
[2022-02-19] MEDS: ONDANSETRON 4 MG/2 ML VIAL IVP SCH ×3 (01:49→13:12)
[2022-02-19] MEDS: metroNIDAZOLE-NS PMX 500 MG in SALINE 1 100ML.BAG IVPB SCH ×2 (03:56→11:20)
[2022-02-19] MEDS: fentaNYL PCA 500 MCG/50 ML BAG IV PRN (04:40)
[2022-02-19] MEDS: ceFAZolin 3 GM in SODIUM CHLORIDE 0.9% 100 ML IVPB SCH ×2 (05:12→13:12)
[2022-02-19] MEDS: D5-0.45% NACL WITH KCL 20MEQ/L 1,000 ML IV SCH (05:14)
[2022-02-19] MEDS: HYDROmorphone 1 MG/ML 1 ML SYRINGE IVP PRN ×3 (08:13→14:25)
[2022-02-19 08:14] VITALS: RESP 18
[2022-02-19] MEDS: busPIRone HCl 5 MG TAB PO SCH (08:14)
[2022-02-19] MEDS: HEPARIN SODIUM,PORCINE/PF 5,000 UNIT/0.5 ML SYRINGE SQ SCH (08:14)
[2022-02-19] MEDS: SPIRONOLACTONE 25 MG TAB PO SCH (08:14)
[2022-02-19] MEDS: PROPRANOLOL 20 MG TAB PO SCH (08:15)
[2022-02-19] MEDS: ALVIMOPAN 12 MG CAPSULE PO SCH (08:15)
[2022-02-19] MEDS: OXcarbazepine 300 MG TAB PO SCH (08:15)
[2022-02-19] MEDS: LACTATED RINGERS 1,000 ML IV SCH (08:16)
[2022-02-19] MEDS: SIMETHICONE 40 MG/0.6 ML DROPS 2,000 MG/30 ML BOTTLE PO SCH ×2 (08:16→13:11)
[2022-02-19 11:48] LABS: Basophils # (A) 0.1 k/uL (0-0.2); Basophils % (A) 0 %; Eosinophils # (A) 0.3 k/uL (0-0.7); Eosinophils % (A) 2 %; HGB 12.9 gm/dL (11.4-16.0); Lymphocytes % (A) 22 %; MCH 33.9 pg (25.0-35.0); MCHC 33.1 g/dL (31.0-37.0); MCV 102.5 fL (80.0-100.0); Macrocytosis Slight; Mean Platelet Volume 6.8; Monocytes # (A) 0.8 k/uL (0-1.0); Monocytes % (A) 6 %; Neutrophils # (A) 9.2 k/uL (1.3-7.7); Neutrophils % (A) 67 %; Platelet Count 381 k/uL (150-450); RBC 3.81 m/uL (3.80-5.40); RDW 13.9 % (11.5-15.5); WBC 13.7 k/uL (3.8-10.6)
[2022-02-19 12:03] LABS: African American GFR (CKD) >90 (>60 ml/min/1.73 sqM); Anion Gap 4 mmol/L; Blood Urea Nitrogen <2 mg/dL (7-17); Calcium 8.5 mg/dL (8.4-10.2); Carbon Dioxide 28 mmol/L (22-30); Chloride 103 mmol/L (98-107); Glucose 82 mg/dL (74-99); Non-African American GFR(CKD) >90 (>60 ml/min/1.73 sqM); Potassium 3.9 mmol/L (3.5-5.1); Sodium 135 mmol/L (137-145)
[2022-02-19] MEDS: GABAPENTIN 300 MG CAP PO SCH (13:12)
[2022-02-19 13:38] VITALS: BP 129/77; PULSE 66; TEMP 97.5
--- NOTE | 2022-02-19 13:38 | P.DS ---
Providers Date of admission: 02/17/22 09:27 Expected date of discharge: 02/19/22 Attending physician: Georgie Ventura Primary care physician: Pawan Melton [facility] Course: POSTOPERATIVE DIAGNOSES: 1. Sigmoid diverticulitis with sigmoid volvulus 2. Hypertensive heart disease 3. History of sleeve gastrectomy 4. History of right colectomy 5. Morbid obesity due to excess calories, BMI 38.4 6. Pre-existing persistent leukocytosis 7. Gastroesophageal reflux disease 8. Clotting disorder 9. Polycystic ovarian syndrome 10. Chronic migraines 11. Hypothyroidism 12. Postoperative nausea and vomiting CHIEF COMPLAINT: Diverticulitis HISTORY OF PRESENT ILLNESS: The patient is a 41-year-old female status post low anterior resection for diverticulosis and sigmoid volvulus. Her abdominal pain is tolerable. She is tolerating diet. She had a second bowel movement without blood. Hemoglobin stable. Mother at bedside. Images from surgery reviewed. Clinically doing well. ROS: No reports of nausea and vomiting. She had bowel movements. No fevers or chills. No new chest pain. No productive sputum PHYSICAL EXAM: VITAL SIGNS: Reviewed CONSTITUTIONAL: Well developed and in no acute distress. EYES: Conjuctivae without sclera icterus. Extraocular movements grossly intact. HEAD, EARS, NOSE, THROAT: Moist buccal mucosa. Head is atraumatic, normocephalic. Hears conversational speech. No nasal drainage. RESPIRATORY: Non-labored respirations and equal bilateral excursions. CARDIOVASCULAR: Palpable 2+ radial pulses. ABDOMEN: Dressing intact. MUSCULOSKELETAL: No gross deformity of the lower extremities noted. No clubbing. No cyanosis. SKIN: Good skin turgor. Well perfused. NEUROLOGIC: Cranial nerves II through XII grossly intact. No focal or lateralizing signs. PSYCH: Appropriate affect. Alert and oriented to person, place and time. CLINICAL LABS: Reviewed. WBC trending down ASSESSMENT: 1. Pre-existing leukocytosis 2. Diverticulitis 3. Sigmoid volvulus PLAN: 1. Discharge instructions including discharge diet reviewed. Vital Signs Temp 97.5 F L 02/19/22 13:38 Pulse 66 02/19/22 13:38 Resp 18 02/19/22 13:38 BP 129/77 02/19/22 13:38 Pulse Ox 99 02/19/22 13:38 FiO2 Intake & Output 02/19/22 02/19/22 02/20/22 06:59 18:59 06:59 Other: Voiding Method Toilet Toilet # Voids 1 Laboratory Last Values WBC 13.7 k/uL (3.8-10.6) H 02/19/22 11:38 RBC 3.81 m/uL (3.80-5.40) 02/19/22 11:38 Hgb 12.9 gm/dL (11.4-16.0) 02/19/22 11:38 Hct 39.0 % (34.0-46.0) 02/19/22 11:38 MCV 102.5 fL (80.0-100.0) H 02/19/22 11:38 MCH 33.9 pg (25.0-35.0) 02/19/22 11:38 MCHC 33.1 g/dL (31.0-37.0) 02/19/22 11:38 RDW 13.9 % (11.5-15.5) 02/19/22 11:38 Plt Count 381 k/uL (150-450) 02/19/22 11:38 MPV 6.8 02/19/22 11:38 Neutrophils % 67 % 02/19/22 11:38 Lymphocytes % 22 % 02/19/22 11:38 Monocytes % 6 % 02/19/22 11:38 Eosinophils % 2 % 02/19/22 11:38 Basophils % 0 % 02/19/22 11:38 Neutrophils # 9.2 k/uL (1.3-7.7) H 02/19/22 11:38 Lymphocytes # 3.0 k/uL (1.0-4.8) 02/19/22 11:38 Monocytes # 0.8 k/uL (0-1.0) 02/19/22 11:38 Eosinophils # 0.3 k/uL (0-0.7) 02/19/22 11:38 Basophils # 0.1 k/uL (0-0.2) 02/19/22 11:38 Macrocytosis Slight 02/19/22 11:38 Sodium 135 mmol/L (137-145) L 02/19/22 11:38 Potassium 3.9 mmol/L (3.5-5.1) 02/19/22 11:38 Chloride 103 mmol/L (98-107) 02/19/22 11:38 Carbon Dioxide 28 mmol/L (22-30) 02/19/22 11:38 Anion Gap 4 mmol/L 02/19/22 11:38 BUN <2 mg/dL (7-17) L 02/19/22 11:38 Creatinine 0.72 mg/dL (0.52-1.04) 02/19/22 11:38 Est GFR (CKD-EPI)AfAm >90 (>60 ml/min/1.73 sqM) 02/19/22 11:38 Est GFR (CKD-EPI)NonAf >90 (>60 ml/min/1.73 sqM) 02/19/22 11:38 Glucose 82 mg/dL (74-99) 02/19/22 11:38 Calcium 8.5 mg/dL (8.4-10.2) 02/19/22 11:38 Total Bilirubin 0.3 mg/dL (0.2-1.3) 02/17/22 10:05 AST 19 U/L (14-36) 02/17/22 10:05 ALT 16 U/L (4-34) 02/17/22 10:05 Alkaline Phosphatase 94 U/L (38-126) 02/17/22 10:05 Total Protein 7.4 g/dL (6.3-8.2) 02/17/22 10:05 Albumin 4.3 g/dL (3.5-5.0) 02/17/22 10:05 Blood Type A Positive 02/11/22 11:09 Blood Type Recheck A Pos 02/11/22 11:09 Bld Type Recheck Status No 02/11/22 11:09 Antibody Screen NEGATIVE 02/11/22 11:09 Spec Expiration Date 02/19/2022230802/11/22 11:09 Procedures: OPERATION: 1. Robotic-assisted daVinci Xi sigmoid colectomy with low anterior resection using 29 mm Ethicon powered stapler 2. Intraoperative colonoscopy used for sigmoidoscopy Anesthesia: GETA, local, regional Estimated Blood Loss (ml): 20 Pathology: 1. Sigmoid colon 2. EEA donuts 3. Proximal colotomy Condition: stable Disposition: floor COMPLICATIONS: None. Operative Findings: 1. Redundant sigmoid colon and active sigmoid volvulus without bowel ischemia 2. Anastomosis with EEA stapler 29 mm 3. No tension or torsion along the anastomosis 4. Doughnuts thick and both sides and viable 5. Moderately redundant sigmoid colon without tension at anastomosis 6. Negative leak test with viable anastomosis. Plan - Discharge Summary Discharge Rx Participant: No New Discharge Prescriptions: New Fluconazole [Diflucan] 150 mg PO DAILY #3 tab Simethicone [Gas-X] 125 mg PO AC-TID PRN #20 capsule PRN Reason: Pain Acetaminophen Tab [Tylenol Tab] 1,000 mg PO Q6HR PRN #30 tablet PRN Reason: Pain Ibuprofen [Motrin] 600 mg PO Q8HR PRN #30 tab PRN Reason: Pain Omeprazole [PriLOSEC] 40 mg PO DAILY #14 cap Continue Spironolactone 100 mg PO BID Ergocalciferol [Vitamin D2 (DRISDOL)] 50,000 unit PO TH OXcarbazepine 600 mg PO BID amLODIPine [Norvasc] 10 mg PO HS Acetaminophen [Tylenol Extra Strength] 500 mg PO DIRECTED PRN PRN Reason: Pain tiZANidine [Zanaflex] 4 mg PO Q12HR PRN PRN Reason: muscle spasms busPIRone HCL 15 mg PO BID Horizant 600 mg PO DAILY@1730 Vilazodone HCl [Viibryd] 40 mg PO HS Propranolol [Inderal] 20 mg PO BID Nortriptyline HCl [Pamelor] 100 mg PO HS Discharge Medication List Spironolactone 100 mg PO BID 03/20/14 [History] Ergocalciferol [Vitamin D2 (DRISDOL)] 50,000 unit PO TH 02/08/19 [History] OXcarbazepine 600 mg PO BID 07/06/21 [History] Vilazodone HCl [Viibryd] 40 mg PO HS 07/06/21 [History] Propranolol [Inderal] 20 mg PO BID 10/06/21 [History] amLODIPine [Norvasc] 10 mg PO HS 10/06/21 [History] Acetaminophen [Tylenol Extra Strength] 500 mg PO DIRECTED PRN 12/01/21 [History] Horizant 600 mg PO DAILY@1730 12/01/21 [History] Nortriptyline HCl [Pamelor] 100 mg PO HS 12/01/21 [History] busPIRone HCL 15 mg PO BID 12/01/21 [History] tiZANidine [Zanaflex] 4 mg PO Q12HR PRN 12/01/21 [History] Acetaminophen Tab [Tylenol Tab] 1,000 mg PO Q6HR PRN #30 tablet 02/19/22 [Rx] Fluconazole [Diflucan] 150 mg PO DAILY #3 tab 02/19/22 [Rx] Ibuprofen [Motrin] 600 mg PO Q8HR PRN #30 tab 02/19/22 [Rx] Omeprazole [PriLOSEC] 40 mg PO DAILY #14 cap 02/19/22 [Rx] Simethicone [Gas-X] 125 mg PO AC-TID PRN #20 capsule 02/19/22 [Rx] Follow up Appointment(s)/Referral(s): Georgie Ventura MD [STAFF PHYSICIAN] - 02/22/22 (Telehealth Please call office to set up) Patient Instructions/Handouts: *Surgery [facility] - Managing Your Pain After Surgery Without Opioids, Abdominal Binder (DC), Colectomy Diet (ED), Laparoscopic Bowel Resection (DC), Colectomy (DC) Activity/Diet/Wound Care/Special Instructions: DO NOT REMOVE DRESSING UNTIL 02/24/22 May shower. LOW FIBER DIET Wear abdominal binder at all times for comfort. Please notify your pain specialist for narcotic pain meds. No lifting over 4 pounds in 4 weeks until March 20. No bath tub soaks for two weeks until March 20 Avoid steak, tough meats and seeds such as raspberry seeds. No driving while on narcotics. Use Tylenol and ibuprofen scheduled for the next 24-48 hours for best pain relief. Use ice along incisions for today to prevent swelling. Discharge Disposition: HOME SELF-CARE
== END 2022-02-19 15:00 | disposition home or self-care (01) | DRG 329 ==
LOC: 2ORMAIN 09:27 → 4SSUR 16:38
PROVIDERS: ADMIT Surgery Plastic and Reconstructive Surgery; ATTEND Surgery Plastic and Reconstructive Surgery
PROC: 0DJD8ZZ Inspection of Lower Intestinal Tract, Via Natural or Artificial Opening Endoscopic (ICD-10-PCS; 2022-02-17)
PROC: 8E0W4CZ Robotic Assisted Procedure of Trunk Region, Percutaneous Endoscopic Approach (ICD-10-PCS; 2022-02-17)
PROC: 0DTN0ZZ Resection of Sigmoid Colon, Open Approach (ICD-10-PCS; principal; 2022-02-17 11:15)
DX: K57.32 Diverticulitis of large intestine without perforation or abscess without bleeding (principal); K56.2 Volvulus; D68.9 Coagulation defect, unspecified; D75.89 Other specified diseases of blood and blood-forming organs; E03.9 Hypothyroidism, unspecified; E28.2 Polycystic ovarian syndrome; E66.01 Morbid (severe) obesity due to excess calories; F41.9 Anxiety disorder, unspecified; G43.909 Migraine, unspecified, not intractable, without status migrainosus; D72.828 Other elevated white blood cell count; I11.9 Hypertensive heart disease without heart failure; K21.9 Gastro-esophageal reflux disease without esophagitis; Z68.38 Body mass index [BMI] 38.0-38.9, adult; Z79.899 Other long term (current) drug therapy; Z80.8 Family history of malignant neoplasm of other organs or systems; Z87.442 Personal history of urinary calculi; Z87.891 Personal history of nicotine dependence; Z98.84 Bariatric surgery status
CPT/HCPCS: 64999; 80048; 80053; 85025; 86850; 86900; 86901

== ENCOUNTER → 2024-04-29 | Outpatient (CLI) | payer MEDICARE, OTHER ==
--- NOTE | 2024-04-29 08:02 | MM ---
Reason for Exam: Clinical finding. Last screening mammogram was performed 12 month(s) ago. Patient History: Menarche at age 14. Patient has no children. Right ovary removed at age 39. Hysterectomy at age 39. Progesterone for 3 years from age 26 until age 31. 05/2012, Excisional Biopsy on the Left side. Paternal grandmother had breast cancer, age 46. Risk Values: Zeynep 5 year model risk: 1.3%. NCI Lifetime model risk: 11.7%. Prior Study Comparison: 03/21/2018 Bilateral Screening Mammogram, [facility]. 01/19/2021 Bilateral Screening Mammogram, [facility]. 04/14/2023 Bilateral MG 3D diag mammo w/cad MICHAEL, [facility]. 04/14/2023 Right US breast limited RT, [facility]. Tissue Density: There are scattered areas of fibroglandular density. Findings: Analyzed By CAD. The pattern is symmetrical. There is a benign spherical calcifications within the left breast. No significant interval change. A few benign punctate calcifications are present. At the area marked as a palpable abnormality no discrete underlying mammographic abnormality is recommended. Ultrasound can be performed for additional evaluation. No suspicious groups of microcalcifications, spiculated or lobular masses, architectural distortion or other secondary signs of malignancy are mammographically apparent. Overall Assessment: Incomplete: need additional imaging evaluation, BI-RAD 0 Management: Diagnostic Breast Ultrasound of the right breast. A negative mammogram report should not preclude additional follow up of suspicious palpable abnormalities. Patient should continue monthly self breast exam. A clinical breast exam by your physician is recommended on an annual basis and results should be correlated with mammographic findings. Note on Zeynep scores and lifetime risk: 1. A Zeynep score greater than 3% is considered moderate risk. If this is the case, consider specialist referral to assess eligibility for a risk reducing agent. 2. If overall lifetime risk for the development of breast cancer is 20% or higher, the patient may qualify for future screening with alternating mammogram and breast MRI. [facility], , 04/29/2024 8:00 AM. Electronically signed and approved by: Anastacio Renae D.O. Radiologis
--- NOTE | 2024-04-29 08:16 | USB ---
Reason for Exam: Clinical finding. Patient History: Menarche at age 14. Patient has no children. Right ovary removed at age 39. Hysterectomy at age 39. Progesterone for 3 years from age 26 until age 31. 05/2012, Excisional Biopsy on the Left side. Paternal grandmother had breast cancer, age 46. Risk Values: Zeynep 5 year model risk: 1.3%. NCI Lifetime model risk: 11.7%. Technique: Method: Targeted. Prior Study Comparison: 03/21/2018 Bilateral Screening Mammogram, [facility]. 01/19/2021 Bilateral Screening Mammogram, [facility]. 04/14/2023 Bilateral MG 3D diag mammo w/cad MICHAEL, [facility]. Findings: The area of palpable concern of the right breast, the axilla of the right breast and the retroareolar of the right breast were scanned. No solid or cystic masses are identified. Overall Assessment: Negative, BI-RAD 1 Management: Diagnostic Mammogram of both breasts in 1 year. A clinical breast exam by your physician is recommended on an annual basis and results should be correlated with mammographic findings. This exam should not preclude additional follow-up of suspicious palpable abnormalities. Results were given to the patient verbally at the time of exam. [facility], , 04/29/2024 8:01 AM. Electronically signed and approved by: Anastacio Renae D.O. Radiologis
== END | disposition home or self-care (01) ==
LOC: RADMAMWWP 06:54
PROVIDERS: ATTEND Family Medicine
DX: N63.10 Unspecified lump in the right breast, unspecified quadrant
CPT/HCPCS: 77062; 77066

== ENCOUNTER → 2024-04-29 | Outpatient (CLI) | payer MEDICARE, OTHER ==
--- NOTE | 2024-04-29 18:15 | US ---
EXAMINATION TYPE: US carotid duplex BILAT DATE OF EXAM: 04/29/2024 COMPARISON: NONE CLINICAL INDICATION: Female, 44 years old with history of R55 SYNCOPE AND COLLAPSE; syncope TECHNIQUE: Carotid duplex ultrasound examination. Indirect Doppler criteria was utilized. FINDINGS: EXAM MEASUREMENTS: RIGHT: Peak Systolic Velocity (PSV) cm/sec ----- Right CCA: 121 ----- Right ICA: 80.2 ----- Right ECA: 98.7 ICA/CCA ratio: 0.66 RIGHT: End Diastole cm/sec ----- Right CCA: 25.3 ----- Right ICA: 26.2 ----- Right ECA: 14.4 LEFT: Peak Systolic Velocity (PSV) cm/sec ----- Left CCA: 111 ----- Left ICA: 90.9 ----- Left ECA: 126 ICA/CCA ratio: 0.82 LEFT: End Diastole cm/sec ----- Left CCA: 24.9 ----- Left ICA: 14.9 ----- Left ECA: 23.0 VERTEBRALS (direction of flow): Right Vertebral: Antegrade Left Vertebral: Antegrade Rhythm: Normal BLOCK TRIMMER NOTES: No evidence of significant stenosis IMPRESSION: No evidence for hemodynamically significant stenosis. Criteria for Assigning % of Stenosis / Diameter reduction (Estimation based on the indirect measurements of the internal carotid artery velocities (ICA PSV). 1. Normal (no stenosis)=ICA PSV < 125 cm/s: ratio < 2.0: ICA EDV<40 cm/s. 2. Less than 50% stenosis=ICA PSV < 125 cm/s: ratio < 2.0: ICA EDV<40 cm/s. 3. 50 to 69% stenosis=ICA PSV of 125 to 230 cm/s: ration 2.0 ? 4.0: ICA EDV 40-100 cm/s. 4. Greater than 70% stenosis to near occlusion= ICA PSV > 230 cm/s: ratio > 4.0: ICA EDV > 100 cm/s. 5. Near occlusion= ICA PSV velocities may be low or undetectable: variable ratio and ICA EDV. 6. Total occlusion=unable to detect flow. [facility], , 04/29/2024 6:13 PM
== END | disposition home or self-care (01) ==
LOC: RADUSWWP 06:52
PROVIDERS: ATTEND Nurse Practitioner Adult Health
DX: R55 Syncope and collapse (principal)
CPT/HCPCS: 93880

== ENCOUNTER 2024-11-07 10:16 | Day surgery (SDC) | payer MEDICARE, OTHER ==
[2024-11-06 10:37] VITALS: BMI 30.2
--- NOTE | 2024-11-07 08:36 | P.GSHP ---
History of Present Illness H&P Date: 11/07/24 CHIEF COMPLAINT: GERD and colon screen HISTORY OF PRESENT ILLNESS: The patient is a 44-year-old female who presents with gastroesophageal reflux disease and need for colon screen. Upper and lower endoscopy were offered for further evaluation and management. PAST MEDICAL HISTORY: Please see list. PAST SURGICAL HISTORY: Please see list. MEDICATIONS: Please see list. ALLERGIES: Please see list. SOCIAL HISTORY: No illicit drug use FAMILY HISTORY: No reports of Crohn disease or ulcerative colitis. REVIEW OF ORGAN SYSTEMS: CONSTITUTIONAL: No reports of fevers or chills. GI: Denies any blood in stools or constipation. PHYSICAL EXAM: VITAL SIGNS: Stable GENERAL: Well-developed pleasant in no acute distress. HEENT: No scleral icterus. Extraocular movements grossly intact. Moist buccal mucosa. NECK: Supple without lymphadenopathy. CHEST: Unlabored respirations. Equal bilateral excursions. CARDIOVASCULAR: Regular rate and rhythm. Distal 2+ pulses. ABDOMEN: Soft, nondistended. MUSCULOSKELETAL: No clubbing, cyanosis, or edema. ASSESSMENT: 1. Gastroesophageal reflux disease 2. Colon screen. PLAN: 1. Recommend proceeding with an upper and lower endoscopy Past Medical History Past Medical History: Blood Disorder, GERD/Reflux, Hypertension, Thyroid Disorder Additional Past Medical History / Comment(s): "HGB A1C elevated by 0.1 previously but now below 5". "Normally elevated WBC per Hematology". Polycystic ovaries, MTHFR clotting factor disorder, hx kidney stones, hxsuperficial blood clot X1, migraines, thyroid nodules, varicose veins, hx trigeminal neuralgia. History of Any Multi-Drug Resistant Organisms: MRSA Date of last positivie culture/infection: 2009 MDRO Source:: abdomen Past Surgical History: Appendectomy, Back Surgery, Bariatric Surgery, Bowel Resection, Breast Surgery, Cholecystectomy, Hysterectomy, Orthopedic Surgery Additional Past Surgical History / Comment(s): Gastric sleeve, vein stripping X4 bilateral legs, laparoscopy, D&C X5, left breast biopsy, EGD/COLONOSCOPY, craniotomy, bowel resection X2 first due to ileus, 2nd due to stricture, plate and screws placed in left ankle, MVD(microvasular decompression due to trigeminal neuralgia). Past Anesthesia/Blood Transfusion Reactions: Motion Sickness, Postoperative Nausea & Vomiting (PONV) Additional Past Anesthesia/Blood Transfusion Reaction / Comment(s): Migraines when waking up. Hx blood transfusion as with no problems. Smoking Status: Former smoker - Past Family History Mother Family Medical History: Cancer Additional Family Medical History / Comment(s): Thyroid cancer. Sister(s) Family Medical History: Blood Disorder, Deep Vein Thrombosis (DVT), Pulmonary Embolus Medications and Allergies Home Medications Medication Instructions Recorded Confirmed Type Ergocalciferol [Vitamin D2 50,000 unit PO WE 02/08/19 11/06/24 History (DRISDOL)] Propranolol [Inderal] 20 mg PO TID PRN 10/06/21 11/06/24 History tiZANidine [Zanaflex] 4 mg PO TID PRN 12/01/21 11/06/24 History Amitriptyline HCl [Elavil] 100 mg PO HS 11/06/24 11/06/24 History Aspirin [Adult Low Dose Aspirin EC] 81 mg PO HS 11/06/24 11/06/24 History Famotidine 40 mg PO HS 11/06/24 11/06/24 History Losartan Potassium 100 mg PO QAM 11/06/24 11/06/24 History hydroCHLOROthiazide 25 mg PO QAM 11/06/24 11/06/24 History [Hydrochlorothiazide] Allergies Allergy/AdvReac Type Severity Reaction Status Date / Time clavulanic acid Allergy Rash/Hives Verified 11/06/24 10:11 [From Augmentin] potassium clavulanate Allergy Rash/Hives Verified 11/06/24 10:11 [From Augmentin] pregabalin [From Lyrica] Allergy Swelling Verified 11/06/24 10:11 Latex, Natural Rubber AdvReac Rash/Hives Verified 11/06/24 10:11 morphine AdvReac Nausea & Verified 11/06/24 10:11 Vomiting,abdominal pain
[~2024-11-07 10:16] MED LIST changes: -ACETAMINOPHEN TAB 500 MG TAB PO PRN; -ALVIMOPAN 12 MG CAPSULE PO PRN; -Antibiotics per Pharmacy 1 EACH MISC MISCELLANE PRN; -DEXAMETHASONE SOD PHOSPHATE 4 MG/ML 1 ML VIAL IV ONE; -HEPARIN SODIUM,PORCINE/PF 5,000 UNIT/0.5 ML SYRINGE SQ PRN; -HYDROmorphone 0.5 MG/0.5 ML SYRINGE IVP PRN; +LACTATED RINGERS 1,000 ML IV SCH; -MIDAZOLAM 2 MG/2 ML VIAL IV PRN; -ONDANSETRON 4 MG/2 ML VIAL IVP ONE; -metroNIDAZOLE-NS PMX 500 MG in SALINE 1 100ML.BAG IVPB PRN
[2024-11-07] MEDS: IV FLUID CONTINUATION 1,000 ML IV ONE (10:29)
[2024-11-07 10:44] VITALS: TEMP 97.2
[2024-11-07] MEDS ORDERED: PROPOFOL 10 MG/ML 20 ML VIAL IV ONE (11:49)
[2024-11-07] MEDS ORDERED: LIDOCAINE 1% INJ 10MG/ML (20 ML MDV) ONE (11:49)
--- NOTE | 2024-11-07 12:25 | P.PCN ---
Date of Procedure: 11/07/24 Description of Procedure: PREOPERATIVE DIAGNOSIS: Gastroesophageal reflux disease Dysphagia POSTOPERATIVE DIAGNOSIS: Upper esophageal stenosis Acute gastritis Gastric ulcers Sleeve gastrectomy OPERATION: Esophagogastroduodenoscopy with rigid dilator over the guidewire 54 Fr with dilation Esophagogastroduodenoscopy with cold forceps biopsies stomach/antrum, esophagus, duodenum SURGEON: Georgie Ventura MD ANESTHESIA: MAC. INDICATIONS: The patient is a 44-year-old female who presents with dysphagia. Benefits and risks of the procedure were described. Informed consent was obtained. DESCRIPTION: The patient was brought into the endoscopy suite and laid in the left lateral decubitus position. After a timeout was confirmed, the procedure was initiated. An Olympus gastroscope was passed into the posterior oropharynx where an upper esophageal stenosis was identified. The scope was passed down to the distal esophagus. To address the upper esophageal stenosis, rigid dilator over guidewire was selected. Next using an Kittitian rigid dilator, a guidewire was placed through the gastroscope. Next the scope was withdrawn. A 54-Samoan rigid Kittitian dilator was passed carefully along the posterior oropharynx to 45 cm and left in place for 2-3 minutes stretch. The dilator was withdrawn including the guidewire. The scope was reentered along the posterior oropharynx with no findings of full- thickness tear of the upper esophageal sphincter. Additional findings below. Within the stomach, acute gastritis with gastric ulcerations were identified along the body of the stomach with cold forceps biopsies obtained. Presence of sleeve gastrectomy identified without acute abnormalities. LA grade B erosive esophagitis was identified. No full-thickness injury was encountered. The GI tract was desufflated. The patient tolerated the procedure well. FINDINGS: Upper esophageal stenosis dilated 54-Samoan rigid dilator Squamocolumnar junction 40 cm from the incisors. Acute gastritis along the gastric body and fundus cold forceps biopsies obtained Acute gastric ulcerations identified. Biopsies obtained. Duodenum with biopsies obtained LA grade B erosive esophagitis, biopsies obtained Presence of sleeve gastrectomy without dilated reservoir or abnormal contour RECOMMENDATIONS: Omeprazole 40 mg daily for 2 weeks Carafate 1 g twice daily for 2 weeks
--- NOTE | 2024-11-07 12:31 | P.PCN ---
Date of Procedure: 11/07/24 Description of Procedure: PREOPERATIVE DIAGNOSIS: Change in bowel habits History of diverticulitis History of right colectomy History of sigmoid colon POSTOPERATIVE DIAGNOSIS: Proctitis OPERATION: Colonoscopy to the ileocolic anastomosis SURGEON: Georgie Ventura MD. ANESTHESIA: MAC. INDICATIONS: The patient is a 44-year-old female who presents with pre-existing history of multiple colectomies including change in bowel habits. Benefits and risks were described and informed consent was obtained. DESCRIPTION OF PROCEDURE: The patient had undergone Suprep. The patient had been brought into the operating room and laid in the left lateral decubitus position. After adequate intravenous sedation, the rectum was examined with 2% lidocaine jelly. External hemorrhoids were encountered. The rectal tone was within normal limits. No lesions were palpated in the rectal vault. An Olympus colonoscope was advanced until ileocolic anastomosis was viewed. The prep was fair. No large scattered diverticulosis was encountered. No colonic polyps were found. No evidence of focal colitis was found. Retroflexion of the scope demonstrated grade 4 internal hemorrhoids without active bleeding or inflammation. The colon was desufflated. The patient had tolerated the procedure well. Withdrawal time was over 6 minutes. FINDINGS: Aronchick preparation quality scale 3 (1-5) Internal hemorrhoids, grade 4 External prolapsed hemorrhoids, grade 4 No arteriovenous malformations. No adenomatous polyps. Focal proctitis without bleeding RECOMMENDATIONS: Lower endoscopy in 5 years2029 Plan - Discharge Summary Discharge Rx Participant: No New Discharge Prescriptions: New Sucralfate [Carafate] 1 gm PO BID #30 tablet Continue Ergocalciferol [Vitamin D2 (DRISDOL)] 50,000 unit PO WE tiZANidine [Zanaflex] 4 mg PO TID PRN PRN Reason: Muscle Spasm Amitriptyline HCl [Elavil] 100 mg PO HS hydroCHLOROthiazide 25 mg PO QAM Losartan Potassium 100 mg PO QAM Propranolol [Inderal] 20 mg PO TID PRN PRN Reason: Anxiety Famotidine 40 mg PO HS Aspirin [Adult Low Dose Aspirin EC] 81 mg PO HS Discharge Medication List Ergocalciferol [Vitamin D2 (DRISDOL)] 50,000 unit PO WE 02/08/19 [History] Propranolol [Inderal] 20 mg PO TID PRN 10/06/21 [History] tiZANidine [Zanaflex] 4 mg PO TID PRN 12/01/21 [History] Amitriptyline HCl [Elavil] 100 mg PO HS 11/06/24 [History] Aspirin [Adult Low Dose Aspirin EC] 81 mg PO HS 11/06/24 [History] Famotidine 40 mg PO HS 11/06/24 [History] Losartan Potassium 100 mg PO QAM 11/06/24 [History] hydroCHLOROthiazide 25 mg PO QAM 11/06/24 [History] Sucralfate [Carafate] 1 gm PO BID #30 tablet 11/07/24 [Rx] Follow up Appointment(s)/Referral(s): Georgie Ventura MD [STAFF PHYSICIAN] - 11/26/24 4:30 pm Patient Instructions/Handouts: Proctitis (DC), Peptic Ulcer (DC) Activity/Diet/Wound Care/Special Instructions: Colonoscopy in 5 years, 2030 Discharge Disposition: HOME SELF-CARE
[2024-11-07 12:48] VITALS: BP 97/70; PULSE 67; RESP 18
== END 2024-11-07 13:03 | disposition home or self-care (01) ==
LOC: ORWHC2ENDO 10:16
PROVIDERS: ATTEND Surgery Plastic and Reconstructive Surgery
DX: K59.09 Other constipation (principal); R13.10 Dysphagia, unspecified; K64.3 Fourth degree hemorrhoids; K62.89 Other specified diseases of anus and rectum; Z79.82 Long term (current) use of aspirin; K22.2 Esophageal obstruction; Z12.11 Encounter for screening for malignant neoplasm of colon; K29.50 Unspecified chronic gastritis without bleeding; K25.9 Gastric ulcer, unspecified as acute or chronic, without hemorrhage or perforation; Z98.84 Bariatric surgery status; I10 Essential (primary) hypertension; Z87.891 Personal history of nicotine dependence
CPT/HCPCS: 45378; 43239; 43248; J2003; J2704; 88305; 88342